=== PATIENT | male | born 1965 | race Asian ===

== ENCOUNTER 2016-09-15 08:07 | Inpatient (IN) | payer OTHER ==
[~2016-09-15] VITALS: Ht 172.7 cm; Wt 68.0 kg
[2016-09-15] VITALS (13 sets, daily range): BP systolic 104–131; BP diastolic 62–91; PULSE 81–100; RESP 14–16; TEMP 98–99.3; O2SAT 100
[~2016-09-15 08:07] MED LIST: ACET650S22 GT; ALBMDI INH; ASCO500T20 GT; ATOR20TA64 GT; ATRMDI INH; HYDR-1189 GT; INSU100V SQ; LEVE500T13 GT; PANT40SU2 GT; ZIN220 GT
--- NOTE | 2016-09-15 08:07 | NUR ---
PLACED IN BED 8, TRIAGED AT BEDSIDE
--- NOTE | 2016-09-15 08:08 | NUR ---
Pt brought in by ALS sent by for evalaution of anemia. Pt h/o vent dependent,quadriplegia s/p spinal injury,contractures,htn,ESRD.Pt has GT, baseline nonverbal,responsive to tactile stimuli.
--- NOTE | 2016-09-15 08:10 | NUR ---
ER at bedside examining patient.
[2016-09-15] MEDS ORDERED: ACETAMINOPHEN GT (08:54)
[2016-09-15] MEDS ORDERED: TYLENOL 160 MG/5 ML GT (08:54)
[2016-09-15] MEDS ORDERED: INSU100V (09:05)
[2016-09-15] MEDS ORDERED: FOLI-43 GT (09:05)
[2016-09-15] MEDS ORDERED: LIDOCAINE HCL NEB (09:05)
[2016-09-15 09:11] LABS: MEAN CORPUSCULAR HEMOGLOBIN 28 pg (27-31); MEAN CORPUSCULAR HGB CONC 32 % (32-36); MEAN CORPUSCULAR VOLUME 87 fL (79.0-98.0); PLATELET COUNT (AUTO) 197 K/uL (130-430); RED BLOOD CELL COUNT(AUTO) 2.11 MIL/uL (4.2-6.2); RED CELL DISTRIBUTION WIDTH 14.8 % (9.0-15.0); WHITE BLOOD COUNT (AUTO) 13.4 K/uL (4.8-10.8)
--- NOTE | 2016-09-15 09:11 | NUR ---
Telemetry strip printed, interpreted as SINUS RHYTHM at 98 bpm, and placed on the chart.
--- NOTE | 2016-09-15 09:16 | NUR ---
Patient will be admitted to care of . Admitted to Telemetry unit. Will go to room 110A. Belongings list completed. Summary report printed. Report given to Admission RN.
--- NOTE | 2016-09-15 09:23 | NUR ---
patient placed on vent with current settings of AC 16 450 +5 30% verbalized by EMT staff at bedside, no resp distress ntd on curnt setngs. sputum induction done
[2016-09-15 09:30] LABS: HEMOGLOBIN 5.9 g/dL (14.0-18.0)
[2016-09-15 09:31] LABS: HEMATOCRIT 18.4 % (36-54)
[2016-09-15 09:43] LABS: ALBUMIN 2.3 g/dL (3.4-4.8); CALCIUM 9.6 mg/dL (8.4-11.0); POTASSIUM 5.2 mmol/L (3.5-5.1); TOTAL BILIRUBIN 0.5 mg/dL (0.0-1.0); TOTAL PROTEIN, SERUM 8.1 g/dL (6.4-8.3)
--- NOTE | 2016-09-15 09:45 | NUR ---
INITIAL NOTE Late entry due to patient care. Report received by BRADY Baker at bedside. Patient received, non verbal. Trach to vent. Vent settings noted. No acute distress or SOB noted at this time. environmental monitoring technician in place, rhythm noted. IV site patent and intact. Plan of care unable to be discussed due to patients mental status, no family at bedside. Safety and fall precautions in place, Will continue to monitor.
[2016-09-15 10:42] LABS: ATYPICAL LYMPHOCYTES % 0 % (0-0); BAND % (MANUAL) 0 % (0-6); BASOPHILS % (MANUAL) 0 % (0-2); EOSINOPHILS % (MANUAL) 3 % (0-7); LYMPHOCYTES % (MANUAL) 7 % (20-46); MONOCYTES % (MANUAL) 9 % (0-11)
[2016-09-15 10:45] LABS: CREATININE 9.38 mg/dL (0.55-1.30)
[2016-09-15] MEDS ORDERED: IPRATROPIUM BROMIDE 17 mCg/ACTUATION, 12.9 GM AER.W.ADAP INH PRN (10:45)
[2016-09-15] MEDS ORDERED: ZOLPIDEM TARTRATE 5 MG TABLET PO PRN (10:45)
[2016-09-15] MEDS ORDERED: MORPHINE 2 MG/ML INJ. SYRINGE IVP PRN (10:45)
[2016-09-15] MEDS ORDERED: HYDROcodone/ACETAMIN 5-325 MG TAB (NORCO/ VICODIN) GT PRN (10:45)
[2016-09-15] MEDS ORDERED: ALBUTEROL MDI INHALATION 8 GM INH INH PRN (10:45)
[2016-09-15] MEDS ORDERED: ONDANSETRON HCL 4 MG/2 ML VIAL IVP PRN (10:45)
[2016-09-15] MEDS ORDERED: MAGNESIUM SULFATE 50 ML IV PRN (10:45)
[2016-09-15] MEDS ORDERED: DOCUSATE SODIUM 100 MG CAPSULE PO PRN (10:45)
[2016-09-15] MEDS ORDERED: ACETAMINOPHEN 325 MG TABLET PO PRN (10:45)
[2016-09-15] MEDS ORDERED: POTASSIUM CHLORIDE 10 MEQ TAB.PRT.SR GT PRN (10:45)
[2016-09-15] MEDS ORDERED: DEXTROSE 50% JECT 50 ML DISP.SYRIN IVP PRN (10:45)
[2016-09-15] MEDS ORDERED: LORazepam 2 MG/ML VIAL IVP PRN (10:45)
--- NOTE | 2016-09-15 10:58 | NUR ---
CRITICAL Dr. Turpin aware of patients critical lab value. BUN 197 / SUPERVISING BAILIFF 9.6. Orders received.
--- NOTE | 2016-09-15 11:24 | NUR ---
CONSULTS NEPHROLOGY CONSULT Spoke with Bertha regarding request for consultation with Dr. Aleman ([phone]) for reason: ESRD. PULMONARY CONSULT Spoke with Maricarmen regarding request for consultation with Dr. Buckley ([phone]) for reason: respiratory failure.
[2016-09-15] MEDS ORDERED: ALBUTEROL MDI INHALATION 8 GM INH INH SCH (12:00)
[2016-09-15] MEDS ORDERED: IPRATROPIUM BROMIDE 17 mCg/ACTUATION, 12.9 GM AER.W.ADAP INH SCH (12:00)
--- NOTE | 2016-09-15 12:23 | NUR ---
ROUNDS Patient repositioned with pillow support. Respirations even and unlabored. No pain indications at this time. Safety and fall precautions in place. Will continue to monitor.
[2016-09-15] MEDS ORDERED: IPRATROPIUM/ALBUTEROL SULFATE 3 ML AMPUL.NEB INH PRN (13:00)
--- NOTE | 2016-09-15 14:51 | NUR ---
ROUNDS Patient repositioned with pillow support. at bedside. No acute distress noted at this time. VSS. Safety and fall precautions in place, call light within reach. Will continue to monitor.
--- NOTE | 2016-09-15 19:03 | NUR ---
CLOSING NOTE Patient repositioned with pillow support. Trach to vent, settings noted. IV site patent and intact. GTF infusing as ordered, tolerated well 5ml residuals noted. All needs met throughout shift. Safety and fall precautions in place, will endorse to next shift.
[2016-09-15] MEDS: IPRATROPIUM/ALBUTEROL SULFATE 3 ML AMPUL.NEB INH SCH (19:48)
--- NOTE | 2016-09-15 20:00 | NUR ---
PM Assessment Received pt awake, nonverbal. Pt on mechanical ventilation, vent settings: AV 16, TV 450, Peep 5, Fio2 30%, pt tolerating current vent settings well. Pt suctioned as needed, with loose blood tinged sputum. Pt has Fredo catheter to left thigh, scheduled for hemodialysis tonight. G-tube infusing Diabetisource @ 50 ml/hr, 0 residuals noted. G-tube dressing site noted to have small amount of dried blood, will continue to monitor dressing site. Repositioned pt with pillow support with heel lifts boots in place.
[2016-09-15] MEDS: ATORVASTATIN 10 MG TABLET GT SCH (20:27)
[2016-09-15] MEDS: levETIRAcetam 500 MG TABLET GT SCH (20:27)
--- NOTE | 2016-09-15 22:03 | NUR ---
RN rounds Hemodialysis nurse at bedside, lab notified to call when 2 units PRBC ready to be transfused with dialysis. Pt in no respiratory distress, will continue to closely monitor.
--- NOTE | 2016-09-15 22:22 | NUR ---
MD HARRISON CALLED [facility] AT [phone]BHASIN CARMELITA ANALYSIS TESTER.
--- NOTE | 2016-09-15 22:35 | NUR ---
BT INITIATION: Consent signed per patient's agreeing to administration of blood. Blood has been type and crossmatched. Blood sent from blood bank. Information on unit of blood checked against patient wristband at bedside by two nurses. All information matches. Patient or responsible green party informed of potential complications associated with blood transfusion. Informed of possible transfusion reaction symptoms. Aware of need to notify nurse at once of itching, shortness of breath, flushing, feeling of impending doom, or other symptoms not previously present. Vital signs taken within 5 minutes prior to initiation of transfusion. logistic specialist will remain with patient for first 15 minutes of transfusion at which time vital signs will be re-assessed. First unit of blood will be given with hemodialysis.
--- NOTE | 2016-09-15 22:46 | NUR ---
2ND CALL OUT TO MD CALLED [facility] AT [phone]BHASIN SHAHAB WET AND DRY SUGAR BIN OPERATOR.
[2016-09-15] MEDS ORDERED: HEPARIN IV FLUSH 300 UNITS/3ML SYR INJ ONE (22:55)
[2016-09-15] MEDS ORDERED: HEPARIN SODIUM,PORCINE 5000 UNITS/ML VIAL ONE (23:16)
[2016-09-16] VITALS (18 sets, daily range): BP systolic 98–120; BP diastolic 61–74; PULSE 78–104; RESP 16–20; TEMP 97.6–99; O2SAT 98–100
--- NOTE | 2016-09-16 00:38 | NUR ---
RN Rounds Hemodialysis finished at this time, removed 2L. Pt in stable condition. Will continue to monitor.
[2016-09-16] MEDS: IPRATROPIUM/ALBUTEROL SULFATE 3 ML AMPUL.NEB INH SCH ×4 (00:45→20:02)
--- NOTE | 2016-09-16 02:15 | NUR ---
Second unit BT Second unit of blood begun at this time, VSS. Blood check with two nurses at the patients bedside. Will remain with patient for 15 minutes.
--- NOTE | 2016-09-16 04:30 | NUR ---
RN Rounds Blood transfusion ongoing, pt resting with eyes closed. No s/s of acute distress noted. Fall precautions in place, will continue to monitor.
--- NOTE | 2016-09-16 07:31 | NUR ---
Closing notes Pt resting in bed, no s/s of acute distress noted. Endorse care to day shift nurse.
--- NOTE | 2016-09-16 07:35 | NUR ---
am rounds; patient closed eyes. on trach vent,fio2-30%,good saturation.on air loss mattress bed. with left chest iv saline lock intact. with left femoral kirstin catheter,dressing dry and intact.gtube feeds on going,dressing dry and intact. with optifoam dressing at sacral area and left buttocks area,dry and in placed. sinus rhythm on the monitor.
[2016-09-16 09:14] LABS: BASOPHILS % (AUTO) 0.3 % (0.0-2.0); EOSINOPHILS # (AUTO) 0.2 K/uL (0.0-0.4); EOSINOPHILS % (AUTO) 2.2 % (0.0-4.0); HEMATOCRIT 25.3 % (36-54); HEMOGLOBIN 8.4 g/dL (14.0-18.0); LYMPHOCYTES # (AUTO) 0.9 K/uL (1.0-5.5); LYMPHOCYTES % (AUTO) 8.2 % (20.5-51.5); MEAN CORPUSCULAR HEMOGLOBIN 29 pg (27-31); MEAN CORPUSCULAR HGB CONC 33 % (32-36); MEAN CORPUSCULAR VOLUME 87 fL (79.0-98.0); MONOCYTES # (AUTO) 1.1 K/uL (0.0-1.0); MONOCYTES % (AUTO) 10.1 % (1.7-9.3); NEUTROPHILS # (AUTO) 8.7 K/uL (1.8-7.7); NEUTROPHILS % (AUTO) 79.2 % (40.0-70.0); PLATELET COUNT (AUTO) 187 K/uL (130-430); RED BLOOD CELL COUNT(AUTO) 2.92 MIL/uL (4.2-6.2); RED CELL DISTRIBUTION WIDTH 14.9 % (9.0-15.0); WHITE BLOOD COUNT (AUTO) 10.9 K/uL (4.8-10.8)
[2016-09-16] MEDS: FOLIC ACID 1 MG TABLET GT SCH (09:19)
[2016-09-16] MEDS: levETIRAcetam 500 MG TABLET GT SCH ×2 (09:19→22:03)
--- NOTE | 2016-09-16 09:29 | NUR ---
meds/gtube: with minimal residuals noted prior to giving meds. well tolerated po crushed meds.
--- NOTE | 2016-09-16 09:44 | NUR ---
Nutrition Update Brady Scale 14 noted. Pt admitted for severe anemia. Diet: Diabetisource AC at 50 ml/hr, Free Water Flush: 150 via G-tube BMI: 22.8 kg/m2 RD to follow per nutrition care standards.
[2016-09-16 09:52] LABS: CREATININE 7.1 mg/dL (0.55-1.30); POTASSIUM 4.6 mmol/L (3.5-5.1)
--- NOTE | 2016-09-16 11:12 | NUR ---
blood sugar: blood sugar taken,no insulin coverage per sliding scale.
--- NOTE | 2016-09-16 12:05 | NUR ---
ROUNDS: WITH SAME VENT SETTINGS,FIO2=30%.GOOD SATURATION.WELL TOLERATED. GTUBE FEEDS ON GOING. STABLE .
--- NOTE | 2016-09-16 14:40 | NUR ---
ROUNDS: AWAKE BUT NON VERBAL,NO RESPONSE TO VERBAL COMMAND.FIO2=30%,GOOD SATURATION. GTUBE FEEDS ON GOING. CONTINUE TO MONITOR.
--- NOTE | 2016-09-16 16:31 | NUR ---
ROUNDS; STILL WITH SAME VENT SETTINGS,FIO2=30%,O2 SATURATIONS=99-100%. WITH GTUBE FEEDS ON GOING AND IN PLACED.
--- NOTE | 2016-09-16 17:25 | NUR ---
BLOOD SUGAR: BLOOD SUGAR TAKEN,NO INSULIN COVERAGE PER SLIDING SCALE.
--- NOTE | 2016-09-16 18:37 | NUR ---
CLOSING NOTES: PATIENT AWAKE,NON VERBAL. QUADRIPLEGIC. GTUBE FEEDS ON GOING. WITH SAME VENT SETTINGS.FIO2=30%. O2 SATURATION=99-100%. NO DISTRESS. LEFT FEMORAL TAMIKA CATHETER IN PLACED,DRESSING DRY AND INTACT.CONTINUE TO MONITOR.
--- NOTE | 2016-09-16 19:15 | NUR ---
change of shift.pt.presents challenge.ventitator dependent.per report the vent setting correspond 2 the recent settings. g-tube feed.pt.2 submit 2 hemo dialysis therapy 2 night.call light placed w/in pt's reach.
--- NOTE | 2016-09-16 19:45 | NUR ---
pt.assessed.v/s assessed.ventilator settings reviewed.g-tube feed,g-tube site assessed.g-tube residual assessed. call light w/in pt's reach.
--- NOTE | 2016-09-16 20:00 | NUR ---
pt.assessed.pt.repositioned,pt.suctioned.call light w/in pt's reach.
--- NOTE | 2016-09-16 21:00 | NUR ---
pt.assessed.pt.suctioned.210p medications administered.call light placed w/in pt's reach.
--- NOTE | 2016-09-16 22:00 | NUR ---
pt.assessed.pt.suctioned.pt.repositioned.call light w/in pt's reach.
[2016-09-16] MEDS: ATORVASTATIN 10 MG TABLET GT SCH (22:03)
--- NOTE | 2016-09-16 23:15 | NUR ---
pt.assessed.hemo dialysis nsg arrival.hemo dialysis therapy 2 b initiated.call light w/in pt's reach.assisted the h/d nsg repoisition pt.4 to facilitate acces to central line:hemo dialysis access:
[2016-09-17] VITALS (17 sets, daily range): BP systolic 94–111; BP diastolic 67–77; PULSE 82–111; RESP 16–22; TEMP 97.4–100.5; O2SAT 99–100; Ht 172.7 cm; Wt 68.0 kg
--- NOTE | 2016-09-17 | NUR ---
pt.assessed.pt.presents stable status.hemo dialysis in progress.call light w/in pt's reach.h/d nsg presents no request/ assistance @this hour.
[2016-09-17] MEDS: IPRATROPIUM/ALBUTEROL SULFATE 3 ML AMPUL.NEB INH SCH ×3 (01:00→21:48)
--- NOTE | 2016-09-17 01:00 | NUR ---
pt.assessed.pt.presents stable status.hemo dialysis in progress.call light w/in pt's reach.
--- NOTE | 2016-09-17 02:00 | NUR ---
pt.assessed.hemo dialysis therapy completed:3-litres removed/exchange.v/s stable.temp@ 0100a ws elevated;101 @this hour is 98.8.g-tube feeding resumed.pt.repositioned.pt.suctioned.call light w/in pt's reach.
--- NOTE | 2016-09-17 02:25 | NUR ---
pt.assessed.i have attempted 2 weight the pt.per bed scale.the scale is non functional.call light placed w/in pt's reach.
--- NOTE | 2016-09-17 04:00 | NUR ---
pt.assessed.v/s assessed.vent settings reviewed.g-tube feeding assessed.pt.repositioned.pt.suctioned.call light palced w/in pt's reach. Addendum: 09/17/16 at 0415 by J Carlos Morris RN v/s values w/in normal limits:note temp.
--- NOTE | 2016-09-17 08:00 | NUR ---
INITIAL NOTE PT LYING IN BED, EYES CLOSED, AROUSES TO STIMULI, VENT DEPENDENT SETTING TV 450, FIO2 30 PEEP5 PSV 10, VSS STABLE AT THIS TIME, TEMPERATURE NOTED TO BE 98.5, SINUS RHYTHM ON TELEMONITOR, GTUBE IN L=PLACE AND INFUSING DIABETIC SOURCE AT 50CC, SAFETY MEASURES IN PLACE, BED IN LOW POSITION, WILL FOLLOW UP
[2016-09-17 08:13] LABS: BASOPHILS % (AUTO) 0.4 % (0.0-2.0); EOSINOPHILS # (AUTO) 0.2 K/uL (0.0-0.4); EOSINOPHILS % (AUTO) 2.4 % (0.0-4.0); HEMATOCRIT 26.6 % (36-54); HEMOGLOBIN 8.6 g/dL (14.0-18.0); LYMPHOCYTES # (AUTO) 0.9 K/uL (1.0-5.5); LYMPHOCYTES % (AUTO) 8.6 % (20.5-51.5); MEAN CORPUSCULAR HEMOGLOBIN 29 pg (27-31); MEAN CORPUSCULAR HGB CONC 33 % (32-36); MEAN CORPUSCULAR VOLUME 88 fL (79.0-98.0); MONOCYTES # (AUTO) 1.1 K/uL (0.0-1.0); MONOCYTES % (AUTO) 10.7 % (1.7-9.3); NEUTROPHILS # (AUTO) 8.2 K/uL (1.8-7.7); NEUTROPHILS % (AUTO) 77.9 % (40.0-70.0); PLATELET COUNT (AUTO) 179 K/uL (130-430); RED BLOOD CELL COUNT(AUTO) 3.01 MIL/uL (4.2-6.2); WHITE BLOOD COUNT (AUTO) 10.4 K/uL (4.8-10.8)
[2016-09-17] MEDS: FOLIC ACID 1 MG TABLET GT SCH (08:30)
[2016-09-17] MEDS: levETIRAcetam 500 MG TABLET GT SCH ×2 (08:30→20:40)
[2016-09-17 08:43] LABS: CALCIUM 9.7 mg/dL (8.4-11.0); CREATININE 5.64 mg/dL (0.55-1.30); POTASSIUM 4.5 mmol/L (3.5-5.1)
--- NOTE | 2016-09-17 10:00 | NUR ---
ROUNDS PT LYING IN BED, NO S/S OF DISTRESS, PT CLEANED AND REPOSITIONED WITH AID OF MARKETING CAMPAIGN ANALYST, GTUBE DRESSING CHANGED, RESIDUAL AMOUNT 15CC NOTED, REPLACED AND FLUSHED WITH 500CC H2O, SAFETY MEASURES IN PLACE, CALL LIGHT WITHIN REACH, SIDE RAILS UP, WILL FOLLOW UP
--- NOTE | 2016-09-17 11:30 | NUR ---
Wound Evaluation: Late note for 1130 secondary to patient care. Wound consult orders received from Dr. Turpin. Thank you, Dr. Turpin, for the consult. Patient received in a Hill-ROM bed with a low air-loss mattress, awake, non-verbal, non-responsive to verbal commands. Brady score is an 11. Skin is in poor condition. Patient is unable to turn in bed independently. Past Medical History: Spinal Cord Injury with resulting Quadriplegia, Ventilator dependent, Dialysis dependent, Chronic Respiratory Failure, Dysphagia, End-Stage Renal Disease, G-Tube placement, and Tracheostomy. Recent labs: WBC 10.4, RBC 3.01, Hgb 8.6, Hct 26.6, BUN 89, Creat 5.64, GFR 11, Gluc 115, Mg 2.5, Alb 2.3. Intrinsic factors that delay wound healing: Chronic Respiratory Failure, End-Stage Renal Disease, and Hypoalbuminemia. Extrinsic factors that delay wound healing: Immobility. MRSA Screen results negative. Blood Culture x 2 in progress. Wound Assessment: 1) Left Sacral Area: Appears to be non-intact skin over scar tissue, present on admission. Wound bed is 70% red tissue, 30% dark discolor. No odor, no drainage. Deidra-wound and surrounding tissue has scar tissue. Measures 7.0 cm x 4.6 cm. 2) Left Posterior Proximal Thigh: Appears to be non-intact skin over scar tissue, present on admission. Wound bed is 80% dark red tissue, 20% pink tissue, with dry, flaky skin. No odor, no drainage. Deidra-wound and surrounding tissue has scar tissue. Measures 1.5 cm x 1.5 cm. Recommend: Cleanse wounds with normal saline. Put moisture barrier cream onto wounds and deidra-wounds. Put Hydrogel onto any portion of wound beds not covered by moisture barrier cream. Cover with foam dressings. Perform wound care daily, and as needed for dressing soiling or dislodgment. 3) Right Buttock: Scar tissue, present on admission. No odor, no drainage. Recommend: Cleanse site with mild soap and water. Pat dry. Put moisture barrier cream onto site. Cover with foam dressing. Perform site care daily, and as needed for dressing soiling or dislodgment. 4) Left Ear, in Helical Fold: Appears to be a moisture associated wound. 100% pink tissue. No odor, scant sanguineous drainage. Deidra-wound intact. Measures 1.2 cm x 0.2 cm. Recommend: Cleanse site with normal saline. Put SurePrep onto deidra-site. Put oil emulsion onto site, then non-adherent pad (both cut to size). Cover with transparent dressing. Perform site care daily, and as needed for dressing soiling or dislodgment. 5) Left Medial Heel: 6) Right Foot, Lateral Border: Blanchable redness, present on admission. No odor, no drainage. Recommend: No dressings needed. Continue to monitor sites for opening or worsening condition. Also recommend: Reposition patient side to side only every two hours with pillow support, and off-load pressure areas with pillows for pressure re-distribution. Perform skin care and monitor skin integrity q shift. Use moisture barrier cream on deidra, buttocks, and other moisture susceptible areas qid and as needed for soiling. Elevate, offload, and float bilateral heels and elbows with pillows. Maintain patient on a low air-loss mattress.
--- NOTE | 2016-09-17 12:00 | NUR ---
WOUND CARE PERFORMED AFTER CONSULT WITH GUILLERMO, WOUND CARE NURSE. DRESSING TO SACRAL AREA CHANGED, CLEANSED WITH NORMAL SALINE, PAT DRY, APPLIED ZGUARD AND HYDROGEL TO OPEN AREAS, COVERED WITH FOAM DRESSING LEFT THIGH WOUND, CLEANSED WITH NORMAL SALINE, PAT DRY, APPLIED ZGUARD TO SURROUNDING TISSUE AND HYDROGEL TO OPEN AREA, COVERED WITH FOAM DRESSING.
--- NOTE | 2016-09-17 14:00 | NUR ---
DRESSING CHANGED TO LEFT FEMORAL EMILY CATH INSERTION SITE WAS EXPOSED, DRESSING WAS SOILED. DRESSING CHANGED USING STERILE TECHNIQUE, REDNESS NOTED AT INSERTION SITE, NO DRAINAGE OR ODOR NOTED. PT REPOSITIONED AND PROVIDED PILLOW SUPPORT. VSS, NO S/S OF DISTRESS NOTED.
[2016-09-17] MEDS ORDERED: ZOLPIDEM TARTRATE 5 MG TABLET GT PRN (14:54)
[2016-09-17] MEDS ORDERED: ACETAMINOPHEN 650 MG/20.3 ML UDC GT PRN (15:00)
--- NOTE | 2016-09-17 16:00 | NUR ---
ROUNDS PT LYING IN BED, NO S/S OF DISTRESS, PT SUCTIONED PRN, VSS, PT REPOSITIONED, SAFETY MEASURES IN PLACE, BED IN LOW POSITION, CALL LIGHT WITHIN REACH, WILL FOLLOW UP.
--- NOTE | 2016-09-17 18:00 | NUR ---
CLOSING NOTE PT LYING IN BED, NO S/S OF DISTRESS, VSS, GAVE PT COLACE PRN DUE TO NO BOWEL MOVEMENT, WILL ENDORSE TO FOLLOWING SHIFT TO GET STOOL SAMPLE, GTUBE FEEDING CHANGED NOVASOURCE RENAL AT 40CC, ORDER NOTED AND FEEDING CHANGED, VENT SETTING MAINTAINED THROUGH SHIFT, SAFETY PRECAUTIONS MAINTAINED THROUGH SHIFT, BED IN LOW POSITION, CALL LIGHT WITHIN REACH, WILL GIVE REPORT TO ONCOMING SHIFT.
[2016-09-17] MEDS: DOCUSATE SODIUM 100 MG/10 ML UDC GT PRN (18:13)
--- NOTE | 2016-09-17 20:00 | NUR ---
NOTES; Pt is in bed, eyes open, nonverbal, responsive to touch. No acute distress noted. Pt is on trach to vent, settings noted. Pt tolerating vent settings well. IV site to the chest wall noted. RN covering assessed line patent and intact. Ordered G-Tube Feeding infusing well. 20ml residual noted. Wound to the sacral and left buttocks with dressing clean,dry, and intact. pt is contacted to lluvia lower ext. pillow support in place. Pt is on air mattress. Fall and aspiration in place, Safety measures in progress. Bed locked and in low position. side rails up x3. Head of bed elevated to prevent pt from aspirating. Call light within reach. will endorse to next shift.
[2016-09-17] MEDS: ATORVASTATIN 10 MG TABLET GT SCH (20:40)
--- NOTE | 2016-09-17 22:30 | NUR ---
NOTES; Trach suction and mouth care provided, repositioned with pillow support. Pt is tolerating vent settings and g-tube feeding well. No residual noted. No pain indications at this time. Safety measures, aspiration and fall precautions in place. Will continue to monitor.
[2016-09-18] VITALS (20 sets, daily range): BP systolic 98–112; BP diastolic 58–82; PULSE 85–117; RESP 17–20; TEMP 97.9–99.8; O2SAT 96–100
--- NOTE | 2016-09-18 | NUR ---
NOTES; INCONTINENT FOR LARGE FORMED STOOL. TOTAL BED BATH/CHG BATH GIVEN. BABAR CARE PROVIDED. SACRAL AND LEFT BUTTOCKS WOUND SOILED, DRESSING REMOVED. CLEANSE WOUND SITE WITH NS. HYDROGEL TO WOUND BASE, Z-GUARD TO BABAR WOUND AND APPLIED FOAM DRESSING. REPOSITIONED. SAFETY MEASURES AND ASPIRATION PRECAUTION IN PROGRESS.
--- NOTE | 2016-09-18 02:00 | NUR ---
NOTES; Patient repositioned with pillow support. Pt is tolerating vent settings well. No pain indications at this time. Safety and fall precautions in place. Will continue to monitor.
[2016-09-18] MEDS: INSULIN ASPART 100 UNITS/ML, 10 ML VIAL (NovoLOG) SUBCUT PRN ×2 (05:54→17:05)
--- NOTE | 2016-09-18 05:57 | NUR ---
NOTES; BLOOD SUGAR FOUND TO BE 181. INSULIN ADMINISTERED PER SLIDING SCALE ORDER.WILL CONTINUE TO MONITOR.
[2016-09-18 07:16] LABS: CALCIUM 9.7 mg/dL (8.4-11.0); POTASSIUM 4.8 mmol/L (3.5-5.1)
[2016-09-18 07:20] LABS: BASOPHILS % (AUTO) 0.3 % (0.0-2.0); EOSINOPHILS # (AUTO) 0.4 K/uL (0.0-0.4); EOSINOPHILS % (AUTO) 2.6 % (0.0-4.0); HEMATOCRIT 24.4 % (36-54); HEMOGLOBIN 8.2 g/dL (14.0-18.0); LYMPHOCYTES # (AUTO) 0.7 K/uL (1.0-5.5); LYMPHOCYTES % (AUTO) 5.1 % (20.5-51.5); MEAN CORPUSCULAR HEMOGLOBIN 29 pg (27-31); MEAN CORPUSCULAR HGB CONC 34 % (32-36); MEAN CORPUSCULAR VOLUME 87 fL (79.0-98.0); MONOCYTES # (AUTO) 1.1 K/uL (0.0-1.0); MONOCYTES % (AUTO) 7.7 % (1.7-9.3); NEUTROPHILS # (AUTO) 12.3 K/uL (1.8-7.7); NEUTROPHILS % (AUTO) 84.3 % (40.0-70.0); PLATELET COUNT (AUTO) 196 K/uL (130-430); RED CELL DISTRIBUTION WIDTH 14.5 % (9.0-15.0)
[2016-09-18 07:28] LABS: WHITE BLOOD COUNT (AUTO) 14.5 K/uL (4.8-10.8)
[2016-09-18] MEDS: IPRATROPIUM/ALBUTEROL SULFATE 3 ML AMPUL.NEB INH SCH ×3 (07:44→23:37)
--- NOTE | 2016-09-18 07:45 | NUR ---
INITIAL NOTE PT IN BED, APPEARS TO BE SLEEPING, NONVERBAL, RESPONSIVE TO TOUCH, NO S/S OF DISTRESS NOTED, PT HAS TRACH IN ON VENTILATOR, SETTINGS NOTED. IV SITE TO LEFT CHEST WALL SALINE LOCK, DRESSING CLEAN AND INTACT. GTUBE IN PLACE, NO RESIDUAL NOTED. DRESSING NOTED TO SACRUM AND LEFT THIGH CLEAN, DRY AND INTACT. LEFT FEMORAL IV ACCESS NOTED, DRESSING CLEAN DRY AND INTACT. PILLOW SUPPORT IN PLACE, SAFETY AND ASPIRATION PRECAUTIONS IN PLACE, VSS, WILL FOLLOW UP.
[2016-09-18 07:47] LABS: CREATININE 7.96 mg/dL (0.55-1.30)
--- NOTE | 2016-09-18 08:05 | NUR ---
DR QUIJANO RETURNED PAGE, REPORTED CRITICAL LAB VALUES OF BUN 125, CR 7.96. RECEIVED NEW ORDERS TO SCHEDULE DIALYSIS FOR TODAY. ORDERS NOTED AND CARRIED OUT. WILL FOLLOW UP.
[2016-09-18] MEDS: levETIRAcetam 500 MG TABLET GT SCH ×2 (08:52→22:23)
[2016-09-18] MEDS: DOCUSATE SODIUM 100 MG/10 ML UDC GT PRN (08:52)
[2016-09-18] MEDS: FOLIC ACID 1 MG TABLET GT SCH (08:52)
[2016-09-18] MEDS ORDERED: BISACODYL 10 MG/SUPPOSITORY RC ONE (09:15)
--- NOTE | 2016-09-18 10:00 | NUR ---
PROVIDED ORAL CARE AND SUCTIONING, PT REPOSITIONED TO OPPOSITE SIDE WITH PILLOW SUPPORT. SAFETY MEASURES IN PLACE, BED IN LOW POSITION AND LOCKED, WILL FOLLOW UP.
--- NOTE | 2016-09-18 12:06 | NUR ---
DISCHARGE PLANNING Faxed referral to [phone] for possible weekend discharge. Will follow up. Placed transportation packet in nurses station. Any ambulance can be arranged for CCT (Trach Vent) transport.
--- NOTE | 2016-09-18 12:06 | NUR ---
ROUNDS PT REPOSITIONED WITH PILLOW SUPPORT TO LOWER EXTREMITIES, PROVIDED ORAL AND TRACHEAL SUCTIONING, ADMINISTERED PRN SUPPOSITORY, PT TOLERATED WELL, SAFETY AND FALL PRECAUTIONS IN PLACE, BED IN LOW POSITION, CALL LIGHT WITH IN REACH.
[2016-09-18 12:08] LABS: HEPATITIS A AB, IgM Negative (Negative); HEPATITIS B CORE AB, IgM Negative (Negative); HEPATITIS B SURFACE AG Negative (Negative)
--- NOTE | 2016-09-18 13:49 | NUR ---
ROUNDS PT LYING IN BED, NO S/S OF DISTRESS NOTED, AWAKE, EYES OPEN, SAFETY MEASURES IN PLACE, BED IN LOW POSITION, WILL FOLLOW UP.
--- NOTE | 2016-09-18 14:33 | NUR ---
PT HAD BOWEL MOVEMENT, SAMPLE TAKEN TO LAB, PT CLEANED. WOUND CARE PROVIDED DUE TO SOILED DRESSINGS, WOUNDS CLEANSED WITH NORMAL SALINE, PAT DRY, COVERED WITH ZGUARD, HYDROGEL APPLIED TO OPEN AREAS, COVERED WITH FOAM DRESSING. LEFT GROIN ACCESS SURROUNDING AREA CLEANSED WITH HCG WIPES. DRESSING CLEAN AND INTACT. PT REPOSITIONED, SAFETY MEASURES IN PLACE, RT AT BEDSIDE FOR BREATHING TREATMENT.
--- NOTE | 2016-09-18 16:00 | NUR ---
Call from steel pickler. She will be hear at 1700 for dialysis. She asked for the HD order and CBC and CMP to be printed out and placed in chart.
--- NOTE | 2016-09-18 17:00 | NUR ---
ACCUCHECK 160, 2 UNITS NOVOLOG GIVEN PER INSULIN SLIDING SCALE. PT REPOSITIONED, NO S/S OF DISTRESS, VSS, SAFETY MEASURE IN PLACE, BED IN LOW POSITION, WILL FOLLOW UP
--- NOTE | 2016-09-18 18:11 | NUR ---
CLOSING NOTE PT LYING IN BED, NO S/S OF DISTRESS, VSS, IV TO LEFT CHEST WALL INTACT, VENT SETTING NOTED, PT TOLERATING WELL, SUCTIONED THROUGH SHIFT PRN, GTUBE INFUSING, NO RESIDUAL NOTED, DRESSING TO SACRUM AND LEFT POSTERIOR UPPER THIGH INTACT, CLEAN AND DRY. DRESSING LEFT EAR, CLEAN, DRY AND INTACT. PT REPOSITIONED WITH PILLOW SUPPORT TO BILATERAL LOWER EXTREMITIES. SAFETY AND FALL PRECAUTIONS MAINTAINED THROUGH SHIFT., BED IN LOW POSITION. CALL LIGHT WITHIN REACH. WILL GIVE REPORT TO FOLLOWING SHIFT.
--- NOTE | 2016-09-18 18:45 | NUR ---
DIALYSIS NURSE AT BEDSIDE, WILL ENDORSE TO FOLLOWING SHIFT.
--- NOTE | 2016-09-18 19:55 | NUR ---
paged for Dr Turpin,, dialed . s/w [facility].
--- NOTE | 2016-09-18 19:58 | NUR ---
NOTES; DR ALMONTE CALLED AND INFORMED ABOUT PT WBC OF 14.5 AND PT IS NOT ON ANY ANTIBIOTIC. STATED " I KNOW, I'M AWARE". CHARGE NURSE AND RN COVERING NOTIFIED.
--- NOTE | 2016-09-18 20:00 | NUR ---
NOTES; Pt is in bed, eyes open, nonverbal, responsive to touch. No acute distress noted. Pt is on trach to vent, settings noted. Pt tolerating vent settings well. Dialysis is ongoing. Dialysis nurse at bedside. IV site to the left chest wall noted. Dressing is clean,dry, and intact. Ordered G-Tube Feeding infusing well. No residual noted. Wound to the sacral and left buttocks with dressing clean,dry, and intact. pt is contacted to lluvia lower ext. pillow support in place. Pt is on air mattress. Fall and aspiration precaution in place. Safety measures in progress. Bed locked and in low position. side rails up x3. Head of bed elevated to prevent pt from aspirating. Call light within reach. Will continue to monitor.
--- NOTE | 2016-09-18 21:45 | NUR ---
NOTES; DIALYSIS IS COMPLETED. BP 112/82, HR 110. NO APPARENT DISTRESS NOTED. TRACH SUCTION AND MOUTH CARE PROVIDED. SAFETY MEASURES ANY ASPIRATION PRECAUTION IN PROGRESS.
[2016-09-18] MEDS: ATORVASTATIN 10 MG TABLET GT SCH (22:23)
--- NOTE | 2016-09-18 22:30 | NUR ---
NOTES; SCHEDULED PO MEDICATION ADMINISTERED VIA G-TUBE. PT TOLERATED MEDS WELL. BLOOD SUGAR FOUND TO BE 140. NO INSULIN NEEDED PER SLIDING SCALE ORDER.
[2016-09-19] VITALS (19 sets, daily range): BP systolic 90–115; BP diastolic 58–78; PULSE 93–116; RESP 16–20; TEMP 98.1–100.1; O2SAT 100
[2016-09-19] MEDS: IPRATROPIUM/ALBUTEROL SULFATE 3 ML AMPUL.NEB INH SCH ×4 (01:19→19:00)
--- NOTE | 2016-09-19 05:00 | NUR ---
NOTES; G-TUBE SIDE DRESSING REMOVED. CLEANSE SITE WITH NS. DRESSING APPLIED.
--- NOTE | 2016-09-19 06:47 | NUR ---
NOTES; BLOOD SUGAR FOUND TO BE 117. NO INSULIN NEEDED PER INSULIN SLIDING SCALE ORDER. TRACH SUCTIONING AND MOUTH CARE PROVIDED. ALL NEEDS ATTENDED TO. HEAD OF BED ELEVATED TO PREVENT PT FROM ASPIRATING. SAFETY MEASURES MAINTANED. FALL PRECAUTION IN PROGRESS. WILL CONTINUE TO MONITOR.
[2016-09-19 07:17] LABS: CALCIUM 9.5 mg/dL (8.4-11.0); CREATININE 5.71 mg/dL (0.55-1.30); POTASSIUM 4.2 mmol/L (3.5-5.1)
[2016-09-19 07:24] LABS: BASOPHILS # (AUTO) 0.1 K/uL (0.0-0.2); BASOPHILS % (AUTO) 0.5 % (0.0-2.0); EOSINOPHILS # (AUTO) 0.3 K/uL (0.0-0.4); EOSINOPHILS % (AUTO) 2.4 % (0.0-4.0); HEMATOCRIT 24.8 % (36-54); HEMOGLOBIN 8.5 g/dL (14.0-18.0); LYMPHOCYTES # (AUTO) 0.7 K/uL (1.0-5.5); LYMPHOCYTES % (AUTO) 6.2 % (20.5-51.5); MEAN CORPUSCULAR HEMOGLOBIN 30 pg (27-31); MEAN CORPUSCULAR HGB CONC 34 % (32-36); MEAN CORPUSCULAR VOLUME 86 fL (79.0-98.0); MONOCYTES # (AUTO) 1.4 K/uL (0.0-1.0); MONOCYTES % (AUTO) 11.9 % (1.7-9.3); PLATELET COUNT (AUTO) 159 K/uL (130-430); RED BLOOD CELL COUNT(AUTO) 2.87 MIL/uL (4.2-6.2); RED CELL DISTRIBUTION WIDTH 14.5 % (9.0-15.0); WHITE BLOOD COUNT (AUTO) 11.5 K/uL (4.8-10.8)
--- NOTE | 2016-09-19 08:00 | NUR ---
INITIAL NOTE PT LYING IN BED, EYES OPEN, NONVERBAL, NO S/S OF DISTRESS NOTED, VENT SETTINGS NOTED. IV SITE TO LEFT CHEST SL DRESSING CLEAN DRY AND INTACT. GTUBE IN PLACE, RESIDUAL NOTED TO BE 150, FEEDING HELD AT THIS TIME, NOTED LEFT GROIN IV ACCES SITE, DRESSING CLEAN, DRY AND INTACT. PT POSITIONED WITH PILLOW SUPPORT TO LOWER EXTREMITIES, SAFETY AND FALL PRECAUTIONS IN PLACE, WILL FOLLOW UP.
[2016-09-19] MEDS: FOLIC ACID 1 MG TABLET GT SCH (08:52)
[2016-09-19] MEDS: levETIRAcetam 500 MG TABLET GT SCH ×2 (08:52→21:21)
--- NOTE | 2016-09-19 10:00 | NUR ---
ROUNDS PT REPOSITIONED WITH PILLOW SUPPORT TO LOWER EXTREMITIES, PT SUCTIONED VIA MOUTH AND TRACH, MODERATE SECRETIONS NOTED, ORAL HYGIENE PROVIDED, PT TOLERATED WELL, SAFETY AND ASPIRATION PRECAUTIONS IN PLACE, HOB ELEVATED, BED IN LOW POSITION, WILL FOLLOW UP.
--- NOTE | 2016-09-19 10:47 | NUR ---
DR ALMONTE MADE ROUNDS
[2016-09-19] MEDS: INSULIN ASPART 100 UNITS/ML, 10 ML VIAL (NovoLOG) SUBCUT PRN ×2 (11:51→21:20)
--- NOTE | 2016-09-19 11:53 | NUR ---
accucheck 153 covered with 2 units insulin per sliding scale
--- NOTE | 2016-09-19 12:59 | NUR ---
GTUBE FEEDING CONTINUED, NO RESIDUAL NOTED, FLUSHED WITH 150CC WATER
--- NOTE | 2016-09-19 16:00 | NUR ---
Wound Care to sacrum and left buttock Wounds cleansed with normal saline, pat dry, applied zguard, covered with foam dressing. pt tolerated well. Pt repositioned to opposite side with pillow support and suctioned via trach and mouth, moderate secretions noted, safety measures in place, bed in low position, will continue to monitor.
--- NOTE | 2016-09-19 17:09 | NUR ---
CM DC PLANNING: REC'D MD ORDER FROM DR. ALMONTE ABOUT DC TODAY BACK TO [facility]; DISCUSSED THE DIALYSIS SITUATION INITIALLY WITH DR. ALMONTE; HE WAS OK WITH Pt DISCHARGING BACK TODAY. REVIEWED MEDICAL RECORDS AND LABS DURING IN-Pt STAY. CALLED TO HD CENTER TO DISCUSS WHETHER Pt COULD HAVE SHORT DIALYSIS ON WEDNESDAY SINCE IT WOULD BE 3 DAYS UNTIL NEXT HD SESSION. PER DUKE, RN AT [facility], AND HAT LACER/JENNIE, IT WAS LEARNED THAT PER REGULATIONS, ALL VENT Pts MUST BE DIALYZED ON T-TH-SAT SCHEDULE TO AVOID CROSS CONTAMINATION WITH AMBULATORY PATIENTS AND THEY HAVE RT AVAILABLE TO WORK AT CENTER ON T-Th-SAT DAYS. CM WAS PROVIDED WITH HD TRANSPORT MD [employer], [employer] #: [phone]. CM ATTEMPTED TO CONTACT TRANSPORT MD [employer], S/W REP AT [employer] AND LEARNED THAT THEY DO NOT HAVE RT AVAILABLE TODAY TO PROVIDE AMB TRANSPORT; AND ON SUNDAYS, THEY ONLY DO BLS TRANSPORTS NO CCT/ACLS/RT(RESP THERAPIST) ARE AVAILABLE. THIS CM WAS ABLE TO CONFIRM THAT TUES. TRANSPORT PICK-UP FOR HD FROM [facility] IS SCHEDULED AT THIS TIME. CM CONTACTED [facility] AND LEARNED THAT DR. WHATLEY IS ACADEMIC SUPPORT ASSISTANT TODAY. DR. WHATLEY WAS PAGED TO CONTACT THIS CM TO DISCUSS DIALYSIS SITUATION/NEED FOR SAFE DISCHARGE. DR. WHATLEY INFORMED AND AWARE OF SCHEDULING AT [facility] Pts AND THAT WAS NOT ABLE TO GET TRANSPORT FOR Pt TO GO OUT-Pt TODAY, SO, DR. WHATLEY STATED HE WOULD ORDER HD FOR 2 HOURS TODAY. SDCH PROCESS IS FOR THE ENERGY CROP FARMER TO OBTAIN CLEARANCE FROM DISHWASHING MACHINE REPAIRER/DR. SHAH TO ORDER HD SESSIONS 2 DAYS IN A ROW OR ON DAY OF DC. PER ENERGY CROP FARMER/UMER, EXT. [phone] SHE WAS NOT GETTING THE OK FROM DR. SHAH FOR HD TODAY. DR. ALMONTE WAS UPDATED RE: NEED FOR EXTRA HD SESSION TODAY FOR 2 HRS; DR. ALMONTE ORDERED TO HOLD DC TODAY; AND TO SEND Pt TO FACILITY TOMORROW MORNING. CM CONTACTED DR. SHAH TO EXPLAIN THE SAFE DISCHARGE ASPECTS OF HD TODAY FOR SHORT SESSION VERSUS Pt DISCHARGING TODAY WITHOUT DIALYSIS TODAY AND WAITING [address]EXT SESSION. [address]. SHAH TO DISCUSS WITH DR. WHATLEY/OUTSIDE SALES ASSOCIATE. CM CONTACTED [facility]; SPOKE WITH RN/SARAH AND OBTAINED ROOM # 211-B FOR Pt TO RE-ADMIT TO WHETHER TODAY OR TOMORROW. KEO PROVIDED SARAH WITH [facility] CONTACT NUMBER: [phone]. BRADY/PALLAVI WAS NOTIFIED RE: DC POC FOR TODAY OR TOMORROW DEPENDING UPON DR. SHAH's APPROVAL FOR SHORT HD SESSION TODAY. BRADY/PALLAVI WILL NOTIFY MARY/ROSCOE RE: DC PLANS. THIS CM ALSO NOTIFIED CM DIRECTOR/RICHARD MUÑOZ REGARDING THE DISCHARGE POC AND SAFETY OF DC TODAY WITHOUT EXTRA HD SESSION. CM TO [facility]: [phone] ON "WILL CALL" FOR TRANSPORT BASED ON DECISION FOR DC TODAY OR TOMORROW. Addendum: 09/19/16 at 1736 by Jil Rollins RN SPOKE WITH ENERGY CROP FARMER/UMER WHO STATED THAT DR. SHAH APPROVED HD TODAY FOR Pt; NURSING HAS BEEN NOTIFIED; AND Pt WILL DC TOMORROW. CM CONTACTED [facility] FOR AMBULANCE PICK-UP ON 09/20/16; S/W [facility] WHO HAS AMB SET FOR 10 A.M. PICK-UP.
--- NOTE | 2016-09-19 17:10 | NUR ---
Call from case supervisor Jil. She informed me that she spoke with Dr Riley and that they were trying to decide if pt will be sent home today without dialysis or have the dialysis in hospital then discharge tomorrow Wednesday09/20/16 in the morning, to continue his e, Thangel, sat schedule. She asked me to follow up with the warehouse record clerk to check if pt will be getting dialysis or not. Pt will be DC to [facility] - [phone]. Speak to Hollie before 7pm or Mandy after 7 pm for report. [facility] is on will call at [phone].
--- NOTE | 2016-09-19 17:13 | NUR ---
Called boiler house inspector to follow up on whether pt is still to have dialysis and then discharge in the morning. Per Unruly, pt will have dialysis and then be discharged in the morning.
--- NOTE | 2016-09-19 18:11 | NUR ---
Pt receiving dialysis at this time. stable.
--- NOTE | 2016-09-19 19:00 | NUR ---
closing note patient receiving dialysis at this time, VSS with the exception of elevated heart rate, between 100-120. Pt has no s/s of distress, pt suctioned prn through shift, gtube feeding held do to dialysis. Needs attended to through shift, safety and aspirations measures maintained, bed in low position, side rails up x4, dialysis nurse at bedside. Will give report to oncoming shift.
--- NOTE | 2016-09-19 19:55 | NUR ---
NOTES; Pt is in bed, eyes open, nonverbal, responsive to touch. No acute distress noted. Pt is on trach to vent, settings noted, Pt is tolerating vent settings well. Dialysis completed with 1400 out put. IV site to the left chest wall noted. Dressing is clean,dry, and intact. Ordered G-Tube Feeding infusing well. No residual noted. Wound to the sacral and left buttocks with dressing clean,dry, and intact. pt is contracted to lluvia lower ext, pillow support in place. Pt is on air mattress. Fall and aspiration precaution in place. Safety measures in progress. Bed locked and in low position. side rails up x3. Head of bed elevated to prevent pt from aspirating. Call light within reach. Will continue to monitor.
[2016-09-19] MEDS: ATORVASTATIN 10 MG TABLET GT SCH (21:21)
--- NOTE | 2016-09-19 21:30 | NUR ---
NOTES; SCHEDULED G-TUBE MEDICATION ADMINISTERED VIA G-TUBE. PT TOLERATED MEDS WELL. BLOOD SUGAR FOUND TO BE 155. INSULIN SLIDING SCALE ADMINISTERED PER SLIDING SCALE ORDER.
--- NOTE | 2016-09-19 21:37 | NUR ---
paged for Dr Turpin, dialed . s/w Caitlyn.
--- NOTE | 2016-09-19 21:45 | NUR ---
NOTES; DR ALMONTE CALLED SPOKE WITH MD REGARDING DISCHARGE ORDERS. NEW ORDERS RECEIVED TO HOLD DISCHARGE AND TRANSFER PT IN AM. CHARGE NURSE INFORMED.
--- NOTE | 2016-09-19 23:30 | NUR ---
NOTES; CALLED [facility] AND GAVE REPORT TO JAYMIE. PT WILL BE GOING TO ROOM 211B. CHARGE NURSE NOTIFIED.
--- NOTE | 2016-09-19 23:59 | NUR ---
NOTES; CALLED AND SPOKE WITH OTIS BATEMAN ( SPOUSE) , NOTIFIED THAT PT WITH BE TRANSFERRED 09/19/[address] [place] [address]. OTIS SAID OK.
[2016-09-20 00:59] VITALS: BP 95/64; PULSE 109; RESP 18; TEMP 99.3; O2SAT 100
[2016-09-20] MEDS: IPRATROPIUM/ALBUTEROL SULFATE 3 ML AMPUL.NEB INH SCH (01:38)
[2016-09-20 02:19] VITALS: PULSE 107
[2016-09-20 03:09] VITALS: PULSE 112
[2016-09-20 04:00] VITALS: BP 95/64; PULSE 100; RESP 18; TEMP 98.9; O2SAT 100
--- NOTE | 2016-09-20 04:00 | NUR ---
NOTES; Trach suction and mouth care provided, repositioned with pillow support. Pt is tolerating vent settings and g-tube feeding well. No pain indications at this time. Safety measures, aspiration and fall precautions in place. Will continue to monitor.
--- NOTE | 2016-09-20 05:03 | NUR ---
NOTES; TRACH SUCTION AND MOUTH CARE PROVIDED. LEFT EAR, BUTTOCKS AND SACRAL WOUND AND SCAB PICTURES TAKEN. WOUND CLEANSE WITH NS AND DRESSED ASPER WOUND ORDER. TOTAL CHG BED BATH GIVEN. G-TUBE SITE DRESSING REMOVED. NO REDNESS NOTED ON SITE. CLEANSE SITE WITH NS, DRESSING APPLIED. NO FACIAL GRIMACING OF PAIN NOTED. REPOSITIONED. HEAD OF BED ELEVATED TO PREVENT PT FROM ASPIRATING. SAFETY MEASURES IN PROGRESS.
--- NOTE | 2016-09-20 05:22 | NUR ---
called [facility] to follow-up transport for Pt, dialed . spoke with Jax and he confirmed that pick-up will be at 08:30 am of 09/20/2016.
[2016-09-20 05:31] VITALS: PULSE 101
--- NOTE | 2016-09-20 07:00 | NUR ---
NOTES; IV ON THE LEFT CHEST REMOVED WITH CATHETER TIP INTACT. DISCHARGE COMPLETED. REPORT GIVEN TO HAFSA ABREU COVERING TO PRINT PACKED. SCHEDULED MANAGER OF CHANGE AT 0830.
[2016-09-20 07:41] LABS: BASOPHILS # (AUTO) 0.1 K/uL (0.0-0.2); BASOPHILS % (AUTO) 0.4 % (0.0-2.0); EOSINOPHILS # (AUTO) 0.6 K/uL (0.0-0.4); EOSINOPHILS % (AUTO) 3.1 % (0.0-4.0); HEMATOCRIT 26.9 % (36-54); LYMPHOCYTES # (AUTO) 1.7 K/uL (1.0-5.5); LYMPHOCYTES % (AUTO) 9.2 % (20.5-51.5); MEAN CORPUSCULAR HEMOGLOBIN 29 pg (27-31); MEAN CORPUSCULAR HGB CONC 33 % (32-36); MEAN CORPUSCULAR VOLUME 88 fL (79.0-98.0); MONOCYTES # (AUTO) 1.9 K/uL (0.0-1.0); MONOCYTES % (AUTO) 10.4 % (1.7-9.3); NEUTROPHILS # (AUTO) 13.8 K/uL (1.8-7.7); PLATELET COUNT (AUTO) 172 K/uL (130-430); RED BLOOD CELL COUNT(AUTO) 3.04 MIL/uL (4.2-6.2); RED CELL DISTRIBUTION WIDTH 14.6 % (9.0-15.0); WHITE BLOOD COUNT (AUTO) 18.1 K/uL (4.8-10.8)
[2016-09-20 08:08] LABS: CALCIUM 9.9 mg/dL (8.4-11.0); CREATININE 6.26 mg/dL (0.55-1.30); POTASSIUM 4.4 mmol/L (3.5-5.1)
[2016-09-20] MEDS: levETIRAcetam 500 MG TABLET GT SCH (08:27)
[2016-09-20] MEDS: FOLIC ACID 1 MG TABLET GT SCH (08:27)
--- NOTE | 2016-09-20 08:56 | NUR ---
PT transfered to [facility] room 211 (B) by ambulance report was given by night nurse to nurse Reyes pt was clean & dry @ this time V/S stable Bp 98/74 temp 98.1 RR 18 02 100% P95 no signs of any discomfort notice @ this time all information given to Nurse with Ambulance .
[2016-09-20 10:55] LABS: NEUTROPHILS % (AUTO) 76.9 % (40.0-70.0)
== END 2016-09-20 08:56 | DRG 682 ==
LOC: SED 08:07 → STU 09:16 → SMU 10:00 → STU 10:13
PROVIDERS: ADMIT General Practice; ATTEND General Practice
PROC: 5A1955Z Respiratory Ventilation, Greater than 96 Consecutive Hours (ICD-10-PCS; principal; 2016-09-15)
PROC: 5A1D60Z (ICD-10-PCS; 2016-09-15)
PROC: 30233N1 Transfusion of Nonautologous Red Blood Cells into Peripheral Vein, Percutaneous Approach (ICD-10-PCS; 2016-09-15)
DX: I12.0 Hypertensive chronic kidney disease with stage 5 chronic kidney disease or end stage renal disease (principal); E43 Unspecified severe protein-calorie malnutrition; G82.50 Quadriplegia, unspecified; G93.40 Encephalopathy, unspecified; N18.6 End stage renal disease; J96.10 Chronic respiratory failure, unspecified whether with hypoxia or hypercapnia; Z99.11 Dependence on respirator [ventilator] status; D63.1 Anemia in chronic kidney disease; D72.829 Elevated white blood cell count, unspecified; E11.22 Type 2 diabetes mellitus with diabetic chronic kidney disease; E78.5 Hyperlipidemia, unspecified; G40.909 Epilepsy, unspecified, not intractable, without status epilepticus; J44.9 Chronic obstructive pulmonary disease, unspecified; K21.9 Gastro-esophageal reflux disease without esophagitis; Z93.0 Tracheostomy status; Z93.1 Gastrostomy status; Z99.2 Dependence on renal dialysis; Z88.6 Allergy status to analgesic agent; Z79.899 Other long term (current) drug therapy; Z68.22 Body mass index [BMI] 22.0-22.9, adult
CPT/HCPCS: 36415; 71010; 80048; 80053; 80074; 82272; 82962; 83605; 83735-TC; 85007; 85025; 85027; 86870; 86886; 86900; 86901; 86920; 87040-TC; 87070-TC; 87081; 87186-TC; 87205-TC; 90935; 90937; 93005; 94002; 94003; 94640; 94760; 99285; J1644; J1815; J7030; J7050; P9021

== ENCOUNTER 2016-09-25 22:34 | Inpatient (IN) | payer OTHER ==
[~2016-09-25] VITALS: Ht 157.5 cm; Wt 51.7 kg
[~2016-09-25 22:34] MED LIST changes: +ACETAMINOPHEN GT; +FOLI-43 GT; +INSU100V; +LIDOCAINE HCL NEB; +TYLENOL 160 MG/5 ML GT
[2016-09-25 22:50] VITALS: BP 95/68; PULSE 82; RESP 16; TEMP 97; O2SAT 98
[2016-09-25] MEDS ORDERED: NACL 0.9% 1,000 ML IV ONE (23:12)
[2016-09-26] VITALS (16 sets, daily range): BP systolic 102–119; BP diastolic 68–83; PULSE 65–115; RESP 16–21; TEMP 97.8–98.8; O2SAT 98–100
[2016-09-26 00:39] LABS: BASOPHILS # (AUTO) 0.1 K/uL (0.0-0.2); BASOPHILS % (AUTO) 0.5 % (0.0-2.0); EOSINOPHILS # (AUTO) 0.3 K/uL (0.0-0.4); EOSINOPHILS % (AUTO) 2.5 % (0.0-4.0); LYMPHOCYTES # (AUTO) 1.5 K/uL (1.0-5.5); LYMPHOCYTES % (AUTO) 10.5 % (20.5-51.5); MEAN CORPUSCULAR HEMOGLOBIN 30 pg (27-31); MEAN CORPUSCULAR HGB CONC 34 % (32-36); MEAN CORPUSCULAR VOLUME 87 fL (79.0-98.0); MONOCYTES # (AUTO) 1.3 K/uL (0.0-1.0); MONOCYTES % (AUTO) 9.6 % (1.7-9.3); NEUTROPHILS # (AUTO) 10.7 K/uL (1.8-7.7); PLATELET COUNT (AUTO) 160 K/uL (130-430); RED BLOOD CELL COUNT(AUTO) 2.37 MIL/uL (4.2-6.2); RED CELL DISTRIBUTION WIDTH 14.2 % (9.0-15.0); WHITE BLOOD COUNT (AUTO) 13.9 K/uL (4.8-10.8)
[2016-09-26 00:49] LABS: HEMATOCRIT 20.7 % (36-54)
[2016-09-26 00:50] LABS: CALCIUM 9.7 mg/dL (8.4-11.0); CREATININE 6.81 mg/dL (0.55-1.30); POTASSIUM 4.6 mmol/L (3.5-5.1)
[2016-09-26 00:53] LABS: PROTHROMBIN TIME 10.8 SECS (9.5-12.5)
[2016-09-26 00:55] LABS: ALBUMIN 2.7 g/dL (3.4-4.8); TOTAL BILIRUBIN 0.6 mg/dL (0.0-1.0); TOTAL PROTEIN, SERUM 8.5 g/dL (6.4-8.3)
[2016-09-26] MEDS ORDERED: TYL160/5 GT ×2 (01:13→01:15)
[2016-09-26] MEDS ORDERED: ATOR10TA68 GT (01:17)
[2016-09-26] MEDS ORDERED: LEVE100S GT (01:19)
[2016-09-26] MEDS ORDERED: FAMO40TA35 GT (01:21)
[2016-09-26] MEDS ORDERED: INSU100V (01:28)
[2016-09-26] MEDS ORDERED: INSU100V SUBCUT (01:28)
[2016-09-26] MEDS ORDERED: cefTRIAXone 1 GM IVPB PREMIX 50 ML IV ONE ×2 (01:30→01:33)
[2016-09-26 01:43] LABS: NEUTROPHILS % (AUTO) 76.9 % (40.0-70.0)
[2016-09-26] MEDS ORDERED: DOCUSATE SODIUM 100 MG CAPSULE PO PRN (09:15)
[2016-09-26] MEDS ORDERED: MORPHINE 2 MG/ML INJ. SYRINGE IVP PRN (09:15)
[2016-09-26] MEDS ORDERED: LORazepam 2 MG/ML VIAL IVP PRN (09:15)
[2016-09-26] MEDS ORDERED: ZOLPIDEM TARTRATE 5 MG TABLET PO PRN (09:15)
[2016-09-26] MEDS ORDERED: MAGNESIUM SULFATE 50 ML IV PRN (09:15)
[2016-09-26] MEDS ORDERED: ACETAMINOPHEN 325 MG TABLET PO PRN (09:15)
[2016-09-26] MEDS ORDERED: DEXTROSE 50% JECT 50 ML DISP.SYRIN IVP PRN (09:15)
[2016-09-26] MEDS ORDERED: POTASSIUM CHLORIDE 10 MEQ TAB.PRT.SR PO PRN (09:15)
[2016-09-26] MEDS ORDERED: HYDROcodone/ACETAMIN 5-325 MG TAB (NORCO/ VICODIN) GT PRN (09:15)
[2016-09-26] MEDS ORDERED: ONDANSETRON HCL 4 MG/2 ML VIAL IVP PRN (09:15)
[2016-09-26 09:45] LABS: IRON (SERUM) 78 mcg/dL (59-158); TOTAL IRON BIND. CAPACITY 149 ug/dL (250-450)
[2016-09-26] MEDS ORDERED: levETIRAcetam 500 MG TABLET GT ONE (10:00)
[2016-09-26] MEDS ORDERED: VANCOMYCIN HCL 1,000 MG in NS 250 ML IV ONE (11:00)
[2016-09-26] MEDS: INSULIN ASPART 100 UNITS/ML, 10 ML VIAL (NovoLOG) SUBCUT PRN ×3 (12:00→21:28)
[2016-09-26] MEDS: ATORVASTATIN 10 MG TABLET GT SCH (21:26)
[2016-09-26] MEDS: levETIRAcetam 500 MG TABLET GT SCH (21:26)
[2016-09-26] MEDS: FAMOTIDINE 20 MG TABLET GT SCH (21:27)
[2016-09-27] VITALS (16 sets, daily range): BP systolic 95–113; BP diastolic 60–66; PULSE 75–116; RESP 17–20; TEMP 97.5–98.7; O2SAT 95–100
[2016-09-27] MEDS: INSULIN ASPART 100 UNITS/ML, 10 ML VIAL (NovoLOG) SUBCUT PRN (06:28)
[2016-09-27 07:20] LABS: BASOPHILS % (AUTO) 0.4 % (0.0-2.0); EOSINOPHILS # (AUTO) 0.3 K/uL (0.0-0.4); EOSINOPHILS % (AUTO) 2.4 % (0.0-4.0); HEMATOCRIT 30.8 % (36-54); HEMOGLOBIN 10.3 g/dL (14.0-18.0); LYMPHOCYTES # (AUTO) 0.9 K/uL (1.0-5.5); MEAN CORPUSCULAR HEMOGLOBIN 29 pg (27-31); MEAN CORPUSCULAR HGB CONC 33 % (32-36); MEAN CORPUSCULAR VOLUME 88 fL (79.0-98.0); MONOCYTES # (AUTO) 0.9 K/uL (0.0-1.0); MONOCYTES % (AUTO) 8.7 % (1.7-9.3); NEUTROPHILS # (AUTO) 8.5 K/uL (1.8-7.7); NEUTROPHILS % (AUTO) 80.5 % (40.0-70.0); PLATELET COUNT (AUTO) 149 K/uL (130-430); RED CELL DISTRIBUTION WIDTH 13.9 % (9.0-15.0); WHITE BLOOD COUNT (AUTO) 10.6 K/uL (4.8-10.8)
[2016-09-27 07:24] LABS: ALBUMIN 2.9 g/dL (3.4-4.8); CALCIUM 9.4 mg/dL (8.4-11.0); CREATININE 6.11 mg/dL (0.55-1.30); TOTAL BILIRUBIN 0.7 mg/dL (0.0-1.0); TOTAL PROTEIN, SERUM 8.9 g/dL (6.4-8.3)
[2016-09-27] MEDS ORDERED: SORBITOL 70% SOLUTION, 30 ML UDBTL GT ONE (07:45)
[2016-09-27] MEDS: FOLIC ACID 1 MG TABLET GT SCH (08:44)
[2016-09-27] MEDS: ASCORBIC ACID 500 MG TABLET GT SCH (08:44)
[2016-09-27] MEDS: levETIRAcetam 500 MG TABLET GT SCH ×2 (08:44→22:59)
[2016-09-27] MEDS ORDERED: GOLYTELY / COLYTE SOLUTION 4 LITERS GT ONE (18:00)
[2016-09-27] MEDS: FAMOTIDINE 20 MG TABLET GT SCH (21:00)
[2016-09-27] MEDS: ATORVASTATIN 10 MG TABLET GT SCH (21:00)
[2016-09-28] VITALS (20 sets, daily range): BP systolic 92–113; BP diastolic 60–68; PULSE 89–133; RESP 16–20; TEMP 96.5–99.7; O2SAT 93–100; Ht 157.5 cm; Wt 51.7 kg
[2016-09-28 07:33] LABS: CALCIUM 9.2 mg/dL (8.4-11.0); INR 1.1 (0.80-1.20); POTASSIUM 4.2 mmol/L (3.5-5.1); PROTHROMBIN TIME 11.5 SECS (9.5-12.5)
[2016-09-28 07:59] LABS: CREATININE 8.61 mg/dL (0.55-1.30)
[2016-09-28 08:45] LABS: HEMATOCRIT 28.6 % (36-54); HEMOGLOBIN 9.6 g/dL (14.0-18.0); MEAN CORPUSCULAR HEMOGLOBIN 30 pg (27-31); MEAN CORPUSCULAR HGB CONC 34 % (32-36); MEAN CORPUSCULAR VOLUME 89 fL (79.0-98.0); PLATELET COUNT (AUTO) 142 K/uL (130-430); RED CELL DISTRIBUTION WIDTH 13.9 % (9.0-15.0); WHITE BLOOD COUNT (AUTO) 23.4 K/uL (4.8-10.8)
[2016-09-28 08:48] LABS: BAND % (MANUAL) 10 % (0-6); BASOPHILS % (MANUAL) 0 % (0-2); EOSINOPHILS % (MANUAL) 0 % (0-7); LYMPHOCYTES % (MANUAL) 11 % (20-46); MONOCYTES % (MANUAL) 3 % (0-11)
[2016-09-28] MEDS: FOLIC ACID 1 MG TABLET GT SCH (08:54)
[2016-09-28] MEDS: levETIRAcetam 500 MG TABLET GT SCH ×2 (08:54→22:54)
[2016-09-28] MEDS: ASCORBIC ACID 500 MG TABLET GT SCH (08:54)
[2016-09-28] MEDS ORDERED: D5W IV ONE (10:30)
[2016-09-28] MEDS ORDERED: CEFEPIME IV ONE (10:30)
[2016-09-28] MEDS ORDERED: MAGNESIUM CITRATE 300 ML ORAL SOLUTION PO ONE (11:45)
[2016-09-28] MEDS ORDERED: SIMETHICONE 40 MG/0.6 ML ML ONE (12:48)
[2016-09-28] MEDS ORDERED: MEPERIDINE HCL/PF 100 MG/ML AMP ONE (13:24)
[2016-09-28] MEDS ORDERED: MIDAZOLAM HCL 5 MG/5 ML VIAL ONE (13:24)
[2016-09-28] MEDS ORDERED: EPOETIN ALFA 3,000 UNITS/ML VIAL SUBCUT SCH (17:00)
[2016-09-28] MEDS: ATORVASTATIN 10 MG TABLET GT SCH (22:54)
[2016-09-28] MEDS: FAMOTIDINE 20 MG TABLET GT SCH (22:54)
[2016-09-29] VITALS (18 sets, daily range): BP systolic 95–107; BP diastolic 57–74; PULSE 83–122; RESP 16–19; TEMP 97.8–99.1; O2SAT 97–100
[2016-09-29] MEDS: INSULIN ASPART 100 UNITS/ML, 10 ML VIAL (NovoLOG) SUBCUT PRN ×3 (06:05→23:54)
[2016-09-29 06:06] LABS: FOLATE (FOLIC ACID) >20.0 ng/mL (>3.0)
[2016-09-29 07:37] LABS: BASOPHILS % (AUTO) 0.2 % (0.0-2.0); EOSINOPHILS % (AUTO) 0.2 % (0.0-4.0); HEMATOCRIT 26.8 % (36-54); LYMPHOCYTES # (AUTO) 0.9 K/uL (1.0-5.5); LYMPHOCYTES % (AUTO) 3.9 % (20.5-51.5); MEAN CORPUSCULAR HEMOGLOBIN 30 pg (27-31); MEAN CORPUSCULAR HGB CONC 34 % (32-36); MEAN CORPUSCULAR VOLUME 88 fL (79.0-98.0); MONOCYTES # (AUTO) 1.4 K/uL (0.0-1.0); MONOCYTES % (AUTO) 5.8 % (1.7-9.3); NEUTROPHILS # (AUTO) 21.2 K/uL (1.8-7.7); NEUTROPHILS % (AUTO) 89.9 % (40.0-70.0); PLATELET COUNT (AUTO) 136 K/uL (130-430); RED BLOOD CELL COUNT(AUTO) 3.04 MIL/uL (4.2-6.2); RED CELL DISTRIBUTION WIDTH 14.6 % (9.0-15.0); WHITE BLOOD COUNT (AUTO) 23.5 K/uL (4.8-10.8)
[2016-09-29 07:48] LABS: POTASSIUM 4.3 mmol/L (3.5-5.1)
[2016-09-29 07:53] LABS: CREATININE 10.76 mg/dL (0.55-1.30)
[2016-09-29] MEDS: ASCORBIC ACID 500 MG TABLET GT SCH (08:47)
[2016-09-29] MEDS: levETIRAcetam 500 MG TABLET GT SCH ×2 (08:47→23:51)
[2016-09-29] MEDS: FOLIC ACID 1 MG TABLET GT SCH (08:47)
[2016-09-29] MEDS ORDERED: D5W IV SCH (09:00)
[2016-09-29] MEDS ORDERED: CEFEPIME IV SCH (09:00)
[2016-09-29 11:22] LABS: FERRITIN 2854 ng/mL (30-400)
[2016-09-29] MEDS ORDERED: HEPARIN SODIUM,PORCINE 5000 UNITS/ML VIAL SUBCUT ONE (15:30)
[2016-09-29] MEDS: ATORVASTATIN 10 MG TABLET GT SCH (23:51)
[2016-09-29] MEDS: FAMOTIDINE 20 MG TABLET GT SCH (23:51)
[2016-09-30] VITALS (14 sets, daily range): BP systolic 84–115; BP diastolic 57–75; PULSE 97–113; RESP 16–21; TEMP 97.5–98.9; O2SAT 97–100
[2016-09-30] MEDS: INSULIN ASPART 100 UNITS/ML, 10 ML VIAL (NovoLOG) SUBCUT PRN ×2 (06:05→11:49)
[2016-09-30 08:21] LABS: BASOPHILS % (AUTO) 0.2 % (0.0-2.0); EOSINOPHILS # (AUTO) 0.1 K/uL (0.0-0.4); EOSINOPHILS % (AUTO) 0.3 % (0.0-4.0); HEMATOCRIT 28.6 % (36-54); HEMOGLOBIN 9.7 g/dL (14.0-18.0); LYMPHOCYTES # (AUTO) 0.8 K/uL (1.0-5.5); LYMPHOCYTES % (AUTO) 4.4 % (20.5-51.5); MEAN CORPUSCULAR HEMOGLOBIN 30 pg (27-31); MEAN CORPUSCULAR HGB CONC 34 % (32-36); MEAN CORPUSCULAR VOLUME 88 fL (79.0-98.0); MONOCYTES # (AUTO) 1.2 K/uL (0.0-1.0); MONOCYTES % (AUTO) 7.1 % (1.7-9.3); NEUTROPHILS # (AUTO) 15.4 K/uL (1.8-7.7); PLATELET COUNT (AUTO) 130 K/uL (130-430); RED BLOOD CELL COUNT(AUTO) 3.26 MIL/uL (4.2-6.2); RED CELL DISTRIBUTION WIDTH 14.3 % (9.0-15.0); WHITE BLOOD COUNT (AUTO) 17.5 K/uL (4.8-10.8)
[2016-09-30 08:28] LABS: POTASSIUM 3.5 mmol/L (3.5-5.1)
[2016-09-30 09:01] LABS: CREATININE 8.07 mg/dL (0.55-1.30)
[2016-09-30] MEDS: FOLIC ACID 1 MG TABLET GT SCH (09:10)
[2016-09-30] MEDS: ASCORBIC ACID 500 MG TABLET GT SCH (09:10)
[2016-09-30] MEDS: levETIRAcetam 500 MG TABLET GT SCH (09:10)
[2016-09-30] MEDS ORDERED: NS 500 ML IV ONE (09:45)
[2016-09-30] MEDS ORDERED: CEFEPIME 1 GM in D5W 50 ML IV SCH (14:45)
[2016-10-01] MEDS ORDERED: VANCOMYCIN HCL 750 MG in NS 250 ML IV SCH (11:00)
== END 2016-09-30 16:45 | DRG 870 ==
LOC: SED 22:34 → STU 09-26 01:36
PROVIDERS: ADMIT General Practice; ATTEND General Practice
PROC: 5A1955Z Respiratory Ventilation, Greater than 96 Consecutive Hours (ICD-10-PCS; principal; 2016-09-26)
PROC: 5A1D60Z (ICD-10-PCS; 2016-09-26)
PROC: 0DB68ZX Excision of Stomach, Via Natural or Artificial Opening Endoscopic, Diagnostic (ICD-10-PCS; 2016-09-28)
PROC: 0DJD8ZZ Inspection of Lower Intestinal Tract, Via Natural or Artificial Opening Endoscopic (ICD-10-PCS; 2016-09-28)
PROC: 30233N1 Transfusion of Nonautologous Red Blood Cells into Peripheral Vein, Percutaneous Approach (ICD-10-PCS; 2016-09-28 12:00)
DX: A41.9 Sepsis, unspecified organism (principal); G82.50 Quadriplegia, unspecified; J69.0 Pneumonitis due to inhalation of food and vomit; N18.6 End stage renal disease; I12.0 Hypertensive chronic kidney disease with stage 5 chronic kidney disease or end stage renal disease; J96.10 Chronic respiratory failure, unspecified whether with hypoxia or hypercapnia; K92.2 Gastrointestinal hemorrhage, unspecified; Z99.11 Dependence on respirator [ventilator] status; K29.70 Gastritis, unspecified, without bleeding; K57.90 Diverticulosis of intestine, part unspecified, without perforation or abscess without bleeding; K64.9 Unspecified hemorrhoids; R13.10 Dysphagia, unspecified; D63.1 Anemia in chronic kidney disease; E11.22 Type 2 diabetes mellitus with diabetic chronic kidney disease; G40.909 Epilepsy, unspecified, not intractable, without status epilepticus; E78.5 Hyperlipidemia, unspecified; Z93.0 Tracheostomy status; Z93.1 Gastrostomy status; Z99.2 Dependence on renal dialysis; Z88.6 Allergy status to analgesic agent; S14.109S Unspecified injury at unspecified level of cervical spinal cord, sequela
CPT/HCPCS: 36415; 43239; 45378; 71010; 80048; 80053; 82272; 82607; 82728; 82746; 82962; 83540-TC; 83550-TC; 83605; 83735-TC; 85007; 85025; 85027; 85610-TC; 85730-TC; 86870; 86886; 86900; 86901; 86905; 86920; 87040-TC; 87081; 88305; 88312; 88313; 90935; 90937; 93005; 94003; 94760; 96365; 99285; J0692; J0696; J0885; J1644; J1815; J2175; J2250; J3370; J7030; J7040; J7050; J7060; P9021

== ENCOUNTER 2016-10-09 15:56 | Inpatient (IN) | payer OTHER ==
[~2016-10-09] VITALS: Ht 172.7 cm; Wt 73.9 kg
[2016-10-09 15:56] VITALS: BP 114/71; PULSE 85; RESP 16; TEMP 98.5; O2SAT 100
[~2016-10-09 15:56] MED LIST changes: +ATOR10TA68 GT; +FAMO40TA35 GT; +INSU100V SUBCUT; +LEVE100S GT; +TYL160/5 GT
--- NOTE | 2016-10-09 15:56 | NUR ---
Placed in room 08. Placed on quality assurance monitor final, blood pressure machine and pulse oximeter. To gown for exam. Side rails up. Report given to BRADY Murphy.
--- NOTE | 2016-10-09 15:58 | NUR ---
Pt bib EMS from [facility] for abnormal labs, Hgb 7.1. Pt has multiple medical hx, is vent dependent, trach, g tube, left femoral permacath for dialysis every es, Thurs, Sat. Pt is non verbal, withdraws to pain, opens eyes, PERRLA, vent setting is AC 16, V 450, PEEP 5, 100 % O2. EKG done at bedside, pt is placed on corporate learning consultant and continuous pulse ox. Skin is warm, dry, pale. Lung sounds clear bilaterally, diminished at bases. Contraction on bilateral legs and arms noted.
--- NOTE | 2016-10-09 16:00 | NUR ---
Dr. Kelly at bedside to assess pt.
[2016-10-09] MEDS ORDERED: ZIN220 GT (17:24)
--- NOTE | 2016-10-09 17:24 | NUR ---
Medication reconciliation completed with information provided by [facility]. Any prior medication reconciliation on file was reviewed and corrected.
[2016-10-09 17:44] LABS: BASOPHILS % (AUTO) 0.3 % (0.0-2.0); EOSINOPHILS # (AUTO) 0.3 K/uL (0.0-0.4); EOSINOPHILS % (AUTO) 3.3 % (0.0-4.0); LYMPHOCYTES % (AUTO) 12.1 % (20.5-51.5); MEAN CORPUSCULAR HEMOGLOBIN 30 pg (27-31); MEAN CORPUSCULAR HGB CONC 33 % (32-36); MEAN CORPUSCULAR VOLUME 89 fL (79.0-98.0); MONOCYTES # (AUTO) 0.7 K/uL (0.0-1.0); MONOCYTES % (AUTO) 7.7 % (1.7-9.3); NEUTROPHILS # (AUTO) 6.5 K/uL (1.8-7.7); NEUTROPHILS % (AUTO) 76.6 % (40.0-70.0); PLATELET COUNT (AUTO) 140 K/uL (130-430); RED BLOOD CELL COUNT(AUTO) 2.47 MIL/uL (4.2-6.2); RED CELL DISTRIBUTION WIDTH 14.7 % (9.0-15.0); WHITE BLOOD COUNT (AUTO) 8.5 K/uL (4.8-10.8)
[2016-10-09 17:46] LABS: PROTHROMBIN TIME 10.4 SECS (9.5-12.5)
[2016-10-09 17:50] LABS: CALCIUM 9.1 mg/dL (8.4-11.0); CREATININE 6.28 mg/dL (0.55-1.30)
[2016-10-09 17:53] LABS: HEMOGLOBIN 7.3 g/dL (14.0-18.0)
[2016-10-09 17:54] LABS: ALBUMIN 2.4 g/dL (3.4-4.8); TOTAL BILIRUBIN 0.3 mg/dL (0.0-1.0); TOTAL PROTEIN, SERUM 7.9 g/dL (6.4-8.3)
--- NOTE | 2016-10-09 18:13 | NUR ---
Received orders from Dr. Turpin to admit pt to hospital.
--- NOTE | 2016-10-09 18:40 | NUR ---
ADMISSION NOTE Received patient from ER via gurney. Patient admitted with diagnosis of severe anemia. Patient is awake, alert, oriented X 1. Patient is nonverbal.
--- NOTE | 2016-10-09 18:40 | NUR ---
Patient will be admitted to care of [facility]. Admitted to telemetry unit. Will go to room 133. Summary report printed. Report given to RN. Pt transferred with ACLS protocol, RN, leticia, and two RTs. No acute distress noted.
[2016-10-09 19:02] VITALS: BP 109/68; PULSE 80; RESP 18; TEMP 97.7; O2SAT 100
[2016-10-09] MEDS ORDERED: ZOLPIDEM TARTRATE 5 MG TABLET PO PRN (19:15)
[2016-10-09] MEDS ORDERED: MORPHINE 2 MG/ML INJ. SYRINGE IVP PRN (19:15)
[2016-10-09] MEDS ORDERED: ACETAMINOPHEN 650 MG/20.3 ML UDC GT PRN (19:15)
[2016-10-09] MEDS ORDERED: LORazepam 2 MG/ML VIAL IVP PRN (19:15)
[2016-10-09] MEDS ORDERED: ACETAMINOPHEN 325 MG TABLET PO PRN (19:15)
[2016-10-09] MEDS ORDERED: DOCUSATE SODIUM 100 MG CAPSULE PO PRN (19:15)
[2016-10-09] MEDS ORDERED: ONDANSETRON HCL 4 MG/2 ML VIAL IVP PRN (19:15)
[2016-10-09] MEDS ORDERED: HYDROcodone/ACETAMIN 5-325 MG TAB (NORCO/ VICODIN) GT PRN (19:15)
[2016-10-09] MEDS ORDERED: POTASSIUM CHLORIDE 10 MEQ TAB.PRT.SR PO PRN (19:15)
[2016-10-09] MEDS ORDERED: DEXTROSE 50% JECT 50 ML DISP.SYRIN IVP PRN (19:15)
[2016-10-09] MEDS ORDERED: MAGNESIUM SULFATE 50 ML IV PRN (19:15)
--- NOTE | 2016-10-09 19:30 | NUR ---
ROUNDS PATIENT IN BED, AWAKE, NON VERBAL, ON TRACH TO MECHANICAL VENTILATOR, VITALS STABLE, NO SIGNS OF ANY PAIN AND DISCOMFORT NOTED AT THIS TIME. ASSESSMENT DONE AND DOCUMENTED. SEE FLOWSHEET. NEEDS ATTENDED TO. REPOSITIONED AND MADE COMFORTABLE. SAFETY AND FALL PRECAUTION MEASURES IN PLACED. BED IN LOW AND LOCKED POSITION. WILL CONTINUE TO MONITOR.
--- NOTE | 2016-10-09 20:56 | NUR ---
SPOKE WITH PT KIRAN BERG ON [phone] AND GOT CONSENT FOR BLOOD TRANSFUSION AND HEMODIALYSIS, THERE IS ORDER FOR TO HAVE 2 UNIT BLOOD TRANSFUSION DURING HEMODIALYSIS.
[2016-10-09 20:59] VITALS: BP 109/68; PULSE 80
[2016-10-09] MEDS ORDERED: LEVETIRACETAM GT SCH (21:00)
[2016-10-09 21:07] VITALS: BP 109/68; PULSE 80
[2016-10-09 21:15] VITALS: BP 109/68; PULSE 80; RESP 18; TEMP 97.7; O2SAT 100
--- NOTE | 2016-10-09 21:15 | NUR ---
ACCU CHECK ACCU CHECK DONE, BLOOD SUGAR 103 MG/DL, NO COVERAGE, WILL CONTINUE TO MONITOR.
[2016-10-09] MEDS: ATORVASTATIN 10 MG TABLET GT SCH (21:26)
[2016-10-09] MEDS: HEPARIN SODIUM,PORCINE 5000 UNITS/ML VIAL SUBCUT SCH (21:27)
--- NOTE | 2016-10-09 23:01 | NUR ---
NEPHRO CONSULT: DR LIMA (Dr Castro o/c) Consult was called, RE esrd Lorena, "Dr Castro is o/c".
[2016-10-09 23:20] VITALS: PULSE 82
[2016-10-10] VITALS (16 sets, daily range): BP systolic 108–116; BP diastolic 67–93; PULSE 80–100; RESP 18–20; TEMP 96.8–98.3; O2SAT 93–100; Ht 172.7 cm; Wt 73.9 kg
--- NOTE | 2016-10-10 | NUR ---
PATIENT RESTING: Patient resting quietly. No acute distress noted. Vital signs within normal range.
--- NOTE | 2016-10-10 02:30 | NUR ---
ROUNDS PATIENT ASLEEP, NO SOB NOTED NOR ANY SIGNS OF PAIN AND DISCOMFORT. WILL CONTINUE TO MONITOR.
--- NOTE | 2016-10-10 04:00 | NUR ---
PATIENT RESTING: Patient resting quietly. No acute distress noted. Vital signs within normal range.
--- NOTE | 2016-10-10 06:36 | NUR ---
Nutrition Update Brady Scale 14 noted. Pt admitted for severe anemia. Diet: Novasource Renal at 70 ml/hr, Free Water Flush: 20 via G-tube BMI: 21.9 kg/m2 RD to follow per nutrition care standards.
--- NOTE | 2016-10-10 06:44 | NUR ---
CLOSING NOTES PATIENT STABLE, NOT IN DISTRESS, NO SIGNS OF ANY PAIN AND DISCOMFORT NOTED. ALL NEEDS ATTENDED TO. SAFETY AND FALL MEASURES MAINTAINED. WILL ENDORSE TO INCOMING SHIFT NURSE.
[2016-10-10 06:47] LABS: BASOPHILS % (AUTO) 0.6 % (0.0-2.0); EOSINOPHILS # (AUTO) 0.2 K/uL (0.0-0.4); EOSINOPHILS % (AUTO) 3.2 % (0.0-4.0); HEMOGLOBIN 7.2 g/dL (14.0-18.0); LYMPHOCYTES % (AUTO) 12.6 % (20.5-51.5); MEAN CORPUSCULAR HEMOGLOBIN 30 pg (27-31); MEAN CORPUSCULAR HGB CONC 34 % (32-36); MEAN CORPUSCULAR VOLUME 89 fL (79.0-98.0); MONOCYTES # (AUTO) 0.5 K/uL (0.0-1.0); NEUTROPHILS # (AUTO) 5.9 K/uL (1.8-7.7); NEUTROPHILS % (AUTO) 76.6 % (40.0-70.0); PLATELET COUNT (AUTO) 136 K/uL (130-430); RED BLOOD CELL COUNT(AUTO) 2.41 MIL/uL (4.2-6.2); RED CELL DISTRIBUTION WIDTH 14.6 % (9.0-15.0); WHITE BLOOD COUNT (AUTO) 7.6 K/uL (4.8-10.8)
[2016-10-10 07:01] LABS: CALCIUM 9.4 mg/dL (8.4-11.0); CREATININE 7.18 mg/dL (0.55-1.30); POTASSIUM 4.3 mmol/L (3.5-5.1)
[2016-10-10 07:21] LABS: HEMATOCRIT 21.4 % (36-54)
--- NOTE | 2016-10-10 08:05 | NUR ---
PATIENT AWAKE, OPENS EYES, BUT DO NOT TRACK. ON TRACH TO MECHANICAL VENTILATOR, VITALS STABLE, NO SIGNS OF ANY PAIN AND DISCOMFORT NOTED AT THIS TIME. IV ON LEFT CHEST, SL , #20. REPOSITIONED AND MADE COMFORTABLE. SAFETY AND FALL PRECAUTION MEASURES IN PLACED. BED IN LOW AND LOCKED POSITION. WILL CONTINUE TO MONITOR.
[2016-10-10] MEDS: FOLIC ACID 1 MG TABLET GT SCH (08:30)
[2016-10-10] MEDS: ASCORBIC ACID 500 MG TABLET GT SCH (08:30)
[2016-10-10] MEDS: HEPARIN SODIUM,PORCINE 5000 UNITS/ML VIAL SUBCUT SCH (08:32)
--- NOTE | 2016-10-10 09:16 | NUR ---
Consult Dr Buckley aware of the consult. Will follow up as needed.
[2016-10-10] MEDS ORDERED: levETIRAcetam 500 MG TABLET GT ONE (10:00)
--- NOTE | 2016-10-10 11:11 | NUR ---
PATIENT BS AT 146. NO COVERAGE NEEDED.
--- NOTE | 2016-10-10 14:30 | NUR ---
PATIENT STARTED ON FIRST UNIT OF BLOOD TRANSFUSION. V/S STABLE, NO SIGNS OF DISTRESS NOTED.
--- NOTE | 2016-10-10 15:00 | NUR ---
PATIENT COMPLETED 1ST UNIT OF BLOOD TRANSFUSION. V/S STABLE, NO SIGNS OF DISTRESS NOTED.
--- NOTE | 2016-10-10 15:33 | NUR ---
Patient completed his 1st unit of blood transfusion w/o adverse reactions. V/s stable.
--- NOTE | 2016-10-10 15:49 | NUR ---
2nd of blood transfusion has been started. No signs of adverse reactions noted, V/S is stable.
--- NOTE | 2016-10-10 16:15 | NUR ---
2nd unit of blood completed. No adverse reaction is noted, V/S is stable.
--- NOTE | 2016-10-10 16:50 | NUR ---
HD completed. 2.0-L removed. V/S stable.
--- NOTE | 2016-10-10 18:10 | NUR ---
Patient B.S is at 125. No coverage needed.
--- NOTE | 2016-10-10 19:30 | NUR ---
rounds pt. received nonverbal and non alert. opens eyes spontaneously to stimuli. no s/s of sob or distress noted at this time. Pt. on ventilator at ordered settings. sating at 99%. no facial grimacing indicating any pain. IV access located on left upper chest, no redness or swelling noted at the site. G tube noted, no redness or swelling noted to the surrounding area. Novasource renal infusing well as ordered. left femoral catheter noted on the leg covered with dry and intact gauze. pt. skin is intact, air mattress noted and SCDs are applied bilaterally. Not able to discuss the plan of care with the patient due to mental status. will continue to monitor frequently for safety. safety, fall and contact precautions in place. call light in reach, bed alarm on.
[2016-10-10] MEDS: ATORVASTATIN 10 MG TABLET GT SCH (22:10)
[2016-10-10] MEDS: levETIRAcetam 500 MG TABLET GT SCH (22:11)
--- NOTE | 2016-10-10 22:15 | NUR ---
rounds pt is in bed with eyes open. no s/s of sob or distress. no facial grimacing indicating pain. g tube feeding stopped in order to reposition client. no residual noted from g tube, flushed with 100 cc of free water as ordered. g tube feeding restarted at prescribed rate. pt. in comfortable position supported by pillows. SCDs bilaterally. will continue to monitor for any changes. safety, fall, contact, and seizure precautions are in place. call light in reach, bed alarm on.
[2016-10-11] VITALS (16 sets, daily range): BP systolic 102–128; BP diastolic 62–81; PULSE 91–110; RESP 16–21; TEMP 98.1–99.1; O2SAT 98–100
--- NOTE | 2016-10-11 00:02 | NUR ---
rounds pt is in bed with eyes open. no s/s of sob or distress. no facial grimacing indicating pain. G tube infusing well at ordered rate. pt. in comfortable position supported by pillows. SCDs bilaterally. will continue to monitor for any changes. safety, fall, contact, and seizure precautions are in place. call light in reach, bed alarm on.
[2016-10-11 06:32] LABS: BASOPHILS % (AUTO) 0.4 % (0.0-2.0); EOSINOPHILS # (AUTO) 0.3 K/uL (0.0-0.4); EOSINOPHILS % (AUTO) 3.4 % (0.0-4.0); HEMATOCRIT 32.8 % (36-54); LYMPHOCYTES # (AUTO) 0.9 K/uL (1.0-5.5); LYMPHOCYTES % (AUTO) 10.9 % (20.5-51.5); MEAN CORPUSCULAR HEMOGLOBIN 30 pg (27-31); MEAN CORPUSCULAR HGB CONC 34 % (32-36); MONOCYTES # (AUTO) 0.8 K/uL (0.0-1.0); MONOCYTES % (AUTO) 10.1 % (1.7-9.3); NEUTROPHILS # (AUTO) 5.9 K/uL (1.8-7.7); NEUTROPHILS % (AUTO) 75.2 % (40.0-70.0); PLATELET COUNT (AUTO) 161 K/uL (130-430); RED BLOOD CELL COUNT(AUTO) 3.62 MIL/uL (4.2-6.2); RED CELL DISTRIBUTION WIDTH 14.2 % (9.0-15.0); WHITE BLOOD COUNT (AUTO) 7.9 K/uL (4.8-10.8)
[2016-10-11 06:41] LABS: CALCIUM 9.6 mg/dL (8.4-11.0); CREATININE 5.19 mg/dL (0.55-1.30); POTASSIUM 3.9 mmol/L (3.5-5.1)
--- NOTE | 2016-10-11 06:49 | NUR ---
closing note pt. resting in bed with eyes closed. no s/s of sob or distress noted. no facial grimacing indicating pain. morning hygiene care and suctioning was provided. pt repositioned to a comfortable position supported well with pillows. g tube feeding infusing well as ordered. morning accu check performed, blood sugar within normal limits and no coverage was needed. all necessary needs were met throughout the shift. safety, fall, contact, and seizure precautions were maintained. will endorse care to AM nurse. call light in reach, bed alarm on.
[2016-10-11 07:02] LABS: MEAN CORPUSCULAR VOLUME 91 fL (79.0-98.0)
--- NOTE | 2016-10-11 08:00 | NUR ---
OPENING NOTE PATIENT IS AWAKE, NON-VERBAL. DOES NOT TRACK WITH EYES. LEGS CONTRACTED. ARMS FLACCID
[2016-10-11] MEDS: FOLIC ACID 1 MG TABLET GT SCH (09:10)
[2016-10-11] MEDS: levETIRAcetam 500 MG TABLET GT SCH ×2 (09:10→22:50)
[2016-10-11] MEDS: ASCORBIC ACID 500 MG TABLET GT SCH (09:10)
--- NOTE | 2016-10-11 10:00 | NUR ---
PATIENT REMAINS NON RESPONSIVE. RESTING. ON VENTILATOR. NO SIGNS OF SEIZURE, DISTRESS OR SOB
[2016-10-11] MEDS ORDERED: LACTOBACILLUS RHAMNOSUS GG 1 CAP CAPSULE PO ONE (10:15)
[2016-10-11] MEDS: LACTOBACILLUS RHAMNOSUS GG 1 CAP CAPSULE PO SCH (10:45)
--- NOTE | 2016-10-11 12:00 | NUR ---
PATIENT REMAINS NONRESPONSIVE. BREATHING TX PER RESPIRATORY, ORAL CARE PERFORMED Q 4 HOURS PER PROTOCOL.
[2016-10-11] MEDS: PIPERACILLIN/TAZO 2.25G/DEX-IS 50 ML IV SCH ×2 (13:15→22:49)
--- NOTE | 2016-10-11 13:52 | NUR ---
attempted to flush g tube with soda water. g tube is clogged
--- NOTE | 2016-10-11 15:06 | NUR ---
G TUBE FLUSHED AND SUCTIONED REPEATEDLY. THE TUBE WAS CLOGGED WITH DRIED FEEDING MATERIAL. MATERIAL SQUEEZED OUT AND REPEATED FLUSHED AND SUCTIONED UNTIL RUNNING CLEAR. TUBE FEEDS RESTARTED.
[2016-10-11] MEDS ORDERED: EPOETIN ALFA 3,000 UNITS/ML VIAL SUBCUT SCH (17:00)
--- NOTE | 2016-10-11 19:08 | NUR ---
CLOSING NOTE PATIENT STABLE, NO SIGNS OF DISTRESS. NEW TF HUNG. MEDICATED PER ORDERS. REPORT GIVEN TO SERVICE DIRECTOR RN
--- NOTE | 2016-10-11 19:55 | NUR ---
OPENING NOTES PATIENT IS IN BED RESTING. NO SIGNS OF DISTRESS. BREATHING IS NON LABORED. VITAL SIGNS ARE STABLE. IV IS PATENT AND SHOWS NO SIGNS OF COMPLICATIONS. VENT SETTINGS ARE VERIFIED. PATIENT RESPONSE TO PAIN AND LIGHT STIMULI. G-TUBE IS NOTED AND SHOWS NO SIGNS OF COMPLICATIONS. CALL LIGHT IS WITHIN REACH. SAFETY MEASURES ARE IN PLACE. WILL CONTINUE TO MONITOR.
--- NOTE | 2016-10-11 21:00 | NUR ---
RT NOTES REC'D PT ON VENT WITH SETTINGS CHARTED. VENT AND APNEA ALARMS SET AND FUNCTIONING. TRACH IS MIDLINE AND SECURE. SXN PRN FOR SMALL THICK FROTHY WHITE YELLOWISH SECRETION. EQUAL BILATERAL CHEST RISE PRESENT. BS RHONCHI THROUGH OUT BOTH SIDES. PT DAYAN VENT WELL. NO RESP DISTRESS NOTED. AMBU BAG IS AT BEDSIDE.
--- NOTE | 2016-10-11 21:45 | NUR ---
PATIENT CALLED REGARDING UPDATE ON PATIENT.
[2016-10-11] MEDS: ATORVASTATIN 10 MG TABLET GT SCH (22:49)
[2016-10-11] MEDS: FAMOTIDINE 20 MG TABLET GT SCH (22:50)
[2016-10-12] VITALS (13 sets, daily range): BP systolic 106–121; BP diastolic 72–85; PULSE 70–87; RESP 16–19; TEMP 96.1–97.6; O2SAT 99–100
--- NOTE | 2016-10-12 00:20 | NUR ---
ROUNDS PATIENT IS IN BED SLEEPING. NO SIGNS OF DISTRESS. BREATHING IS NON LABORED. WILL CONTINUE TO MONITOR.
--- NOTE | 2016-10-12 02:30 | NUR ---
ROUNDS PATIENT IS IN BED SLEEPING. NO SIGNS OF DISTRESS. BREATHING IS NON LABORED. WILL CONTINUE TO MONITOR.
--- NOTE | 2016-10-12 04:30 | NUR ---
RT IS AT BEDSIDE. PATIENT IS BEING SUCTIONED. BREATHING IS NON LABORED. NO SIGNS OF DISTRESS. WILL CONTINUE TO MONITOR.
[2016-10-12] MEDS: PIPERACILLIN/TAZO 2.25G/DEX-IS 50 ML IV SCH ×3 (05:11→21:42)
--- NOTE | 2016-10-12 05:45 | NUR ---
BABAR CARE PATIENT HAD A BOWEL MOVEMENT. BABAR CARE WAS PERFORMED. Z-GUARD WAS APPLIED. BEAM DYER ANALYN AT BEDSIDE.
--- NOTE | 2016-10-12 06:40 | NUR ---
CLOSING NOTES PATIENT IS IN BED SLEEPING. NO SIGNS OF DISTRESS. BREATHING IS NON LABORED. IV SHOWS NO SIGNS OF COMPLICATIONS. CALL LIGHT IS WITHIN REACH. BED ALARM IS ON. WILL ENDORSE ALL CARE TO THE MORNING NURSE.
[2016-10-12 06:57] LABS: CALCIUM 9.6 mg/dL (8.4-11.0); CREATININE 7.13 mg/dL (0.55-1.30); POTASSIUM 4.2 mmol/L (3.5-5.1)
[2016-10-12 06:58] LABS: BASOPHILS % (AUTO) 0.3 % (0.0-2.0); EOSINOPHILS # (AUTO) 0.3 K/uL (0.0-0.4); EOSINOPHILS % (AUTO) 3.3 % (0.0-4.0); HEMATOCRIT 30.8 % (36-54); HEMOGLOBIN 10.4 g/dL (14.0-18.0); LYMPHOCYTES # (AUTO) 1.1 K/uL (1.0-5.5); LYMPHOCYTES % (AUTO) 12.6 % (20.5-51.5); MEAN CORPUSCULAR HEMOGLOBIN 31 pg (27-31); MEAN CORPUSCULAR HGB CONC 34 % (32-36); MEAN CORPUSCULAR VOLUME 91 fL (79.0-98.0); MONOCYTES # (AUTO) 0.8 K/uL (0.0-1.0); MONOCYTES % (AUTO) 9.2 % (1.7-9.3); NEUTROPHILS # (AUTO) 6.2 K/uL (1.8-7.7); NEUTROPHILS % (AUTO) 74.6 % (40.0-70.0); PLATELET COUNT (AUTO) 148 K/uL (130-430); RED BLOOD CELL COUNT(AUTO) 3.38 MIL/uL (4.2-6.2); RED CELL DISTRIBUTION WIDTH 14.8 % (9.0-15.0); WHITE BLOOD COUNT (AUTO) 8.4 K/uL (4.8-10.8)
--- NOTE | 2016-10-12 08:10 | NUR ---
Initial note A/O x 1, response to pain and calling patient's name. No painful facial expression. Skin warm to touch, redness at coccyx, skin barrier cream applied. one IV SL #20 at L chest, patent, free of infection or filtration. Quintan shunt at L femoral, dressing clean and intact. GT site free of infection, dressing changed as MD order. Continue GTF Novasoure Renal at 45 ml/hr, 0 ml residual. No edema, +2 radial and pedal pulses. Call light within reach, will continue to monitor patient. Addendum: 10/12/16 at 1158 by Lora Carlson RN G TUBE PATENT, PLACEMENT VERIFIED, NO RESIDUAL NOTED, FLUSHES, FEEDINGS ORDERED
[2016-10-12] MEDS: LACTOBACILLUS RHAMNOSUS GG 1 CAP CAPSULE PO SCH ×2 (09:37→21:42)
[2016-10-12] MEDS: ASCORBIC ACID 500 MG TABLET GT SCH (09:37)
[2016-10-12] MEDS: levETIRAcetam 500 MG TABLET GT SCH ×2 (09:38→21:43)
[2016-10-12] MEDS: FOLIC ACID 1 MG TABLET GT SCH (09:38)
--- NOTE | 2016-10-12 10:10 | NUR ---
Round A/O x 1, response to pain and patient's name. No painful facial expression. Skin warm to touch, redness at coccyx, skin barrier cream applied, reposition patient to R side. One IV SL #20 at L chest, free of infection or filtration. Quintan shunt at L femoral, dressing clean and intact. GT site free of infection, dressing dry and intact. Continue GTF Novasoure Renal at 45 ml/hr, 0 ml residual, medications administrated via GT, patient tolerated well. Flushed water before, between, and after medications administration. No edema, +2 radial and pedal pulses. Call light within reach, will continue to monitor patient.
[2016-10-12] MEDS: INSULIN ASPART 100 UNITS/ML, 10 ML VIAL (NovoLOG) SUBCUT PRN ×2 (11:58→17:43)
--- NOTE | 2016-10-12 12:10 | NUR ---
Round A/O x 1, response to pain and calling patient's name. No painful facial expression. Skin warm to touch, redness at coccyx, skin barrier cream applied. one IV SL #20 at L chest, patent, free of infection or filtration. Fredo cath at L femoral, dressing clean and intact. GT patent, site free of infection, dressing dry and intact, continue GTF Novasoure Renal at 45 ml/hr, 0 ml residual. HOB > 45 degree. No edema, +2 radial and pedal pulses. Call light within reach, will continue to monitor patient.
--- NOTE | 2016-10-12 14:00 | NUR ---
Round A/O x 1, response to pain and calling patient's name. No painful facial expression. Skin warm to touch, redness at coccyx, skin barrier cream applied. one IV SL #20 at L chest, patent, free of infection or filtration. Fredo cath at L femoral, dressing clean and intact. GT patent, site free of infection, dressing dry and intact, continue GTF Novasoure Renal at 45 ml/hr, 0 ml residual. HOB > 45 degree. No edema, +2 radial and pedal pulses. Reposition patient to his side. Call light within reach, will continue to monitor patient.
--- NOTE | 2016-10-12 14:02 | NUR ---
PAGED DR ALMONTE FOR ORDERS. SPOKE WITH OSWALD
--- NOTE | 2016-10-12 14:14 | NUR ---
CONSULTATION: REASON FOR CONSULT: BLOOD BANK COORDINATOR/MDRO PSEUDOMONAS AERUGINOSA OF [employer] CONSULTING PHYSICIAN: CACHORRO DELVALLE MD ORDERED BY: CECILLE ALMONTE DO SPOKE WITH SUSANA..BUT DR HUTCHINS IS COVERING FOR DR DELVALLE
--- NOTE | 2016-10-12 15:25 | NUR ---
MD ROUNDS Dr Ash rodriguez, aware of patients condition, per md to change access for HD, dr soto pagesen, awaiting call back to notify him.
--- NOTE | 2016-10-12 15:28 | NUR ---
PAGED DR ALMONTE FOR ORDERS. SPOKE WITH OSWALD Addendum: 10/12/16 at 1755 by Lora Carlson RN dr almonte called back and received new orders
--- NOTE | 2016-10-12 16:10 | NUR ---
Round A/O x 1, response to pain and calling patient's name. No painful facial expression. Resting in bed. Skin warm to touch, skin barrier cream applied to coccyx. one IV SL #20 at L chest, patent, free of infection or filtration. Zosyn given, no ASE noted. Fredo cath at L femoral, dressing clean and intact. GT patent, site free of infection, dressing dry and intact, continue GTF Novasoure Renal at 45 ml/hr, 5 ml residual. HOB > 45 degree. No edema, +2 radial and pedal pulses. Reposition patient every 2 hours. Call light within reach, will continue to monitor patient.
--- NOTE | 2016-10-12 17:48 | NUR ---
CONSULTATION: REASON FOR CONSULT: CHANGE IN HEMODIALYSIS ACCESS CONSULTING PHYSICIAN: CHERYL CANTRELL MD ORDERED BY: CECILLE ALMONTE DO SPOKE WITH CARMELITA FROM EXCHANGE
--- NOTE | 2016-10-12 17:55 | NUR ---
MD CALL Spoke with dr higginbotham about consult, per md access change will be done in am, md will put in orders.
--- NOTE | 2016-10-12 18:05 | NUR ---
Round A/O x 1, response to pain and calling patient's name. No painful facial expression. Resting in bed. Skin warm to touch, skin barrier cream applied to coccyx. one IV SL #20 at L chest, patent, free of infection or filtration. Fredo cath at L femoral, dressing clean and intact. GT patent, site free of infection, dressing dry and intact, continue GTF Novasoure Renal at 45 ml/hr, 0 ml residual. 100 ml free water given. HOB > 45 degree. No edema, +2 radial and pedal pulses. Reposition patient every 2 hours. Call light within reach, will continue to monitor patient.
--- NOTE | 2016-10-12 19:31 | NUR ---
RN ROUNDS Patient in bed at this time resting, respirations even and unlabored. No acute distress noted. Patient is resting with eyes closed. Patient tolerating vent setting well. Call light in hand. Isolation precautions in place. Fall and safety precautions in place. Will continue to monitor.
[2016-10-12] MEDS: FAMOTIDINE 20 MG TABLET GT SCH (21:43)
[2016-10-12] MEDS: ATORVASTATIN 10 MG TABLET GT SCH (21:43)
--- NOTE | 2016-10-12 22:52 | NUR ---
RN ROUNDS Patient in bed at this time resting. Patient continues to tolerate vent setting well. Repositioning patient as ordered and tolerated well. Call light in hand. Fall and safety precautions in place. Will continue to monitor.
[2016-10-13] VITALS (18 sets, daily range): BP systolic 100–119; BP diastolic 70–88; PULSE 73–90; RESP 16–20; TEMP 96.3–99.6; O2SAT 96–100
--- NOTE | 2016-10-13 00:24 | NUR ---
RN ROUNDS Cleaned and repositioned patient with assistance of family member. Collected stool sample and sent to lab. Patient tolerated well. Call light in hand. Fall and safety precautions in place. Will continue to monitor.
--- NOTE | 2016-10-13 02:42 | NUR ---
RN ROUNDS Patient in bed at this time resting, patient tolerating vent settings well. Patient noted to be clean. Patient turned and repositioned as ordered. Call light in hand. Fall and safety precautions in place. Aspirations precautions in place. Contact precautions followed. Will continue to monitor.
--- NOTE | 2016-10-13 04:33 | NUR ---
RN ROUNDS Suctioned patient. Patient noted to have a lot fo sputum. Patient tolerated well. Call light in hand. Fall and safety precautions in place. Will continue to monitor.
[2016-10-13] MEDS: PIPERACILLIN/TAZO 2.25G/DEX-IS 50 ML IV SCH ×3 (06:14→21:09)
--- NOTE | 2016-10-13 06:38 | NUR ---
Closing Note Patient in bed at this time resting, patient tolerating vent well. No acute distress noted at this time. All due meds given, all needs met. Call light in hand. Aspirations precautions in place. Contact precautions in place. Will endorse to day shift nurse.
[2016-10-13 07:14] LABS: BASOPHILS % (AUTO) 0.3 % (0.0-2.0); EOSINOPHILS # (AUTO) 0.4 K/uL (0.0-0.4); HEMATOCRIT 29.5 % (36-54); HEMOGLOBIN 9.8 g/dL (14.0-18.0); LYMPHOCYTES # (AUTO) 0.8 K/uL (1.0-5.5); LYMPHOCYTES % (AUTO) 10.4 % (20.5-51.5); MEAN CORPUSCULAR HEMOGLOBIN 30 pg (27-31); MEAN CORPUSCULAR HGB CONC 33 % (32-36); MEAN CORPUSCULAR VOLUME 90 fL (79.0-98.0); MONOCYTES # (AUTO) 0.5 K/uL (0.0-1.0); NEUTROPHILS % (AUTO) 77.3 % (40.0-70.0); PLATELET COUNT (AUTO) 137 K/uL (130-430); RED BLOOD CELL COUNT(AUTO) 3.28 MIL/uL (4.2-6.2); RED CELL DISTRIBUTION WIDTH 14.8 % (9.0-15.0); WHITE BLOOD COUNT (AUTO) 7.7 K/uL (4.8-10.8)
[2016-10-13 07:31] LABS: CALCIUM 9.4 mg/dL (8.4-11.0); POTASSIUM 4.1 mmol/L (3.5-5.1)
[2016-10-13 07:43] LABS: CREATININE 8.4 mg/dL (0.55-1.30)
--- NOTE | 2016-10-13 07:52 | NUR ---
Page: Attempted to page Dr. Turpin to report critical lab value, but no one at answering service took my call. Nurse aware.
--- NOTE | 2016-10-13 08:10 | NUR ---
Initial note A/O x 1, no SOB, no painful facial expression. Skin warm to touch, redness at coccyx, barrier cream applied. Patient is on low air loss mattress, reposition Q2H, SCD in place. Crackles lungs longs at lung bases. Active bowel sounds present all quadrants. GTF: Novasource Renal @ 45 hl/hr, 0 ml residual, site free of infection, dressing changed as ordered. Trach/vent in place. IV #20 at L chest, patent, No edema noted. Patient rest in bed, call light within reach, will continue to monitor patient.
--- NOTE | 2016-10-13 09:29 | NUR ---
DISCHARGE PLANNING [phone] for possible discharge back and ISO status. Will follow up on ISO bed availability. Addendum: 10/13/16 at 1039 by Vanita Leos DP Spoke with Steven in admitting patient assigned to [facility] room 211B, available anytime. Steven requested return call back with
[2016-10-13] MEDS: LACTOBACILLUS RHAMNOSUS GG 1 CAP CAPSULE PO SCH ×2 (09:45→21:08)
[2016-10-13] MEDS: levETIRAcetam 500 MG TABLET GT SCH ×2 (09:45→21:08)
[2016-10-13] MEDS: FOLIC ACID 1 MG TABLET GT SCH (09:45)
[2016-10-13] MEDS: ASCORBIC ACID 500 MG TABLET GT SCH (09:45)
--- NOTE | 2016-10-13 10:10 | NUR ---
Round A/O x 1, no SOB, no painful facial expression. Skin warm to touch, redness at coccyx, barrier cream applied. Patient is on low air loss mattress, reposition Q2H, SCD in place. Crackles lungs longs at lung bases. Suction was performed by RT. Active bowel sounds present all quadrants. GTF: Novasource Renal @ 45 hl/hr, 0 ml residual, site free of infection, dressing changed as ordered. Trach/vent in place. IV #20 at L chest, patent, No edema noted. Patient rest in bed, call light within reach, will continue to monitor patient.
[2016-10-13] MEDS: INSULIN ASPART 100 UNITS/ML, 10 ML VIAL (NovoLOG) SUBCUT PRN ×2 (11:40→16:56)
--- NOTE | 2016-10-13 12:10 | NUR ---
Round A/O x 1, no SOB, no painful facial expression. Skin warm to touch, redness at coccyx, barrier cream applied. Patient is on low air loss mattress, reposition Q2H, SCD in place. Crackles lungs sounds at lung bases. Active bowel sounds present all quadrants. GTF: Novasource Renal @ 45 hl/hr, 0 ml residual, site free of infection, dressing changed as ordered. Trach/vent in place. IV #20 at L chest, patent, No edema noted. HD nurse at bedside ready for HD procedure. Patient rest in bed, call light within reach, will continue to monitor patient.
--- NOTE | 2016-10-13 12:15 | NUR ---
MD call Paged Dr. Burch (on-call for Dr. Aleman) regarding Evaristo cath clot. Dr. Burch instructed to call Dr. Mcgregor (surgeon) for surgery.
--- NOTE | 2016-10-13 12:35 | NUR ---
MD call Paged Dr. Mcgregor (surgeon) and informed him about the Fredo cath clot and needed to change the cath. Dr. Mcgregor aware and stated the name of procedure is Replacement of a Fredo catheter. Dr. Mcgregor also said he will be here couple hours later.
[2016-10-13] MEDS: AMIKACIN SULFATE 500 MG in D5W 100 ML IV SCH (13:52)
--- NOTE | 2016-10-13 14:05 | NUR ---
Round A/O x 1, no SOB, no painful facial expression. Skin warm to touch, redness at coccyx, barrier cream applied. Patient is on low air loss mattress, reposition Q2H, SCD in place. Crackles lungs sounds at lung bases. Active bowel sounds present all quadrants. GTF: Novasource Renal @ 45 hl/hr, 0 ml residual, site free of infection, dressing clean and dry. Trach/vent in place. IV #20 at L chest, patent, IV Amikicin infusing. No edema noted. HD nurse at bedside ready for HD procedure. Patient rest in bed, call light within reach, will continue to monitor patient.
--- NOTE | 2016-10-13 16:10 | NUR ---
Round A/O x 1, no SOB, no painful facial expression. Skin warm to touch, redness at coccyx, barrier cream applied. Patient is on low air loss mattress, reposition Q2H, SCD in place. Crackles lungs sounds at lung bases. Active bowel sounds present all quadrants. GTF: Novasource Renal @ 45 hl/hr, 0 ml residual, 100 ml water flushed, patient tolerated well. GT site free of infection, dressing clean and dry. Trach/vent in place. IV #20 at L chest, patent, no edema noted. US tech at bedside. Patient rest in bed, call light within reach, will continue to monitor patient.
--- NOTE | 2016-10-13 16:17 | NUR ---
Nutrition F/U Admitting Diagnosis severe anemia Past Medical History hx of CVA, chronic respiratory failure s/p tracheostomy (ventilator and [id number]), DM, ESRD on dialysis, spinal cord injury (quadriplegic) Pertinent Medications folic acid, vit C, zinc sulfate, lipitor, procrit, culturelle, piperacillin/tazobactum, D50%-syringe, insulin apart, Mg sulfate, K-Dur, zofran, ativan, colace, norvo/vicodin Current Diet Order Novasource Renal at 45 ml/hr, Free Water Flush: 100 ml q8h via G-tube Height (Feet) 5 feet Height (Inches) 8.00 inches Weight (Pounds) 150 pounds Weight (Calculated Kilograms) 68.071869 kilograms Patient Weight 68.039 kg Body Mass Index 22.80 [place]/Adjusted Body Weight IBW: 154 lb/70 kg; adj BW (quadriplegia): 131-139 lb/60-63 kg; 108-115% IBW Estimated Needs 9516-6619 kcal/day (BEE x 1.2-1.5 adj BW for pulm disease) Grams of Protein per Day 82-95 gm/day (1.2-1.4 gm/kg CBW for ESRD on HD) Fluid Intake Goal Per MD (ESRD) Pertinent Labs 10/13/16: Na 1369 WNL (improved), BG 137 H, POC BG 108 H, BUN 108 H, CRE 8.40 H, Hgb 9.38 L, Hct 29.5 L, eGFR 7 L 10/09/16: ALB 2.4 L, AST 44 H, ALT 98 H, ALP 135 H, Troponin 0.092 H Other Subjective Data Physical Assessment: Patient seen resting in bed, +trach, +vent, awake, but nonverbal with no caregivers present at bedside to participate in verbal interview. Pt appeared adequately nourished for height. Extremities appear contracted. Lower extremities appeared very thin. Bedscale reads 165 lb (75 kg), unsure of accuracy. GI Integrity: Per EMR, abdomen is soft and non-distended with active bowel sounds. BM x1 10/13. Tube Feedings: Current regimen provides 2160 kcal, 98 g protein, and 1074 ml free water per day. This meets 99% of high end of estimated energy needs and 103% of high end of estimated protein needs per day. 0 ml residuals collected. Pt is tolerating feedings. Integumentary: Brady score 13, posterior coccyx wound. Plans/Procedures: Per MD notes, continue G-tube feedings. Pt to be NPO tomorrow. HD scheduled for tomorrow. Pt is meeting optimal nutritional needs at this time. Pt is not appropriate for nutrition education. Problem, Etiology, Signs/Symptoms Excessive intake from enteral nutrition related to current TF order as evidenced by estimated intake from EN meeting 155% of high end of caloric needs and 160% of high end of protein needs per day. Expected Outcomes or Goals * Monitor tolerance to EN w/ goal of pt meeting at least 50% of estimated nutritional needs, labs trending WNL, normal GI function, and skin integrity/weight maintenance Dietitian Recommendations * Continue Novasource Renal at 45 ml/hr, Free Water Flush: 100 ml q8hr via G-tube per MD orders. Follow Up High Risk: F/U in 2-3days Addendum: 10/14/16 at [address] reviewed/approved internet project manager's note. JACKSON, RD
[2016-10-13] MEDS: EPOETIN ALFA 3,000 UNITS/ML VIAL SUBCUT SCH (16:49)
--- NOTE | 2016-10-13 18:00 | NUR ---
Closing note A/O x 1, no SOB, no painful facial expression. Cough on/off. Skin warm to touch, redness at coccyx, barrier cream applied. Patient is on low air loss mattress, reposition Q2H, SCD in place. Crackles lungs sounds at lung bases. Active bowel sounds present all quadrants. GTF: Novasource Renal @ 45 hl/hr, 0 ml residual, patient tolerated well. GT patent and site free of infection, dressing clean and dry. Trach/vent in place. IV #20 at L chest, patent, no edema noted. Call light within reach, will continue to monitor patient.
--- NOTE | 2016-10-13 19:35 | NUR ---
PM ASSESSMENT PT. NON VERBAL, VITAL SIGNS STABLE, NO DISTRESS NOTED, NO S/S OF PAIN OR DISCOMFORT, NOTED WITH TRACH TO VENT, TOLERATING SETTINGS WELL, NOTED WITH G-TUBE FEEDING NOVASOURCE @ 45 CC/HR, NO RESIDUALS NOTED, FLUSHED WELL WITH 50 CC H2O. REPOSITIONED WITH PILLOW SUPPORT, SEIZURE PADS IN PLACE, ISOLATION PRECAUTIONS MAINTAINED FOR MDRO AND SCHOOL TEACHER SPUTUM. WILL CONTINUE TO MONITOR.
[2016-10-13] MEDS: FAMOTIDINE 20 MG TABLET GT SCH (21:08)
[2016-10-13] MEDS: ATORVASTATIN 10 MG TABLET GT SCH (21:08)
--- NOTE | 2016-10-13 21:30 | NUR ---
ACCUCHECK BLOOD [id number], NO COVERAGE REQUIRED, WILL CONTINUE TO MONITOR.
--- NOTE | 2016-10-13 23:30 | NUR ---
RN ROUNDS PT. RESTING QUIETLY, VITAL SIGNS STABLE, NO DISTRESS NOTED, NO S/S OF PAIN OR DISCOMFORT, REPOSITIONED WITH PILLOW SUPPORT, WILL CONTINUE TO MONITOR.
[2016-10-14] VITALS (17 sets, daily range): BP systolic 100–138; BP diastolic 69–80; PULSE 67–91; RESP 16–22; TEMP 97.1–98.7; O2SAT 98–100
[2016-10-14] MEDS: D5NS 1,000 ML IV SCH ×2 (01:27→16:40)
--- NOTE | 2016-10-14 01:30 | NUR ---
RN ROUNDS PT. RESTING QUIETLY, VITAL SIGNS STABLE, NO DISTRESS NOTED, NO S/S OF PAIN OR DISCOMFORT, NO SEIZURE ACTIVITY NOTED, REPOSITIONED WITH PILLOW SUPPORT, WILL CONTINUE TO MONITOR.
--- NOTE | 2016-10-14 02:00 | NUR ---
RN ROUNDS PT. RESTING QUIETLY, VITAL SIGNS STABLE, NO DISTRESS NOTED, NO S/S OF PAIN OR DISCOMFORT, NO SEIZURE ACTIVITY NOTED, ORAL CARE AND SUCTION PROVIDED, REPOSITIONED WITH PILLOW SUPPORT, WILL CONTINUE TO MONITOR.
[2016-10-14] MEDS: PIPERACILLIN/TAZO 2.25G/DEX-IS 50 ML IV SCH ×3 (05:45→22:00)
--- NOTE | 2016-10-14 06:25 | NUR ---
BLOOD SUGAR, BED BATH BED BATH DONE, BED BATH DONE, CHG BATH DONE, NEW LINEN AND GOWN APPLIED, BLOOD SUGAR IS 95, NO COVERAGE GIVEN. REPOSITIONED WITH PILLOW SUPPORT, ORAL CARE AND SUCTION PROVIDED FOR SMALL AMOUNT OF THICK CLEAR SECRETIONS. IV ACCESS IN PLACE TO LEFT CHEST WITH D5 NS @ 60 CC/HR, G-TUBE REMAINS CLAMPED, BILATERAL SCDS IN PLACE. SEIZURE PADS IN PLACE.
[2016-10-14 07:41] LABS: MEAN CORPUSCULAR HEMOGLOBIN 30 pg (27-31); MEAN CORPUSCULAR HGB CONC 33 % (32-36); MEAN CORPUSCULAR VOLUME 91 fL (79.0-98.0); PLATELET COUNT (AUTO) 164 K/uL (130-430); RED BLOOD CELL COUNT(AUTO) 3.09 MIL/uL (4.2-6.2); RED CELL DISTRIBUTION WIDTH 14.2 % (9.0-15.0); WHITE BLOOD COUNT (AUTO) 7.2 K/uL (4.8-10.8)
[2016-10-14 07:42] LABS: HEMOGLOBIN 9.2 g/dL (14.0-18.0)
[2016-10-14 07:49] LABS: ALBUMIN 2.4 g/dL (3.4-4.8); CALCIUM 8.9 mg/dL (8.4-11.0); POTASSIUM 4.7 mmol/L (3.5-5.1); TOTAL BILIRUBIN 0.5 mg/dL (0.0-1.0); TOTAL PROTEIN, SERUM 7.2 g/dL (6.4-8.3)
[2016-10-14 07:55] LABS: PROTHROMBIN TIME 10.9 SECS (9.5-12.5)
[2016-10-14 07:56] LABS: CREATININE 9.78 mg/dL (0.55-1.30)
--- NOTE | 2016-10-14 08:00 | NUR ---
AM ROUNDS Patient is alert and oriented to self. Patient is nonverbal, shows no signs of distress.Assessment complete. Patient is NPO per procedure including medications; per Dr. Papi monroy to give Keppra before patient has procedure in OR. Bed is in lowest position, three side rails up, seizure precaution initiated, fall precaution initiated. Will continue to monitor and check on patient.
--- NOTE | 2016-10-14 08:35 | NUR ---
2ND PAGE FOR DR TRIPP BUT DR BRICENO IS VOCATIONAL CHILDCARE TEACHER FOR HIM. SPOKE WITH ARCHIE FROM EXCHANGE
[2016-10-14] MEDS: LACTOBACILLUS RHAMNOSUS GG 1 CAP CAPSULE PO SCH ×2 (09:00→21:00)
[2016-10-14] MEDS: ASCORBIC ACID 500 MG TABLET GT SCH (09:00)
[2016-10-14] MEDS: FOLIC ACID 1 MG TABLET GT SCH (09:00)
--- NOTE | 2016-10-14 09:00 | NUR ---
CRITICAL LAB NOTIFIED DR ALMONTE OF ELEVATED BUN AND CREATININE, STATED PATIENT NEEDS DIALYSIS, NOTIFIED THAT PATIENT WILL BE GOING TO O.R. TODAY FOR AV SHUNT PLACEMENT, CALL BACK FROM DR BRICENO NOTIFIED OF ELEVATED BUN AND CREAT, INFORMED FOR AV SHUNT PLACEMENT TODAY, VERBALIZED UNDERSTANDING AND NO NEW ORDERS.
--- NOTE | 2016-10-14 09:30 | NUR ---
Medication Pass Patient tolerated Keppra well; no residual output from G-tube; G-tube flushed well. Patient is stable no signs of distress; bed left in lowest position
[2016-10-14] MEDS: levETIRAcetam 500 MG TABLET GT SCH ×2 (09:34→21:00)
--- NOTE | 2016-10-14 11:00 | NUR ---
RN ROUNDS Patient is calm, no signs of distress noted. Patient's bed is currently in lowest position, three side rails are up,
--- NOTE | 2016-10-14 11:01 | NUR ---
RN ROUNDS Patient is calm, no signs of distress noted. Patient's bed is currently in lowest position, three side rails are up. Fall precautions in place, seizure precautions in place, side rails padded. Will continue to monitor patient.
[2016-10-14 11:09] LABS: ATYPICAL LYMPHOCYTES % 2 % (0-0); BAND % (MANUAL) 6 % (0-6); BASOPHILS % (MANUAL) 0 % (0-2); EOSINOPHILS % (MANUAL) 7 % (0-7); LYMPHOCYTES % (MANUAL) 13 % (20-46); MONOCYTES % (MANUAL) 9 % (0-11)
--- NOTE | 2016-10-14 11:52 | NUR ---
DR ADAMS HERE TO SEE THE PATIENT, OVER THE PHONE CONSENT RECEIVED FOR ANESTHESIA FROM PATIENT'S .
--- NOTE | 2016-10-14 12:32 | NUR ---
PATIENT OFF THE UNIT TO SURGERY, STABLE CONDITION, ASSISTED BY RESPIRATORY THERAPIST TO OR.
[2016-10-14] MEDS ORDERED: THROMBIN (BOVINE) 5000 UNITS/ VIAL TP ONE (14:00)
[2016-10-14] MEDS ORDERED: ROCURONIUM BROMIDE 10 MG/ML (ZEMURON) ONE (14:00)
[2016-10-14] MEDS ORDERED: NS 1000 ML BAG IV ONE (14:00)
[2016-10-14] MEDS ORDERED: GELATIN SPONGE 100 TP ONE (14:00)
[2016-10-14] MEDS ORDERED: LIDOCAINE/EPI 1% 1:100000 20 ML VIAL INJ ONE (14:00)
[2016-10-14] MEDS ORDERED: SEVOFLURANE 15 MIN GAS INH ONE (14:00)
[2016-10-14] MEDS ORDERED: NS IRRIG SOLN 1000 ML IR ONE (14:00)
[2016-10-14] MEDS ORDERED: ASPIRIN 325 MG TABLET (ECOTRIN) PO ONE (14:15)
--- NOTE | 2016-10-14 14:50 | NUR ---
RT NOTES Pt. was transported from O.R. to RM 133 bagging with 100% O2 via ambubag to trach tube. T.T remained secure/patent. Pt. placed back on vent with same settings. Alarms set and audible. Sxn T.T for moderate amount of thin/thick white to pale yellow secretions. RN Evelio at bedside. Will endorse to RT Esperanza.
--- NOTE | 2016-10-14 14:55 | NUR ---
PATIENT BACK ON UNIT Patient is back on unit; patient is stable, no signs of distress, will continue to monitor
--- NOTE | 2016-10-14 15:30 | NUR ---
ORDER FOR HEMODIALYSIS GIVEN TO FITNESS SERVICES MANAGER WHO WILL CONTACT DIALYSIS NURSE, HEMODIALYSIS IS ORDERED FOR TODAY PER DR SORIA.
--- NOTE | 2016-10-14 16:00 | NUR ---
RN ROUNDS Patient is stable, patient is resting in bed, no signs of distress; will continue to monitor patient. Bed in lowest position, fall precaution in place, seizure precaution in place. Isolation precautions in place
--- NOTE | 2016-10-14 18:30 | NUR ---
CLOSING NOTE Will give report to night shfit nurse. Will endorse to shop director to follow up with hemodialysis today. Hemodialysis nurse has not made rounds. Patient is calm,resting in bed; no signs of respiratory distress; fall precautions in place, seizure precaution in place, isolation process in place. All needs met.
--- NOTE | 2016-10-14 19:45 | NUR ---
PM ASSESSMENT PT. OPENS EYES SPONTANEOUSLY, PT. IS NON-VERBAL, VITAL SIGNS STABLE, NO DISTRESS NOTED, NO S/S OF PAIN OR DISCOMFORT, PT. IS ON MECHANICAL VENT., TOLERATING SETTINGS WELL, RECEIVED PT. WITH G-TUBE FEEDING OFF, NEW BAG OF NOVASOURCE RENAL STARTED @ 45 CC/HR ORDERED, NO RESIDUALS NOTED, FLUSHED WELL WITH 20 CC H2O. BILATERAL SCDS IN PLACE, REPOSITIONED WITH PILLOW SUPPORT, SEIZURE PRECAUTIONS AND ISOLATION PRECAUTIONS IN PLACE, WILL CONTINUE TO MONITOR.
--- NOTE | 2016-10-14 20:00 | NUR ---
HEMODIALYSIS NURSE AT BEDSIDE.
[2016-10-14] MEDS: ATORVASTATIN 10 MG TABLET GT SCH (21:00)
[2016-10-14] MEDS: FAMOTIDINE 20 MG TABLET GT SCH (21:00)
--- NOTE | 2016-10-14 22:00 | NUR ---
RN ROUNDS PT. RESTING QUIETLY, VITAL SIGNS STABLE, NO DISTRESS NOTED, NO S/S OF PAIN OR DISCOMFORT, REPOSITIONED WITH PILLOW SUPPORT, CALL LIGHT WITHIN REACH, WILL CONTINUE TO MONITOR.
--- NOTE | 2016-10-14 23:29 | NUR ---
HEMODIALYSIS DONE HD DONE, 1.5 L OUTPUT.
[2016-10-15] VITALS (16 sets, daily range): BP systolic 97–132; BP diastolic 60–86; PULSE 72–104; RESP 17–20; TEMP 97.7–98.7; O2SAT 98–99
--- NOTE | 2016-10-15 01:09 | NUR ---
AT BEDSIDE UPDATED WITH PLAN OF CARE.
--- NOTE | 2016-10-15 03:00 | NUR ---
RN ROUNDS PT. RESTING QUIETLY, VITAL SIGNS STABLE, NO DISTRESS NOTED, NO S/S OF PAIN OR DISCOMFORT, NO SEIZURE ACTIVITY NOTED, REPOSITIONED WITH PILLOW SUPPORT, CALL LIGHT WITHIN REACH, WILL CONTINUE TO MONITOR.
[2016-10-15] MEDS: D5NS 1,000 ML IV SCH (05:35)
[2016-10-15] MEDS: PIPERACILLIN/TAZO 2.25G/DEX-IS 50 ML IV SCH (05:35)
--- NOTE | 2016-10-15 06:36 | NUR ---
ACCUCHECK, CLOSING NOTES BLOOD [id number], NO COVERAGE REQUIRED. REPOSITIONED WITH PILLOW SUPPORT, ORAL CARE AND SUCTION PROVIDED FOR SMALL AMOUNT OF THICK CLEAR SECRETIONS. IV ACCESS PATENT AND IN PLACE TO LEFT CHEST WITH D5 NS @ 60 CC/HR, G-TUBE ONGOING WITH NOVASOURCE @ 45 CC/HR, NO RESIDUALS NOTED, FLUSHED WITH 20 CC H2O, DRESSING IN PLACE TO R. GROIN CLEAN, DRY, INTACT. OLD LEFT FEMORAL HD ACCESS IN PLACE. SCD TO LEFT LEG IN PLACE. SEIZURE PADS IN PLACE, ALL ANTICIPATED NEEDS MET, KEPT COMFORTABLE.
--- NOTE | 2016-10-15 07:20 | NUR ---
initial notes: pt sleeping on bed. no distress noted. no active bleeding on R groin from Bovine graft. call light within reach. report received at bedside.
[2016-10-15 07:59] LABS: BASOPHILS % (AUTO) 0.2 % (0.0-2.0); EOSINOPHILS # (AUTO) 0.1 K/uL (0.0-0.4); EOSINOPHILS % (AUTO) 1.7 % (0.0-4.0); HEMATOCRIT 26.1 % (36-54); HEMOGLOBIN 8.5 g/dL (14.0-18.0); LYMPHOCYTES # (AUTO) 0.6 K/uL (1.0-5.5); LYMPHOCYTES % (AUTO) 8.2 % (20.5-51.5); MEAN CORPUSCULAR HEMOGLOBIN 29 pg (27-31); MEAN CORPUSCULAR HGB CONC 33 % (32-36); MEAN CORPUSCULAR VOLUME 90 fL (79.0-98.0); MONOCYTES # (AUTO) 0.7 K/uL (0.0-1.0); MONOCYTES % (AUTO) 9.5 % (1.7-9.3); NEUTROPHILS # (AUTO) 5.9 K/uL (1.8-7.7); NEUTROPHILS % (AUTO) 80.4 % (40.0-70.0); PLATELET COUNT (AUTO) 108 K/uL (130-430); RED CELL DISTRIBUTION WIDTH 14.7 % (9.0-15.0); WHITE BLOOD COUNT (AUTO) 7.3 K/uL (4.8-10.8)
[2016-10-15 08:21] LABS: CALCIUM 8.8 mg/dL (8.4-11.0); CREATININE 7.04 mg/dL (0.55-1.30); POTASSIUM 4.2 mmol/L (3.5-5.1)
[2016-10-15] MEDS: FOLIC ACID 1 MG TABLET GT SCH (09:14)
[2016-10-15] MEDS: LACTOBACILLUS RHAMNOSUS GG 1 CAP CAPSULE PO SCH ×2 (09:14→21:54)
[2016-10-15] MEDS: ASCORBIC ACID 500 MG TABLET GT SCH (09:14)
[2016-10-15] MEDS: levETIRAcetam 500 MG TABLET GT SCH ×2 (09:14→21:54)
--- NOTE | 2016-10-15 10:37 | NUR ---
DISCHARGE PLANNING Called [facility] spoke with Steven in admitting confirmed patient assigned to [facility] room 211B, bed available anytime. Steven requested return call back with DICK. Placed transportation packet in nurses station. Called [facility] [phone] spoke with Ej martinez CCT ([place]) transport on will call. Pending discharge order.
[2016-10-15] MEDS: INSULIN ASPART 100 UNITS/ML, 10 ML VIAL (NovoLOG) SUBCUT PRN (11:37)
--- NOTE | 2016-10-15 12:00 | NUR ---
rounds: sleeping on bed. no distress noted.
[2016-10-15] MEDS: AMIKACIN SULFATE 500 MG in D5W 100 ML IV SCH (13:22)
--- NOTE | 2016-10-15 14:00 | NUR ---
Wound care nurse: seen by WCN and suggest dressing for the denuded skin at the buttocks. Dressing also for the L arm skin tear.
--- NOTE | 2016-10-15 14:30 | NUR ---
Amy rounds: seen by Dr. Lindsay.
--- NOTE | 2016-10-15 16:00 | NUR ---
assumed care: report given by jr dai. patient seen on the bed,awake but non verbal,does not follow command.with contracted arms and lower extremities noted. on contact isolation,precaution rendered. on trach vent,fi02=30%,good saturation.continue to monitor.
[2016-10-15] MEDS: EPOETIN ALFA 3,000 UNITS/ML VIAL SUBCUT SCH (17:17)
--- NOTE | 2016-10-15 17:25 | NUR ---
blood sugar: blood sugar taken,no insulin coverage per sliding scale.
--- NOTE | 2016-10-15 18:50 | NUR ---
closing notes: patient still with same vent settings,see meditech for settings.fio2=30%,100% saturation.with gtube in situ. left femoral catheter for dialysis in placed. left chest iv intact.continue to monitor. stable.
--- NOTE | 2016-10-15 20:00 | NUR ---
NOTES; RECEIVED PT IN BED, EYES OPEN, NONVERBAL. PT IS ON TRACH TO VENT. TOLERATING VENT SETTINGS WELL. NO ACUTE DISTRESS NOTED. VITAL SIGNS STABLE. ABD SOFT NONDISTENDED WITH ACTIVE BOWEL SOUNDS. G-TUBE TO THE ABD WITH G-TUBE FEEDING OF NOVASOURCE RENAL AT 45cc/HR. NO RESIDUAL NOTED. IVF INFUSING WELL ON THE LEFT CHEST WALL, IV INTACT AND DRESSING CLEAN,DRY, AND INTACT. LEFT AND RT FEMORAL LINE NOTED. DRESSING CLEAN,DRY, AND INTACT. RT FEMORAL LINE AREA APPEARS TO BE RED. WOUND TO THE SACRUM AND RT BUTTOCKS WITH DRESSING CLEAN,DRY, AND INTACT. HEAD OF BED ELEVATED TO PREVENT PT FROM ASPIRATING. NO FACIAL GRIMACING OF PAIN NOTED. ISOLATION PRECAUTION IN PLACE. SCD TO THE LEFT HAND. PT IS ON AIR MATTRESS WITH BED ALARM. BED LOCKED AND IN LOW POSITION, SIDE RAILS UP X3, BED ALRM ON. CALL LIGHT WITHIN REACH. WILL CONTINUE TO MONITOR.
[2016-10-15] MEDS: FAMOTIDINE 20 MG TABLET GT SCH (21:54)
[2016-10-15] MEDS: ATORVASTATIN 10 MG TABLET GT SCH (21:54)
--- NOTE | 2016-10-15 22:00 | NUR ---
NOTES; BLOOD SUGAR FOUND TO BE 134. NO COVERAGE NEEDED PER SLIDDING SCALE ORDER. . WILL CONTINUE TO MONITOR.
--- NOTE | 2016-10-15 23:00 | NUR ---
NOTES; PT APPEARED TO BE SLEEPING, EYES CLOSED. RESPIRATION EVEN AND NONLABORED. REPOSITIONED, SAFETY MEASURES IN PROGRESS.
[2016-10-16] VITALS (12 sets, daily range): BP systolic 101–121; BP diastolic 75–81; PULSE 82–95; RESP 16–20; TEMP 96.7–98.2; O2SAT 92–100
[2016-10-16] MEDS: D5NS 1,000 ML IV SCH ×2 (00:18→17:11)
--- NOTE | 2016-10-16 00:45 | NUR ---
NOTES; G-TUBE SITE DRESSING REMOVED. G-TUBE SITE IS SLIGHTLY RED. CLEANSE SITE WITH NS, PAT DRY. Z-GUARD BARRIER CREAM TO BABAR G-TUBE SITE. G-TUBE DRESSING APPLIED.
--- NOTE | 2016-10-16 01:57 | NUR ---
NOTES; BLOOD SUGAR FOUND TO BE 134. NO COVERAGE NEEDED PER SLIDDING SCALE ORDER. . WILL CONTINUE TO MONITOR. Addendum: 10/16/16 at 0200 by Henrietta Araya LVN WRONG TIME ENTRY
--- NOTE | 2016-10-16 02:01 | NUR ---
NOTES; PT APPEARED TO BE SLEEPING, EYES CLOSED. RESPIRATION EVEN AND NONLABORED. SAFETY MEASURES IN PROGRESS.
--- NOTE | 2016-10-16 03:00 | NUR ---
NOTES; TRACH SUCTION AND MOUTH CARE PROVIDED. PT TOLERATED WELL.
--- NOTE | 2016-10-16 04:20 | NUR ---
NOTES; PT APPEARED TO BE SLEEPING, EYES CLOSED. RESPIRATION EVEN AND NONLABORED. SAFETY MEASURES IN PROGRESS.
[2016-10-16] MEDS: INSULIN ASPART 100 UNITS/ML, 10 ML VIAL (NovoLOG) SUBCUT PRN (05:52)
--- NOTE | 2016-10-16 06:45 | NUR ---
NOTES; INCONTINENT OF BM. TOTAL BED BATH GIVEN, BABAR CARE PROVIDED, LINEN CHANGED. WOUND TO THE BUTTOCKS AND SACRAL CHANGED PER WOUND CARE ORDERS. BLOOD SUGAR FOUND TOO 154. SLIDING SCALE INSULIN ADMINISTERED PER SLIDING SCALE ORDERS. MOUTH CARE PROVIDED. TOLERATING G-TUBE FEEDING WELL, NO RESIDUAL NOTED. DENIES ANY PAIN AT THIS TIME. NO SIGNS OR SYMPTOMS OF PAIN OR DISCOMFORT NOTED. ALL NEEDS ATTENDED. ISOLATION AND ASPIRATION PRECAUTION MAINTAINED. SAFETY MEASURES MAINTAINED. WILL CONTINUE TO MONITOR.
--- NOTE | 2016-10-16 08:00 | NUR ---
initial notes rec patient asleep but opens his eyes on stimuli. l chest wall iv infusing well. no infiltration noted.hob slightly elevated with a trache connected to a mechanical ventilator. no acute distress noted. with gt feeding and terrie well. no residual noted and patent. turned repositioned for comfort. bed in low position and side rails up and locked. oral care rendered and suctioned done with sacnty amount whitish phlegm. will continue to monitor patient.
--- NOTE | 2016-10-16 10:00 | NUR ---
rounds due meds was given thru gt. no residual noted and terrie well.
[2016-10-16] MEDS: levETIRAcetam 500 MG TABLET GT SCH (10:27)
[2016-10-16] MEDS: FOLIC ACID 1 MG TABLET GT SCH (10:27)
[2016-10-16] MEDS: ASCORBIC ACID 500 MG TABLET GT SCH (10:27)
[2016-10-16] MEDS: LACTOBACILLUS RHAMNOSUS GG 1 CAP CAPSULE PO SCH (10:27)
--- NOTE | 2016-10-16 10:35 | NUR ---
DC PLANNING: Per dr. Turpin, planning to send the pt. back to [facility] tomorrow ( HD today). The okayed for the old permacath to the left groin can be removed at the [facility]. Addendum: 10/16/16 at 1210 by Vanita BEATTY Spoke with Steven in admitting at [facility] patient no longer on bed hold start of tomorrow and stated needed insurance auth prior to patient planned discharge tomorrow. CM made aware. Addendum: 10/16/16 at 1211 by Vanita Leos DP Placed transportation packet in nurses station. Called [facility] [phone] spoke with Ej martinez CCT ([facility]) transport on will call for possible discharge back to [facility] today. Addendum: 10/16/16 at 1521 by Vanita Leos DP Faxed currently discharge order to [facility]. Called and spoke with Steven in admitting who is working on insurance auth. Steven stated once auth has been received will return call with bed assignment. Addendum: 10/16/16 at 1703 by Vanita Leos DP spoke with KEO Contreras at [facility] facility auth [id number]. called and spoke with Steven at [facility] confirmed patient assigned to [facility] room 211B, Bed available after 7pm. Called [facility] [phone] spoke with Ej arranged CCT transport excelsior picker 10pm. BRADY Dailey made aware.
--- NOTE | 2016-10-16 12:00 | NUR ---
rounds gt feeding terrie well. turned repositioned for comfort. dialysis nurse is here but informed her not to do dialysis per yesenia community case manager. no acute distress noted.
[2016-10-16 12:03] LABS: BASOPHILS % (AUTO) 0.3 % (0.0-2.0); EOSINOPHILS # (AUTO) 0.3 K/uL (0.0-0.4); EOSINOPHILS % (AUTO) 4.2 % (0.0-4.0); HEMATOCRIT 25.2 % (36-54); HEMOGLOBIN 8.2 g/dL (14.0-18.0); LYMPHOCYTES # (AUTO) 0.7 K/uL (1.0-5.5); LYMPHOCYTES % (AUTO) 8.9 % (20.5-51.5); MEAN CORPUSCULAR HEMOGLOBIN 30 pg (27-31); MEAN CORPUSCULAR HGB CONC 33 % (32-36); MEAN CORPUSCULAR VOLUME 91 fL (79.0-98.0); MONOCYTES # (AUTO) 0.8 K/uL (0.0-1.0); MONOCYTES % (AUTO) 10.5 % (1.7-9.3); NEUTROPHILS % (AUTO) 76.1 % (40.0-70.0); PLATELET COUNT (AUTO) 107 K/uL (130-430); RED BLOOD CELL COUNT(AUTO) 2.77 MIL/uL (4.2-6.2); RED CELL DISTRIBUTION WIDTH 14.8 % (9.0-15.0); WHITE BLOOD COUNT (AUTO) 7.8 K/uL (4.8-10.8)
--- NOTE | 2016-10-16 14:00 | NUR ---
rounds turned repositioned and made comfortable. no acute distress noted.
--- NOTE | 2016-10-16 16:00 | NUR ---
rounds still awaiting re transfer to snf. verified also with assistant case manager quoc godfrey dialysis order.
--- NOTE | 2016-10-16 16:53 | NUR ---
Nutrition F/U Admitting Diagnosis severe anemia Past Medical History hx of CVA, chronic respiratory failure s/p tracheostomy (ventilator and [id number]-[id number]), DM, ESRD on dialysis, spinal cord injury (quadriplegic) Pertinent Medications folic acid, vit C, zinc sulfate, lipitor, procrit, culturelle, D50%-syringe, insulin apart, Mg sulfate, K-Dur, zofran, ativan, colace, norvo/vicodin Current Diet Order Novasource Renal at 45 ml/hr, Free Water Flush: 100 ml q8h via G-tube Height (Feet) 5 feet Height (Inches) 8.00 inches Weight (Pounds) 150 pounds; bed scale (10/16/16): 163 lbs Weight (Calculated Kilograms) 68.470384 kilograms Patient Weight 68.039 kg Body Mass Index 22.80; new BMI 24.8 [place]/Adjusted Body Weight IBW: 154 lb/70 kg; adj BW (quadriplegia): 131-139 lb/60-63 kg; 108-115% IBW Estimated Needs 9284-4334 kcal/day (BEE x 1.2-1.5 adj BW for pulm disease) Grams of Protein per Day 82-95 gm/day (1.2-1.4 gm/kg CBW for ESRD on HD) Fluid Intake Goal Per MD (ESRD) Pertinent Labs 10/16/16: H/H 8.2 L/25.2 L 10/15/16: BG 158 H, BUN 67 H, CRE 7.04 H 10/14/16: ALB 2.4 L, AST 44 H, ALT 93 H, ALP 117 H, AST 44 H Other Subjective Data Patient seen resting in bed, +trach, +vent, awake, but nonverbal with no caregivers present at bedside to participate in verbal interview. TFs not running at time of visit, DI notified RN who plans to re-start feedings. Per EMR, pt is s/p x 2 days R side AV shunt placement arterioplasty of R common femoral artery. GI Integrity: Per EMR, abdomen is soft with active bowel sounds. BM x1 today.. Tube Feedings: Current regimen provides 2160 kcal, 98 g protein, and 1074 ml free water per day. This meets 99% of high end of estimated energy needs and 103% of high end of estimated protein needs per day. 0 ml residuals collected. Pt is tolerating feedings. Integumentary (10/15/16): Brady score 13, posterior coccyx denuded Plans/procedures: plans to d/c to SNF tomorrow; pt had dialysis today Pt is meeting optimal nutritional needs at this time. Pt is not appropriate for nutrition education. Problem, Etiology, Signs/Symptoms Excessive intake from enteral nutrition related to current TF order as evidenced by estimated intake from EN meeting 155% of high end of caloric needs and 160% of high end of protein needs per day. Expected Outcomes or Goals * Monitor tolerance to EN w/ goal of pt meeting at least 50% of estimated nutritional needs, labs trending WNL, normal GI function, and skin integrity/weight maintenance Dietitian Recommendations * Continue Novasource Renal at 45 ml/hr, Free Water Flush: 100 ml q8hr via G-tube per MD orders. Comments RD reviewed/approved internal wholesaler's note. TK, RD Follow Up High Risk: F/U in 2-3days
--- NOTE | 2016-10-16 17:36 | NUR ---
rounds pt will be transferred to snf at 2030 tonight as per employment evaluator/case manager quoc.
--- NOTE | 2016-10-16 19:30 | NUR ---
closing notes report given to kesha dai at [facility]. no sob noted. oral care rendered. pt is stable for transfer. gt feeding intact. no residual noted.
== END 2016-10-16 21:54 | DRG 981 ==
LOC: SED 15:56 → STU 18:16
PROVIDERS: ADMIT General Practice; ATTEND General Practice
PROC: 5A1955Z Respiratory Ventilation, Greater than 96 Consecutive Hours (ICD-10-PCS; principal; 2016-10-10)
PROC: 30233N1 Transfusion of Nonautologous Red Blood Cells into Peripheral Vein, Percutaneous Approach (ICD-10-PCS; 2016-10-10)
PROC: 5A1D60Z (ICD-10-PCS; 2016-10-10)
PROC: 041 Lower Arteries, Bypass (ICD-10-PCS; 2016-10-14)
DX: I12.0 Hypertensive chronic kidney disease with stage 5 chronic kidney disease or end stage renal disease (principal); J96.20 Acute and chronic respiratory failure, unspecified whether with hypoxia or hypercapnia; J69.0 Pneumonitis due to inhalation of food and vomit; G93.41 Metabolic encephalopathy; N18.6 End stage renal disease; G82.50 Quadriplegia, unspecified; J15.1 Pneumonia due to Pseudomonas; J95.851 Ventilator associated pneumonia; E44.0 Moderate protein-calorie malnutrition; Z99.11 Dependence on respirator [ventilator] status; D63.1 Anemia in chronic kidney disease; R13.10 Dysphagia, unspecified; E11.22 Type 2 diabetes mellitus with diabetic chronic kidney disease; E78.5 Hyperlipidemia, unspecified; G40.909 Epilepsy, unspecified, not intractable, without status epilepticus; Z99.2 Dependence on renal dialysis; Y84.8 Other medical procedures as the cause of abnormal reaction of the patient, or of later complication, without mention of misadventure at the time of the procedure; Z16.24 Resistance to multiple antibiotics; Z88.5 Allergy status to narcotic agent; Z93.0 Tracheostomy status; Z93.1 Gastrostomy status
CPT/HCPCS: 36415; 71010; 80048; 80053; 82272; 82962; 83735-TC; 83880; 84484; 85007; 85025; 85027; 85044-TC; 85610-TC; 85730-TC; 86886; 86900; 86901; 86905; 86920; 87070-TC; 87081; 87186-TC; 87205-TC; 90935; 90937; 93005; 94002; 94003; 94640; 94760; 99285; A6209; C1751; G0365; J0278; J0885; J1644; J1815; J2543; J7030; J7042; J7050; J7060; P9021

== ENCOUNTER 2016-12-22 16:20 | Emergency (ER) | payer OTHER ==
[~2016-12-22] VITALS: Ht 172.7 cm; Wt 63.5 kg
[2016-12-22 16:20] VITALS: BP_SYST 107
[~2016-12-22 16:20] MED LIST changes: -ACET650S22 GT; -ACETAMINOPHEN GT; -ALBMDI INH; -ATOR20TA64 GT; -ATRMDI INH; -INSU100V; -LEVE500T13 GT; -LIDOCAINE HCL NEB; -PANT40SU2 GT; -TYLENOL 160 MG/5 ML GT
[2016-12-22] MEDS ORDERED: VITD2000 PO (16:54)
[2016-12-22] MEDS ORDERED: LIDO15SO2 MM (16:54)
[2016-12-22] MEDS ORDERED: ALBU8.5H8 INH (16:54)
[2016-12-22] MEDS ORDERED: RANI-362 PO (16:54)
[2016-12-22 18:05] LABS: BASOPHILS % (AUTO) 0.4 % (0.0-2.0); EOSINOPHILS # (AUTO) 0.1 K/uL (0.0-0.4); EOSINOPHILS % (AUTO) 0.9 % (0.0-4.0); HEMATOCRIT 32.9 % (36-54); HEMOGLOBIN 10.4 g/dL (14.0-18.0); LYMPHOCYTES # (AUTO) 0.7 K/uL (1.0-5.5); MEAN CORPUSCULAR HEMOGLOBIN 28 pg (27-31); MEAN CORPUSCULAR HGB CONC 32 % (32-36); MEAN CORPUSCULAR VOLUME 87 fL (79.0-98.0); NEUTROPHILS # (AUTO) 10.3 K/uL (1.8-7.7); NEUTROPHILS % (AUTO) 84.7 % (40.0-70.0); PLATELET COUNT (AUTO) 176 K/uL (130-430); RED BLOOD CELL COUNT(AUTO) 3.78 MIL/uL (4.2-6.2); RED CELL DISTRIBUTION WIDTH 14.4 % (9.0-15.0); WHITE BLOOD COUNT (AUTO) 12.1 K/uL (4.8-10.8)
[2016-12-22 18:13] LABS: CALCIUM 9.5 mg/dL (8.4-11.0); CREATININE 6.57 mg/dL (0.55-1.30); POTASSIUM 4.4 mmol/L (3.5-5.1)
[2016-12-22 18:14] LABS: INR 1.1 (0.80-1.20); PROTHROMBIN TIME 11.4 SECS (9.5-12.5)
[2016-12-22 18:23] LABS: TOTAL BILIRUBIN 0.6 mg/dL (0.0-1.0)
[2016-12-22 18:24] LABS: ALBUMIN 3.4 g/dL (3.4-4.8); TOTAL PROTEIN, SERUM 9.4 g/dL (6.4-8.3)
[2016-12-23 02:39] VITALS: BP_SYST 132
== END 2016-12-22 19:45 | disposition home or self-care (01) ==
LOC: SED 16:20
DX: T83.83XA Hemorrhage due to genitourinary prosthetic devices, implants and grafts, initial encounter (principal); G82.50 Quadriplegia, unspecified; E11.22 Type 2 diabetes mellitus with diabetic chronic kidney disease; N18.6 End stage renal disease; Z99.2 Dependence on renal dialysis; Z79.4 Long term (current) use of insulin; Z86.73 Personal history of transient ischemic attack (TIA), and cerebral infarction without residual deficits; Z88.5 Allergy status to narcotic agent
CPT/HCPCS: 36415; 71010; 80053; 83880; 84484; 85025; 85610-TC; 93005; 99285

== ENCOUNTER 2017-01-15 12:19 | Inpatient (IN) | payer OTHER ==
[~2017-01-15] VITALS: Ht 175.3 cm; Wt 81.6 kg
[~2017-01-15 12:19] MED LIST changes: +ALBU8.5H8 INH; -INSU100V SQ; +LIDO15SO2 MM; +RANI-362 PO; +VITD2000 PO
[2017-01-15 12:20] VITALS: BP_SYST 102
--- NOTE | 2017-01-15 12:30 | NUR ---
Placed in room 6 . Placed on cardiac rn, blood pressure machine and pulse oximeter. To gown for exam. Side rails up.
--- NOTE | 2017-01-15 12:45 | NUR ---
ER at bedside examining patient.
--- NOTE | 2017-01-15 12:46 | NUR ---
# 20 gauge angiocath placed to ONEAL. Use of asceptic technique. Opsite placed over site. Blood return noted. Blood for lab drawn from site. Flushed with 10 cc of normal saline. No evidence of infiltration noted. Patient tolerated well.
--- NOTE | 2017-01-15 12:51 | NUR ---
Brought in by medics,came from [facility], sent here for abnormal lab,low HH.pt is non-verbal.eye blinking no tracking.vent dependent with tracheostomy ,setting are AC 16,TV 450,PEEP 5,FIO2 35%.skin warm and dry,abdomen soft,GT tube present. left femoral perma cath dressing intact. stage 2 dectube to sacrococcyx area and both buttocks.
[2017-01-15 12:56] LABS: CALCIUM 8.5 mg/dL (8.4-11.0); CREATININE 5.92 mg/dL (0.55-1.30); POTASSIUM 3.8 mmol/L (3.5-5.1)
[2017-01-15 12:58] LABS: MEAN CORPUSCULAR HEMOGLOBIN 28 pg (27-31); MEAN CORPUSCULAR HGB CONC 32 % (32-36); MEAN CORPUSCULAR VOLUME 87 fL (79.0-98.0); PLATELET COUNT (AUTO) 165 K/uL (130-430); RED BLOOD CELL COUNT(AUTO) 2.02 MIL/uL (4.2-6.2); RED CELL DISTRIBUTION WIDTH 14.8 % (9.0-15.0); WHITE BLOOD COUNT (AUTO) 17.5 K/uL (4.8-10.8)
[2017-01-15 13:01] LABS: INR 1.1 (0.80-1.20); PROTHROMBIN TIME 12.1 SECS (9.5-12.5)
[2017-01-15 13:02] LABS: ALBUMIN 2.3 g/dL (3.4-4.8); TOTAL BILIRUBIN 0.5 mg/dL (0.0-1.0); TOTAL PROTEIN, SERUM 7.5 g/dL (6.4-8.3)
[2017-01-15 13:14] LABS: HEMOGLOBIN 5.7 g/dL (14.0-18.0)
[2017-01-15 13:15] LABS: HEMATOCRIT 17.6 % (36-54)
[2017-01-15 13:37] LABS: BASOPHILS % (MANUAL) 0 % (0-2); EOSINOPHILS % (MANUAL) 1 % (0-7); LYMPHOCYTES % (MANUAL) 3 % (20-46); MONOCYTES % (MANUAL) 9 % (0-11)
--- NOTE | 2017-01-15 14:06 | NUR ---
Patient will be admitted to care of [facility]. Admitted to TELE unit. Will go to room 133. Belongings list completed. Summary report printed. Report will be given at bedside.
[2017-01-15] MEDS ORDERED: FERR220S3 PO (14:09)
--- NOTE | 2017-01-15 14:09 | NUR ---
MEDICATION RECONCILIATION COMPLETED RECEIVED FROM [facility]
--- NOTE | 2017-01-15 14:34 | NUR ---
ADMISSION NOTE Received patient from ER via mali, received report from KEVIN ABREU. Patient admitted with diagnosis of SEVERE ANEMIA. Patient oriented to hospital routine, call light, toileting and safety-patient unable due to medical condition.
[2017-01-15 14:45] VITALS: BP_SYST 101
--- NOTE | 2017-01-15 15:02 | NUR ---
Nephro Consult: for Dr. Hernández (Dr. Aleman is educational guidance counselor), regarding severe anemia, ordered by Dr. Turpin, spoke with Bertha.
[2017-01-15 15:03] VITALS: BP_SYST 101
[2017-01-15] MEDS ORDERED: cefTRIAXone 1 GM IVPB PREMIX 50 ML IV SCH (15:30)
[2017-01-15] MEDS ORDERED: VANCOMYCIN HCL 1 GM/NS PREMIX 250 ML IV ONE (15:30)
--- NOTE | 2017-01-15 15:30 | NUR ---
NOTE: RECEIVED PATIENT. PATIENT IS RESTING IN BED. NO S/S OF DISTRESS OR SOB. PATIENT IN STABLE CONDITION, VENTILATOR IN PLACE. IV IS PATENT. ASSESSMENT COMPLETE. PATIENT IS AWAKE BUT NON VERBAL AND DOES NOT TRACK EYES. PATIENT OPENS EYES SPONTANEOUS. G-TUBE IN PLACE, FEEDING TO START SOON. CALL LIGHT IN REACH, BED IN LOWEST POSITION, AND WILL CONTINUE TO MONITOR.
[2017-01-15] MEDS ORDERED: PANTOPRAZOLE SODIUM 40 MG/VIAL (PROTONIX) IVP ONE (15:45)
--- NOTE | 2017-01-15 15:50 | NUR ---
DR. QASIM TRIPP IN TO SEE PATIENT. HE SAID TO DO BLOOD TRANSFUSION DURING DIALYSIS.
[2017-01-15 16:45] LABS: IRON (SERUM) 57 mcg/dL (59-158); TOTAL IRON BIND. CAPACITY 86 ug/dL (250-450)
[2017-01-15] MEDS ORDERED: LIDOCAINE VISCOUS 2% MM PRN (17:00)
[2017-01-15] MEDS ORDERED: ALBUTEROL MDI INHALATION 8 GM INH INH SCH (17:00)
[2017-01-15] MEDS ORDERED: HYDROcodone/ACETAMIN 5-325 MG TAB (NORCO/ VICODIN) GT PRN (17:00)
[2017-01-15] MEDS ORDERED: ACETAMINOPHEN GT PRN (17:00)
--- NOTE | 2017-01-15 17:00 | NUR ---
DR. GAGE ZAMBRANO WAS CALLED FOR MED RECONCILIATION. DOCTOR WAS MADE AWARE THAT BLOOD IS NOT READY YET DUE TO ANTIBODIES AND HE SAID IT WAS OKAY. TO WAIT ON CALLING DIALYSIS NURSE UNTIL BLOOD IS ALMOST READY.
[2017-01-15] MEDS ORDERED: GENTAMICIN 120 MG/ ISO-OSM 100 ML PREMIX IV SCH (18:00)
--- NOTE | 2017-01-15 18:00 | NUR ---
BLOOD GLUCOSE ACCU CHECK NOT VERIFIED BY PHARMACY YET, BUT BLOOD GLUCOSE WAS CHECKED AND RESULTS WERE 108.
--- NOTE | 2017-01-15 18:45 | NUR ---
CLOSING NOTE: PATIENT IS RESTING COMFORTABLY IN BED. NO S/S OF DISTRESS OR SOB. PATIENT IS AWAKE BUT NOT ALERT, NONVERBAL. TUBE-FEEDING IN PLACE. IV IS PATENT. CALL LIGHT IN REACH, BED IN LOWEST POSITION, AND WILL GIVE REPORT TO NIGHT NURSE.
--- NOTE | 2017-01-15 19:40 | NUR ---
ROUNDS PATIENT IN BED, AWAKE, NON VERBAL, ON MECHANICAL VENTILATOR, VITALS STABLE. ASSESSMENT DONE AND DOCUMENTED. SEE FLOWSHEET. NEEDS ATTENDED TO. REPOSITIONED AND MADE COMFORTABLE. SECRETIONS SUCTIONED. BED IN LOW AND LOCKED POSITION. WILL CONTINUE TO MONITOR.
[2017-01-15] MEDS ORDERED: LEVETIRACETAM GT SCH (21:00)
[2017-01-15] MEDS ORDERED: FAMOTIDINE 20 MG TABLET GT SCH (21:00)
--- NOTE | 2017-01-15 22:30 | NUR ---
MEDICATIONS DUE MEDICATIONS PER G TUBE GIVEN ORDERED, TOLERATED WELL. NO RESIDUAL NOTED. WILL CONTINUE TO MONITOR.
[2017-01-15] MEDS: ATORVASTATIN 10 MG TABLET GT SCH (22:31)
[2017-01-16] VITALS (8 sets, daily range): BP systolic 100–119
--- NOTE | 2017-01-16 00:15 | NUR ---
PATIENT RESTING: Patient resting quietly. No acute distress noted. Vital signs within normal range.
--- NOTE | 2017-01-16 02:30 | NUR ---
paged paged for Dr Turpin, dialed . Dr Morales is on-call for Dr Turpin.
--- NOTE | 2017-01-16 02:34 | NUR ---
spoke to dr. madison covering for dr. soto. clarify to if ok tt transfuse 2 units of type O positive. agree and order to transfuse blood.
--- NOTE | 2017-01-16 02:58 | NUR ---
NOTES CALLED LAB, PRBC NOT READY YET. THEY WILL CALL ONCE IT IS READY.
--- NOTE | 2017-01-16 03:25 | NUR ---
NOTES PRBC ALREADY AVAILABLE, BINGO MANAGER NOTIFIED. HE WILL CALL HEMODIALYSIS. WILL CONTINUE TO MONITOR PATIENT.
--- NOTE | 2017-01-16 04:02 | NUR ---
PATIENT RESTING: Patient resting quietly. No acute distress noted. Vital signs within normal range.
--- NOTE | 2017-01-16 06:50 | NUR ---
CLOSING NOTES PATIENT STABLE, ALL NEEDS ATTENDED TO. SAFETY AND FALL PRECAUTION MEASURES MAINTAINED. BED IN LOW AND LOCKED POSITION. WILL ENDORSE TO INCOMING SHIFT NURSE.
--- NOTE | 2017-01-16 07:59 | NUR ---
Opening Note Report received from Dolores ABREU. Patient is nonverbal and only responds to deep stimuli. Currently getting dialysis along with a blood transfusion at the moment. Fredo cath for HD is on the left groin. IV is a 20g on the right chest. Vent setting are TV450, YyJ375%, Peep5, AC16. Will continue to monitor.
--- NOTE | 2017-01-16 08:35 | NUR ---
Nutrition Update Brady Scale 12 noted. Pt admitted for: Severe Anemia. Diet: Tube feeding. BMI: 26.4 kg/m2. RD to follow per nutrition care standards.
[2017-01-16] MEDS ORDERED: RANITIDINE HCL 150 MG PO SCH (09:00)
--- NOTE | 2017-01-16 10:00 | NUR ---
Rounds Patient is currently receiving HD. Received 2 units of PRBC's during the transfusion
[2017-01-16] MEDS: FOLIC ACID 1 MG TABLET GT SCH (10:33)
[2017-01-16] MEDS: ASCORBIC ACID 500 MG TABLET GT SCH (10:33)
[2017-01-16] MEDS ORDERED: IPRATROPIUM/ALBUTEROL SULFATE 3 ML AMPUL.NEB INH PRN (11:30)
--- NOTE | 2017-01-16 11:30 | NUR ---
Spoke with MD Spoke with Dr. Morales and reported a change in patient's condition. Pulse is in the 130-140's, resp are in the 30's. temp is 101.5, BP is 118/71. [place] frothy sputum was noticed on the trach. Patient was suctioned several times, however, he continues to have course crackles. Orders for stat EKG, breathing treatments, and consult for Dr. Guzmán were obtained. Will continue to monitor.
--- NOTE | 2017-01-16 11:47 | NUR ---
Spoke with MD Spoke with Dr. Buckley who is covering for Dr. Guzmán. Orders for Stat CXR and ABG's were obtained.
--- NOTE | 2017-01-16 11:49 | NUR ---
STAT CONSULT WAS CALLED RE: PINK FROTHY SPUTUM ON VENTILATOR SPOKE WITH JIMY FROM DR YIN EXCHANGE DR ADAN IS AUTO SERVICE WRITER FOR Dr YIN
--- NOTE | 2017-01-16 12:10 | NUR ---
Spoke with MD Spoke with Dr. Morales again orders received for tylenol and initiation of sepsis protocol.
[2017-01-16 12:18] LABS: BLOOD GAS BASE EXCESS 4.5 mmol/L (-3.0-3.0); BLOOD GAS PH 7.531 (7.350-7.450)
[2017-01-16 12:19] LABS: BLOOD GAS COHb% 0.5 % (0.5-1.5); BLOOD GAS HHB 2.6 % (0.0-6.0); BLOOD O2Hb% 96.3 % (94.0-97.0)
[2017-01-16] MEDS ORDERED: ACETAMINOPHEN 650 MG/20.3 ML UDC PO PRN (12:30)
--- NOTE | 2017-01-16 12:50 | NUR ---
Spoke with Spoke with Dr. Buckley. wanted to know results of abg's. No further orders received.
--- NOTE | 2017-01-16 13:10 | NUR ---
Spoke with Spoke with Dr. Jalloh, covering for Dr. Hernández. MD notified for the change in status. MD stated that he will follow up with the chest x-ray results.
[2017-01-16 14:01] LABS: BASOPHILS % (AUTO) 0.3 % (0.0-2.0); EOSINOPHILS % (AUTO) 0.2 % (0.0-4.0); HEMATOCRIT 24.4 % (36-54); LYMPHOCYTES # (AUTO) 0.2 K/uL (1.0-5.5); LYMPHOCYTES % (AUTO) 1.7 % (20.5-51.5); MEAN CORPUSCULAR HEMOGLOBIN 28 pg (27-31); MEAN CORPUSCULAR HGB CONC 33 % (32-36); MEAN CORPUSCULAR VOLUME 86 fL (79.0-98.0); MONOCYTES # (AUTO) 0.7 K/uL (0.0-1.0); NEUTROPHILS # (AUTO) 12.7 K/uL (1.8-7.7); NEUTROPHILS % (AUTO) 92.8 % (40.0-70.0); PLATELET COUNT (AUTO) 173 K/uL (130-430); RED BLOOD CELL COUNT(AUTO) 2.85 MIL/uL (4.2-6.2); RED CELL DISTRIBUTION WIDTH 14.9 % (9.0-15.0); WHITE BLOOD COUNT (AUTO) 13.6 K/uL (4.8-10.8)
[2017-01-16 14:09] LABS: CALCIUM 8.4 mg/dL (8.4-11.0); CREATININE 4.45 mg/dL (0.55-1.30); POTASSIUM 3.4 mmol/L (3.5-5.1)
--- NOTE | 2017-01-16 15:00 | NUR ---
Rounds Patient's resp have decreased and the heart rate is currently in the 120's. Will continue to monitor.
[2017-01-16] MEDS: IPRATROPIUM/ALBUTEROL SULFATE 3 ML AMPUL.NEB INH SCH ×3 (15:48→23:21)
[2017-01-16] MEDS: ACETAMINOPHEN 650 MG/20.3 ML UDC GT PRN (16:21)
[2017-01-16] MEDS: VANCOMYCIN HCL 750 MG in NS 250 ML IV SCH (16:22)
--- NOTE | 2017-01-16 17:10 | NUR ---
Rounds Patient seems to be in stable condition at the moment. Will continue to monitor.
--- NOTE | 2017-01-16 18:27 | NUR ---
Closing Note Patient is afebrile at the moment current temp is 98.6. Heart rate is 84. O2 sat is 100%. No more frothy pink sputum observed on trach. Current trach settings are TV450, FiO2 35%, Peep 5, AC 16. IV is on the Right chest 20g, saline locked. Will give report to the oncoming shift.
--- NOTE | 2017-01-16 21:15 | NUR ---
PHONED PAGED DR GAGE ZAMBRANO CLARIFICATION OF PEPCID 40 MG GT , call back still pending .
--- NOTE | 2017-01-16 22:17 | NUR ---
phoned paged DR ALMONTE SECOND PAGE .
[2017-01-16] MEDS: ATORVASTATIN 10 MG TABLET GT SCH (22:35)
[2017-01-16] MEDS: levETIRAcetam 500 MG TABLET GT SCH (22:35)
--- NOTE | 2017-01-16 23:48 | NUR ---
DR ALMONTE , NEW ORDERS CHANGE PEPCID 20 MG GT BID .
--- NOTE | 2017-01-16 23:49 | NUR ---
DR ADAN , NEW ORDERS CXR THIS AM R/O PNA .
[2017-01-17] VITALS (7 sets, daily range): BP systolic 105–139
--- NOTE | 2017-01-17 02:48 | NUR ---
BED BATH GIVEN BM noted , linin change position change also tolerated .
--- NOTE | 2017-01-17 02:54 | NUR ---
Hodgen Tablet GT given for discomfort & helpful .
--- NOTE | 2017-01-17 02:54 | NUR ---
STOOL collected & sent to Lab / .
[2017-01-17] MEDS: IPRATROPIUM/ALBUTEROL SULFATE 3 ML AMPUL.NEB INH SCH ×6 (02:55→23:32)
--- NOTE | 2017-01-17 05:52 | NUR ---
Trach suction up right position thick sputum , vent alarming minimal position change tolerated HOB kept elevated .
--- NOTE | 2017-01-17 07:25 | NUR ---
Rounds Patient awake non verbal, with non productive coughing oxygen saturation 100 % connected to mechanical ventilator 35%, head of bead kept semi fowlers aspiration precaution , oral care given ,repostioned facing the door dressing in the buttocks intact, needs attended.
[2017-01-17] MEDS: FOLIC ACID 1 MG TABLET GT SCH (08:44)
[2017-01-17] MEDS: levETIRAcetam 500 MG TABLET GT SCH ×2 (08:44→20:41)
[2017-01-17] MEDS: ASCORBIC ACID 500 MG TABLET GT SCH (08:44)
[2017-01-17] MEDS ORDERED: FAMOTIDINE 20 MG TABLET GT SCH (09:00)
[2017-01-17 10:54] LABS: CALCIUM 8.5 mg/dL (8.4-11.0); CREATININE 6.15 mg/dL (0.55-1.30); HEMOGLOBIN 7.3 g/dL (14.0-18.0); LYMPHOCYTES # (AUTO) 0.6 K/uL (1.0-5.5); POTASSIUM 3.8 mmol/L (3.5-5.1); WHITE BLOOD COUNT (AUTO) 10.4 K/uL (4.8-10.8)
[2017-01-17 11:00] LABS: BASOPHILS % (AUTO) 0.3 % (0.0-2.0); EOSINOPHILS % (AUTO) 0.4 % (0.0-4.0); HEMATOCRIT 22.2 % (36-54); LYMPHOCYTES % (AUTO) 5.8 % (20.5-51.5); MEAN CORPUSCULAR HEMOGLOBIN 28 pg (27-31); MEAN CORPUSCULAR HGB CONC 33 % (32-36); MEAN CORPUSCULAR VOLUME 86 fL (79.0-98.0); MONOCYTES # (AUTO) 1.1 K/uL (0.0-1.0); MONOCYTES % (AUTO) 10.5 % (1.7-9.3); NEUTROPHILS # (AUTO) 8.7 K/uL (1.8-7.7); PLATELET COUNT (AUTO) 155 K/uL (130-430)
--- NOTE | 2017-01-17 11:10 | NUR ---
Late entry/comfort/skin 0850 hours sponge bath given right buttocks lower part dressing removed , redressing done , wound bed is red with yellow slough minimum drainage serous sanguinous, wash with saline , hydrogel to wound bed, periwound zinc oxide covered by optifoam dressing,reposition of load from pressure area.
--- NOTE | 2017-01-17 12:10 | NUR ---
Hemoglobin/hematocrit 7.3/22.2 Dr. Morales informed 2 units of PRBC ordered to be given on hemodialysis in AM
[2017-01-17] MEDS: VANCOMYCIN HCL 750 MG in NS 250 ML IV SCH (15:13)
--- NOTE | 2017-01-17 15:43 | NUR ---
Patient repositioned by staff every 2 hours with pillow support.,sacral dressing intact, no sign of acute distress.
--- NOTE | 2017-01-17 16:41 | NUR ---
CONSULT REASON FOR CONSULT : OCCULT BLOOD IN STOOL CONSULTING PHYSICIAN: JAVIER LAURA DR DIAMOND SORTER IS DR. SCHWARZ ORDERED BY : LIVIA HERNANDEZ PERSON WHO WAS NOTIFIED: NOE
--- NOTE | 2017-01-17 17:10 | NUR ---
WOUND CARE Repositioned patient lower right sacral dressing half removed, dressing changed , wound bed is pink with serous drainage moderate amount , cleans with saline , hydrogel to wound bed covered with Optifoam, skin cream barrier to periwound
--- NOTE | 2017-01-17 19:30 | NUR ---
RT NOTES REC'D PT ON VENT WITH SETTINGS CHARTED. VENT AND APNEA ALARMS ARE SET AND FUNCTIONING. MED NEB TX GIVEN INLINE WITHOUT ADVERSE REACTION NOTED. TRACH IS MIDLINE AND SECURE. CHEST RISE PRESENT ON BOTH SIDES. BS SCATTERED RONCHI. SXN PRN FOR SMALL TO MODERATE YELLOW BLOOD TINGE SECRETIONS. NO RESP DISTRESS NOTED. AMBU BAG IS AT BEDSIDE.
--- NOTE | 2017-01-17 19:41 | NUR ---
INITIAL NOTE Patient resting on the bed. Respiration even and unlabored. No acute distress. Trach intact to vent. GT intact, patent, on GT feeding of Novasource renal at 65ml/hr. HOB elevated. Skin warm and dry to touch. Fredo cath intact to left groin area, no bleeding, covered with dry dressing. SL intact to right chest, no redness, no swelling. Safety measure maintained. Bed in low position, side rails up, bed alarm on. Call light within reached. Will continue to monitor.
[2017-01-17] MEDS: PANTOPRAZOLE SODIUM 40 MG/VIAL (PROTONIX) IVP SCH (20:41)
[2017-01-17] MEDS: ATORVASTATIN 10 MG TABLET GT SCH (20:41)
--- NOTE | 2017-01-17 21:35 | NUR ---
ROUND Patient resting on the bed. No acute distress. Respiration even and unlabored. Trach intact to vent. HOB elevated. Continue on GT feeding. SCD in placed. Safety measure maintained. Bed in low position, side rails up, bed alarm on. Call light within reached. Will continue to monitor.
--- NOTE | 2017-01-17 23:25 | NUR ---
ROUND Patient resting on the bed with eyes closed. No acute distress. Respiration even and unlabored. Trach intact to vent. HOB elevated. Continue on GT feeding. Safety measure maintained. Bed in low position, side rails up, bed alarm on. Call light within reached. Continue to monitor.
[2017-01-18] VITALS (7 sets, daily range): BP systolic 105–140
[2017-01-18] MEDS: ACETAMINOPHEN 650 MG/20.3 ML UDC GT PRN (00:25)
--- NOTE | 2017-01-18 01:30 | NUR ---
ROUND Patient resting on the bed. No acute distress. Respiration even and unlabored. Trach intact to vent. HOB elevated. Continue on GT feeding. at bedside. Safety measure maintained. Bed in low position, side rails up, bed alarm on. Call light within reached. Will continue to monitor.
--- NOTE | 2017-01-18 03:05 | NUR ---
ROUND Patient resting on the bed with eyes closed. No acute distress. Respiration even and unlabored. Trach intact to vent. HOB elevated. Continue on GT feeding. Safety measure maintained. Call light within reached. Bed in low position, side rails up, bed alarm on. Continue to monitor.
[2017-01-18] MEDS: IPRATROPIUM/ALBUTEROL SULFATE 3 ML AMPUL.NEB INH SCH ×6 (03:33→22:37)
--- NOTE | 2017-01-18 06:30 | NUR ---
CLOSING NOTE Patient resting on the bed comfortable. Respiration even and unlabored. No acute distress. Trach intact to vent. Suctioned during shift via tracheal and orally. GT intact, continue on GT feeding of Novasource Renal at 65ml/hr, tolerated well. No nausea or vomiting noted. No s/s of aspiration. HOB elevated. Skin warm and dry to touch. Fredo cath intact to left groin area, no bleeding, covered with dry dressing. SL intact to right chest, no redness, no swelling. SCD in placed. All needs met. Hourly rounding during shift. Safety measure maintained. Bed in low position, side rails up, bed alarm on. Call light within reached. Will endorse to morning shift nurse.
--- NOTE | 2017-01-18 07:30 | NUR ---
AM ROUNDS PATIENT RESTING IN BED, AWAKE, ALERT AND ORIENTED X1 -PATIENT OPENS HIS EYES TO HIS NAME, CANNOT RESPOND, REORIENTED TO PLACE, TIME AND EVENT, ASSESSMENT COMPLETE, PATIENT HAS TRAC TO VENT, TOLERATING VENT SETTINGS WELL, G TUBE IN PLACE, WITH DRESSING AT INSERTION SITE, CLEAN, DRY AND INTACT, PATIENT IS TOLERATING TUBE FEEDING WELL, ASPIRATION PRECAUTIONS IN PLACE, TAMIKA CATHETER NOTED ON LEFT GROIN DRESSING IS CLEAN, DRY AND INTACT, TWO WOUNDS NOTED ON BUTTOCKS/SACRAL AREA, WILL PERFORM WOUND CARE, ASSISTED SOIL CONSERVATION AIDE TO TO TURN THE PATIENT, PATIENT TOLERATED WELL, NO OTHER NEEDS AT THIS TIME, BED IN LOWEST POSITION, THREE SIDE RAILS UP , BED ALARM ON, BED CLOSE TO NURSE'S STATION, FALL PRECAUTIONS IN PLACE, WILL CONTINUE TO MONITOR.
[2017-01-18 07:57] LABS: BASOPHILS % (AUTO) 0.1 % (0.0-2.0); EOSINOPHILS # (AUTO) 0.1 K/uL (0.0-0.4); EOSINOPHILS % (AUTO) 0.6 % (0.0-4.0); HEMATOCRIT 22.3 % (36-54); HEMOGLOBIN 7.4 g/dL (14.0-18.0); LYMPHOCYTES # (AUTO) 0.8 K/uL (1.0-5.5); LYMPHOCYTES % (AUTO) 7.2 % (20.5-51.5); MEAN CORPUSCULAR HEMOGLOBIN 29 pg (27-31); MEAN CORPUSCULAR HGB CONC 33 % (32-36); MEAN CORPUSCULAR VOLUME 86 fL (79.0-98.0); MONOCYTES % (AUTO) 9.6 % (1.7-9.3); NEUTROPHILS # (AUTO) 8.7 K/uL (1.8-7.7); NEUTROPHILS % (AUTO) 82.5 % (40.0-70.0); PLATELET COUNT (AUTO) 157 K/uL (130-430); RED BLOOD CELL COUNT(AUTO) 2.59 MIL/uL (4.2-6.2); RED CELL DISTRIBUTION WIDTH 15.5 % (9.0-15.0); WHITE BLOOD COUNT (AUTO) 10.6 K/uL (4.8-10.8)
[2017-01-18 08:25] LABS: ALBUMIN 2.3 g/dL (3.4-4.8); CALCIUM 8.5 mg/dL (8.4-11.0); CREATININE 7.43 mg/dL (0.55-1.30); POTASSIUM 3.7 mmol/L (3.5-5.1); TOTAL BILIRUBIN 0.5 mg/dL (0.0-1.0); TOTAL PROTEIN, SERUM 7.6 g/dL (6.4-8.3)
[2017-01-18] MEDS ORDERED: MAGNESIUM SULFATE 50 ML IV PRN (09:15)
[2017-01-18] MEDS ORDERED: POTASSIUM CHLORIDE 10 MEQ TAB.PRT.SR PO PRN (09:15)
[2017-01-18] MEDS ORDERED: DEXTROSE 50% JECT 50 ML DISP.SYRIN IVP PRN (09:15)
[2017-01-18] MEDS ORDERED: ZOLPIDEM TARTRATE 5 MG TABLET PO PRN (09:15)
[2017-01-18] MEDS ORDERED: MORPHINE 2 MG/ML INJ. SYRINGE IVP PRN (09:15)
[2017-01-18] MEDS ORDERED: ONDANSETRON HCL 4 MG/2 ML VIAL IVP PRN (09:15)
[2017-01-18] MEDS ORDERED: DOCUSATE SODIUM 100 MG CAPSULE PO PRN (09:15)
[2017-01-18] MEDS ORDERED: ACETAMINOPHEN 325 MG TABLET PO PRN (09:15)
[2017-01-18] MEDS: FOLIC ACID 1 MG TABLET GT SCH (10:04)
[2017-01-18] MEDS: levETIRAcetam 500 MG TABLET GT SCH ×2 (10:04→21:45)
[2017-01-18] MEDS: PANTOPRAZOLE SODIUM 40 MG/VIAL (PROTONIX) IVP SCH ×2 (10:04→21:45)
--- NOTE | 2017-01-18 10:23 | NUR ---
RN ROUNDS/MED PASS PATIENT RESTING IN BED, AWAKE, NO SIGNS OF DISTRESS, DIALYSIS NURSE AT BEDSIDE PREPARING FOR DIALYSIS, PAGED DR. TRIPP FOR HEPARIN ORDER FOR DIALYSIS NURSE, NO RESIDUAL OUTPUT NOTED FROM GTUBE, GTUBE WAS SLIGHTLY CLOGGED AND WAS ABLE TO UNCLOG AND ADMINISTER MEDICATION, PATIENT TOLERATED WELL, IV SITE PATENT, NO SIGNS OF INFILTRATION, WILL CONTINUE TO MONITOR, BED IN LOWEST POSITION, THREE SIDE RAILS, UP, BED ALARM ON, BED CLOSE TO NURSES STATION, FALL AND ASPIRATION PRECAUTIONS IN PLACE.
--- NOTE | 2017-01-18 10:31 | NUR ---
PAGED DR. ALMONTE REGARDING ACCUCHECK ORDER CLARIFICATION.
--- NOTE | 2017-01-18 10:40 | NUR ---
DR ALMONTE CALL BACK STATED TO DISCONTINUE ACHS ACCUCHECKS AND CONTINUE Q6HOUR.
[2017-01-18] MEDS ORDERED: HEPARIN SODIUM,PORCINE 5000 UNITS/ML VIAL SUBCUT ONE (10:45)
--- NOTE | 2017-01-18 10:45 | NUR ---
DR QUIJANO CALL BACK STATED OK TO ORDER HEPARIN 5000 UNIT ONE TIME FOR THE HEMODIALYSIS NURSE TO USE ON THE TAMIKA CATHETER.
[2017-01-18] MEDS: INSULIN ASPART 100 UNITS/ML, 10 ML VIAL (NovoLOG) SUBCUT PRN (11:08)
--- NOTE | 2017-01-18 11:51 | NUR ---
FIRST UNIT OF BLOOD VERIFIED WITH SOCIAL WORKER CLINICAL AT THIS TIME, BEGINNING TO TRANSFUSE, PATIENT IS TOLERATING WELL, SOCIAL WORKER CLINICAL TO REMAIN AT BEDSIDE TO MONITOR THE PATIENT, 2 UNITS TOTAL TO BE GIVEN, WILL FOLLOW UP.
[2017-01-18] MEDS ORDERED: AMIKACIN SULFATE 500 MG in D5W 100 ML IV SCH ×2 (12:00→16:00)
--- NOTE | 2017-01-18 12:03 | NUR ---
SPOKE WITH PHARMACY KATHY, REGARDING TIME FOR AMIKACIN, PATIENT IS CURRENTLY RECEIVING DIALYSIS AND BLOOD TRANSFUSION, TIME NEEDS TO BE CHANGED FOR AMIKACIN, WILL FOLLOW UP.
--- NOTE | 2017-01-18 12:08 | NUR ---
SPOKE WITH DR CABRALES HERE AT NURSE'S STATION, REGARDING NEW CONSULT, CRITICAL LAB REPORT.
[2017-01-18] MEDS: cefTRIAXone 1 GM in D5W 50 ML IV SCH (13:49)
--- NOTE | 2017-01-18 13:50 | NUR ---
IV ROCEPHIN GIVEN AT THIS TIME, IV SITE IS PATENT AND INFUSING WELL, NO SIGNS OF INFILTRATION.
--- NOTE | 2017-01-18 14:00 | NUR ---
PAGED DR CABRALES REGARDING POSITIVE BLOOD CULTURES.
[2017-01-18] MEDS: LORazepam 2 MG/ML VIAL IVP PRN (14:04)
--- NOTE | 2017-01-18 14:04 | NUR ---
ATIVAN PATIENT HAVING DIFFICULTY BREATHING, HAS SOME WHITE ORAL SECRETIONS AND COUGHING FITS, NOTIFIED RESPIRATORY THERAPIST, ATTEMPTED TO SUCTION THE PATIENT, NO SECRETIONS NOTED, ATIVAN 2MG IVP WAS GIVEN, DR HUMPHREY HARRISON, ASSISTED CISCO NETWORK ARCHITECT TO TURN AND REPOSITION THE PATIENT FOR COMFORT, RESPIRATORY THERAPY TO CHECK VENT SETTINGS.
--- NOTE | 2017-01-18 14:35 | NUR ---
DR CABRALES CALL BACK REPORTED POSITIVE BLOOD CULTURE, NO NEW ORDERS AT THIS TIME.
--- NOTE | 2017-01-18 14:45 | NUR ---
DR YIN CALL BACK UPDATES GIVEN, ORDERED ROBITUSSIN 1 TSP Q6H PRN VIA G TUBE, WILL FOLLOW UP.
--- NOTE | 2017-01-18 16:45 | NUR ---
RADIOLOGY SPOKE WITH DAVID WHO STATED, THAT CHEST POWER PLANT INSPECTOR ON WEDNESDAY INFORMED THE NURSE THAT THE ULTRASOUND WAS DIFFICULT TO PERFORM DUE TO PATIENT POSITIONING, CHEST ULTRASOUND WAS POSTPONED TO TODAY 01/18/17 FOR A SERVICE TIME OF 1630, NURSE WAS INFORMED THAT DR AGUILAR READ THE CHEST X RAY RESULTS AND STATED NO PLEURAL EFFUSIONS WERE NOTED, DR ALMONTE WAS NOTIFIED OF THIS AND CHEST X RAY RESULTS, CANCELLED CHEST ULTRASOUND.
--- NOTE | 2017-01-18 16:49 | NUR ---
RN ROUND PATIENT RESTING IN BED, CALM, NO SIGNS OF RESPIRATORY DISTRESS, TOLERATING VENT SETTINGS WELL, WILL CONTINUE TO MONITOR, BED IN LOWEST POSITION, THREE SIDE RAILS UP, BED ALARM ON, FALL, SEIZURE, ASPIRATION AND ISOLATION PRECAUTIONS IN PLACE.
--- NOTE | 2017-01-18 17:30 | NUR ---
WOUND CARE PATIENT RESTING IN BED, CALM AT THIS TIME, TOLERATING VENT SETTINGS WELL. 1) SACRAL WOUND: 100% RED, CLEANSED WITH NORMAL SALINE, PATTED DRY, HYDROGEL TO WOUND BASE, PLACED FOAM DRESSING OVER THE SITE. 2) RIGHT BUTTOCK: OPEN WOUND, 20% RED AND 80% PINK, SCAN DRAINAGE, CLEANSED WITH NORMAL SALINE, PATTED DRY, HYDROGEL TO WOUND BASE, PLACED FOAM DRESSING OVER THE SITE. BARRIER CREAM APPLIED TO BABAR AREA, TURNING AND REPOSITIONING THE PATIENT EVERY TWO HOURS AND NEEDED. FLOATING THE HEELS AND PLACING PILLOWS IN BETWEEN LEGS TO PREVENT RUBBING.
--- NOTE | 2017-01-18 17:35 | NUR ---
COUGHING PATIENT WAS BEING TURNED AND REPOSITIONED, HAD A BOWEL MOVEMENT, WAS GIVEN COUGH SUPPRESSANT AND BLOOD GLUCOSE CHECK COMPLETE, NO INSULIN COVERAGE GIVEN PER MD ORDERS, WILL CONTINUE TO MONITOR THE PATIENT.
--- NOTE | 2017-01-18 17:49 | NUR ---
1450 BAGGED PT WITH 100% FIO2. PT CONTINUED COUGHING AND EPISODES OF DESATURATION, RN GAVE ATIVAN. SWITCHED VENT, PT TOLERATING VENT. SAT 100% ON .35 FIO2. PT CALM, NO SOB NOTED. Addendum: 01/18/17 at 1756 by Adri Serrano RT Amended: Links added.
--- NOTE | 2017-01-18 18:24 | NUR ---
CLOSING NOTES PATIENT RESTING IN BED, TOLERATING VENT SETTINGS WELL, NO COUGH PRESENT AT THIS TIME, ALL NEEDS MET, WILL ENDORSE REPORT TO NOC SHIFT NURSE, BED IN LOWEST POSITION, THREE SIDE RAILS UP, BED ALARM ON, BED CLOSE TO NURSE'S STATION, FALL, ASPIRATION, SEIZURE AND ISOLATION PRECAUTIONS IN PLACE.
--- NOTE | 2017-01-18 19:50 | NUR ---
ROUNDS PATIENT IN BED, NOT IN DISTRESS, ON MECHANICAL VENTILATOR, NON VERBAL, NO SIGNS OF ANY PAIN AND DISCOMFORT AT THIS TIME. ASSESSMENT DONE AND DOCUMENTED. SEE FLOWSHEET. NEEDS ATTENDED TO. REPOSITIONED AND MADE COMFORTABLE. SECRETIONS SUCTIONED. BED IN LOW AND LOCKED POSITION. BED ALARM ON. WILL CONTINUE TO MONITOR.
--- NOTE | 2017-01-18 21:15 | NUR ---
MEDICATIONS DUE MEDICATIONS GIVEN ORDERED PER G TUBE, TOLERATED WELL, NO RESIDUAL NOTED. WILL CONTINUE TO MONITOR.
[2017-01-18] MEDS: ATORVASTATIN 10 MG TABLET GT SCH (21:45)
--- NOTE | 2017-01-19 00:35 | NUR ---
PATIENT RESTING: Patient resting quietly. No acute distress noted. Vital signs within normal range.
--- NOTE | 2017-01-19 02:10 | NUR ---
ROUNDS PATIENT ASLEEP, NO SOB NOTED, WILL CONTINUE TO MONITOR.
[2017-01-19] MEDS: IPRATROPIUM/ALBUTEROL SULFATE 3 ML AMPUL.NEB INH SCH ×4 (04:00→19:45)
[2017-01-19 04:15] VITALS: BP_SYST 110
--- NOTE | 2017-01-19 04:20 | NUR ---
PATIENT RESTING: Patient resting quietly. No acute distress noted. Vital signs within normal range.
--- NOTE | 2017-01-19 06:46 | NUR ---
CLOSING NOTES PATIENT ASLEEP, NOT IN DISTRESS, VITALS STABLE. NO SIGNS OF ANY PAIN AND DISCOMFORT NOTED. ALL NEEDS ATTENDED TO. SAFETY MEASURES MAINTAINED. WILL CONTINUE TO MONITOR.
[2017-01-19 07:28] LABS: BASOPHILS % (AUTO) 0.2 % (0.0-2.0); EOSINOPHILS # (AUTO) 0.1 K/uL (0.0-0.4); EOSINOPHILS % (AUTO) 0.5 % (0.0-4.0); HEMATOCRIT 28.8 % (36-54); HEMOGLOBIN 9.6 g/dL (14.0-18.0); LYMPHOCYTES # (AUTO) 0.4 K/uL (1.0-5.5); LYMPHOCYTES % (AUTO) 3.7 % (20.5-51.5); MEAN CORPUSCULAR HEMOGLOBIN 29 pg (27-31); MEAN CORPUSCULAR HGB CONC 33 % (32-36); MEAN CORPUSCULAR VOLUME 87 fL (79.0-98.0); MONOCYTES # (AUTO) 1.2 K/uL (0.0-1.0); MONOCYTES % (AUTO) 9.7 % (1.7-9.3); NEUTROPHILS # (AUTO) 10.4 K/uL (1.8-7.7); NEUTROPHILS % (AUTO) 85.9 % (40.0-70.0); PLATELET COUNT (AUTO) 157 K/uL (130-430); RED CELL DISTRIBUTION WIDTH 14.8 % (9.0-15.0); WHITE BLOOD COUNT (AUTO) 12.1 K/uL (4.8-10.8)
[2017-01-19 07:53] LABS: CALCIUM 8.7 mg/dL (8.4-11.0); CREATININE 5.61 mg/dL (0.55-1.30); POTASSIUM 3.6 mmol/L (3.5-5.1)
[2017-01-19 07:57] VITALS: BP_SYST 116
--- NOTE | 2017-01-19 08:40 | NUR ---
Rounds to reposition patient. Batteries of feed handler replaced. Vital signs complete. Assessment complete. Last dialysis 2.2L.
[2017-01-19] MEDS: levETIRAcetam 500 MG TABLET GT SCH ×2 (10:02→20:56)
[2017-01-19] MEDS: PANTOPRAZOLE SODIUM 40 MG/VIAL (PROTONIX) IVP SCH ×2 (10:02→20:56)
[2017-01-19] MEDS: FERROUS SULFATE 300 MG/5 ML UDC GT SCH (10:02)
[2017-01-19] MEDS: FOLIC ACID 1 MG TABLET GT SCH (10:02)
--- NOTE | 2017-01-19 10:32 | NUR ---
IV site redressed. Possible site needs replaced as dressing moist at catheter site. G-tube site clogged and unclogged with coca cola. Tube feeding flushed and restarted with 50ml of h20 and novasource at 45ml/hour.
[2017-01-19] MEDS ORDERED: *CUBICIN 6 MG/KG Q48H/PHARMACY XX PRN (10:45)
--- NOTE | 2017-01-19 10:45 | NUR ---
Doctor Ash ayon. Orders for dialysis in am placed.
--- NOTE | 2017-01-19 11:12 | NUR ---
Rounds with wound care nurse. Treatment and evaluation complete. Patient repositioned with heels floating.
[2017-01-19 12:33] VITALS: BP_SYST 110
--- NOTE | 2017-01-19 12:49 | NUR ---
Wound Evaluation: Wound consult orders received from Dr. Turpin. Thank you, Dr. Turpin, for the consult. Patient received in a [place] bed with an Isoflex [place] mattress with low air loss therapy initiated, awake, non-verbal, non-responsive to verbal commands. Rbady score is a 14. Skin is in poor condition. Patient is unable to turn in bed independently. Past Medical History: Spinal Cord Injury with resulting Quadriplegia, Ventilator dependent, Dialysis dependent, Chronic Respiratory Failure, Dysphagia, End-Stage Renal Disease, G-Tube placement, and Tracheostomy. Recent labs: WBC 10.4, RBC 3.01, Hgb 8.6, Hct 26.6, BUN 89, Creat 5.64, GFR 11, Gluc 115, Mg 2.5, Alb 2.3. Intrinsic factors that delay wound healing: Chronic Respiratory Failure, End-Stage Renal Disease, and Hypoalbuminemia. Extrinsic factors that delay wound healing: Immobility. MRSA Screen results negative. Blood Culture x 2 in progress. Wound Assessment: 1) Sacral-Coccygeal Area: Non-intact skin over scar tissue, present on admission. Wound bed is 100% red tissue. No odor, scant serous drainage. Deidra-wound and surrounding tissue has scar tissue. Measures 7.4 cm x 9.0 cm. Recommend: Cleanse area with normal saline. Pat dry. Cover area with moisture barrier cream. Put hydrogel over any nonintact areas not covered by moisture barrier cream. Cover with Sacral foam dressing. Perform wound care daily, and as needed for dressing soiling or dislodgment. 2) Left Buttock at Ischial Tuberosity: Redness, with small sanguineous drainage coming from a small opening, no visible wound bed. No odor. Reddened area measures 0.6 cm x 0.6 cm. Deidra-wound and surrounding tissue has scar tissue. Present on admission. Recommend: Cleanse area with normal saline. Pat dry. Cover area with moisture barrier cream. Cover with foam dressing. Perform wound care daily, and as needed for dressing soiling or dislodgment. 3) Right Buttock at Ischial Tuberosity: Unstageable pressure ulcer, present on admission. Wound bed is 5% red tissue, 10% pink tissue, 10% black eschar, 75% yellow slough. Mild odor, small yellow purulent drainage. Deidra-wound and surrounding tissue has scar tissue. Measures 9.0 cm x 7.0 cm x 1.5 cm. Recommend: Cleanse wound with normal saline. Put moisture barrier cream onto periwound. Put Venelex ointment into wound bed. Place two 1.6 inch tender wet dressings onto wound bed. Cover with foam dressing, then transparent dressing. Perform wound care daily, and as needed for dressing soiling or dislodgment. 4) left Achilles area: Area of dark red tissue, non-blanchable. Measures 1.2 cm x 2.1 cm. Recommend: Elevate, offload and flow bilateral heels with pillows at all times. Recommend: Cleanse wounds with normal saline. Put moisture barrier cream onto wounds and deidra-wounds. Put Hydrogel onto any portion of wound beds not covered by moisture barrier cream. Cover with foam dressings. Perform wound care daily, and as needed for dressing soiling or dislodgment. 5) Left Ear, in Helical Fold: Scar tissue, present on admission. 100% pink tissue. No odor, no drainage. Deidra-wound intact. Recommend: Cover with foam dressing. Perform site care daily, and as needed for dressing soiling or dislodgment. Offload site at all times. Also recommend: Reposition patient side to side only every two hours with pillow support, and off-load pressure areas with pillows for pressure re-distribution. Perform skin care and monitor skin integrity q shift. Use moisture barrier cream on deidra, buttocks, and other moisture susceptible areas qid and as needed for soiling. Elevate, offload, and float bilateral heels and elbows with pillows at all times. Maintain patient on a low air-loss mattress.
[2017-01-19] MEDS ORDERED: BALSAM PERU/CASTOR OIL 60 GM OINT...G. TP PRN (13:15)
--- NOTE | 2017-01-19 14:14 | NUR ---
Patient rounds. Ventilator settings checked. Gastric residual 0ml. H20 flush at site of g-tube now.
[2017-01-19] MEDS: DAPTOmycin 500 MG in NS 50 ML IV SCH (14:47)
[2017-01-19] MEDS: cefTRIAXone 1 GM in D5W 50 ML IV SCH (14:48)
--- NOTE | 2017-01-19 15:07 | NUR ---
Nutrition Note Nutrition Consult (Wounds) received 01/19/17 5418. Pt was seen and assessed by RD on 01/18/17. Please refer to Nutrition Assessment for details. RD to continue to follow per nutrition care standards.
[2017-01-19 16:30] VITALS: BP_SYST 114
--- NOTE | 2017-01-19 16:30 | NUR ---
New IV site placement by charge nurse, 24g in right upper chest. Fire Hydrant Mechanic attempt x8 without success.
--- NOTE | 2017-01-19 19:30 | NUR ---
Handoff rounds with noc nurse. Patient blood glucose 140 for dinner and tolerating tube feeding. Site of trach, wounds, and ventilator review. Coughs mostly thin secretions and suction without difficulty.
[2017-01-19 19:45] VITALS: BP_SYST 130
--- NOTE | 2017-01-19 19:45 | NUR ---
initial note pt. received in bed, non verbal. on mechanical ventilator at ordered rate. no s/s of sob or distress noted. vss. sating at 100%. tracheal suction provided. clear, thin secretions noted. no facial grimacing indicating pain. two iv access sites noted to right upper chest, no redness or swelling to the sites. iv fluids infusing to iv access #24 gauge as ordered. g tube noted, dressing is clean dry and intact. feeding infusing well as ordered. no signs of aspiration noted. hob in upright position. kirstin catheter noted to left femoral. no redness or swelling to the site. scds are on bilaterally. pt. is on low airloss mattress. pillow support provided to offload pressure areas. heels floating on pillow. seizure pads to both side rails. safety, fall and contact precautions in place. call light in reach. will monitor frequently for any changes.
--- NOTE | 2017-01-19 21:42 | NUR ---
RT NOTES RECEIVED PT ON VENT WITH SETTINGS OF AC 16/ 450/ +5/35% VENT AND APNEA ALARMS ARE SET AND FUNCTIONING. MED NEB TX GIVEN IN LINE WITHOUT ADVERSE REACTION NOTED. TRACH IS MIDLINE AND SECURE. SXND PRN FOR SCANT YELLOW SECRETIONS. EQUAL BILATERAL CHEST RISE PRESENT. BS SCATTERED RONCHI. PT DAYAN SETTINGS WELL. NO RESP DISTRESS NOTED. AMBU BAG IS AT BEDSIDE.
--- NOTE | 2017-01-19 22:39 | NUR ---
rounds pt. resting in bed, no s/s of sob or distress noted. no facial grimacing indicating pain. vent settings are at ordered rate. pt. is sating well. pt. repositioned for comfort and well supported with pillows to offload pressure areas. New feeding bag and tubing hung and connected. infusing well as ordered at this time. will cont. to monitor for changes. safety, fall, seizure and contact precautions in place. call light in reach.
[2017-01-20] VITALS (7 sets, daily range): BP systolic 97–139
--- NOTE | 2017-01-20 00:19 | NUR ---
ROUNDS ACCU CHECK DONE, BLOOD SUGAR WITHIN NORMAL LIMITS. NO INSULIN COVERAGE NEEDED PER SLIDING SCALE. G TUBE FLUSHED WITH 50 CC FREE WATER, NO RESISTANCE NOTED. FEEDING INFUSING WELL ORDERED. WILL CONTINUE TO MONITOR FOR CHANGES. SAFETY, FALL AND SEIZURE PRECAUTIONS IN PLACE. CALL LIGHT IN REACH.
[2017-01-20] MEDS: IPRATROPIUM/ALBUTEROL SULFATE 3 ML AMPUL.NEB INH SCH ×6 (00:37→22:40)
--- NOTE | 2017-01-20 02:15 | NUR ---
rounds pt. resting in bed with eyes open. no signs of respiratory distress noted. breathing is even and unlabored. feeding continues to infuse well. will continue to monitor for changes. safety, fall and seizure precautions in place. call light in reach.
--- NOTE | 2017-01-20 04:31 | NUR ---
rounds pt. resting in bed with eyes open. no s/s of sob or distress noted. no facial grimacing indicating pain. feeding infusing well. scds in place bilaterally. will cont. to monitor for changes. safety, fall and seizure precautions in place. call light in reach.
[2017-01-20] MEDS: INSULIN ASPART 100 UNITS/ML, 10 ML VIAL (NovoLOG) SUBCUT PRN (06:23)
--- NOTE | 2017-01-20 06:52 | NUR ---
closing note pt. resting in bed quietly. no s/s of sob or distress noted. morning blood sugar checked, blood sugar 152, 2 units insulin coverage given per sliding scale. oral care provided. hygiene care was done, wound to bottom was cleansed with ns, hydrogel applied, foam dressing to cover. central line dressing change was done using sterile technique. g tube was flushed with 50 cc free water, no resistance noted. no residuals. g tube feeding infusing well as ordered. pt. was repositioned and well supported with pillows with heels floating to offload pressure areas. no seizure activity was noted this shift. all necessary needs met throughout. safety, fall, contact, aspiration and seizure precautions were maintained. will endorse care to am nurse. call light in reach.
[2017-01-20 07:40] LABS: BASOPHILS % (AUTO) 0.2 % (0.0-2.0); EOSINOPHILS # (AUTO) 0.1 K/uL (0.0-0.4); EOSINOPHILS % (AUTO) 0.9 % (0.0-4.0); HEMATOCRIT 28.9 % (36-54); HEMOGLOBIN 9.8 g/dL (14.0-18.0); LYMPHOCYTES # (AUTO) 0.7 K/uL (1.0-5.5); LYMPHOCYTES % (AUTO) 5.8 % (20.5-51.5); MEAN CORPUSCULAR HEMOGLOBIN 30 pg (27-31); MEAN CORPUSCULAR HGB CONC 34 % (32-36); MEAN CORPUSCULAR VOLUME 87 fL (79.0-98.0); MONOCYTES # (AUTO) 0.9 K/uL (0.0-1.0); MONOCYTES % (AUTO) 7.2 % (1.7-9.3); NEUTROPHILS # (AUTO) 10.2 K/uL (1.8-7.7); NEUTROPHILS % (AUTO) 85.9 % (40.0-70.0); PLATELET COUNT (AUTO) 164 K/uL (130-430); RED CELL DISTRIBUTION WIDTH 15.1 % (9.0-15.0); WHITE BLOOD COUNT (AUTO) 11.9 K/uL (4.8-10.8)
--- NOTE | 2017-01-20 08:00 | NUR ---
kuldeep initial notes rec patient with hob slightly elevated, with iv locks on the r upper arm axilla area and and r upper chest area. r upper arm ivl was removed for infiltration. on a mechanical ventilator and settings terrie well. coughs at intervals and suctioned done obtaining large amount of whitish phlegm. oral care also done at bedside. gt feeding terrie well and flushes good. no residual noted.
[2017-01-20 08:04] LABS: CALCIUM 9.2 mg/dL (8.4-11.0); POTASSIUM 3.5 mmol/L (3.5-5.1)
[2017-01-20 08:15] LABS: CREATININE 7.62 mg/dL (0.55-1.30)
[2017-01-20] MEDS: BALSAM PERU/CASTOR OIL 60 GM OINT...G. TP SCH (09:00)
--- NOTE | 2017-01-20 09:00 | NUR ---
md dr soto made aware of the groin line result. stated to call dr smalls and waiting to call back.
--- NOTE | 2017-01-20 09:58 | NUR ---
rounds pt was suctioned obtaining large amount of whitish phlegm and formula on the vent site. gt feeding was stopped and dr soto in the room and aware. awaiting for dr smalls to call back or come as per dr soto.
[2017-01-20] MEDS: FERROUS SULFATE 300 MG/5 ML UDC GT SCH (10:52)
[2017-01-20] MEDS: levETIRAcetam 500 MG TABLET GT SCH ×2 (10:52→21:53)
[2017-01-20] MEDS: PANTOPRAZOLE SODIUM 40 MG/VIAL (PROTONIX) IVP SCH ×2 (10:52→21:52)
[2017-01-20] MEDS: FOLIC ACID 1 MG TABLET GT SCH (10:52)
--- NOTE | 2017-01-20 12:10 | NUR ---
rounds dialysis nurse started dialysis on patient on the l kirstin cath site. reported by her slight bleeding on the site will monitor patient. reported to dr smith as well. 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 explained to both of them re dr soto plan for dr smalls will decide to take out perma cath. both of them decided for the perma cath to come out after dialysis today and will be replaced in 2 days by atil.
[2017-01-20] MEDS: LORazepam 2 MG/ML VIAL IVP PRN (13:00)
--- NOTE | 2017-01-20 13:00 | NUR ---
rounds dr higginbotham came and explained re dr soto, dr smalls and dr smith planned. stated will come back later to pull out perma cath once dialysis is over.
--- NOTE | 2017-01-20 13:10 | NUR ---
rounds dialysis nurse called me and noted with a mild seizure episode and was medicated with ativan. will continue to monitor patient for further seizure episode.
--- NOTE | 2017-01-20 14:07 | NUR ---
rounds rt villalpando at the bedside to suction patient , fluctuating from 85 to 925 at this time.
[2017-01-20] MEDS: ACETAMINOPHEN 650 MG/20.3 ML UDC GT PRN (15:38)
--- NOTE | 2017-01-20 15:46 | NUR ---
round oral care rendered at bedside and suctioned as well obtaining small amount of whitish phlegm. tylenol liquid given for elevated temp.
--- NOTE | 2017-01-20 18:00 | NUR ---
rounds gt feedings was changed. no hypo hyperglycemic reaction noted. suction and oral care rendered. no sob noted.
--- NOTE | 2017-01-20 19:00 | NUR ---
closing notes endorsed care to doug night nurse rn. no sob noted. bed in low position side rails up and locked.
[2017-01-20] MEDS ORDERED: LIDOCAINE 2%, 20 ML MDV ONE (20:07)
--- NOTE | 2017-01-20 20:15 | NUR ---
Initial note A/O x 1, no chest pain, no SOB, on vent via trach. 35% FiO2 with 100 % O2 sat. Skin warm to touch, dressing at coccyx noted. IV at R upper chest, patent. GT site clean and dry. Continued Novasource @ 45 ml/hr, 20 residual noted. Fredo catheter at L groin noted, covered with transparent dressing. SCD on bilateral legs. +1 pedal pulses. No edema noted. Repositioned patient Q2H. Call light within reach, seizure precaution applied. Will continue to monitor patient.
--- NOTE | 2017-01-20 20:37 | NUR ---
Dr. Lindsay here Dr. Lindsay removed L groin catheter. Held the site for 5 mins, no bleeding noted. Given pressure dressing covered the site. Patient tolerated well. Catheter tip sent to lab for C/S.
--- NOTE | 2017-01-20 20:45 | NUR ---
Patient was coughing, oral suction provided. O2 sat 100@ on vent 35% FiO2. Patient tolerated well.
[2017-01-20] MEDS: COLISTIMETHATE SODIUM 75 MG in NS 50 ML IV SCH (21:53)
--- NOTE | 2017-01-20 22:15 | NUR ---
Rounds A/O x 1, no chest pain, no SOB, on vent via trach. 35% FiO2 with 100 % O2 sat. Skin warm to touch. IV at R upper chest, patent. GT site clean and dry. Continued Novasource @ 45 ml/hr. No oozing or bleeding on L groin. SCD on bilateral legs. Repositioned patient Q2H. Call light within reach, seizure precaution applied. Will continue to monitor patient.
--- NOTE | 2017-01-20 23:00 | NUR ---
Wound care Wound at R buttock and coccyx, wounds performed as MD ordered. Patient tolerated well.
[2017-01-21] VITALS (7 sets, daily range): BP systolic 94–135
--- NOTE | 2017-01-21 | NUR ---
Rounds A/O x 1, no chest pain, no SOB, on vent via trach. Skin warm to touch. IV at R upper chest, patent. Continued Novasource @ 45 ml/hr. No residual, flushed with 50 ml water. No oozing or bleeding on L groin. SCD on bilateral legs. Repositioned patient Q2H. Call light within reach, seizure precaution applied. Will continue to monitor patient.
[2017-01-21] MEDS: INSULIN ASPART 100 UNITS/ML, 10 ML VIAL (NovoLOG) SUBCUT PRN ×2 (00:46→05:57)
--- NOTE | 2017-01-21 02:01 | NUR ---
Rounds A/O x 1, no chest pain, no SOB, on vent via trach. Skin warm to touch. Continued Novasource @ 45 ml/hr. No oozing or bleeding on L groin. SCD on bilateral legs. Repositioned patient Q2H. Oral suction and trach suction provided. Oral care provided. Call light within reach, seizure precaution applied. Will continue to monitor patient.
[2017-01-21] MEDS: IPRATROPIUM/ALBUTEROL SULFATE 3 ML AMPUL.NEB INH SCH ×6 (03:10→23:43)
--- NOTE | 2017-01-21 04:13 | NUR ---
Rounds No chest pain, no SOB, on vent via trach. Skin warm to touch. Continued GTF. SCD on bilateral legs. Repositioned patient Q2H. Oral suction provided. Call light within reach, seizure precaution applied. Will continue to monitor patient.
--- NOTE | 2017-01-21 04:29 | NUR ---
Patient coughing. Robitussin 5 ml GT given.
[2017-01-21 06:25] LABS: BASOPHILS # (AUTO) 0.1 K/uL (0.0-0.2); BASOPHILS % (AUTO) 0.5 % (0.0-2.0); EOSINOPHILS # (AUTO) 0.1 K/uL (0.0-0.4); EOSINOPHILS % (AUTO) 0.6 % (0.0-4.0); HEMATOCRIT 27.7 % (36-54); HEMOGLOBIN 9.3 g/dL (14.0-18.0); LYMPHOCYTES # (AUTO) 0.8 K/uL (1.0-5.5); MEAN CORPUSCULAR HEMOGLOBIN 30 pg (27-31); MEAN CORPUSCULAR HGB CONC 33 % (32-36); MEAN CORPUSCULAR VOLUME 89 fL (79.0-98.0); MONOCYTES # (AUTO) 0.8 K/uL (0.0-1.0); MONOCYTES % (AUTO) 6.8 % (1.7-9.3); NEUTROPHILS # (AUTO) 9.7 K/uL (1.8-7.7); NEUTROPHILS % (AUTO) 85.1 % (40.0-70.0); PLATELET COUNT (AUTO) 160 K/uL (130-430); RED BLOOD CELL COUNT(AUTO) 3.13 MIL/uL (4.2-6.2); RED CELL DISTRIBUTION WIDTH 14.7 % (9.0-15.0); WHITE BLOOD COUNT (AUTO) 11.5 K/uL (4.8-10.8)
[2017-01-21 06:59] LABS: CALCIUM 8.4 mg/dL (8.4-11.0); CREATININE 6.77 mg/dL (0.55-1.30); POTASSIUM 3.6 mmol/L (3.5-5.1)
--- NOTE | 2017-01-21 07:02 | NUR ---
Closing note No chest pain, no SOB, on vent via trach. Skin warm to touch. Continued GTF. SCD on bilateral legs. Repositioned patient Q2H. Oral care provided. Call light within reach, seizure precaution applied. Will give report to incoming nurse.
--- NOTE | 2017-01-21 07:40 | NUR ---
AM Rounds: Received pt sitting semi-fowlers in bed. No acute signs of distress noted at this time. Pt is awake but unable to track with eyes or follow commands. Vent and trach intact and settings checked at bedside. Pt suctioned at needed. Oral care provided. Iv intact to right chest with no redness or swelling noted to site. GT feeding infusing well to abdomen with no leaking noted to site. Glez cath draining well to gravity. SCDs in place. Aspiration, fall, seizure, contact, and pressure ulcer precautions in place. Call light in reach. Continue to monitor pt closely.
[2017-01-21] MEDS: FERROUS SULFATE 300 MG/5 ML UDC GT SCH (09:21)
[2017-01-21] MEDS: FOLIC ACID 1 MG TABLET GT SCH (09:21)
[2017-01-21] MEDS: COLISTIMETHATE SODIUM 75 MG in NS 50 ML IV SCH ×2 (09:22→21:47)
[2017-01-21] MEDS: PANTOPRAZOLE SODIUM 40 MG/VIAL (PROTONIX) IVP SCH ×2 (09:22→21:47)
[2017-01-21] MEDS: levETIRAcetam 500 MG TABLET GT SCH ×2 (09:22→21:47)
--- NOTE | 2017-01-21 09:30 | NUR ---
RN Rounds: AM meds given per MD order. No acute signs of distress noted at this time. IV intact to Right chest with no redness or swelling noted to site. Vent and trach in place. Pt suctioned as needed and pulled up in bed. No other needs noted at this time. Call light in reach. Aspiration, fall, contact, and seizure precautions in place. Continue to monitor pt closely.
[2017-01-21] MEDS: BALSAM PERU/CASTOR OIL 60 GM OINT...G. TP SCH (09:33)
--- NOTE | 2017-01-21 11:43 | NUR ---
Rounds: Pt sitting semi-fowlers in bed. No acute signs of distress noted. Blood sugar checked and no coverage given per MD order. Aspiration precautions in place. Contact and fall precautions in place. Pt pulled up and repositioned in bed. Call light in reach. Vent and trach in place. Oral care provided. Continue to monitor.
--- NOTE | 2017-01-21 12:15 | NUR ---
Nutrition F/U Admitting Diagnosis Severe anemia, aspiration pneumonia, GI bleed, severe malnutrition Reviewed Pertinent Medical/Surgical Hx Patient Medical Record Medical History Comment: Severe anemia, ESRD w/ HD, spinal cord injury, quadriparesis, dysphagia, chronic respiratory failure, HTN per MD notes Subjective Information Pt seen resting in bed, +aphasic w/ TF infusing as per MD orders. Per ID progress note, pt has line sepsis. Per EMR, TF Intakes: 540 ml 01/21/17. Residuals: 30 ml 01/21/17. Abd is soft and non-distended w/ active bowel sounds. I/O: 640/0 (+640 ml) per 12 hours. Current TF regimen is adequate and adequate. Pt is likely tolerating TF well. Pt is not appropriate for nutrition education. Current Diet Order/Nutrition Support Novasource Renal at 45 ml/hr, Free Water Flush: 50ML Q6H via GT Patient/Significant Other Unable To Verbalize Education Provided Not Indicated Pertinent Medications ferrous sulfate, folic acid, zinc sulfate, protonix IV Pertinent Labs Na 138 WNL (improved), BG 149 H, POC BG 139 H, BUN 98 H, CRE 6.7 H, eGFR 9 L, WBC 11.5 H, H/H 9.3 L/27.7 L Height (Feet) 5 feet Height (Inches) 9.00 inches Weight (Pounds) 180 pounds (admission) BEDSCALE WT: 157.3 lb, 72 kg Weight (Calculated Kilograms) 81.616217 kilograms Patient Weight 81.647 kg Body Mass Index 26.58 kg/m2 %IBW 112 [place]/Adjusted Body Weight IBW: 160 lb, 73 kg Recent Weight Change Unknown Weight Status Overweight Gastrointestinal Symptoms None Last BM Jan 17, 2017 Difficulty With: Swallowing Chewing Food Allergies Unknown Usual Diet At Home [facility]: Novasource Renal at 65 cc/hr, Pro-Stat 3x/day Skin Integrity Comment: Brady scale: 13; per Medical Chief Technician note 01/19/17: skin is poor; 1) Sacral-Coccygeal Area: Non-intact skin over scar tissue, present on admission. 2) Left Buttock at Ischial Tuberosity: Redness, with small sanguineous drainage coming from a small opening, no visible wound bed. 3) Right Buttock at Ischial Tuberosity: Unstageable pressure ulcer, present on admission. 4) left Achilles area: Area of dark red tissue, non-blanchable. 5) Left Ear, in Helical Fold: Scar tissue, present on admission NEW Estimated Energy Expenditure (kcals/day) 0938-0791 kcal/day (BEE x 1.2-1.5 CBW for sepsis) NEW Estimated Protein Required (g/day) 98-164 gm/day (1.2-2 gm/kg CBW for ESRD on HD, sepsis) Estimated Fluid Required (l/day) Per MD (ESRD) Problem/Etiology/Signs/Symptoms (modified) Excessive enteral nutrition related to possible overfeeding as evidenced by current TF regimen exceeds 151% of upper end of estimated caloric needs and 123% of upper end of estimated protein needs. *resolved Altered nutrition-related labs related to compromised renal function as evidenced by abnormal BUN, CRE, and eGFR lab values. *ongoing Increased nutritional needs related to metabolic demands as evidenced by elevated WBC lab values, and estimated nutritional requirements for sepsis. Expected Outcomes/Goals - Monitor tolerance to EN support w/ goal of pt meeting closer to 80-100% of estimated nutritional needs, labs trending WNL, normal GI function, and skin integrity/wt maintenance Dietitian Recommendations * Recommend Novasource Renal at 45 ml/hr, Free Water Flush: 50ML Q6H via GT Provides: 2160 kcal/day, 98 gm protein/day, and 774 ml free water/day Meets: 105% of lower end of estimated caloric needs and and 100% of lower end of estimated protein needs * Consider nephrovite and VIT C for multiple wounds Follow Up High Risk: F/U in 2-3 days
--- NOTE | 2017-01-21 12:48 | NUR ---
Wound Re-Evaluation: Wound consult orders received from Dr. Turpin. Thank you, Dr. Turpin, for the consult. Patient received in a Delilah bed with an Isoflex SEBASTI[place]N mattress with low air loss therapy, awake, non-verbal, non-responsive to verbal commands. Brady score is a 12. Skin is in poor condition. Patient is unable to turn in bed independently. Intrinsic factors that delay wound healing: Chronic Respiratory Failure, End-Stage Renal Disease, and Hypoalbuminemia. Extrinsic factors that delay wound healing: Immobility. Blood Culture x 2 in progress. Wound Assessment: 1) Sacral-Coccygeal Area: Non-intact skin over scar tissue, present on admission. Wound bed is 100% red tissue. No odor, small sanguineous drainage. Mena-wound and surrounding tissue has scar tissue. Non-intact area measures 1.5 cm x 0.8 cm. Recommend continue: Cleanse area with normal saline. Pat dry. Cover area with moisture barrier cream. Put hydrogel over any non-intact areas not covered by moisture barrier cream. Cover with Sacral foam dressing. Perform wound care daily, and as needed for dressing soiling or dislodgment. 2) Left Buttock at Ischial Tuberosity: Redness, with small sanguineous drainage coming from a small opening with no visible wound bed, present on admission. Now area has no drainage. Reddened and scar tissue area together measures 0.6 cm x 0.6 cm. Mena-wound and surrounding tissue has scar tissue. Recommend: Cleanse area with normal saline. Pat dry. Cover with foam dressing for protection. Perform site care daily, and as needed for dressing soiling or dislodgment. 3) Right Buttock at Ischial Tuberosity: Unstageable pressure ulcer, present on admission. Wound bed is 30% red tissue, 10% pink tissue, 10% black eschar, 50% yellow slough. No odor, no drainage. Mena-wound and surrounding tissue has scar tissue. Measures 9.4 cm x 7.0 cm x 1.8 cm. Recommend continue: Cleanse wound with normal saline. Put moisture barrier cream onto periwound. Put Venelex ointment into wound bed. Place two 1.6 inch tender wet dressings onto wound bed. Cover with foam dressing, then transparent dressing. Perform wound care daily, and as needed for dressing soiling or dislodgment. 4) left Achilles area: Area of dark red tissue, non-blanchable. Recommend continue: Elevate, offload and flow bilateral heels with pillows at all times. 5) Left Ear, in Helical Fold: Scar tissue, present on admission. 100% pink tissue. No odor, no drainage. Mena-wound intact. Recommend: Cover with foam dressing. Perform site care daily, and as needed for dressing soiling or dislodgment. Offload site at all times. Also recommend: Reposition patient side to side only every two hours with pillow support, and off-load pressure areas with pillows for pressure re-distribution. Perform skin care and monitor skin integrity q shift. Use moisture barrier cream on mena, buttocks, and other moisture susceptible areas qid and as needed for soiling. Elevate, offload, and float bilateral heels and elbows with pillows at all times. Maintain patient on a low air-loss mattress.
--- NOTE | 2017-01-21 12:48 | NUR ---
Wound Care and Assessment: 1) Sacral-Coccygeal Area: Non-intact skin over scar tissue, present on admission. Wound bed is 100% red tissue. No odor, scant serous drainage. Deidra-wound and surrounding tissue has scar tissue. Measures 7.4 cm x 9.0 cm. Cleansed area with normal saline. Patted dry. Covered area with moisture barrier cream. Put hydrogel over any nonintact areas not covered by moisture barrier cream. Covered with Sacral foam dressing. Perform wound care daily, and as needed for dressing soiling or dislodgment. 2) Left Buttock at Ischial Tuberosity: Redness, with small sanguineous drainage coming from a small opening, no visible wound bed. No odor. Reddened area measures 0.6 cm x 0.6 cm. Deidra-wound and surrounding tissue has scar tissue. Present on admission. Cleansed area with normal saline. Patted dry. Covered area with moisture barrier cream. Cover with foam dressing. Perform wound care daily, and as needed for dressing soiling or dislodgment. 3) Right Buttock at Ischial Tuberosity: Unstageable pressure ulcer, present on admission. Wound bed is 5% red tissue, 10% pink tissue, 10% black eschar, 75% yellow slough. Mild odor, small yellow purulent drainage. Deidra-wound and surrounding tissue has scar tissue. Measures 9.0 cm x 7.0 cm x 1.5 cm. Recommend: Cleansed wound with normal saline. Put moisture barrier cream onto periwound. Put Venelex ointment into wound bed. Placed two 1.6 inch tender wet dressings onto wound bed. Covered with foam dressing, then transparent dressing. 4) left Achilles area: Area of dark red tissue, non-blanchable. Measures 1.2 cm x 2.1 cm. Elevate, offload and flow bilateral heels with pillows at all times. Cleansed wounds with normal saline. Put moisture barrier cream onto wounds and deidra-wounds. Put Hydrogel onto any portion of wound beds not covered by moisture barrier cream. Cover with foam dressings. Perform wound care daily, and as needed for dressing soiling or dislodgment. 5) Left Ear, in Helical Fold: Scar tissue, present on admission. 100% pink tissue. No odor, no drainage. Deidra-wound intact. Covered with foam dressing. Perform site care daily, and as needed for dressing soiling or dislodgment. Offload site at all times.
[2017-01-21] MEDS: DAPTOmycin 500 MG in NS 50 ML IV SCH (12:57)
[2017-01-21] MEDS: ACETAMINOPHEN 650 MG/20.3 ML UDC GT PRN (15:51)
--- NOTE | 2017-01-21 15:57 | NUR ---
Fever: Pt has fever 101.7. Cooling measures implemented and Tylenol given for fever. Ice packs placed to axillary region and neck. Aspiration precautions maintained and oral care provided. No other needs noted at this time. Continue to monitor.
--- NOTE | 2017-01-21 17:43 | NUR ---
Rounds: Pt sitting semi-fowlers in bed. No acute signs of distress noted at this time. IV intact to right with no redness or swelling noted to site. Blood sugar checked and no coverage given. Call light in reach. Aspiration precautions in place. Continue to monitor.
--- NOTE | 2017-01-21 18:18 | NUR ---
Closing Noted: Pt sitting semi-fowlers in bed. No acute signs of distress noted at this time. IV intact to right chest with no redness or swelling noted to site. Vent and trach in place. Call light in reach. Aspiration, fall, contact, and pressure ulcer precautions in place. SCDs in place. GT feeding infusing well to abdomen with no leaking noted to site. No other needs noted at this time. Endorse plan of care to NOC RN.
--- NOTE | 2017-01-21 20:30 | NUR ---
Initial note A/O x 1, no SOB, no chest pain, no grimacing. O2 sat 100% via vent @ 35 % FiO2. Skin warm to touch, trach with vent, IV at R upper chest, dressing at coccyx, dry and intact. SCD in place. Rhonchi breathing sounds all lobes. GT site clean and dry. Continued GTF @ 45 ml/hr. Residual about 65 ml. Isolation for MDRO and KILN CHARGER at L groin/Fredo cath. Call light within reach, will continued to monitor patient.
--- NOTE | 2017-01-21 21:59 | NUR ---
Residual 150, hold feeding.
--- NOTE | 2017-01-21 22:00 | NUR ---
Rounds No SOB, no chest pain, no grimacing. O2 sat 98% via vent @ 35 % FiO2. Skin warm to touch, trach with vent, IV at R upper chest, IV med infusing. SCD in place. Hold GTF due to residual 150 ml. 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. Call light within reach, will continued to monitor patient.
--- NOTE | 2017-01-21 22:45 | NUR ---
Oral care provided.
--- NOTE | 2017-01-21 23:22 | NUR ---
Reassessed GT residual 120, continued to hold for another hour.
[2017-01-22] MEDS: INSULIN ASPART 100 UNITS/ML, 10 ML VIAL (NovoLOG) SUBCUT PRN ×2 (00:10→06:05)
--- NOTE | 2017-01-22 00:15 | NUR ---
Rounds No SOB, no chest pain, no grimacing. O2 sat 100% via vent @ 35 % FiO2. Skin warm to touch, trach with vent, IV at R upper chest dislodged. Started a new IV at L hand #24 x 3 attempts. Good blood return, DC'd the old IV. IV catheter intact. Held the site for 2 minutes. No s/s of bleeding or hematoma. Patient tolerated well. Residual was 45 ml, resumed GTF. Flushed 50 ml water. Blood sugar was 105, no s/s of hypoglycemia. SCD in place. 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 Call light within reach, will continued to monitor patient.
[2017-01-22 00:26] VITALS: BP_SYST 108
--- NOTE | 2017-01-22 02:32 | NUR ---
Rounds No SOB, no chest pain, no grimacing. O2 sat 98% via vent @ 35 % FiO2. Skin warm to touch, trach with vent, IV at hand, KVO, GTF ongoing. Oral care and oral suction provided. [facility] Call light within reach, will continued to monitor patient.
[2017-01-22] MEDS: IPRATROPIUM/ALBUTEROL SULFATE 3 ML AMPUL.NEB INH SCH ×6 (04:01→23:43)
--- NOTE | 2017-01-22 04:25 | NUR ---
Rounds No SOB, no chest pain, no grimacing. O2 sat 100% via vent @ 35 % FiO2. Skin warm to touch, trach with vent, IV at hand, KVO, GTF ongoing. Oral care and oral suction provided. [facility] ST[facility] O[facility] Call light within reach, will continued to monitor patient.
[2017-01-22 04:36] VITALS: BP_SYST 116
--- NOTE | 2017-01-22 05:30 | NUR ---
Flushed with 50 ml water via GT. Oral suction provided.
--- NOTE | 2017-01-22 06:48 | NUR ---
Closing note No SOB, no chest pain, no grimacing. O2 sat 97% via vent @ 35 % FiO2. Skin warm to touch, trach with vent, IV at L hand, KVO, GTF ongoing. Blood sugar 111, no s/s of hyper or hypoglycemia. [facility] [facility]. Call light within reach, will give report to incoming nurse.
[2017-01-22 07:08] LABS: BASOPHILS # (AUTO) 0.1 K/uL (0.0-0.2); BASOPHILS % (AUTO) 0.6 % (0.0-2.0); EOSINOPHILS # (AUTO) 0.1 K/uL (0.0-0.4); EOSINOPHILS % (AUTO) 1.1 % (0.0-4.0); HEMATOCRIT 29.2 % (36-54); HEMOGLOBIN 9.6 g/dL (14.0-18.0); LYMPHOCYTES # (AUTO) 1.2 K/uL (1.0-5.5); LYMPHOCYTES % (AUTO) 11.1 % (20.5-51.5); MEAN CORPUSCULAR HEMOGLOBIN 29 pg (27-31); MEAN CORPUSCULAR HGB CONC 33 % (32-36); MEAN CORPUSCULAR VOLUME 88 fL (79.0-98.0); MONOCYTES # (AUTO) 0.8 K/uL (0.0-1.0); MONOCYTES % (AUTO) 7.7 % (1.7-9.3); NEUTROPHILS # (AUTO) 8.4 K/uL (1.8-7.7); NEUTROPHILS % (AUTO) 79.5 % (40.0-70.0); PLATELET COUNT (AUTO) 181 K/uL (130-430); RED BLOOD CELL COUNT(AUTO) 3.32 MIL/uL (4.2-6.2); RED CELL DISTRIBUTION WIDTH 14.5 % (9.0-15.0); WHITE BLOOD COUNT (AUTO) 10.6 K/uL (4.8-10.8)
[2017-01-22 07:23] LABS: CALCIUM 9.6 mg/dL (8.4-11.0); POTASSIUM 4.1 mmol/L (3.5-5.1)
[2017-01-22 07:33] LABS: CREATININE 8.78 mg/dL (0.55-1.30)
[2017-01-22 08:00] VITALS: BP_SYST 92
--- NOTE | 2017-01-22 08:00 | NUR ---
OPENING NOTE PT RESTING IN BED AND APPEARS COMFORTABLE WITH NO SIGN OF PAIN OR SOB. LUNG SOUNDS CLEAR BILATERALLY BUT SLIGHTLY DIMINISHED IN LEFT LOWER LOBE. VS STABLE ASIDE FROM A SLIGHT FEVER, I PLAN TO ADMINISTER PRN TYLENOL WITH HIS AM MEDICATION. RADIAL AND PEDAL PULSES PRESENT, NO SIGN OF EDEMA. LEFT GROIN WOUND FROM WHERE THE TAMIKA CATH WAS REMOVED IS DRESSED, DRY AND INTACT. PT IS SCHEDULED TO HAVE A NEW DIALYSIS PORT INSERTED TODAY. PT IS CONTRACTED IN ALL EXTREMITIES. AM NURSE ENDORSED INSERTION OF A NEW IV ACCESS, THE PATIENT PULLED THE ONE OUT OF HIS LEFT HAND DURING CONTRACTION
[2017-01-22 08:33] LABS: INR 1.1 (0.80-1.20); PROTHROMBIN TIME 11.9 SECS (9.5-12.5)
[2017-01-22] MEDS ORDERED: CHOLECALCIFEROL (VITAMIN D3) 2,000 UNIT TABLET PO SCH (09:00)
--- NOTE | 2017-01-22 09:30 | NUR ---
PT NPO SX SCHEDULED AT 1700 TODAY, SO i STOPPED TUBE FEEDING PER PROTOCOL
--- NOTE | 2017-01-22 09:58 | NUR ---
ROUNDS PT IS STABLE AND RESTING COMFORTABLY, BRADY OLIVO IS AT BEDSIDE ATTEMPTING TO START A NEW IV. PT IS A HARD-STICK AND WE ARE HAVING DIFFICULTY STARTING A LINE.
[2017-01-22] MEDS: FERROUS SULFATE 300 MG/5 ML UDC GT SCH (10:00)
[2017-01-22] MEDS: BALSAM PERU/CASTOR OIL 60 GM OINT...G. TP SCH (10:00)
[2017-01-22] MEDS: PANTOPRAZOLE SODIUM 40 MG/VIAL (PROTONIX) IVP SCH ×2 (10:00→22:31)
[2017-01-22] MEDS: FOLIC ACID 1 MG TABLET GT SCH (10:01)
[2017-01-22] MEDS: COLISTIMETHATE SODIUM 75 MG in NS 50 ML IV SCH ×2 (10:01→22:32)
[2017-01-22] MEDS: levETIRAcetam 500 MG TABLET GT SCH ×2 (10:01→20:59)
--- NOTE | 2017-01-22 10:30 | NUR ---
WOUNDCARE DRESSING ON RIGHT BUTTOCK SATURATED WITH BLOOD, SO I REMOVED OLD DRESSING AND TENDER WET, CLEANED THE WOUND WITH SALINE, APPLIED VENELEX OINTMENT INTO THE WOUND BED AND Z-GUARD ON PERIWOUND, APPLIED A NEW TENDER-WET AND COVERED ORDERED
[2017-01-22 12:17] VITALS: BP_SYST 106
--- NOTE | 2017-01-22 12:44 | NUR ---
ROUNDS PT IS IN BED AND APPEARS COMFORTABLE. i SUCTIONED HIS TRACH AND PROVIDED ORAL CARE BEFORE REPOSITIONING HIM FOR COMFORT
--- NOTE | 2017-01-22 14:55 | NUR ---
DISCHARGE PLANNING Faxed referral to [phone]. Spoke with Steven in admitting who will obtain insurance auth from [facility]. Note left for weekend CM to follow up in AM for bed assignment. Contracted ambulance [facility] . Placed transportation packet in nurse station.
--- NOTE | 2017-01-22 16:08 | NUR ---
ROUNDS PT TENDS TO CURL TOWARDS THE LEFT OF THE BED, SO I USED PILLOWS TO REPOSITION HIM. I PROVIDED SUCTION AND ORAL CARE
[2017-01-22 16:24] VITALS: BP_SYST 101
--- NOTE | 2017-01-22 17:25 | NUR ---
PT TRANSPORTED TO SX
--- NOTE | 2017-01-22 18:00 | NUR ---
PT RETURNED FROM SX DR CANTRELL DETERMINED THAT THE RIGHT FEMORAL A/V SHUNT IS ADEQUATE, SO SURGERY WAS NOT PERFORMED. PT RETURNED IN STABLE CONDITION AND DIALYSIS WAS STARTED A FEW MINUTES LATER
[2017-01-22] MEDS ORDERED: NS 1000 ML BAG IV ONE (18:31)
--- NOTE | 2017-01-22 19:10 | NUR ---
Initial Round Received pt in bed awake but confused, non verbal. No s/s of any distress noted. Pt on vent with setting as ordered. Pt is currently having dialysis with dialysis nurse at bedside. Fredo cath noted to L and R groin. IV line noted to NILS crump 22 no infiltrate and with good blood return. All extremities are contracted. Wounds noted R buttock with dressing intact. Bed in low position with side rails up x3. Call light within reach, will cont to monitor.
--- NOTE | 2017-01-22 19:30 | NUR ---
CLOSING NOTE PT IS STILL UNDERGOING DIALYSIS AND IS IN STABLE CONDITION. THE DIALYSIS NURSE ASKED ME NOT TO START THE TUBE FEEDING UNTIL AFTER THE PROCEDURE IS COMPLETE, AND I ENDORSED THIS TO THE PM RN, TOM.
--- NOTE | 2017-01-22 21:10 | NUR ---
Pt on dialysis Pt still on dialysis at this time. No s/s of any distress noted. Hold IV meds, will administer when dialysis is finish.
[2017-01-23] VITALS: BP_SYST 93
[2017-01-23] MEDS: IPRATROPIUM/ALBUTEROL SULFATE 3 ML AMPUL.NEB INH SCH ×3 (03:50→11:29)
[2017-01-23 04:00] VITALS: BP_SYST 106
--- NOTE | 2017-01-23 05:00 | NUR ---
Hcg bath Hcg bath performed with Ivan LORENZO. No s/s of any distress noted. Bed in low position with call light within reach. Will cont to monitor.
[2017-01-23 05:57] LABS: BASOPHILS % (AUTO) 0.4 % (0.0-2.0); EOSINOPHILS # (AUTO) 0.2 K/uL (0.0-0.4); EOSINOPHILS % (AUTO) 1.9 % (0.0-4.0); HEMATOCRIT 27.3 % (36-54); HEMOGLOBIN 9.1 g/dL (14.0-18.0); LYMPHOCYTES # (AUTO) 0.8 K/uL (1.0-5.5); LYMPHOCYTES % (AUTO) 9.2 % (20.5-51.5); MEAN CORPUSCULAR HEMOGLOBIN 29 pg (27-31); MEAN CORPUSCULAR HGB CONC 33 % (32-36); MEAN CORPUSCULAR VOLUME 87 fL (79.0-98.0); MONOCYTES # (AUTO) 0.4 K/uL (0.0-1.0); NEUTROPHILS # (AUTO) 7.6 K/uL (1.8-7.7); NEUTROPHILS % (AUTO) 83.5 % (40.0-70.0); PLATELET COUNT (AUTO) 163 K/uL (130-430); RED BLOOD CELL COUNT(AUTO) 3.13 MIL/uL (4.2-6.2); RED CELL DISTRIBUTION WIDTH 14.1 % (9.0-15.0)
[2017-01-23 06:03] LABS: CALCIUM 9.2 mg/dL (8.4-11.0); CREATININE 5.66 mg/dL (0.55-1.30); POTASSIUM 3.6 mmol/L (3.5-5.1)
--- NOTE | 2017-01-23 06:50 | NUR ---
Final Rounds Patient is resting comfortably in bed at this time. No s/s of any distress noted. All needs met and anticipated by [facility] nurses. Bed in low position with side rails up x3. Call light in reach, will endorse.
[2017-01-23 08:00] VITALS: BP_SYST 84
--- NOTE | 2017-01-23 08:00 | NUR ---
OPENING NOTE PT IS RESTING COMFORTABLY WITH NO SIGNS OF DISTRESS. HE IS CURRENTLY AFEBRILE BUT I WILL MONITOR THROUGHOUT THE DAY BECAUSE HE HAD A FEVER YESTERDAY. LUNG SOUNDS CLEAR AND EQUAL, VS STABLE, RADIAL AND PEDAL PULSES PRESENT AND EQUAL. SUCTIONED TRACH AND PROVIDED ORAL CARE
--- NOTE | 2017-01-23 09:50 | NUR ---
dr soto at bedside dr stated pt can be discharged back to [facility] today with an order for 7 more days IV antibiotics
[2017-01-23] MEDS: levETIRAcetam 500 MG TABLET GT SCH (09:55)
[2017-01-23] MEDS: PANTOPRAZOLE SODIUM 40 MG/VIAL (PROTONIX) IVP SCH (09:55)
[2017-01-23] MEDS: FOLIC ACID 1 MG TABLET GT SCH (09:55)
[2017-01-23] MEDS: COLISTIMETHATE SODIUM 75 MG in NS 50 ML IV SCH (09:55)
[2017-01-23] MEDS: BALSAM PERU/CASTOR OIL 60 GM OINT...G. TP SCH (09:55)
[2017-01-23] MEDS: FERROUS SULFATE 300 MG/5 ML UDC GT SCH (09:55)
--- NOTE | 2017-01-23 10:17 | NUR ---
ROUNDS/DISCHARGE PLANNING PT IS RESTING COMFORTABLE. I SUCTIONED HIS MOUTH AND TEACH AND REPOSITIONED HIM FOR COMFORT. I DISCUSSED THE PLAN TO D/C PT TODAY AT 150 WITH HIS , SO SHE IS OK AND AWARE OF TRANSFER PLANS
--- NOTE | 2017-01-23 10:18 | NUR ---
Discharge planning Received order to transfer patient back to [facility]. Contacted patient's , Mitch [phone], and she is agreeable to transfer. Contacted [facility] and spoke with Hollie who stated that patient is accepted back to facility and assigned to room #211-B. Nurse to nurse report # [phone] and ask to speak with Hollie Arthur. Contacted [facility], , and scheduled [facility] for 1500 order picker/assembler today. RN Rui updated. Packet placed in nurse's station.
--- NOTE | 2017-01-23 13:00 | NUR ---
DAPTOMYCIN DELAYED I HAD TO CALL THE PHARMACY TO HAVE IT DELIVERED
[2017-01-23 13:03] VITALS: BP_SYST 102
[2017-01-23] MEDS: DAPTOmycin 500 MG in NS 50 ML IV SCH (13:12)
[2017-01-23 14:25] VITALS: BP_SYST 92
--- NOTE | 2017-01-23 15:30 | NUR ---
D/C Patient Patient transported to [facility] via [facility] with 24hr medication sheet and D/C instructions. Exit Care provided. Patient is aphasic and unable tp verbalize understanding. discussed with patient's the results and treatment provided. Patient in stable condition, ID band removed. IV catheter retained. pt did not have any belongings. I caled the receiving facility and gave report to Hollie at [phone]
== END 2017-01-23 15:40 | DRG 314 ==
LOC: SED 12:19 → STU 13:55
PROVIDERS: ADMIT General Practice; ATTEND General Practice
PROC: 5A1955Z Respiratory Ventilation, Greater than 96 Consecutive Hours (ICD-10-PCS; 2017-01-15)
PROC: 30233N1 Transfusion of Nonautologous Red Blood Cells into Peripheral Vein, Percutaneous Approach (ICD-10-PCS; 2017-01-16)
PROC: 06PYX3Z Removal of Infusion Device from Lower Vein, External Approach (ICD-10-PCS; principal; 2017-01-20)
DX: T82.7XXA Infection and inflammatory reaction due to other cardiac and vascular devices, implants and grafts, initial encounter (principal); J69.0 Pneumonitis due to inhalation of food and vomit; G93.41 Metabolic encephalopathy; N18.6 End stage renal disease; G82.50 Quadriplegia, unspecified; E43 Unspecified severe protein-calorie malnutrition; J15.6 Pneumonia due to other Gram-negative bacteria; A41.52 Sepsis due to Pseudomonas; J96.10 Chronic respiratory failure, unspecified whether with hypoxia or hypercapnia; K92.2 Gastrointestinal hemorrhage, unspecified; I12.0 Hypertensive chronic kidney disease with stage 5 chronic kidney disease or end stage renal disease; Z99.11 Dependence on respirator [ventilator] status; D63.8 Anemia in other chronic diseases classified elsewhere; E11.22 Type 2 diabetes mellitus with diabetic chronic kidney disease; R13.10 Dysphagia, unspecified; B96.4 Proteus (mirabilis) (morganii) as the cause of diseases classified elsewhere; G40.909 Epilepsy, unspecified, not intractable, without status epilepticus; E78.5 Hyperlipidemia, unspecified; Z16.24 Resistance to multiple antibiotics; D50.0 Iron deficiency anemia secondary to blood loss (chronic); Y84.1 Kidney dialysis as the cause of abnormal reaction of the patient, or of later complication, without mention of misadventure at the time of the procedure; T14.8 Other injury of unspecified body region; X58.XXXA Exposure to other specified factors, initial encounter; K57.30 Diverticulosis of large intestine without perforation or abscess without bleeding; Z99.2 Dependence on renal dialysis; Z74.01 Bed confinement status; Z93.0 Tracheostomy status; Z86.73 Personal history of transient ischemic attack (TIA), and cerebral infarction without residual deficits; Z93.1 Gastrostomy status; Z88.6 Allergy status to analgesic agent; Z79.899 Other long term (current) drug therapy; Y92.89 Other specified places as the place of occurrence of the external cause; Y93.89 Activity, other specified; Y99.8 Other external cause status
CPT/HCPCS: 36415; 36600; 71010; 74000-TC; 80048; 80053; 80202-TC; 82272; 82607; 82803-TC; 82962; 83540-TC; 83550-TC; 83605; 83735-TC; 85007; 85025; 85027; 85610-TC; 85730-TC; 86677; 86870; 86886; 86900; 86901; 86920; 87040-TC; 87070-TC; 87081; 87186-TC; 90935; 90937; 93005; 94002; 94003; 94640; 94760; 99291; C9113; J0278; J0696; J0770; J0878; J1580; J1644; J2001; J2060; J3370; J7030; J7040; J7050; J7060; P9021

== ENCOUNTER 2018-03-14 15:15 | Inpatient (IN) | payer OTHER ==
[~2018-03-14] VITALS: Ht 180.3 cm; Wt 78.1 kg
[~2018-03-14 15:15] MED LIST changes: -FAMO40TA35 GT; +FAMO40TA71 GT; +FERR220S6 PO
[2018-03-14 15:45] VITALS: BP_SYST 114
--- NOTE | 2018-03-14 15:45 | NUR ---
Patient received report from Maria Esther ABREU at 1415 from [facility], patient is a/ox1, nonverbal, opens eyes does not track, trach to vent, copious sputum, thick and white, vent settings: AC 12, TV 450, Fio2 28%, peep 5, O2 sat is 100%, G tube in place clamped at this time, left groin kirstin cath in place non-functioning, dressing in place at insertion site with dried blood, peripheral IV line in place patent and infusing well, low air loss mattress in place, wound pictures taken, patient is sinus rhythm on the monitor, will paged MD for further orders, bed in lowest position, three side rails up, bed alarm on, fall, aspiration, seizure and isolation precautions in place.
--- NOTE | 2018-03-14 16:15 | NUR ---
Paged Dr. Turpin call back received for orders, will follow up.
[2018-03-14] MEDS ORDERED: PRO40 GT (16:46)
[2018-03-14] MEDS ORDERED: LIP10 GT (16:46)
[2018-03-14] MEDS ORDERED: SEVE800T8 PO (16:46)
--- NOTE | 2018-03-14 16:50 | NUR ---
CONSULT NEPHROLOGY HEMODIALYSIS DR MIRANDA [phone] DR BRICENO SAWMILL HAND S/W [facility] OFFICE
[2018-03-14 17:02] LABS: HEMATOCRIT 24.5 % (36-54); HEMOGLOBIN 8.2 g/dL (14.0-18.0); MEAN CORPUSCULAR HEMOGLOBIN 29 pg (27-31); MEAN CORPUSCULAR HGB CONC 34 % (32-36); MEAN CORPUSCULAR VOLUME 87 fL (79.0-98.0); PLATELET COUNT (AUTO) 275 K/uL (130-430); RED BLOOD CELL COUNT(AUTO) 2.82 MIL/uL (4.2-6.2); RED CELL DISTRIBUTION WIDTH 14.2 % (9.0-15.0); WHITE BLOOD COUNT (AUTO) 16.5 K/uL (4.8-10.8)
[2018-03-14 17:11] VITALS: BP_SYST 114
[2018-03-14 17:12] LABS: CALCIUM 8.5 mg/dL (8.4-11.0); POTASSIUM 3.9 mmol/L (3.5-5.1)
[2018-03-14 17:18] LABS: ALBUMIN 1.8 g/dL (3.4-4.8); TOTAL BILIRUBIN 0.8 mg/dL (0.0-1.0)
[2018-03-14 17:30] LABS: CREATININE 8.15 mg/dL (0.55-1.30)
[2018-03-14 17:52] LABS: BAND % (MANUAL) 11 % (0-6); BASOPHILS % (MANUAL) 0 % (0-2); EOSINOPHILS % (MANUAL) 0 % (0-7); LYMPHOCYTES % (MANUAL) 3 % (20-46); MONOCYTES % (MANUAL) 4 % (0-11)
[2018-03-14] MEDS ORDERED: IPRA0.2S6 INH (18:06)
[2018-03-14] MEDS ORDERED: APIX2.5T GT (18:06)
[2018-03-14] MEDS ORDERED: LORA-259 GT (18:06)
[2018-03-14] MEDS ORDERED: MOM GT (18:06)
[2018-03-14] MEDS ORDERED: ARTT OP (18:06)
[2018-03-14] MEDS ORDERED: ZIN220 GT (18:06)
[2018-03-14] MEDS ORDERED: ALBU2.5V7 INH (18:06)
[2018-03-14] MEDS ORDERED: ACET160E36 GT (18:21)
--- NOTE | 2018-03-14 18:25 | NUR ---
Closing note Patient resting in bed, eyes closed, tolerating vent settings, wound care performed, patient cleaned and turned and repositioned, all needs met thus far, will endorse report to NOC shift nurse, bed in lowest position, three side rails up, bed alarm on, fall, aspiration, seizure and isolation precautions in place.
[2018-03-14] MEDS ORDERED: MILK OF MAGNESIA 30 ML UDC GT SCH (19:00)
--- NOTE | 2018-03-14 19:30 | NUR ---
INITIAL NOTES Received handoff report from offgoing nurse at the bedside. Patient is resting comfortably in bed with his eyes closed. Tolerating trach to vent settings. No SOB, no acute distress, no signs of pain or facial grimacing. Bed is locked, in the lowest position, 2x side rails up with seizure pads on, bed alarm is on. Call light is within reach.
[2018-03-14] MEDS ORDERED: EPOE1VIA13 SUBCUT (19:41)
[2018-03-14] MEDS ORDERED: PHO667 GT (19:41)
[2018-03-14] MEDS ORDERED: MIDO5TAB PO (19:41)
[2018-03-14] MEDS ORDERED: LACT10SO66 GT (19:41)
[2018-03-14] MEDS ORDERED: AZIT500V2 GT (19:41)
[2018-03-14] MEDS ORDERED: MIDODRINE HCL 5 MG TABLET (PROAMATINE) PO SCH (19:45)
[2018-03-14 20:00] VITALS: BP_SYST 101
--- NOTE | 2018-03-14 22:00 | NUR ---
Patient turned and repositioned. Provided oral care and suction prn. Bed is locked, in the lowest position, 2x side rails up, bed alarm is on. Call light is within reach.
[2018-03-14] MEDS: ATORVASTATIN 10 MG TABLET GT SCH (23:40)
[2018-03-14] MEDS: LACTULOSE 20 GM/30 ML UDC GT SCH (23:40)
[2018-03-14] MEDS: D5/0.45 NS 1,000 ML IV SCH (23:40)
[2018-03-14] MEDS: levETIRAcetam 500 MG TABLET GT SCH (23:40)
[2018-03-14] MEDS: PEG 400/HYPROMELLOSE/GLYCERIN 15 ML DROPS OP SCH (23:49)
[2018-03-15] MEDS ORDERED: VANCOMYCIN HCL 1,000 MG in NS 250 ML IV ONE ×2
[2018-03-15] MEDS: ALBUTEROL SULFATE 0.083% 2.5 MG/3 ML VIAL.NEB INH SCH ×4 (00:11→19:00)
[2018-03-15] MEDS: IPRATROPIUM BROM 0.5 MG/2.5 ML VIAL.NEB (ATROVENT) INH SCH ×4 (00:11→19:00)
--- NOTE | 2018-03-15 00:13 | NUR ---
Patient is sleeping, resting comfortably in bed. No SOB, no acute distress, no signs of pain or facial grimacing. Breathing is even and unlabored with visible chest rise and fall noted. Tolerating trach to vent settings. Bed is locked, in the lowest position, 2x side rails up, bed alarm is on. Call light is within reach.
[2018-03-15] MEDS ORDERED: MILK OF MAGNESIA 30 ML UDC GT PRN ×2 (00:15→06:45)
[2018-03-15 00:40] VITALS: BP_SYST 104
[2018-03-15] MEDS ORDERED: VANCOMYCIN HCL 1000 MG/VIAL IV ONE (00:58)
--- NOTE | 2018-03-15 02:19 | NUR ---
GTUBE FEEDING INITIATION Received Gtube feeding from Tonja, warehouse general laborer, and initiated Gtube feeding as ordered.
--- NOTE | 2018-03-15 02:32 | NUR ---
Patient is asleep, resting comfortably in bed. No SOB, no acute distress, no signs of pain or facial grimacing. Breathing is even and unlabored with visible chest rise and fall noted. Tolerating trach to vent settings. Call light is within reach.
--- NOTE | 2018-03-15 04:45 | NUR ---
Per boiler shop supervisor, patient is tentatively scheduled for surgery today after 11AM. No notes or orders has been imputed in [facility]. Will need clarification from . Informed to hold Gtube feeding for pending procedure. Addendum: 03/15/18 at 0452 by Leena Burr RN Continuation of notes Charge nurse made aware.
[2018-03-15] MEDS: PEG 400/HYPROMELLOSE/GLYCERIN 15 ML DROPS OP SCH ×3 (05:36→17:55)
[2018-03-15] MEDS: PANTOPRAZOLE SODIUM 40 MG TAB GT SCH (06:02)
--- NOTE | 2018-03-15 06:27 | NUR ---
Patient is resting in bed with his eyes closed. No signs of distress, no signs of pain. Tolerating trach to vent settings. Bed is locked, in the lowest position, 2x side rails up, bed alarm is on. Call light within reach.
--- NOTE | 2018-03-15 06:32 | NUR ---
Called Dr Turpin regarding pending pharmacy medications. Dr Turpin clarified orders and stated to give Azithromycin 500mg for 3 doses only, Milk of magnesium Q24H PRN, and to hold proamatine 5mg.
[2018-03-15 06:40] LABS: CALCIUM 8.3 mg/dL (8.4-11.0); POTASSIUM 3.6 mmol/L (3.5-5.1)
[2018-03-15 06:45] LABS: EOSINOPHILS # (AUTO) 0.2 K/uL (0.0-0.4); LYMPHOCYTES # (AUTO) 0.4 K/uL (1.0-5.5)
[2018-03-15 06:54] LABS: CREATININE 8.69 mg/dL (0.55-1.30)
[2018-03-15 07:01] LABS: BASOPHILS % (AUTO) 0.1 % (0.0-2.0); HEMATOCRIT 23.1 % (36-54); HEMOGLOBIN 7.9 g/dL (14.0-18.0); LYMPHOCYTES % (AUTO) 2.6 % (20.5-51.5); MEAN CORPUSCULAR HEMOGLOBIN 30 pg (27-31); MEAN CORPUSCULAR HGB CONC 34 % (32-36); MEAN CORPUSCULAR VOLUME 88 fL (79.0-98.0); MONOCYTES # (AUTO) 0.8 K/uL (0.0-1.0); MONOCYTES % (AUTO) 5.5 % (1.7-9.3); NEUTROPHILS % (AUTO) 90.8 % (40.0-70.0); PLATELET COUNT (AUTO) 289 K/uL (130-430); RED BLOOD CELL COUNT(AUTO) 2.63 MIL/uL (4.2-6.2); RED CELL DISTRIBUTION WIDTH 13.7 % (9.0-15.0); WHITE BLOOD COUNT (AUTO) 15.4 K/uL (4.8-10.8)
--- NOTE | 2018-03-15 07:45 | NUR ---
OPENING NOTES, RECEIVED PT IN BED, PT IS OBTUNDED, FLAT AFFECT, EYES OPEN BUT NOT TRACKING, NO S/S OF PAIN, NO SOB, NO RESP DISTRESS. PT ON TRACHE TO VENT, SETTINGS ARE AC 12, FIO2 28%, TV 450, PEEP 5. PT HAS LEFT GROIN DIALYSIS CATH, DRESSING IS BLOODY WITH SOME CLOTS. IV ACCES ON LEFT FA INTACT AND PATENT, NOTED GENERALIZED EDEMA, ON HANDS, ARMS, HIPS, LEGS AND FEET. SAFETY PRECAUTION IN PLACE. CALL LIGHT IN REACH, BED IN LOW POSITION. PT ENCOURAGED TO CALL FOR ASSISTANCE TO BATHROOM AND FOR PAIN MEDICATION. WILL CONT TO MONITOR.
[2018-03-15 07:50] VITALS: BP_SYST 108
--- NOTE | 2018-03-15 07:58 | NUR ---
Closing Notes Patient is awake and alert, resting comfortably in bed. No SOB, no acute distress, no signs of pain. Tolerating trach to vent settings. IV site is intact, currently infusing fluids at the ordered rate, see eMAR. Bed is locked, in the lowest position, 2x side rails up, bed alarm is on. Informed dayshift nurse that the gtube is currently held due to a tentatively scheduled surgery, per warehouse team leader. Endorsed to dayshift to call surgery or Dr Lindsay for more information, since it was not inputed into [employer]. Call light is within reach. Fall and safety precautions maintained. All needs have been met during this shift.
[2018-03-15] MEDS ORDERED: EPOETIN ALFA 10,000 UNITS/ML VIAL SUBCUT SCH (09:00)
[2018-03-15] MEDS ORDERED: AZITHROMYCIN 250 MG TABLET GT SCH (09:00)
[2018-03-15] MEDS ORDERED: AZITHROMYCIN 500 MG GT SCH (09:00)
--- NOTE | 2018-03-15 09:45 | NUR ---
Nutrition Update Brady Scale 13 noted. Pt admitted for anemia, pneumonia, ESRD, CRF, DM. Diet: Nepro at 45 ml/hr, Free Water Flush: 300ml Q4H via GT BMI: 23.3 kg/m2 RD to follow per nutrition care standards.
[2018-03-15 11:49] LABS: INR 1.2 (0.80-1.20); PROTHROMBIN TIME 11.9 SECS (9.5-12.5)
[2018-03-15] MEDS ORDERED: fentaNYL CITRATE/PF 100 MCG/2 ML AMP IVP PRN ×2 (12:00)
[2018-03-15] MEDS ORDERED: ONDANSETRON HCL 4 MG/2 ML VIAL IVP PRN (12:00)
[2018-03-15 12:25] VITALS: BP_SYST 107
[2018-03-15] MEDS ORDERED: NS 1000 ML IV.SOLN IV ONE (12:40)
[2018-03-15] MEDS ORDERED: MIDAZOLAM HCL 5 MG/ML VIAL (VERSED) IV ONE (12:40)
[2018-03-15] MEDS ORDERED: LIDOCAINE 1% 10 MG/ML, 20 ML MDV ONE (12:40)
[2018-03-15] MEDS ORDERED: PROPOFOL 200MG/ 20ML VIAL (DIPRIVAN) IV ONE (12:40)
[2018-03-15] MEDS: SEVELAMER HCL 800 MG TABLET PO SCH ×3 (13:00→17:24)
--- NOTE | 2018-03-15 13:00 | NUR ---
Wound Evaluation: Wound consult orders received from Dr. Turpin. Thank you, Dr. Turpin, for the consult. Patient received in a Screven bed with an Isoflex [place] mattress with low air loss therapy initiated, awake, non-verbal, non-responsive to verbal commands. Brady score is a 13. Skin is in poor condition. Patient is unable to turn in bed independently. Past Medical History: Spinal Cord Injury with resulting Quadriplegia, Ventilator dependent, Dialysis dependent, Chronic Respiratory Failure, Dysphagia, End-Stage Renal Disease, G-Tube placement, tracheostomy, CVA, bedbound, poor access, sepsis. Recent labs: WBC 15.4, RBC 2.63, hemoglobin 7.9, hematocrit 23.1, sodium 124, chloride 88, BUN 137, creatinine 8.69, albumin 1.8, PTT 35.7. Intrinsic factors that delay wound healing: Chronic Respiratory Failure, End-Stage Renal Disease, and Hypoalbuminemia. Extrinsic factors that delay wound healing: Immobility. MRSA Screen results negative. Blood Culture x 2 in progress. Wound Assessment: 1) Sacral-Coccygeal Area: Scar tissue, present on admission. Site has 100% pink tissue. No odor, no drainage. Mena-wound and surrounding tissue has scar tissue. Measures 8.0 cm x 14.5 cm. Recommend: Cleanse area with normal saline. Pat dry. Apply moisture barrier cream onto periwound. Apply Venelex ointment over wound bed. Cover with Sacral foam dressing. Perform wound care daily, and as needed for dressing soiling or dislodgment. 2) Left Buttock at Ischial Tuberosity: Scar tissue, present on admission. Site has 100% pink tissue. No odor, no drainage. Mena-wound and surrounding tissue has scar tissue. Recommend: Cleanse area with normal saline. Pat dry. Cover area with moisture barrier cream. Cover with foam dressing. Perform wound care daily, and as needed for dressing soiling or dislodgment. 3) Right Buttock at Ischial Tuberosity: Unstageable pressure ulcer, present on admission. Wound bed has 60% pink tissue, 40% yellow slough. No odor, no drainage. Measures 1.7 cm x 1.6 cm. Recommend: Cleanse wounds with normal saline. Put moisture barrier cream onto wounds and mena-wounds. Put Hydrogel onto any portion of wound beds not covered by moisture barrier cream. Cover with foam dressings. Perform wound care daily, and as needed for dressing soiling or dislodgment. Also recommend: Reposition patient side to side only every two hours with pillow support, and off-load pressure areas with pillows for pressure re-distribution. Perform skin care and monitor skin integrity q shift. Use moisture barrier cream on mena, buttocks, and other moisture susceptible areas qid and as needed for soiling. Elevate, offload, and float bilateral heels and elbows with pillows at all times. Maintain patient on a low air-loss mattress. Addendum: 03/15/18 at 1831 by Zander Mccann RN Error: Treatment for Wound 3 should be: Cleanse area with normal saline. Pat dry. Apply moisture barrier cream onto periwound. Apply Venelex ointment over wound bed. Cover with Sacral foam dressing. Perform wound care daily, and as needed for dressing soiling or dislodgment.
--- NOTE | 2018-03-15 14:08 | NUR ---
CONSULTATION PAGED REASON FOR CONSULT: MRSA WAS CONSULT CALLED: y PERSON WHO WAS NOTIFIED: Daisy CONSULTING PHYSICIAN: Dr. Soto SAMPLE MAKER PHONE NUMBER: [phone] ORDERING PHYSICIAN: Dr. Turpin
[2018-03-15] MEDS: LACTULOSE 20 GM/30 ML UDC GT SCH ×2 (15:34→21:08)
[2018-03-15] MEDS: LORazepam 1 MG TABLET GT SCH (15:34)
[2018-03-15] MEDS: levETIRAcetam 500 MG TABLET GT SCH ×2 (15:34→21:08)
[2018-03-15] MEDS: CALCIUM ACETATE 667 MG CAP GT SCH (15:38)
--- NOTE | 2018-03-15 15:38 | NUR ---
all am meds given only now since pt was npo this am for procedure
[2018-03-15 16:20] VITALS: BP_SYST 102
--- NOTE | 2018-03-15 17:32 | NUR ---
hd rn here, started dialysis.
[2018-03-15] MEDS: D5/0.45 NS 1,000 ML IV SCH (17:37)
--- NOTE | 2018-03-15 18:04 | NUR ---
PER PHARMACIST THONG, PT WILL HAVE ANOTHER DOSE OF VANCOMYCIN ON MARCH 17 AFTER A RANDOM VANCO CHECK.
--- NOTE | 2018-03-15 19:36 | NUR ---
CLOSING NOTES, SBAR/BEDSIDE REPORT GIVEN TO BRADY HUSSEIN PT STILL HAVING HD THIS TIME. NO REPORT OF UNTOWARD INCIDENT FROM HD RN FENG. NO CHANGE IN VENT SETTINGS. IV FLUID AND G-TUBE FEEDING INFUSING WELL.
--- NOTE | 2018-03-15 19:48 | NUR ---
Initial Note: Received handoff report from daysmtft RN. Patient is awake in bed, non-verbal, shows no signs or symptoms of acute distress, no indications of pain. Trach noted, patient tolerates current mechanical vent settings. Left groin kirstin catheter noted. Dressing is clean, dry, intact. Right forearm IV noted, site is patent and benign. Safety, fall, seizure, and contact isolation precautions noted. Call light is with patient. Will continue with plan of care. Addendum: 03/15/18 at 2252 by Jovan James RN Patient undergoing hemodialysis at this time, 19:48. Dialysis nurse BRADY Pereira is at bedside.
[2018-03-15] MEDS ORDERED: CEFTAZIDIME 1 GM in D5W 50 ML IV ONE (20:00)
[2018-03-15] MEDS ORDERED: HEPARIN SODIUM,PORCINE 5000 UNITS/ML VIAL SUBCUT PRN (20:15)
--- NOTE | 2018-03-15 20:23 | NUR ---
Dialysis completed/heparin given by dialysis nurse: Patient's hemodialysis completed at 20:15. Dialysis nurse BRADY Pereira reported that patient had 2000 ML of fluid removed. 5000 units of IVP heparin was administered through each of the 2 dialysis ports by BRADY Pereira at this time (total of 10,000 units of heparin). Patient's most recent PTT is 35.7. Patient's vitals are stable, shows no signs or symptoms of acute distress. Will continue to monitor.
[2018-03-15 20:30] VITALS: BP_SYST 112
[2018-03-15] MEDS ORDERED: CEFTAZIDIME 1 GM in D5W 50 ML IV SCH (21:00)
[2018-03-15] MEDS ORDERED: HEPARIN SODIUM,PORCINE 5000 UNITS/ML VIAL IVP PRN (21:00)
[2018-03-15] MEDS: ATORVASTATIN 10 MG TABLET GT SCH (21:08)
--- NOTE | 2018-03-15 22:18 | NUR ---
Rounds: Patient is awake in bed, no signs or symptoms of acute distress noted. Trach and oral suctioning provided, oral care provided. Patient tolerated well. Safety, fall, seizure, and contact isolation precautions in place. Call light is with patient. Will continue to monitor.
[2018-03-15 23:47] VITALS: BP_SYST 134
[2018-03-16] MEDS: PEG 400/HYPROMELLOSE/GLYCERIN 15 ML DROPS OP SCH ×4 (00:07→17:30)
[2018-03-16] MEDS: ALBUTEROL SULFATE 0.083% 2.5 MG/3 ML VIAL.NEB INH SCH ×4 (00:14→19:44)
[2018-03-16] MEDS: IPRATROPIUM BROM 0.5 MG/2.5 ML VIAL.NEB (ATROVENT) INH SCH ×4 (00:14→19:44)
--- NOTE | 2018-03-16 00:16 | NUR ---
Rounds: Patient is asleep in bed, no signs or symptoms of acute distress noted. Patient tolerates current vent settings, breathing is even and unlabored. IV fluids infusing well, tubefeeding flowing well to g-tube. Safety, fall, seizure, contact iso precautions in place. Will continue to monitor.
[2018-03-16 00:46] VITALS: BP_SYST 113
--- NOTE | 2018-03-16 02:15 | NUR ---
Rounds: Patient is asleep, does not show signs or symptoms of acute distress. Breathing remains even and unlabored. Safety, fall, contact iso, seizure precautions in place. Will continue to monitor.
--- NOTE | 2018-03-16 04:18 | NUR ---
Rounds/wound care: Patient is awake in bed, no signs or symptoms of acute distress. Oral care, trach suction performed. Wound care performed per instructions from wound nurse Zander Breaux. Patient tolerated wound care well. Safety, fall, contact iso, seizure precautions in place. Will continue to monitor.
[2018-03-16] MEDS: PANTOPRAZOLE SODIUM 40 MG TAB GT SCH (06:16)
--- NOTE | 2018-03-16 06:20 | NUR ---
Closing Note: Patient is sleeping in bed, no signs or symptoms of acute distress noted. Patient tolerating current vent settings. G-tube to patient's abdomen remains patent. All needs met and attended to. Safety, fall, seizure, contact iso precautions remain in place. Will endorse care to dayshift RN.
[2018-03-16 07:02] LABS: BASOPHILS % (AUTO) 0.1 % (0.0-2.0); EOSINOPHILS # (AUTO) 0.1 K/uL (0.0-0.4); EOSINOPHILS % (AUTO) 0.3 % (0.0-4.0); HEMATOCRIT 23.7 % (36-54); HEMOGLOBIN 8.2 g/dL (14.0-18.0); LYMPHOCYTES # (AUTO) 0.5 K/uL (1.0-5.5); LYMPHOCYTES % (AUTO) 2.6 % (20.5-51.5); MEAN CORPUSCULAR HEMOGLOBIN 30 pg (27-31); MEAN CORPUSCULAR HGB CONC 35 % (32-36); MEAN CORPUSCULAR VOLUME 88 fL (79.0-98.0); MONOCYTES # (AUTO) 0.8 K/uL (0.0-1.0); MONOCYTES % (AUTO) 4.5 % (1.7-9.3); NEUTROPHILS # (AUTO) 16.1 K/uL (1.8-7.7); NEUTROPHILS % (AUTO) 92.5 % (40.0-70.0); PLATELET COUNT (AUTO) 339 K/uL (130-430); RED BLOOD CELL COUNT(AUTO) 2.71 MIL/uL (4.2-6.2); RED CELL DISTRIBUTION WIDTH 13.9 % (9.0-15.0); WHITE BLOOD COUNT (AUTO) 17.5 K/uL (4.8-10.8)
[2018-03-16 07:24] LABS: ALBUMIN 1.6 g/dL (3.4-4.8); CALCIUM 8.2 mg/dL (8.4-11.0); CREATININE 7.17 mg/dL (0.55-1.30); POTASSIUM 3.5 mmol/L (3.5-5.1); TOTAL BILIRUBIN 0.7 mg/dL (0.0-1.0)
[2018-03-16 07:50] VITALS: BP_SYST 127
--- NOTE | 2018-03-16 08:00 | NUR ---
OPENING NOTES, PT IN BED, PT IS OBTUNDED, FLAT AFFECT, EYES OPEN BUT NOT TRACKING, NO S/S OF PAIN, NO SOB, NO RESP DISTRESS. PT ON TRACHE TO VENT, SETTINGS ARE AC 12, FIO2 28%, TV 450, PEEP 5. PT HAS LEFT GROIN DIALYSIS CATH, DRESSING IS BLOODY WITH SOME CLOTS. IV ACCES ON LEFT FA INTACT AND PATENT, NOTED GENERALIZED EDEMA, ON HANDS, ARMS, HIPS, LEGS AND FEET. SAFETY PRECAUTION IN PLACE. CALL LIGHT IN REACH, BED IN LOW POSITION. WILL CONT TO MONITOR.
[2018-03-16] MEDS: LACTULOSE 20 GM/30 ML UDC GT SCH ×2 (09:19→21:26)
[2018-03-16] MEDS: levETIRAcetam 500 MG TABLET GT SCH ×2 (09:20→21:26)
[2018-03-16] MEDS: SEVELAMER HCL 800 MG TABLET PO SCH ×3 (09:20→17:29)
[2018-03-16] MEDS: CALCIUM ACETATE 667 MG CAP GT SCH (09:20)
--- NOTE | 2018-03-16 10:57 | NUR ---
CONSULTATION PAGED REASON FOR CONSULTATION:L PLEURAL EFFUSION WAS CONSULT CALLED?Y PERSON WHO WAS NOTIFIED:ANILA CONSULTING PHYSICIAN:LIZZIE LEY MECHANICAL SUPERVISOR SPECIALTY:PULMONARY MECHANICAL SUPERVISOR PHONE NUMBER:[phone] ORDERING PHYSICIAN:DR.[facility]
[2018-03-16] MEDS ORDERED: metroNIDAZOLE 500 mg/NS 100 ML IV ONE (11:45)
[2018-03-16] MEDS: BALSAM PERU/CASTOR OIL 60 GM OINT...G. TP SCH (12:15)
[2018-03-16] MEDS: D5/0.45 NS 1,000 ML IV SCH (12:21)
[2018-03-16 13:05] VITALS: BP_SYST 123
--- NOTE | 2018-03-16 13:23 | NUR ---
PT'S GAVE TELEPHONE CONSENT FOR U/S GUIDED THORACENTECIS.
[2018-03-16] MEDS ORDERED: LIDOCAINE 1%, 20 ML MDV 0 ML ONE (13:47)
--- NOTE | 2018-03-16 14:40 | NUR ---
RT NOTES Transported pt to and from CT bagging with 100% O2 via ambubag to trach tube. Airway remained secure/patent, pt. saturation high 90s to 100%. RT Sangeeta placed pt. back on vent with same settings.
--- NOTE | 2018-03-16 14:45 | NUR ---
TRANSPORTED PT WITH GUNCOTTON PACKER AND R.T FOR CT OF THE CHEST.
--- NOTE | 2018-03-16 15:00 | NUR ---
Dietitian Recommendations * Recommend continuing Nepro at 45 ml/hr, Free Water Flush: 300 ml Q4H via GT per MD Provides: 1944 kcal/day, 87 gm protein/day, and 2585 ml free water/day Meets: 102% of lower end of estimated caloric needs and 96% of lower end of estimated protein needs LP, RD Please refer to Nutrition Assessment for details.
--- NOTE | 2018-03-16 15:00 | NUR ---
1100 CC OF SAMPLE DRAINED FROM LEFT THORACENTESIS SENT TO LAB.
--- NOTE | 2018-03-16 15:30 | NUR ---
PT CAME BACK FROM CT OF CHEST W/O CONTRAST, PT TOLERATED WELL.
--- NOTE | 2018-03-16 15:47 | NUR ---
RAILROAD DINING CAR STEWARD/STEWARDESS AT BEDSIDE PREPPING THE PATIENT FOR HD.
[2018-03-16 17:09] VITALS: BP_SYST 95
--- NOTE | 2018-03-16 17:44 | NUR ---
2 VIALS OF HEPARIN (5000 UNITS/ VIAL) PROVIDED TO HD RN RAMBO FENG FOR HD CATH PROT FLUSH.
--- NOTE | 2018-03-16 19:20 | NUR ---
OPENING NOTE RECEIVED PT ENDORSEMENT REPORT FROM DAY SHIFT NURSE AT BEDSIDE. PT IS RESTING IN BED WITH EYES OPEN. PT IS AOX1, CHEST RISE EVEN AND UNLABORED. NO S/S OF SOB OR DISTRESS. PT IS ON TRACH TO VENT AC 12, TV 450, PEEP 5, FIO2 28%. PT HAS TUBE FEEDING NEPHRO @ 45, GT TUBE DRESSING DRY AND INTACT, FEEDING INFUSING WELL. PT HAS IV TO RIGHT FA 20 G, INFUSING FLUIDS AT ORDERED RATE. SKIN IS WARM, DRY AND INTACT. SWELLING NOTED TO BILATERAL UPPER EXTREMITIES. PT HAS SACRAL WOUNDS DRESSINGS DRY AND INTACT. PT INSTRUCTED HOW TO USE CALL LIGHT AND ROOM PHONE, PT UNABLE TO VERBALIZE UNDERSTANDING. SAFETY MEASURES IN PLACE, CALL LIGHT AND PHONE WITHIN REACH, BED IN LOWEST POSITION, BED WHEELS LOCKED, SIDE RAILS UP X2, BED ALARM ON, BEDSIDE TABLE WITHIN REACH. NO FURTHER NEEDS AT THIS TIME. WILL CONTINUE TO MONITOR PT.
--- NOTE | 2018-03-16 19:39 | NUR ---
CLOSING NOTES, LEFT THORACENTESIS AND HEMODIALYSIS DONE TODAY OUTPUT WAS 1100 AND 24[address]. PT HAD [address] OF CHEST ALSO DONE. PT TOLERATED ALL PROCEDURES. PT TURNED AND REPOSITIONED EVERY 2 HOURS. WOUND CARE DONE, IF FLUIDS AND G-TUBE FEEDING INFUSING WELL. ENDORSED TO NIGHT RN.
--- NOTE | 2018-03-16 20:00 | NUR ---
FREE WATER 300 ML
--- NOTE | 2018-03-16 20:10 | NUR ---
RN ROUNDS PT IS RESTING IN BED WITH EYES OPEN. CHEST RISE EVEN AND UNLABORED. NO S/S OF SOB OR DISTRESS. IV INFUSING FLUIDS AT ORDERED RATE. VITAL SIGNS WNL. SAFETY MEASURES IN PLACE, CALL LIGHT AND PHONE WITHIN REACH, BED IN LOWEST POSITION, BED WHEELS LOCKED, SIDE RAILS UP X2, BED ALARM ON, BEDSIDE TABLE WITHIN REACH. NO FURTHER NEEDS AT THIS TIME. WILL CONTINUE TO MONITOR PT.
[2018-03-16] MEDS: ATORVASTATIN 10 MG TABLET GT SCH (21:26)
[2018-03-16] MEDS: metroNIDAZOLE 500 mg/NS 100 ML IV SCH (21:26)
[2018-03-16] MEDS: CEFTAZIDIME IV SCH (21:26)
[2018-03-16] MEDS: D5W IV SCH (21:26)
--- NOTE | 2018-03-16 21:50 | NUR ---
RN ROUNDS PT IS RESTING IN BED WITH EYES OPEN. PT IS AOX1, CHEST RISE EVEN AND UNLABORED. NO S/S OF SOB OR DISTRESS. IVF FLUIDS INFUSING WELL. PT SUCTIONED, PT TOLERATED WELL. PT HAD NO RESIDUAL. PT'S SCHEDULED MEDICATIONS ADMINISTERED ORDERED VIA GT. PT TOLERATED WELL. SAFETY MEASURES IN PLACE, CALL LIGHT AND PHONE WITHIN REACH, BED IN LOWEST POSITION, BED WHEELS LOCKED, SIDE RAILS UP X2, BED ALARM ON, BEDSIDE TABLE WITHIN REACH. NO FURTHER NEEDS AT THIS TIME. WILL CONTINUE TO MONITOR PT.
--- NOTE | 2018-03-16 23:35 | NUR ---
RN ROUNDS PT IS RESTING IN BED WITH EYES OPEN. CHEST RISE EVEN AND UNLABORED. NO S/S OF SOB OR DISTRESS. NURSE ASSISTED DATA PROCESSING CONSULTANT HOPE WITH BED BATH. IVF INFUSING WELL. FEEDING INFUSING WELL. PT SUCTIONED, PT TOLERATED WELL, PT REPOSITIONED. SAFETY MEASURES IN PLACE, CALL LIGHT AND PHONE WITHIN REACH, BED IN LOWEST POSITION, BED WHEELS LOCKED, SIDE RAILS UP X2, BED ALARM ON, BEDSIDE TABLE WITHIN REACH. NO FURTHER NEEDS AT THIS TIME. WILL CONTINUE TO MONITOR PT.
[2018-03-16 23:51] LABS: APPEARANCE,SPUN,BODY FLUID CLEAR (CLEAR); BF APPEARANCE UNSPUN CLOUDY (CLEAR); BODY FLUID SOURCE/ TYPE PLEURAL; SOURCE/TYPE ,BODY FLUID PLEURAL
[2018-03-16 23:52] LABS: BODY FLUID COLOR YELLOW (LT YELLOW); BODY FLUID TOTAL VOLUME 1060 mL; EOSINOPHIL, BODY FLUID 0 %; LYMPHOCYTES, BODY FLUID 1 %; MONOCYTES,BODY FLUID 4 %; NEUTROPHIL, BODY FLUID 95 %; RBC, BODY FLUID 3610 /uL; WBC, BODY FLUID 6766 /uL
[2018-03-16 23:54] LABS: BODY FLUID GLUCOSE 121 mg/dL; BODY FLUID TOTAL PROTEIN 3.7 g/dL
--- NOTE | 2018-03-17 00:02 | NUR ---
WOUND CARE DONE LINENS CHANGED WILL CONTINUE TO MONITOR PT.
[2018-03-17 00:40] VITALS: BP_SYST 100
--- NOTE | 2018-03-17 00:40 | NUR ---
FREE WATER 300 ML
[2018-03-17] MEDS: PEG 400/HYPROMELLOSE/GLYCERIN 15 ML DROPS OP SCH ×4 (00:53→18:10)
[2018-03-17] MEDS: IPRATROPIUM BROM 0.5 MG/2.5 ML VIAL.NEB (ATROVENT) INH SCH ×4 (01:35→20:24)
[2018-03-17] MEDS: ALBUTEROL SULFATE 0.083% 2.5 MG/3 ML VIAL.NEB INH SCH ×4 (01:36→20:23)
--- NOTE | 2018-03-17 02:12 | NUR ---
RN ROUNDS PT IS RESTING IN BED WITH EYES CLOSED. CHEST RISE EVEN AND UNLABORED. NO S/S OF SOB OR DISTRESS. IVF INFUSING WELL. FEEDING INFUSING WELL, PT TOLERATING WELL. NEW IIV ON PT'S RIGHT HAND 22G. SUCTIONING DONE, PT TOLERATED WELL, PT REPOSITIONED. SAFETY MEASURES IN PLACE, CALL LIGHT AND PHONE WITHIN REACH, BED IN LOWEST POSITION, BED WHEELS LOCKED, SIDE RAILS UP X2, BED ALARM ON, BEDSIDE TABLE WITHIN REACH. NO FURTHER NEEDS AT THIS TIME. WILL CONTINUE TO MONITOR PT.
--- NOTE | 2018-03-17 05:03 | NUR ---
RN ROUNDS PT IS RESTING IN BED WITH EYES CLOSED. CHEST RISE EVEN AND UNLABORED. NO S/S OF SOB OR DISTRESS. MOUTH CARE DONE Q 4HRS ORDERED, PT'S WOUND CARE COMPLETED, DRESSINGS DRY AND INTACT, BED LINENS CHANGED, BED LINENS CHANGED. SUCTIONING PROVIDED, PT TOLERATED WELL, IVF INGUSING WELL, FEEDIGN INFUSING WELL, PT AT 40 DEGREE ANGLE. NO OTHER NEEDS AT THIS TIME. SAFETY MEASURES IN PLACE, CALL LIGHT AND PHONE WITHIN REACH, BED IN LOWEST POSITION, BED WHEELS LOCKED, SIDE RAILS UP X2, BED ALARM ON, BEDSIDE TABLE WITHIN REACH. NO FURTHER NEEDS AT THIS TIME. WILL CONTINUE TO MONITOR PT.
--- NOTE | 2018-03-17 05:06 | NUR ---
RN ROUNDS SAFETY MEASURES IN PLACE ALL SHIFT, ISOLATION MEASURES IN PLACE PER CONTACT PRECAUTION PROTOCOL AND SEIZURE PRECAUTIONS IN PLACE ALL SHIFT, NO SEIZURE ACTIVITY NOTED ALL SHIFT, WILL CONTINUE TO FOLLOW POC, AND CONTINUE TO MONITOR PT.
--- NOTE | 2018-03-17 05:46 | NUR ---
RN ROUNDS PT IS RESTING IN BED WITH EYES CLOSED. CHEST RISE EVEN AND UNLABORED. NO S/S OF SOB OR DISTRESS. IVF INFUSING WELL. SAFETY MEASURES IN PLACE, CALL LIGHT AND PHONE WITHIN REACH, BED IN LOWEST POSITION, BED WHEELS LOCKED, SIDE RAILS UP X2, BED ALARM ON, BEDSIDE TABLE WITHIN REACH. NO FURTHER NEEDS AT THIS TIME. WILL CONTINUE TO MONITOR PT.
[2018-03-17] MEDS: PANTOPRAZOLE SODIUM 40 MG TAB GT SCH (06:01)
--- NOTE | 2018-03-17 06:48 | NUR ---
CLOSING NOTE WILL ENDORSE PT REPORT TO DAY SHIFT NURSE. PT IS RESTING IN BED WITH EYES CLOSED AT THIS TIME. PT IS ABLE TO OPEN EYES, PT IS NON-VERBAL AND CONFUSED. CHEST RISE EVEN AND UNLABORED. NO S/S OF SOB OR DISTRESS. PT IS ON TRACH TO VENT AC 12, TV 450, PEEP 5, FIO2 28%. PT HAS TUBE FEEDING NEPHRO @ 45, GT TUBE DRESSING DRY AND INTACT, FEEDING INFUSING WELL. PT HAS IV TO RIGHT HAND 22 G, INFUSING FLUIDS AT ORDERED RATE. SKIN IS WARM, DRY AND INTACT. SWELLING NOTED TO BILATERAL UPPER EXTREMITIES. PT HAS SACRAL WOUNDS DRESSINGS DRY AND INTACT. PT INSTRUCTED HOW TO USE CALL LIGHT AND ROOM PHONE, PT UNABLE TO VERBALIZE UNDERSTANDING. SAFETY MEASURES IN PLACE, CALL LIGHT AND PHONE WITHIN REACH, BED IN LOWEST POSITION, BED WHEELS LOCKED, SIDE RAILS UP X2, BED ALARM ON, BEDSIDE TABLE WITHIN REACH. NO FURTHER NEEDS AT THIS TIME. WILL CONTINUE TO MONITOR PT.
[2018-03-17 07:04] VITALS: BP_SYST 101
[2018-03-17 07:20] LABS: BASOPHILS % (AUTO) 0.1 % (0.0-2.0); EOSINOPHILS # (AUTO) 0.1 K/uL (0.0-0.4); EOSINOPHILS % (AUTO) 0.7 % (0.0-4.0); HEMOGLOBIN 8.3 g/dL (14.0-18.0); LYMPHOCYTES # (AUTO) 0.6 K/uL (1.0-5.5); LYMPHOCYTES % (AUTO) 3.4 % (20.5-51.5); MEAN CORPUSCULAR HEMOGLOBIN 30 pg (27-31); MEAN CORPUSCULAR HGB CONC 34 % (32-36); MEAN CORPUSCULAR VOLUME 88 fL (79.0-98.0); MONOCYTES % (AUTO) 5.7 % (1.7-9.3); NEUTROPHILS # (AUTO) 15.5 K/uL (1.8-7.7); NEUTROPHILS % (AUTO) 90.1 % (40.0-70.0); PLATELET COUNT (AUTO) 354 K/uL (130-430); RED BLOOD CELL COUNT(AUTO) 2.72 MIL/uL (4.2-6.2); RED CELL DISTRIBUTION WIDTH 14.2 % (9.0-15.0); WHITE BLOOD COUNT (AUTO) 17.2 K/uL (4.8-10.8)
[2018-03-17 07:31] LABS: CALCIUM 8.2 mg/dL (8.4-11.0); CREATININE 6.32 mg/dL (0.55-1.30); POTASSIUM 3.8 mmol/L (3.5-5.1)
[2018-03-17 08:00] VITALS: BP_SYST 104
--- NOTE | 2018-03-17 08:00 | NUR ---
initial notes rec patient awake opens eyes but non verbally responsive. hob slightly elevated with tache connected to mechanical ventilator. resp easy and unalbored . pt was suctioned with scanty amount of thin phlegm. suctioned orally as well but just saliva. ivf infusing well on the r hand. no infiltration noted. gt feeding was checked, no residual noted and terrie well. kirstin cath on the l groin area intact. no bleeding noted. pt with small amount of pasty stool was cleaned and repositioned for comfort. bed in low position and side rails up and locked. call light within reached bed alarm is on.
[2018-03-17] MEDS: levETIRAcetam 500 MG TABLET GT SCH ×2 (10:27→20:15)
[2018-03-17] MEDS: LORazepam 1 MG TABLET GT SCH (10:27)
[2018-03-17] MEDS: LACTULOSE 20 GM/30 ML UDC GT SCH ×2 (10:27→20:15)
[2018-03-17] MEDS: SEVELAMER HCL 800 MG TABLET PO SCH ×3 (10:27→18:10)
[2018-03-17] MEDS: BALSAM PERU/CASTOR OIL 60 GM OINT...G. TP SCH (10:28)
[2018-03-17] MEDS: metroNIDAZOLE 500 mg/NS 100 ML IV SCH ×2 (10:28→21:36)
[2018-03-17] MEDS: CALCIUM ACETATE 667 MG CAP GT SCH (10:29)
--- NOTE | 2018-03-17 10:30 | NUR ---
rounds due meds were given and terrie well. oral care rendered and repositioned for comfort. kept pt comfortable.
[2018-03-17 12:00] VITALS: BP_SYST 106
--- NOTE | 2018-03-17 12:00 | NUR ---
rounds seen by dr soto. turned repositioned for comfort.
[2018-03-17] MEDS: D5/0.45 NS 1,000 ML IV SCH (12:51)
--- NOTE | 2018-03-17 14:00 | NUR ---
rounds turned repositioned for comfort. no acute distress noted.
[2018-03-17 16:00] VITALS: BP_SYST 125
[2018-03-17] MEDS: EPOETIN ALFA 10,000 UNITS/ML VIAL SUBCUT SCH (18:11)
--- NOTE | 2018-03-17 18:30 | NUR ---
closing notes resting comfortably. turned repositioned for comfort. seen by dr scott morris and with orders. no sob noted. bedin low position and side rails up and locked
--- NOTE | 2018-03-17 19:47 | NUR ---
Initial Note: Received handoff report from dayshift RN. Patient is resting in bed, no signs or symptoms of acute distress noted. Patient is non-verbal. Trach noted, patient tolerates current mechanical vent settings. Fredo cath to left groin noted, dressing is clean, dry, and intact. Right hand IV noted, site is patent and benign. G-tube noted to patient's abdomen, receiving Nepro at 45 ML/HR. Patient tolerates tubefeeding formula, 25 ML of gastric residual aspirated. G-tube flushed with 300 ML of sterile water. Seizure, safety, fall, contact iso precautions in place. Will continue with plan of care.
[2018-03-17] MEDS: CEFTAZIDIME IV SCH (20:15)
[2018-03-17] MEDS: ATORVASTATIN 10 MG TABLET GT SCH (20:15)
[2018-03-17] MEDS: D5W IV SCH (20:15)
[2018-03-17 20:31] VITALS: BP_SYST 102
[2018-03-17 20:47] LABS: VANCOMYCIN,RANDOM 8.3 ug/mL
--- NOTE | 2018-03-17 21:50 | NUR ---
Rounds: Patient is sleeping, no signs or symptoms of acute distress noted. Patient tolerates current vent settings. Fall, safety, seizure, contact isolation precautions remain in place. Will continue to monitor.
--- NOTE | 2018-03-17 23:46 | NUR ---
Rounds/g-tube flush: Patient is awake in bed, breathing is even and unlabored. No signs or symptoms of acute distress noted. G-tube flushed with 300 ML sterile water. Patient tolerated well. Safety, fall, seizure, contact iso precautions in place. Will continue to monitor.
[2018-03-18] MEDS: PEG 400/HYPROMELLOSE/GLYCERIN 15 ML DROPS OP SCH ×5 (00:07→23:47)
[2018-03-18 00:40] VITALS: BP_SYST 106
[2018-03-18] MEDS: ALBUTEROL SULFATE 0.083% 2.5 MG/3 ML VIAL.NEB INH SCH ×4 (01:38→19:34)
[2018-03-18] MEDS: IPRATROPIUM BROM 0.5 MG/2.5 ML VIAL.NEB (ATROVENT) INH SCH ×4 (01:39→19:34)
--- NOTE | 2018-03-18 01:49 | NUR ---
Rounds/wound care: Patient is awake in bed, no signs or symptoms of acute distress noted. Patient tolerates current vent settings. Wound care performed, patient tolerated well. Safety, seizure, fall, contact iso precautions remain in place. Will continue to monitor patient.
--- NOTE | 2018-03-18 03:15 | NUR ---
Initial Note: Received handoff report from deepika RN. Patient is resting in bed, non-verbal. No signs or symptoms of acute distress noted. Trach noted, patient tolerating current ventilation settings. IV to patient's right hand noted, site is patent and benign. Fredo catheter noted to left groin, dressing is dry and intact with no active bleeding. G-tube noted, 0 ML of gastric residual aspirated. Safety, fall, seizure, contact iso precautions in place. Call light is with patient. Will continue with plan of care. Addendum: 03/19/18 at 0320 by Jovan Jmaes RN Disregard above noted; wrong date and time.
--- NOTE | 2018-03-18 03:50 | NUR ---
Rounds/g-tube flush: Patient is in bed resting, no signs or symptoms of acute distress noted. Flushed patient's g-tube with 300 ML sterile water. Patient tolerated well. Safety, fall, seizure, contact iso precautions in place. Will continue to monitor.
--- NOTE | 2018-03-18 05:02 | NUR ---
Rounds: Patient is sleeping in bed, does not show signs or symptoms of acute distress. Patient tolerating vent settings. Safety, fall, seizure, contact iso precautions remain in place, will continue to monitor.
[2018-03-18] MEDS: PANTOPRAZOLE SODIUM 40 MG TAB GT SCH (06:11)
--- NOTE | 2018-03-18 06:26 | NUR ---
Closing Note: Patient is sleeping, does not show signs or symptoms of acute distress. IV to patient's right wrist remains patent and benign. Tubefeeding remains in place, patient tolerated feeding throughout shift. No seizure activity during shift. All needs met and attended to. Safety, fall, seizure, contact iso precautions remain in place. Call light is with patient. Will endorse care to dayshift RN.
[2018-03-18 08:00] VITALS: BP_SYST 121
[2018-03-18] MEDS ORDERED: HEPARIN IV FLUSH 300 UNITS/3ML SYR INJ ONE ×2 (08:00)
--- NOTE | 2018-03-18 08:00 | NUR ---
Note Pt resting in bed with trach/vent attached at this time. Pt's right hand IV intact and patent at this time. Tele unit attached and intact. No SOB/resp distress or pain/discomfort noted at this time. Pt's left groin Fredo cath intact at this time. GT site intact and patent infusing feeding well. Pt maintained with contact isolation for MRSA (in nares bilaterally and blood/wound) and HEALTH CARE RECRUITER in sputum. Call light within reach.
[2018-03-18] MEDS: LACTULOSE 20 GM/30 ML UDC GT SCH ×2 (09:00→20:31)
[2018-03-18] MEDS: levETIRAcetam 500 MG TABLET GT SCH ×2 (09:10→20:31)
[2018-03-18] MEDS: metroNIDAZOLE 500 mg/NS 100 ML IV SCH ×2 (09:10→22:53)
[2018-03-18] MEDS: SEVELAMER HCL 800 MG TABLET PO SCH ×3 (09:10→17:21)
[2018-03-18] MEDS: CALCIUM ACETATE 667 MG CAP GT SCH (09:10)
[2018-03-18] MEDS: BALSAM PERU/CASTOR OIL 60 GM OINT...G. TP SCH (09:19)
--- NOTE | 2018-03-18 10:00 | NUR ---
Note Pt resting in bed, turned side to side. No needs noted. No SOB/resp distress noted. Resp therapist giving treatments as scheduled at this time. Pt stable. Pt has his SCD's on bilaterally all shift. Call light within reach.
[2018-03-18 12:00] VITALS: BP_SYST 108
--- NOTE | 2018-03-18 12:00 | NUR ---
Note awning craftsman in the room to start dialysis at this time. Supplies provided as requested at this time. Pt stable. Call light within reach.
[2018-03-18 12:31] LABS: CALCIUM 7.9 mg/dL (8.4-11.0); CREATININE 3.84 mg/dL (0.55-1.30)
--- NOTE | 2018-03-18 12:33 | NUR ---
Note Pt not given Renegel PO - having dialysis at this time.
[2018-03-18 12:35] LABS: POTASSIUM 2.2 mmol/L (3.5-5.1)
[2018-03-18] MEDS: VANCOMYCIN HCL 1,000 MG in NS 250 ML IV SCH (12:40)
[2018-03-18 13:07] LABS: HEMATOCRIT 22.8 % (36-54); HEMOGLOBIN 7.7 g/dL (14.0-18.0); RED BLOOD CELL COUNT(AUTO) 2.59 MIL/uL (4.2-6.2)
[2018-03-18 13:08] LABS: MEAN CORPUSCULAR HEMOGLOBIN 30 pg (27-31); MEAN CORPUSCULAR HGB CONC 34 % (32-36); MEAN CORPUSCULAR VOLUME 88 fL (79.0-98.0); PLATELET COUNT (AUTO) 306 K/uL (130-430); RED CELL DISTRIBUTION WIDTH 14.7 % (9.0-15.0)
[2018-03-18 14:08] LABS: BAND % (MANUAL) 5 % (0-6); BASOPHILS % (MANUAL) 0 % (0-2); EOSINOPHILS % (MANUAL) 1 % (0-7); LYMPHOCYTES % (MANUAL) 3 % (20-46); MONOCYTES % (MANUAL) 6 % (0-11)
--- NOTE | 2018-03-18 15:26 | NUR ---
Note Dr Turpin and then Dr Travis Pizarro called and notified of pt's lab results. HH=7.7L, Potassium=2.2,Calcium=7,9L. Dr Pizarro gave orders for 1 unit of PRBC to be transfused today. Blood transfusion form given to blood bank tech. Informed that this pt has antibodies and getting blood from [place] will take some time. Dr Pizarro is being called and notified that blood transfusion will take some time. Order for CMP today was put in [facility] at this time. Pt still being dialyzed at this time. No needs noted. Call light within reach.
--- NOTE | 2018-03-18 15:27 | NUR ---
MD [facility] CALLED AT [phone]WONG NAIDU CHRISTOPHER KENO DEALER.
--- NOTE | 2018-03-18 15:45 | NUR ---
Note Dialysis completed at this time. Pt resting and stable at this time. Call light within reach. Dr Pizarro called back and was notified that blood transfusion could take some time as it is coming from [place]. Mitch Armstrong called to see if they are willing to consent the pt for blood transfusion. Waiting for call back.
[2018-03-18 16:00] VITALS: BP_SYST 103
--- NOTE | 2018-03-18 18:20 | NUR ---
Note Pt's Mitch Armstrong called and gave permission for pt to have 1 unit PRBC transfusion. Pt resting in bed with mechanical vent oxygenating pt well. GT feedings infusing well at this time. Site intact and dry. No needs noted. Call light within reach. No SOB/resp distress or pain/discomfort noted at this time. Tele unit intact and attached all shift. Pt was checked on q1' and PRN for needs and care. Pt maintained with safety precautions all shift.
[2018-03-18 19:06] LABS: CALCIUM 8.4 mg/dL (8.4-11.0); CREATININE 5.87 mg/dL (0.55-1.30); POTASSIUM 3.5 mmol/L (3.5-5.1)
[2018-03-18 19:15] LABS: ALBUMIN 1.6 g/dL (3.4-4.8); TOTAL BILIRUBIN 0.7 mg/dL (0.0-1.0)
--- NOTE | 2018-03-18 19:47 | NUR ---
Initial Note: Received handoff report from dayshift RN. Patient is resting in bed, non-verbal. No signs or symptoms of acute distress noted. Trach noted, patient tolerating current ventilation settings. IV to patient's right hand noted, site is patent and benign. Fredo catheter noted to left groin, dressing is dry and intact with no active bleeding. G-tube noted, 0 ML of gastric residual aspirated. Safety, fall, seizure, contact iso precautions in place. Call light is with patient. Will continue with plan of care.
[2018-03-18 20:18] VITALS: BP_SYST 104
[2018-03-18] MEDS: D5W IV SCH (20:30)
[2018-03-18] MEDS: CEFTAZIDIME IV SCH (20:30)
[2018-03-18] MEDS: ATORVASTATIN 10 MG TABLET GT SCH (20:31)
--- NOTE | 2018-03-18 22:30 | NUR ---
Blood transfusion initiated: Transfusion of 1 unit PRBC initiated at this time per order from Dr. Pizarro. Correct patient and PRBC unit verified with resource nurse BRADY Tay prior to transfusion. Pre-transfusion vitals taken at 2225 are as follow: Temp: 98.5 F Pulse: 102 Resp: 19 BP: 103/55 Will monitor patient for any adverse reactions.
--- NOTE | 2018-03-18 22:45 | NUR ---
15 minutes after initiation of transfusion: Patient shows no signs or symptoms of any adverse reactions to transfusion at this time. Vitals are as follow: Temp: 98.6 Pulse: 102 Resp: 19 BP: 103/62 Will continue to monitor patient.
[2018-03-18 23:10] VITALS: BP_SYST 111
[2018-03-19] VITALS (7 sets, daily range): BP systolic 93–112
--- NOTE | 2018-03-19 00:18 | NUR ---
Rounds: Patient is sleeping, does not show signs or symptoms of acute distress. Patient tolerating vent settings. 1 unit PRBC transfusing to patient's right hand IV site, no adverse reactions noted. Safety, fall, seizure, contact iso precautions in place. Will continue to monitor patient. Addendum: 03/19/18 at 0431 by Jovan aJmes RN G-tube flushed with 300 ML at this time.
[2018-03-19] MEDS: ALBUTEROL SULFATE 0.083% 2.5 MG/3 ML VIAL.NEB INH SCH ×4 (00:33→19:44)
[2018-03-19] MEDS: IPRATROPIUM BROM 0.5 MG/2.5 ML VIAL.NEB (ATROVENT) INH SCH ×4 (00:33→19:44)
--- NOTE | 2018-03-19 02:35 | NUR ---
Blood transfusion complete: Transfusion of 1 unit PRBC completed at this time. Patient showed no adverse reactions throughout transfusion process. Post-transfusion vitals are as follow: Temp: 98.5 Pulse: 103 Resp: 19 BP: 105/59 Safety, fall, seizure, contact iso precautions in place. Call light is with patient. Will continue to monitor.
--- NOTE | 2018-03-19 04:00 | NUR ---
Rounds/g-tube flush: Patient is awake in bed, no signs or symptoms of acute distress noted. G-tube flushed with 300 ML sterile water. Patient tolerated well. Safety, fall, contact iso, seizure precautions in place. Will continue to monitor.
--- NOTE | 2018-03-19 06:06 | NUR ---
Closing Note: Patient is in bed sleeping, no signs or symptoms of acute distress noted. IV to patient's right hand is saline locked, site is patent and benign. Fredo catether to patient's left groin remains dry and intact with no active bleeding. Tubefeeding in place. All needs met and attended to. Safety, fall, seizure, contact iso precautions in place. Call light is with patient. Will endorse care to dayshift RN.
[2018-03-19] MEDS: PANTOPRAZOLE SODIUM 40 MG TAB GT SCH (06:07)
[2018-03-19] MEDS: PEG 400/HYPROMELLOSE/GLYCERIN 15 ML DROPS OP SCH ×3 (06:07→17:14)
[2018-03-19 07:08] LABS: BASOPHILS % (AUTO) 0.2 % (0.0-2.0); EOSINOPHILS # (AUTO) 0.1 K/uL (0.0-0.4); EOSINOPHILS % (AUTO) 0.8 % (0.0-4.0); HEMATOCRIT 26.5 % (36-54); HEMOGLOBIN 9.2 g/dL (14.0-18.0); LYMPHOCYTES # (AUTO) 0.7 K/uL (1.0-5.5); LYMPHOCYTES % (AUTO) 4.2 % (20.5-51.5); MEAN CORPUSCULAR HEMOGLOBIN 31 pg (27-31); MEAN CORPUSCULAR HGB CONC 35 % (32-36); MEAN CORPUSCULAR VOLUME 89 fL (79.0-98.0); MONOCYTES # (AUTO) 0.9 K/uL (0.0-1.0); MONOCYTES % (AUTO) 5.6 % (1.7-9.3); NEUTROPHILS # (AUTO) 14.2 K/uL (1.8-7.7); NEUTROPHILS % (AUTO) 89.2 % (40.0-70.0); PLATELET COUNT (AUTO) 315 K/uL (130-430); RED BLOOD CELL COUNT(AUTO) 2.98 MIL/uL (4.2-6.2); RED CELL DISTRIBUTION WIDTH 14.1 % (9.0-15.0); WHITE BLOOD COUNT (AUTO) 15.9 K/uL (4.8-10.8)
[2018-03-19 07:21] LABS: CALCIUM 8.1 mg/dL (8.4-11.0); CREATININE 6.54 mg/dL (0.55-1.30); POTASSIUM 3.6 mmol/L (3.5-5.1)
--- NOTE | 2018-03-19 07:55 | NUR ---
AM rounds patient resting in bed, a/ox1, responds to touch and painful stimuli, eyes are open but patient does not track or follow commands, assessment complete, trach to vent AC 12 TV 450 Fio2% 28% peep 5, tolerating zahraa settings well, patient attempts to cough and has moderate amount of white sputum upon suctioning, G Tube in place no residual output at this time, tolerating tube feedings well, left femoral Fredo catheter in place for hemodialysis, peripheral IV line in place and infusing well no s/s of infiltration, bed in lowest position, three side rails up, low air loss mattress in place, bed alarm on, fall, aspiration, seizure and isolation precautions in place.
[2018-03-19] MEDS: LORazepam 1 MG TABLET GT SCH (08:56)
[2018-03-19] MEDS: SEVELAMER HCL 800 MG TABLET PO SCH ×3 (08:56→17:14)
[2018-03-19] MEDS: levETIRAcetam 500 MG TABLET GT SCH ×2 (08:56→20:58)
[2018-03-19] MEDS: CALCIUM ACETATE 667 MG CAP GT SCH (08:56)
[2018-03-19] MEDS: metroNIDAZOLE 500 mg/NS 100 ML IV SCH ×2 (08:56→21:42)
[2018-03-19] MEDS: BALSAM PERU/CASTOR OIL 60 GM OINT...G. TP SCH (09:00)
[2018-03-19] MEDS: LACTULOSE 20 GM/30 ML UDC GT SCH ×2 (09:00→20:58)
--- NOTE | 2018-03-19 09:00 | NUR ---
Medication Patient resting in bed, no signs of pain, tolerating vent settings well, blood pressure still slightly low, will inform MD, no residual output from G tube at this time and tolerated medication administration well, dressing changed around G tube site, IV antibiotic hung and infusing well, all IV tubing replaced with new sets, continuing to monitor the patient, bed in lowest position, three side rails up, bed alarm on, fall, aspiration, isolation and seizure precautions in place.
--- NOTE | 2018-03-19 09:05 | NUR ---
Dr. Turpin rounds Informed of low BP, stated to continue to monitor and if it stays low call him and he will give orders, continuing to monitor the patient.
--- NOTE | 2018-03-19 11:55 | NUR ---
Nutrition F/U Admitting Diagnosis Anemia, pneumonia, ESRD, CRF, DM Reviewed Pertinent Medical/Surgical Hx Medical Record Patient Primary RN Medical History Comment: PMH: ESRD, CVA, anemia, chronic respiratory failure, dysphagia, sepsis, quadriplegia per MD notes Pt also found w/ dialysis catheter malfunction, MRSA bacteremia, sepsis, vasomotor nephropathy, ESRD, anemia of chronic illness, CVA, quadriplegia, chronic respiratory failure, dysphagia, severe malnutrition, and hyponatremia per MD notes Subjective Information Pt seen for follow up. TF and IV infusing per MD orders. Per RN, pt is tolerating TF well, w/ no residual this morning. He received i unit of PRBC yesterday, pt w/ generalized edema. Per EMR, abd is soft and non-distended w/ active bowel sounds. I/O: 655/0 +655ml per 12 hrs. TF intake: 670ml per 24 hrs 03/18/18. Last BM recorded 03/19/[address] was not able to obtain wt. Current diet is appropriate and adequate. Current Diet Order/Nutrition Support Nepro at 45 ml/hr, Free Water Flush: 300 ml Q4h via GT x 4 days Patient/Significant Other Unable To Verbalize Education Provided Not Indicated Pertinent Medications renagel, vancomycin, zofran, protonix, keppra, lactulose Pertinent Labs Na 129 L, BG 134 H, BUN 72 H, CRE 6.54 H, ALB 1.6 L, eGFR 10 L, WBC 15.9 H, H/H 9.2L/26.5L 03/15/18 HbA1c 4.9 WNL Height (Feet) 5 feet Height (Inches) 11.00 inches Weight (Pounds) 167 pounds Weight (Calculated Kilograms) 75.869056 kilograms Patient Weight 75.75 kg Body Mass Index 23.29 kg/m2 %IBW 97 [place]/Adjusted Body Weight IBW: 172 lb, 78 kg. Adj IBW (quadriplegia): 151 lb, 68 kg Recent Weight Change No Weight Status Appropriate Gastrointestinal Symptoms None Last BM Mar 19, 2018 x2 Skin Integrity Comment: Brady scale: 10; per Tractor Trailer Operator note 03/15/18: 1) Sacral-Coccygeal Area: Scar tissue, present on admission. 2) Left Buttock at Ischial Tuberosity: Scar tissue, present on admission. 3) Right Buttock at Ischial Tuberosity: Unstageable pressure ulcer, present on admission. Estimated Energy Expenditure (kcals/day) 5980-9156 kcal/day (25-30 kcal/kg CBW for maintenance) Estimated Protein Required (g/day) 91-106 gm/day (1.2-1.4 gm/kg CBW for ESRD, HD) Estimated Fluid Required (l/day) Per MD (ESRD) Problem/Etiology/Signs/Symptoms Altered nutrition-related labs related to renal dysfunction as evidenced by abnormal BUN, CRE, and eGFR lab values. *ongoing Expected Outcomes/Goals - Monitor tolerance to EN support w/ goal of pt meeting at least 75% of estimated nutritional needs, labs trending WNL, normal GI function, and skin integrity/wt maintenance Dietitian Recommendations * Recommend continuing Nepro at 45 ml/hr, Free Water Flush: 300 ml Q4H via GT per MD Provides: 1944 kcal/day, 87 gm protein/day, and 2585 ml free water/day Meets: 102% of lower end of estimated caloric needs and 96% of lower end of estimated protein needs Follow Up High Risk: F/U in 2-3days
--- NOTE | 2018-03-19 12:05 | NUR ---
Dietitian Recommendations * Recommend continuing Nepro at 45 ml/hr, Free Water Flush: 300 ml Q4H via GT per MD Provides: 1944 kcal/day, 87 gm protein/day, and 2585 ml free water/day Meets: 102% of lower end of estimated caloric needs and 96% of lower end of estimated protein needs. Please see Nutrition F/U note for details. TRIXIE, RD
--- NOTE | 2018-03-19 12:05 | NUR ---
BP reassessment/Medications Patient resting in bed, eyes open, BP reassessed at this time 112/75 HR101, stable condition for now, 20ml residual output from G Tube at this time, administered medication, patient tolerated well, continuing to monitor, bed in lowest position, three side rails up, bed alarm on, fall, aspiration, isolation and seizure precautions in place.
--- NOTE | 2018-03-19 12:11 | NUR ---
Dr. Guzmán rounds assessed patient at bedside, notified her of previous low BP and Micro results, will follow up with any new orders.
--- NOTE | 2018-03-19 13:40 | NUR ---
Surgical consult:' for Dr. Lindsay, regarding chest tube, ordered by Dr. Guzmán, spoke with Larisa.
--- NOTE | 2018-03-19 13:49 | NUR ---
Spoke with Dr. Lindsay regarding new consult for chest tube due to empyema, gave MD all information regarding patient status, MD to see the patient tomorrow.
--- NOTE | 2018-03-19 14:27 | NUR ---
RN rounds patient resting, cleaned, turned and repositioned, tolerating tube feedings, tolerating vent settings at this time, stable condition, continuing to monitor, bed in lowest position, three side rails up, bed alarm on, fall, aspiration, seizure and isolation precautions in place, continuing to follow Micro studies for susceptibility report(s).
--- NOTE | 2018-03-19 16:05 | NUR ---
RN rounds patient in stable condition, tolerating vent settings, being suctioned by RT, patient tolerated well, no residual from G tube at this time, Free water flush of 300mL given at this time, patient tolerated well, turned and repositioned the patient, no other needs at this time, bed in lowest position, three side rails up, bed alarm on, fall, aspiration, seizure and isolation precautions in place.
[2018-03-19] MEDS: EPOETIN ALFA 10,000 UNITS/ML VIAL SUBCUT SCH (17:14)
--- NOTE | 2018-03-19 17:28 | NUR ---
BP reassessment/Medications Patient resting in bed, RT at bedside performed Trach care, patient tolerating well. No residual output from G tube at this time, medication administered, patient tolerated well, tolerating vent settings well, continuing to monitor, bed in lowest position, three side rails up, bed alarm on, fall, aspiration, seizure and isolation precautions in place. BP reassessed at this time: BP 101/62 HR 107.
--- NOTE | 2018-03-19 18:40 | NUR ---
Closing note patient resting in bed, eyes open, no signs of pain, batteries changed in color television console monitor, patient is in stable condition, all needs met, will endorse report to NOC shift nurse, bed in lowest position, three side rails up, bed alarm on, fall, aspiration, seizure and isolation precautions in place.
--- NOTE | 2018-03-19 19:20 | NUR ---
OPENING NOTE Received report from BRADY Fraser. Patient resting in bed with eyes closed. Breathing unlabored and even on ventilator. Settings: AC 12, TV 450, FiO2 28, PEEp 5. Patient tolerating well. No signs of distress, no needs at this time. Fall, safety, aspiration, seizure, contact precautions in place. Bed in lowest position, brake on, alarm on, call light within reach. IV access right thumb #22, saline locked. Left femoral kirstin cath clean, dry, intact, no signs of bleeding. Wound care done by [facility] shift nurse. Will perform wound care on my shift. Patient on low air loss mattress, with pillow support in place, heels floating. SCDs on. G-tube feeding Nephro running at 45cc/hr as ordered. Residual 0. Dialysis schedule T-, but dialysis was not performed today. Will continue to monitor.
--- NOTE | 2018-03-19 19:50 | NUR ---
Free water flush of 300cc via g-tube. No residual noted.
[2018-03-19] MEDS: CEFTAZIDIME IV SCH (20:58)
[2018-03-19] MEDS: D5W IV SCH (20:58)
[2018-03-19] MEDS: ATORVASTATIN 10 MG TABLET GT SCH (20:58)
--- NOTE | 2018-03-19 20:59 | NUR ---
Med pass. IVF abx hung
--- NOTE | 2018-03-19 21:53 | NUR ---
IV abx hung
--- NOTE | 2018-03-19 23:52 | NUR ---
New g-tube feeding hung
--- NOTE | 2018-03-19 23:55 | NUR ---
Free water flush of 300cc via g-tube. No residual noted.
[2018-03-20] MEDS: PEG 400/HYPROMELLOSE/GLYCERIN 15 ML DROPS OP SCH ×4 (00:34→17:28)
[2018-03-20] MEDS: ALBUTEROL SULFATE 0.083% 2.5 MG/3 ML VIAL.NEB INH SCH ×4 (01:51→19:51)
[2018-03-20] MEDS: IPRATROPIUM BROM 0.5 MG/2.5 ML VIAL.NEB (ATROVENT) INH SCH ×4 (01:51→19:50)
--- NOTE | 2018-03-20 02:03 | NUR ---
Patient resting in bed with eyes closed. Breathing unlabored and even on ventilator. Trach to vent. No signs of distress, no needs at this time. Fall, safety, aspiration, seizure, contact precautions in place. Bed in lowest position, brake on, alarm on, call light within reach. Pillow support in place, heels floating. SCDs on. G-tube feeding running as ordered. Will continue to monitor.
--- NOTE | 2018-03-20 03:45 | NUR ---
Oral care & tracheal suctioning provided
--- NOTE | 2018-03-20 03:50 | NUR ---
Free water flush of 300cc via g-tube. No residual noted.
--- NOTE | 2018-03-20 03:53 | NUR ---
WOUND CARE 1) Sacral-Coccygeal Area: Cleansed area with normal saline. Patted dry. Applied moisture barrier cream onto periwound. Applied Venelex ointment over wound bed. Covered with Sacral foam dressing. 2) Left Buttock at Ischial Tuberosity: Cleansed area with normal saline. Patted dry. Covered area with moisture barrier cream. Covered with foam dressing. 3) Right Buttock at Ischial Tuberosity: Cleansed wounds with normal saline. Patted dry. Put moisture barrier cream onto deidra-wounds. Applied Venelex over wound bed. Covered with foam dressings. Repositioned patient with pillow support, and off-loaded pressure areas with pillows for pressure re-distribution.
[2018-03-20 05:56] LABS: BASOPHILS % (AUTO) 0.2 % (0.0-2.0); EOSINOPHILS # (AUTO) 0.1 K/uL (0.0-0.4); EOSINOPHILS % (AUTO) 0.6 % (0.0-4.0); HEMATOCRIT 27.5 % (36-54); HEMOGLOBIN 9.5 g/dL (14.0-18.0); LYMPHOCYTES # (AUTO) 0.7 K/uL (1.0-5.5); LYMPHOCYTES % (AUTO) 3.7 % (20.5-51.5); MEAN CORPUSCULAR HEMOGLOBIN 31 pg (27-31); MEAN CORPUSCULAR HGB CONC 35 % (32-36); MEAN CORPUSCULAR VOLUME 89 fL (79.0-98.0); MONOCYTES # (AUTO) 1.1 K/uL (0.0-1.0); MONOCYTES % (AUTO) 6.1 % (1.7-9.3); NEUTROPHILS # (AUTO) 16.2 K/uL (1.8-7.7); NEUTROPHILS % (AUTO) 89.4 % (40.0-70.0); PLATELET COUNT (AUTO) 292 K/uL (130-430); RED BLOOD CELL COUNT(AUTO) 3.09 MIL/uL (4.2-6.2); RED CELL DISTRIBUTION WIDTH 14.3 % (9.0-15.0); WHITE BLOOD COUNT (AUTO) 18.1 K/uL (4.8-10.8)
[2018-03-20] MEDS: PANTOPRAZOLE SODIUM 40 MG TAB GT SCH (05:57)
[2018-03-20 06:10] LABS: CALCIUM 8.2 mg/dL (8.4-11.0); CREATININE 7.46 mg/dL (0.55-1.30); POTASSIUM 3.9 mmol/L (3.5-5.1)
[2018-03-20 07:15] LABS: VANCOMYCIN,RANDOM 7.8 ug/mL
--- NOTE | 2018-03-20 07:24 | NUR ---
CLOSING NOTE Gave report to BRADY Taylor. Patient resting in bed with eyes closed. Breathing unlabored and even on ventilator. Settings: AC 12, TV 450, FiO2 28, PEEp 5. Patient tolerating well. No signs of distress, no needs at this time. All needs met throughout shift. Fall, safety, aspiration, seizure, contact precautions in place throughout shift. Bed in lowest position, brake on, alarm on, call light within reach. IV access saline locked. Left femoral kirstin cath clean, dry, intact, no signs of bleeding. Wound care done on my shift. Patient on low air loss mattress, with pillow support in place, heels floating. SCDs on. G-tube feeding running at 45cc/hr as ordered. Endorsed care to RN.
[2018-03-20 07:45] VITALS: BP_SYST 108
--- NOTE | 2018-03-20 07:54 | NUR ---
Initial notes: Patient sleeping. Stable and on mechanical ventilator settings: AC 12, TV 450, FiO2 28, PEEP 5. Safety and seizure precaution in placed. On contact precautions. IV access saline locked. Left femoral kirstin cath clean, dry, intact, no signs of bleeding. Patient on low air loss mattress, with pillow support in place, heels floating. SCDs on bilateral lower extremities. G-tube feeding running at 45cc/hr as ordered. Received report at bedside from BRADY Morocho.
[2018-03-20 07:55] VITALS: BP_SYST 108
[2018-03-20] MEDS: LACTULOSE 20 GM/30 ML UDC GT SCH ×2 (09:00→21:21)
[2018-03-20] MEDS: levETIRAcetam 500 MG TABLET GT SCH ×2 (09:05→21:21)
[2018-03-20] MEDS: CALCIUM ACETATE 667 MG CAP GT SCH (09:05)
[2018-03-20] MEDS: SEVELAMER HCL 800 MG TABLET PO SCH ×3 (09:05→17:28)
[2018-03-20] MEDS: metroNIDAZOLE 500 mg/NS 100 ML IV SCH ×2 (09:06→21:21)
[2018-03-20] MEDS: BALSAM PERU/CASTOR OIL 60 GM OINT...G. TP SCH (09:06)
--- NOTE | 2018-03-20 10:00 | NUR ---
rounds: patient on bed eyes closed. non verbal. provided oral care and suction.
--- NOTE | 2018-03-20 11:00 | NUR ---
Brisa rounds: Seen by Dr. Lindsay. Talked to on the phone about the AV shunt and Chest tube placement.
--- NOTE | 2018-03-20 11:30 | NUR ---
Consent: Consent of placement of the chest tube and placement of av shunt obtained thru Telephone from Timmy Armstrong, of the patient. Witness by 2 nurses consent on file.
[2018-03-20 12:00] VITALS: BP_SYST 110
[2018-03-20] MEDS: VANCOMYCIN HCL 1,000 MG in NS 250 ML IV SCH (13:26)
--- NOTE | 2018-03-20 13:39 | NUR ---
rounds: patient sleeping. no distress noted.
--- NOTE | 2018-03-20 16:11 | NUR ---
Dressing changed: buttocks dressing changed. Cleaned, applied venelex and dressing. no active drainage.
[2018-03-20 16:38] VITALS: BP_SYST 100
--- NOTE | 2018-03-20 18:16 | NUR ---
Closing Notes: Patient eyes open. Non verbal. Stable. Needs attended. On mech vent with same setting. On contact precaution. Gtube in placed. SCD in placed. Safety and seizure precaution in placed. Report will be given to rn shift mgr.
--- NOTE | 2018-03-20 19:44 | NUR ---
RIGHT HAND THUMB IV noted to be leaking .
--- NOTE | 2018-03-20 19:55 | NUR ---
RIGHT HAND 22 GAUGE IV Re start general EDEMA is noted , kept elevated .
[2018-03-20 20:16] VITALS: BP_SYST 112
--- NOTE | 2018-03-20 21:00 | NUR ---
EDEMA GENERAL PITTING TO BOTH ARMS & LEGS FEET , AREAS , OFF LOADING WITH PILLOWS TURNING REPOSITIONING ON SCHEDULE , TOLERATED & HELPFUL .
[2018-03-20] MEDS: ATORVASTATIN 10 MG TABLET GT SCH (21:21)
[2018-03-20] MEDS: CEFTAZIDIME IV SCH (21:21)
[2018-03-20] MEDS: D5W IV SCH (21:21)
[2018-03-20 23:27] VITALS: BP_SYST 104
--- NOTE | 2018-03-20 23:41 | NUR ---
TRACH TO VENTILATOR SUCTION UP RIGHT POSITION THICK WHITE SPUTUM , Patient has cough reflex vent alarming noted NEBULIZER treatments administer & helpful .
--- NOTE | 2018-03-20 23:44 | NUR ---
PATIENT TO BE NPO STATUS @ 2400 FOR AM , PROCEDURE , Tube feeding running at 45 ml hour residual 10 ml tube placement verified via auscultation .
[2018-03-21] MEDS: PEG 400/HYPROMELLOSE/GLYCERIN 15 ML DROPS OP SCH ×5 (00:25→23:45)
[2018-03-21] MEDS: ALBUTEROL SULFATE 0.083% 2.5 MG/3 ML VIAL.NEB INH SCH ×4 (00:25→19:31)
[2018-03-21] MEDS: IPRATROPIUM BROM 0.5 MG/2.5 ML VIAL.NEB (ATROVENT) INH SCH ×4 (00:25→19:31)
--- NOTE | 2018-03-21 01:05 | NUR ---
HEMODIALYSIS orders given to assault boat coxswain , HDX for today .
--- NOTE | 2018-03-21 03:38 | NUR ---
CHG BED BATH IMPLEMENTED PATIENT HAD LARGE LOOSE STOOL , KEPT CLEAN ALSO DRY NEEDED .
[2018-03-21] MEDS: PANTOPRAZOLE SODIUM 40 MG TAB GT SCH (05:59)
--- NOTE | 2018-03-21 06:00 | NUR ---
Patient NPO , tube feeding off @ 2400 for AM procedure per MD .
[2018-03-21 06:40] LABS: BASOPHILS # (AUTO) 0.1 K/uL (0.0-0.2); BASOPHILS % (AUTO) 0.3 % (0.0-2.0); EOSINOPHILS # (AUTO) 0.2 K/uL (0.0-0.4); HEMATOCRIT 27.9 % (36-54); HEMOGLOBIN 9.3 g/dL (14.0-18.0); LYMPHOCYTES # (AUTO) 0.7 K/uL (1.0-5.5); LYMPHOCYTES % (AUTO) 3.9 % (20.5-51.5); MEAN CORPUSCULAR HEMOGLOBIN 30 pg (27-31); MEAN CORPUSCULAR HGB CONC 33 % (32-36); MEAN CORPUSCULAR VOLUME 89 fL (79.0-98.0); MONOCYTES % (AUTO) 5.5 % (1.7-9.3); NEUTROPHILS # (AUTO) 16.7 K/uL (1.8-7.7); NEUTROPHILS % (AUTO) 89.3 % (40.0-70.0); PLATELET COUNT (AUTO) 322 K/uL (130-430); RED BLOOD CELL COUNT(AUTO) 3.14 MIL/uL (4.2-6.2); RED CELL DISTRIBUTION WIDTH 14.3 % (9.0-15.0); WHITE BLOOD COUNT (AUTO) 18.7 K/uL (4.8-10.8)
[2018-03-21 07:06] LABS: INR 1.3 (0.80-1.20)
[2018-03-21 08:00] VITALS: BP_SYST 122
[2018-03-21] MEDS: CALCIUM ACETATE 667 MG CAP GT SCH (08:00)
[2018-03-21 08:13] LABS: ALBUMIN 1.7 g/dL (3.4-4.8); CALCIUM 8.5 mg/dL (8.4-11.0); POTASSIUM 4.3 mmol/L (3.5-5.1); TOTAL BILIRUBIN 0.8 mg/dL (0.0-1.0)
--- NOTE | 2018-03-21 08:15 | NUR ---
initial notes rec patient awake opens eyes but non verbally responsive. pt with a trach connected to a ventilator. no sob noted. noted with gen edema. resp easy and unlabored , no acute distress noted. dr soto was called and awaiting to call back re heart rate ranging from 110 to 130. awaiting to call back. remained npo fro chest tube placement and placement of av fistula. will cotcathienue to monitor patient.
[2018-03-21 08:17] LABS: CREATININE 8.34 mg/dL (0.55-1.30)
[2018-03-21] MEDS: SEVELAMER HCL 800 MG TABLET PO SCH ×3 (09:00→17:00)
[2018-03-21] MEDS: levETIRAcetam 500 MG TABLET GT SCH ×2 (09:00→20:56)
[2018-03-21] MEDS: BALSAM PERU/CASTOR OIL 60 GM OINT...G. TP SCH (09:00)
[2018-03-21] MEDS: LACTULOSE 20 GM/30 ML UDC GT SCH ×2 (09:00→20:56)
--- NOTE | 2018-03-21 10:11 | NUR ---
rounds dr higginbotham called and wants dr smalls to be notified re re of blood culture and if okay to put a fistula of shunt. dr smalls called and stated okay for surgery. mentioned to him re rapid heart rate and stated to ask dr soto for a cardio consult. dr hoang came and reported the tachycardia and dr higginbotham's planned. will consult dr dejesus and aware of the consult. dialysis in progress at this time.
[2018-03-21] MEDS ORDERED: HEPARIN SODIUM,PORCINE 5000 UNITS/ML VIAL MC ONE (10:45)
[2018-03-21 12:19] VITALS: BP_SYST 133
--- NOTE | 2018-03-21 13:00 | NUR ---
rounds dialysis completed, no untoward reaction noted. remains npo for dr lei sx today with. echo cardio was done at bedside and was reported to dr dejesus. dr higginbotham was made aware what dr dejesus wants.stated to insert chest tube only and no to av shunt. dr higginbotham was made aware when called in o. r
[2018-03-21] MEDS: metroNIDAZOLE 500 mg/NS 100 ML IV SCH ×2 (14:54→22:41)
[2018-03-21 16:03] VITALS: BP_SYST 92
--- NOTE | 2018-03-21 17:00 | NUR ---
rounds dr dejesus was called and reported hr ranginh from 140 to 200 and stated because of the pleural effusion. bp was stable was 122/72 when taken. will continue to monitor patient.
--- NOTE | 2018-03-21 18:30 | NUR ---
rounds pt bp was taken by miller 85/50. will rechecked bp again.
--- NOTE | 2018-03-21 19:00 | NUR ---
closing notes bp was 106/69 at this time. ivl was restarted by vilma on the right upper chest.#24. no infiltration noted. dr higginbotham never called back and endorsed to judith hoffman call dr higginbotham. if chest tube insertion and av fistula placement will go through. no sob noted. pt was sutioned with small amount of whit phlegm. turned repositioned for comfort.
--- NOTE | 2018-03-21 19:52 | NUR ---
Initial note: Received handoff report from dayshift RN. Patient is awake in bed, alert and oriented x1. Patient is non-verbal and does not respond to commands. No signs or symptoms of acute distress noted. Trach noted, patient tolerates current vent settings. G-tube with tubefeeding Nepro at 45 ML/HR noted. Fredo catheter to patient's left femoral noted, dressing is dry and intact with no active bleeding. IV catheter 24 gauge saline lock to patient's right upper chest is patent and benign. Seizure, contact iso, safety, and fall precautions in place. Call light is with patient. Will continue with plan of care.
[2018-03-21 19:54] VITALS: BP_SYST 103
--- NOTE | 2018-03-21 19:54 | NUR ---
300 ML g-tube flush: 0 ML of gastric residual aspirated, g-tube placement checked via auscultation. Flushed g-tube with 300 ML of sterile water. Patient tolerated well. Will continue to monitor.
--- NOTE | 2018-03-21 20:10 | NUR ---
2nd IV access site established: 2nd IV access site (22 gauge to patient's right upper chest) established by BRADY Gil at this time. Site is patent and benign. Will continue to monitor patient.
[2018-03-21] MEDS: ATORVASTATIN 10 MG TABLET GT SCH (20:56)
[2018-03-21] MEDS: CEFTAZIDIME IV SCH (20:57)
[2018-03-21] MEDS: D5W IV SCH (20:57)
--- NOTE | 2018-03-21 21:01 | NUR ---
Paged and spoke to Dr. Lindsay: Spoke to Dr. Lindsay regarding plan for patient. Dr. Lindsay stated that only chest tube will be inserted tomorrow. Per MD, NPO status will not be in place prior to procedure. Orders noted and carried out.
--- NOTE | 2018-03-21 22:05 | NUR ---
Rounds: Patient is sleeping, no signs or symptoms of acute distress noted. Breathing is even and unlabored with current vent settings. Safety, fall, seizure, contact iso precautions in place. Call light is with patient. Will continue monitoring.
[2018-03-22] VITALS (8 sets, daily range): BP systolic 72–110
--- NOTE | 2018-03-22 00:01 | NUR ---
Rounds/300 ML g-tube flush: Patient is sleeping in bed, no signs or symptoms of acute distress noted. Patient's g-tube flushed with 300 ML sterile water. Safety, fall, contact iso, and seizure precautions in place. Will continue to monitor.
[2018-03-22] MEDS: IPRATROPIUM BROM 0.5 MG/2.5 ML VIAL.NEB (ATROVENT) INH SCH ×4 (00:45→19:42)
[2018-03-22] MEDS: ALBUTEROL SULFATE 0.083% 2.5 MG/3 ML VIAL.NEB INH SCH ×4 (00:45→19:43)
--- NOTE | 2018-03-22 02:10 | NUR ---
Rounds: Patient is asleep in bed, no signs or symptoms of acute distress noted. Patient remains tolerating current vent settings. Safety, fall, seizure, contact iso precautions in place. Call light is with patient. Will continue to monitor patient.
--- NOTE | 2018-03-22 04:12 | NUR ---
Rounds/wound care/300 ML g-tube flush: Wound care was performed at this time. Scar to sacrum was cleaned with normal saline, patted dry with sterile gauze, treated with moisture barrier cream, and covered with foam dressing. Scar to left buttock was cleaned with normal saline, patted dry with sterile gauze, treated with moisture barrier cream, and covered with foam dressing. Wound to right buttock was cleaned with normal saline, patted dry with sterile gauze, treated with moisture barrier cream and hydrogel, and covered with foam dressing. Patient tolerated well. G-tube was flushed with 300 ML sterile water. Patient tolerated well. Patient shows no signs or symptoms of acute distress. Safety, fall, seizure, contact iso precautions in place. Call light is with patient. Will continue to monitor patient.
[2018-03-22] MEDS: PANTOPRAZOLE SODIUM 40 MG TAB GT SCH (06:49)
[2018-03-22] MEDS: PEG 400/HYPROMELLOSE/GLYCERIN 15 ML DROPS OP SCH ×3 (06:50→17:35)
--- NOTE | 2018-03-22 06:50 | NUR ---
Closing note: Patient is awake in bed, no signs or symptoms of acute distress noted. Patient remains tolerating current vent settings. Tubefeeding remains running Nepro at 45 ML/HR to patient's g-tube. IV saline lock to patient's right upper chest 22 gauge remains patent and benign. Safety, fall, seizure, contact iso precautions remain in place. Call light is with patient. All needs met and attended to. Will endorse care to dayshift RN.
[2018-03-22] MEDS: metroNIDAZOLE 500 mg/NS 100 ML IV SCH ×2 (08:54→21:55)
--- NOTE | 2018-03-22 09:00 | NUR ---
pt prepped for surgery, give chg bath. kept npo.
--- NOTE | 2018-03-22 09:15 | NUR ---
dr higginbotham and dr dejesus in the room, checked and examined pt. surgery was cancelled. dr dejesus made aware that heart rate on the monitor is faster than what we get with the pulse ox or bp machine.
[2018-03-22] MEDS: CALCIUM ACETATE 667 MG CAP GT SCH (09:17)
[2018-03-22] MEDS: SEVELAMER HCL 800 MG TABLET PO SCH ×3 (09:17→17:33)
[2018-03-22] MEDS: LACTULOSE 20 GM/30 ML UDC GT SCH ×2 (09:18→21:21)
[2018-03-22] MEDS: LORazepam 1 MG TABLET GT SCH (09:18)
[2018-03-22] MEDS: levETIRAcetam 500 MG TABLET GT SCH ×2 (09:18→21:21)
[2018-03-22] MEDS: BALSAM PERU/CASTOR OIL 60 GM OINT...G. TP SCH (09:20)
--- NOTE | 2018-03-22 10:46 | NUR ---
DC Planning: Called [facility], updated Jesus, admission office that pt may go to LTAC after CT placement. Per Jesus: at this time the facility is not obligated to hold the bed for the pt but she will taking pt back once pt is ready. The pt. is a correction resident at [facility]. >> CM updated dr. Strong and requested dcp for LTAC . The md will reassess and to provide the dcp later. CM to f/u.
[2018-03-22] MEDS: LINEZOLID 300 ML IV SCH ×2 (12:11→22:53)
--- NOTE | 2018-03-22 12:35 | NUR ---
PAGED PAGED JOSE RAUL SHAIKH AT [phone]MILLER CROOK PAUL BRIM BLOCKER.
--- NOTE | 2018-03-22 12:46 | NUR ---
Nutrition F/U Admitting Diagnosis Anemia, pneumonia, ESRD, CRF, DM Reviewed Pertinent Medical/Surgical Hx Medical Record Patient Primary RN Medical History Comment: PMH: ESRD, CVA, anemia, chronic respiratory failure, dysphagia, sepsis, quadriplegia per MD notes Pt also found w/ dialysis catheter malfunction, MRSA bacteremia, sepsis, vasomotor nephropathy, ESRD, anemia of chronic illness, CVA, quadriplegia, chronic respiratory failure, dysphagia, severe malnutrition, and hyponatremia per MD notes 03/21/18 MD Progress notes: Left Pleural Effusion 03/22/18 ID MD note: BLENDING KETTLE TENDER/MDRO PSEUDOMONAS AND PROVIDENCIA PNEUMONIA, MRSA SEPTISEMIA, LINE SEPSIS, ESRD, VDRF, EMPYEMA-MRSA Subjective Information Pt seen for follow up. TF and IV infusing per MD orders. Per RN, pt is tolerating TF well, w/ no residual this morning and is awaiting dialysis catheter placement. Per ID MD note, MRSA clearance before AV shunt placement. Per EMR, abd is soft w/ active bowel sounds. I/O: 170/3000 -2830ml per 12 hrs. TF intake 300ml per 24 hrs 03/21/18. Last BM 03/22/18 x 1. Current diet is appropriate and adequate. Provides: 1944 kcal and 87 g protein daily. Meets: 102% of lower end of estimated calorie needs and 96% of lower end of estimated protein needs. Current Diet Order/Nutrition Support Nepro at 45 ml/hr, Free Water Flush: 300 ml Q4h via GT x 7 days Patient/Significant Other Unable To Verbalize Education Provided Not Indicated Pertinent Medications renagel, vancomycin, zofran, protonix, keppra, lactulose Pertinent Labs Na 126 L, BG 125 H, BUN 103 H, CRE 8.34 H, ALB 1.7 L, eGFR 7 L, WBC 18.7 H, H/H 9.3L/27.9L Height (Feet) 5 feet Height (Inches) 11.00 inches NEW Weight (Pounds) 172 pounds (03/21/18 by RN) Weight (Calculated Kilograms) 78.103 kilograms Patient Weight 78.103 kg Body Mass Index 24.1 kg/m2 %IBW 100 [place]/Adjusted Body Weight IBW: 172 lb, 78 kg. Adj IBW (quadriplegia): 151 lb, 68 kg Recent Weight Change Yes, wt gain per EMR Weight Status Appropriate Gastrointestinal Symptoms None Last BM Mar 22, 2018 x1 Skin Integrity Comment: Brady scale: 9; per Engineering Assistant note 03/15/18: 1) Sacral-Coccygeal Area: Scar tissue, present on admission. 2) Left Buttock at Ischial Tuberosity: Scar tissue, present on admission. 3) Right Buttock at Ischial Tuberosity: Unstageable pressure ulcer, present on admission. Per RN notes, Generalized 2+ pitting edema, non-pitting edema of scrotal area. Estimated Energy Expenditure (kcals/day) 4218-6989 kcal/day (25-30 kcal/kg CBW for maintenance) Estimated Protein Required (g/day) 91-106 gm/day (1.2-1.4 gm/kg CBW for ESRD, HD) Estimated Fluid Required (l/day) Per MD (ESRD) Problem/Etiology/Signs/Symptoms Altered nutrition-related labs related to renal dysfunction as evidenced by abnormal BUN, CRE, and eGFR lab values. *ongoing Expected Outcomes/Goals - Monitor tolerance to EN support w/ goal of pt meeting at least 75% of estimated nutritional needs, labs trending WNL, normal GI function, and skin integrity/wt maintenance Dietitian Recommendations * Recommend continuing Nepro at 45 ml/hr, Free Water Flush: 300 ml Q4H via GT per MD Provides: 1944 kcal/day, 87 gm protein/day, and 2585 ml free water/day Meets: 102% of lower end of estimated caloric needs and 96% of lower end of estimated protein needs Follow Up High Risk: F/U in 2-3days
--- NOTE | 2018-03-22 13:48 | NUR ---
DR Juarez called back, made aware that pt had a 9se episode of v-tact and the went to svt and then tachycardia. Also was made aware that oh 18 pt has small pericardial effusion but today's Ct showed moderate to large pericardial effusion. said he will inform dr anjelica robison it. no new orders received.
--- NOTE | 2018-03-22 14:21 | NUR ---
PAGED PAGED CHERYL MENDEZ AT [phone] SPOKE WITH SHANAE.
--- NOTE | 2018-03-22 14:40 | NUR ---
pt's and sister at bedside. updated with poc and pt's status.
--- NOTE | 2018-03-22 15:10 | NUR ---
dr higginbotham informed that pt has ultra sound doppler done on 03/14/18. ordered to dc new order
[2018-03-22] MEDS: EPOETIN ALFA 10,000 UNITS/ML VIAL SUBCUT SCH (17:33)
[2018-03-22] MEDS ORDERED: ALBUMIN HUMAN 25% 100 ML IV ONE (18:30)
--- NOTE | 2018-03-22 18:46 | NUR ---
CLOSING NOTES, PT BP AND HEART RATE HAS BEEN ERRATIC TODAY, THIS TIME PT'S HR IS SR TO ST, PT HAD EPISODE OF VTACH FOR 9 SECONDS AND THEN SVT. THIS PM PT RHYTHM CONVERTED TO SR / ST. DR TRIPP WAS HERE AND SEEN PT. MD SPOKE WITH DR CANTRELL. DR CANTRELL CALLED BACK AND ORDERED TO GET CONSENT FOR SURGERY IN AM. GAVE TO DR CANTRELL PT'S PHONE NUMBER. PT'S CALLED AND GAVE CONSENT FOR SURGERY IN AM. PT WILL BE NPO AFTER MIDNIGHT AND IV FLUIDS WILL BE STARTED WHEN NPO. WILL ENDORSE TO NIGHT RN.
[2018-03-22] MEDS ORDERED: CEFTAZIDIME IV SCH (20:00)
[2018-03-22] MEDS ORDERED: D5W IV SCH (20:00)
--- NOTE | 2018-03-22 20:15 | NUR ---
OPENING SHIFT NOTE patient non-verbal, opens eyes when shaking him, but does not follow command. patient on ventilator via tracheostomy with setting of AC 12, FIO2 28%, Tidal Volume 450ml, PEEP 5. patient tolerating well. patient receiving tube feeding via PEG tube, at rate of 45ml/hr. residual check done, no residual noted. flushed with water. patient tolerated well. IV on right upper chest, 22G, flushed with NS, no infiltration noted. will continue to monitor.
[2018-03-22] MEDS: ATORVASTATIN 10 MG TABLET GT SCH (21:21)
--- NOTE | 2018-03-22 22:40 | NUR ---
WOUND CARE patient had bowel movement. patient cleansed with soap and water. wound dressing got soiled. changed dressing. wound cleansed with normal saline, pad dry with sterile gauze, applied zguard and covered with optifoam. Venelex applied to sacral wound, and hydrogel applied to right buttocks. patient tolerated well. will continue to monitor.
--- NOTE | 2018-03-22 23:25 | NUR ---
ORAL CARE provided oral care for patient. patient biting down when attempting to cleanse inside teeth and tongue, was only able to cleanse the outside of teeth. moisturizer applied for lips. patient tolerated well. will continue to monitor.
--- NOTE | 2018-03-22 23:59 | NUR ---
FEEDING STOPPED feeding stopped per order.
[2018-03-23] VITALS (20 sets, daily range): BP systolic 93–133
[2018-03-23] MEDS: D5/0.45 NS 1,000 ML IV SCH ×2 (00:55→13:45)
[2018-03-23] MEDS: PEG 400/HYPROMELLOSE/GLYCERIN 15 ML DROPS OP SCH ×5 (00:56→23:59)
[2018-03-23] MEDS: ALBUTEROL SULFATE 0.083% 2.5 MG/3 ML VIAL.NEB INH SCH ×4 (00:57→19:37)
[2018-03-23] MEDS: IPRATROPIUM BROM 0.5 MG/2.5 ML VIAL.NEB (ATROVENT) INH SCH ×4 (00:57→19:37)
--- NOTE | 2018-03-23 02:30 | NUR ---
WOUND & ORAL CARE patient had bowel movement. patient cleansed with soap and water. wound dressing got soiled. changed dressing. wound cleansed with normal saline, pad dry with sterile gauze, applied zguard and covered with optifoam. Venelex applied to sacral wound, and hydrogel applied to right buttocks. patient tolerated well. also provided oral care for patient. patient biting down when attempting to cleanse inside teeth and tongue, was only able to cleanse the outside of teeth. moisturizer applied for lips. patient tolerated well. will continue to monitor.
--- NOTE | 2018-03-23 03:52 | NUR ---
no free water flush done due to patient NPO status for surgery Addendum: 03/23/18 at 0352 by Shanice Perez RN Amended: Links added.
--- NOTE | 2018-03-23 04:35 | NUR ---
WOUND CARE patient cleansed with soap and water. wound dressing got soiled. changed dressing. wound cleansed with normal saline, pad dry with sterile gauze, applied zguard and covered with optifoam. Venelex applied to sacral wound, and hydrogel applied to right buttocks. patient tolerated well. will continue to monitor.
--- NOTE | 2018-03-23 04:45 | NUR ---
DRESSING CHANGE dressing change performed for Fredo catheter using sterile technique. patient tolerated well. will continue to monitor.
[2018-03-23] MEDS: PANTOPRAZOLE SODIUM 40 MG TAB GT SCH (06:15)
[2018-03-23 06:27] LABS: CALCIUM 8.1 mg/dL (8.4-11.0); POTASSIUM 4.2 mmol/L (3.5-5.1)
[2018-03-23 06:37] LABS: CREATININE 8.76 mg/dL (0.55-1.30)
[2018-03-23 06:44] LABS: BASOPHILS % (AUTO) 0.1 % (0.0-2.0); EOSINOPHILS # (AUTO) 0.1 K/uL (0.0-0.4); EOSINOPHILS % (AUTO) 0.9 % (0.0-4.0); HEMATOCRIT 22.7 % (36-54); HEMOGLOBIN 7.5 g/dL (14.0-18.0); LYMPHOCYTES # (AUTO) 0.7 K/uL (1.0-5.5); LYMPHOCYTES % (AUTO) 5.1 % (20.5-51.5); MEAN CORPUSCULAR HEMOGLOBIN 30 pg (27-31); MEAN CORPUSCULAR HGB CONC 33 % (32-36); MEAN CORPUSCULAR VOLUME 90 fL (79.0-98.0); MONOCYTES # (AUTO) 0.9 K/uL (0.0-1.0); MONOCYTES % (AUTO) 6.8 % (1.7-9.3); NEUTROPHILS # (AUTO) 11.8 K/uL (1.8-7.7); NEUTROPHILS % (AUTO) 87.1 % (40.0-70.0); PLATELET COUNT (AUTO) 268 K/uL (130-430); RED BLOOD CELL COUNT(AUTO) 2.54 MIL/uL (4.2-6.2); RED CELL DISTRIBUTION WIDTH 14.5 % (9.0-15.0); WHITE BLOOD COUNT (AUTO) 13.5 K/uL (4.8-10.8)
--- NOTE | 2018-03-23 06:56 | NUR ---
ORAL CARE provided oral care for patient. patient biting down when attempting to cleanse inside teeth and tongue, was only able to cleanse the outside of teeth. patient tolerated well. will continue to monitor.
--- NOTE | 2018-03-23 07:19 | NUR ---
END OF SHIFT care endorsed to dayshift RN. no distress noted with patient.
--- NOTE | 2018-03-23 07:47 | NUR ---
Initial notes: Patient on bed eyes open and non verbal, does not follow command. Stable. I.V. access patent. Patient on ventilator via tracheostomy with setting of AC 12, FIO2 28%, Tidal Volume 450ml, PEEP 5. SCD in placed. Safety and seizure precaution in placed. Report received at bedside.
[2018-03-23] MEDS: CALCIUM ACETATE 667 MG CAP GT SCH (08:00)
[2018-03-23] MEDS: LINEZOLID 300 ML IV SCH ×2 (08:08→21:05)
[2018-03-23] MEDS: metroNIDAZOLE 500 mg/NS 100 ML IV SCH (08:09)
[2018-03-23] MEDS: LACTULOSE 20 GM/30 ML UDC GT SCH ×2 (09:00→21:05)
[2018-03-23] MEDS: levETIRAcetam 500 MG TABLET GT SCH ×2 (09:00→21:05)
[2018-03-23] MEDS: BALSAM PERU/CASTOR OIL 60 GM OINT...G. TP SCH (09:00)
[2018-03-23] MEDS: SEVELAMER HCL 800 MG TABLET PO SCH ×3 (09:00→18:04)
--- NOTE | 2018-03-23 10:30 | NUR ---
rounds: cleaned and changed gown. Had a BM. repositioned pt for comfort.
--- NOTE | 2018-03-23 10:57 | NUR ---
[facility]
[2018-03-23] MEDS ORDERED: fentaNYL CITRATE/PF 100 MCG/2 ML AMP IVP PRN ×2 (11:45)
[2018-03-23] MEDS ORDERED: ONDANSETRON HCL 4 MG/2 ML VIAL IVP PRN (11:45)
--- NOTE | 2018-03-23 12:10 | NUR ---
RT NOTES W/ RN Olinda & Dr Ahuja, transported pt from OR to ICU 5 bagging with 100% O2 via ambubag to trach. Placed pt. on vent AC 12 450 +5 100%. O2 to be titrated back to down 28% after [address] Ahuja. Alarm set & audible, spare trach at bedside. Will monitor pt.
--- NOTE | 2018-03-23 12:10 | NUR ---
Pt transported from OR to ICU-5 Olinda from PACU will stay with PT for 30 minutes for recovery
[2018-03-23] MEDS ORDERED: MIDAZOLAM HCL 5 MG/ML VIAL (VERSED) IV ONE (12:20)
[2018-03-23] MEDS ORDERED: NS IRRIG SOLN 1000 ML IR ONE (12:20)
[2018-03-23] MEDS ORDERED: LIDOCAINE 1% 10 MG/ML, 20 ML MDV ONE (12:20)
[2018-03-23] MEDS ORDERED: fentaNYL CITRATE/PF 100 MCG/2 ML AMP ONE ×2 (12:20→12:26)
[2018-03-23] MEDS ORDERED: NS 1000 ML IV.SOLN IV ONE (12:20)
--- NOTE | 2018-03-23 12:29 | NUR ---
Dr. Lindsay paged regarding blood transfusion orders
--- NOTE | 2018-03-23 12:45 | NUR ---
RN OPENING NOTE PT PRESENTED POST-OP FROM A PERICARDIUM WINDOW PROCEDURE: Sx DRESSING DRY AND INTACT. RECEIVED REPORT AT BEDSIDE FROM WATER MAIN INSTALLER HELPER JUVENCIO AT BEDSIDE. PT IS STABLE WITH NO S/S IF DISTRESS. TRACH TO VENT, CURRENT POST-OP SETTINGS: AC 12, FIO2 100, TV 450, PEEP 5. G-TUBE IN PLACE, CLAMPED. L FEMORAL TAMIKA IN PLACE, DRESSING DRY AND INTACT. RIGHT UPPER CHEST ANGIOCATH 24g IN PLACE, PATENT, DRESSING DRY AND INTACT. CONTACT AND FALL PRECAUTIONS IN PLACE
[2018-03-23 13:02] LABS: BASOPHILS % (AUTO) 0.2 % (0.0-2.0); EOSINOPHILS # (AUTO) 0.1 K/uL (0.0-0.4); EOSINOPHILS % (AUTO) 0.7 % (0.0-4.0); HEMOGLOBIN 7.7 g/dL (14.0-18.0); LYMPHOCYTES # (AUTO) 0.5 K/uL (1.0-5.5); LYMPHOCYTES % (AUTO) 3.8 % (20.5-51.5); MEAN CORPUSCULAR HEMOGLOBIN 30 pg (27-31); MEAN CORPUSCULAR HGB CONC 34 % (32-36); MEAN CORPUSCULAR VOLUME 89 fL (79.0-98.0); MONOCYTES # (AUTO) 0.4 K/uL (0.0-1.0); MONOCYTES % (AUTO) 3.1 % (1.7-9.3); NEUTROPHILS # (AUTO) 12.3 K/uL (1.8-7.7); NEUTROPHILS % (AUTO) 92.2 % (40.0-70.0); PLATELET COUNT (AUTO) 277 K/uL (130-430); RED BLOOD CELL COUNT(AUTO) 2.59 MIL/uL (4.2-6.2); RED CELL DISTRIBUTION WIDTH 14.5 % (9.0-15.0); WHITE BLOOD COUNT (AUTO) 13.3 K/uL (4.8-10.8)
--- NOTE | 2018-03-23 13:07 | NUR ---
RT NOTES FIO2 to 28% per Dr. Ahuja. No immediate adverse reactions noted. Will monitor pt. Addendum: 03/23/18 at 1345 by Christi Scott RT Amended: Links added.
--- NOTE | 2018-03-23 13:30 | NUR ---
VTach episode/Sergei Avila Pt's HR increase from 80s to 170s starting at 1318 until 1324 and decrease down to 80s. Pt's palpable pulse was 90. Dr. Austin gomez, spoke with exchange, waiting for call back.
--- NOTE | 2018-03-23 13:31 | NUR ---
Dr. Avila return call and was notified of pt's episode of VT. Per Dr. Avila, "Don't do any extra interventions, just give me a call. He's done that before. No new orders."
--- NOTE | 2018-03-23 13:35 | NUR ---
PER DR. CANTRELL: OK TO USE G-TUBE/RESUME FEEDING SEE ADDITIONAL ORDERS IN INTERVENTIONS
--- NOTE | 2018-03-23 13:36 | NUR ---
PER DR. CANTRELL: INFUSE ONLY ONE OF THE TWO UNITS OF PRBC ORDERED WITH DIALYSIS TODAY SEE ADDITIONAL ORDERS IN INTERVENTIONS
--- NOTE | 2018-03-23 13:48 | NUR ---
Paged Dr. Aleman for orders. Spoke with exchange. Waiting for call back.
--- NOTE | 2018-03-23 14:20 | NUR ---
BT INITIATION: Consent signed per agreeing to administration of blood. Blood has been type and crossmatched. Blood sent from blood bank. Information on unit of blood checked against patient wristband at bedside by two nurses. All information matches. Patient or responsible democrat informed of potential complications associated with blood transfusion. Pt unable to comprehend instructions and unable to report signs of tranfusion reaction: PT monitored for reaction. Vital signs taken within 5 minutes prior to initiation of transfusion. RN will remain with patient for first 15 minutes of transfusion at which time vital signs will be re-assessed.
--- NOTE | 2018-03-23 14:32 | NUR ---
V-TACH EPISODE: APPROXIMATELY 30 SECONDS CONFIRMED VIA RADIAL PULSES HR REMAINED IN THE 80S
--- NOTE | 2018-03-23 14:55 | NUR ---
BT COMPLETED NO S/S OF REACTION, BT INFUSED WITH DIALYSIS
[2018-03-23] MEDS ORDERED: LORazepam 2 MG/ML VIAL IVP PRN (16:15)
[2018-03-23] MEDS ORDERED: HYDROcodone/ACETAMIN 5-325 MG TAB (NORCO/ VICODIN) PO PRN (16:15)
--- NOTE | 2018-03-23 16:15 | NUR ---
DR. TRIPP AT BEDSIDE MD CONSENTED TO FEMORAL TRIPLE LUMEN ACCESS DUE TO POOR VASCULARITY. ALSO CONFIRMED TB AND ACID FAST TESTS ARE BEING RUN ON FLUID REMOVED DURING SX
--- NOTE | 2018-03-23 16:54 | NUR ---
Dr. Lindsay/Vascular Access Paged Dr. Lindsay regarding Dr. Aleman's order of placing a triple lumen femoral catheter. Dr. Lindsay return call and states, "The patient has poor vascular access. It will be hard to place another line in him. Just use the venous/blue port when dialysis is done."
--- NOTE | 2018-03-23 16:55 | NUR ---
DIALYSIS COMPLETE OUTPUT, DIALYSIS REMOVED 300mL TO BALANCE TO 300mL BLOOD TRANSFUSED. PT TOLERATED PROCEDURE.
--- NOTE | 2018-03-23 17:00 | NUR ---
WOUND CARE PROVIDED PHOTOGRAPHS TAKEN
--- NOTE | 2018-03-23 18:00 | NUR ---
FINAL PRESENTATION PT CLEAN, DRY, WITH NEW SHEETS AND GLORIA.
--- NOTE | 2018-03-23 18:56 | NUR ---
ENDORSEMENT REPORT ENDORSED TO PM RN AT BEDSIDE.
--- NOTE | 2018-03-23 20:00 | NUR ---
OPENS EYES SPONTANEOUSLY. DOES NOT FOLLOW COMMANDS. TRACHE TO VENT. SUCTIONED WITH MOD AMOUNT OF THIN WHITE MUCUS OBTAINED. ORAL CARE GIVEN. RESISTIVE TO ORAL CARE. GT FEEDING WITH NEPRO INFUSING AT 45CC/HR. HOB UP SEMI FOWLERS. RESIDUAL CHECK 10CC. EXTREMITIES CONTRACTED. LEFT FEMORAL TAMIKA CATH DRSG D/I. AVIS SCD'S IN PLACE. ON LOW AIR-LOSS MATTRESS. SR W/ PAC'S.
[2018-03-23] MEDS: ATORVASTATIN 10 MG TABLET GT SCH (21:05)
--- NOTE | 2018-03-23 21:45 | NUR ---
DR CANTRELL HERE, UPDATED ON CONDITION. NO NEW ORDERS GIVEN.
--- NOTE | 2018-03-23 22:00 | NUR ---
SUCTIONED. TURNED. HS CARE.
[2018-03-24] VITALS (28 sets, daily range): BP systolic 105–145
--- NOTE | 2018-03-24 | NUR ---
DOZES ON AND OFF. SUCTIONED AGAIN WITH SAME RESULTS. SUCTIONED BUCCAL CAVITY, INCREASED ORAL SECRETIONS NOTED. ORAL CARE GIVEN. RESIDUAL CHECK 0. REPOSITIONED.
[2018-03-24] MEDS: ALBUTEROL SULFATE 0.083% 2.5 MG/3 ML VIAL.NEB INH SCH ×4 (00:17→19:22)
[2018-03-24] MEDS: IPRATROPIUM BROM 0.5 MG/2.5 ML VIAL.NEB (ATROVENT) INH SCH ×4 (00:17→19:22)
--- NOTE | 2018-03-24 02:00 | NUR ---
SLEPT INTERMITTENTLY. SUCTIONED. TURNED.
--- NOTE | 2018-03-24 04:00 | NUR ---
SLEPT FOR LONG PERIODS OF TIME. ORAL CARE RENDERED. RESIDUAL CHECK 5CC. SUCTIONED. AM CARE GIVEN. STILL ANURIC. DOES NOT ASSIST WITH TURNING.
--- NOTE | 2018-03-24 06:00 | NUR ---
SUCTIONED AND TURNED Q2 HRS AND PRN. ANURIC. ST WITH OCC PAC'S AND PVC'S. REMAINS IN GUARDED CONDITION.
[2018-03-24] MEDS: PEG 400/HYPROMELLOSE/GLYCERIN 15 ML DROPS OP SCH ×4 (06:39→23:31)
[2018-03-24] MEDS: PANTOPRAZOLE SODIUM 40 MG TAB GT SCH (06:39)
[2018-03-24 06:52] LABS: CALCIUM 8.3 mg/dL (8.4-11.0); CREATININE 6.78 mg/dL (0.55-1.30); POTASSIUM 3.9 mmol/L (3.5-5.1)
[2018-03-24 07:09] LABS: TOTAL IRON BIND. CAPACITY 57 ug/dL (250-450)
[2018-03-24 07:13] LABS: EOSINOPHILS # (AUTO) 0.1 K/uL (0.0-0.4); MEAN CORPUSCULAR HEMOGLOBIN 31 pg (27-31); RED BLOOD CELL COUNT(AUTO) 2.92 MIL/uL (4.2-6.2)
[2018-03-24 07:23] LABS: BASOPHILS % (AUTO) 0.1 % (0.0-2.0); EOSINOPHILS % (AUTO) 0.4 % (0.0-4.0); HEMATOCRIT 26.2 % (36-54); LYMPHOCYTES # (AUTO) 0.5 K/uL (1.0-5.5); MEAN CORPUSCULAR HGB CONC 34 % (32-36); MEAN CORPUSCULAR VOLUME 90 fL (79.0-98.0); MONOCYTES % (AUTO) 6.2 % (1.7-9.3); NEUTROPHILS % (AUTO) 90.3 % (40.0-70.0); PLATELET COUNT (AUTO) 260 K/uL (130-430); RED CELL DISTRIBUTION WIDTH 14.6 % (9.0-15.0); WHITE BLOOD COUNT (AUTO) 16.6 K/uL (4.8-10.8)
--- NOTE | 2018-03-24 07:30 | NUR ---
AM ASSESSMENT Pt received laying in bed with eyes open. Pt is unable to track eye contact at this time. Pt has a trach that is connected to vent with the settings of AC 12, TV 450, FiO2 28%, PEEP 5. Pt's current oxygen saturation is 98% on the monitor. Pt is receiving Nepro feeding via G-Tube at a rate of 45 cc/hr, there is zero residual. Pt is contracted with pillows on all extremities to relieve pressure on all demetrius prominences. No signs of injury or acute distress is noted. Isolation precautions observed. Will continue to monitor.
--- NOTE | 2018-03-24 08:02 | NUR ---
Temperature Pt has a temp of 99.5 using the iMed[employer] Temporal Scanner. Non-pharmaceutical cooling measure were applied to pt. Ice packs applied to bilateral axillary and groin. Will continue to monitor pt.
--- NOTE | 2018-03-24 08:42 | NUR ---
MD Dr. Avila at bedside with pt.
[2018-03-24] MEDS: LACTULOSE 20 GM/30 ML UDC GT SCH ×2 (08:58→20:43)
[2018-03-24] MEDS: LORazepam 1 MG TABLET GT SCH (08:58)
[2018-03-24] MEDS: CALCIUM ACETATE 667 MG CAP GT SCH (08:58)
[2018-03-24] MEDS: levETIRAcetam 500 MG TABLET GT SCH ×2 (08:58→20:43)
[2018-03-24] MEDS: SEVELAMER HCL 800 MG TABLET PO SCH ×3 (08:58→17:09)
[2018-03-24] MEDS: LINEZOLID 300 ML IV SCH ×2 (08:58→20:36)
[2018-03-24] MEDS: BALSAM PERU/CASTOR OIL 60 GM OINT...G. TP SCH (08:59)
--- NOTE | 2018-03-24 09:58 | NUR ---
Family Pt's has arrived and is bedside with pt. Educated pt's and procedure for the day, answered all questions that pt's had.
--- NOTE | 2018-03-24 10:22 | NUR ---
MD Dr. Escobar at bedside to see pt. I spoke to Dr. Escobar and discussed [facility] RN recommendation that pt be placed in negative pressure room. Dr. Escobar stated do not move pt to a negative pressure room until confirmatory result are in.
[2018-03-24] MEDS ORDERED: LIDOCAINE 1%, 20 ML MDV 20 ML ONE (10:51)
--- NOTE | 2018-03-24 11:20 | NUR ---
Ultrasound-guided Thoracentesis Ultra sound at bedside for Left Side Thoracentesis. Consent signed. MD Drew at bedside with pt.
--- NOTE | 2018-03-24 11:45 | NUR ---
Wound / CHG CHG provided to pt. Wound care was provided to pt's. Monitoring skin integrity, removed foam dressing applied to back side. Cleansed wounds and reapplied new foam dressing to areas. No signs of distress. Extremities were offloaded pillows and bilateral heels and elbows are floated with heels as well. Will continue to monitor.
[2018-03-24] MEDS: PIPERACILLIN/TAZO 2.25G/DEX-IS 50 ML IV SCH ×3 (12:47→23:29)
[2018-03-24] MEDS: HYDROcodone/ACETAMIN 5-325 MG TAB (NORCO/ VICODIN) PO SCH ×2 (14:49→20:46)
--- NOTE | 2018-03-24 15:15 | NUR ---
Femoral Kirstin Cath Pt's Left femoral kirstin is no longer dry and intact, noticeable bleeding. Dr. Lindsay notified and seen pt. Central line dressing change. Dry and intact. Pressure dressing applied. Will continue to monitor.
[2018-03-24 16:53] LABS: BF APPEARANCE UNSPUN SLIGHTLY CLOUDY (CLEAR); BODY FLUID COLOR YELLOW (LT YELLOW); BODY FLUID TOTAL VOLUME 550 mL
[2018-03-24 16:54] LABS: LYMPHOCYTES, BODY FLUID 7 %; MONOCYTES,BODY FLUID 22 %; NEUTROPHIL, BODY FLUID 12 %; RBC, BODY FLUID 5400 /uL; WBC, BODY FLUID 0 /uL
[2018-03-24] MEDS: EPOETIN ALFA 10,000 UNITS/ML VIAL SUBCUT SCH (17:10)
--- NOTE | 2018-03-24 19:30 | NUR ---
OPENING NOTE PT IN BED, AWAKE, UNRESPONSIVE. NO SIGNS OF DISTRESS, NO APPARENT PAIN OR DISCOMFORT. PT CURRENTLY UNDERGOING DIALYSIS. PT ON TRACH TO VENT AC 12, TV 450, FIO2 28%, PEEP 5. SINUS RHYTHM TO LOW SINUS TACHYCARDIA ON THE TRANSITIONAL CARE LIAISON. CARE TO RESUME THROUGH SHIFT.
--- NOTE | 2018-03-24 19:33 | NUR ---
Sepsis Dr. Shawn gomez, awaiting MD call back. Spoke to Larisa at the exchange.
--- NOTE | 2018-03-24 19:36 | NUR ---
Closing Note Pt endorsed to night RN. fuel buyer in room with pt, given order for dialysis, labs, and 2 L of NS. Vitals signs stable.
[2018-03-24] MEDS ORDERED: HEPARIN SODIUM,PORCINE 5000 UNITS/ML VIAL ONE (20:24)
[2018-03-24] MEDS ORDERED: HEPARIN SODIUM,PORCINE 5000 UNITS/ML VIAL IVP ONE (20:30)
[2018-03-24] MEDS: ATORVASTATIN 10 MG TABLET GT SCH (20:43)
[2018-03-24] MEDS ORDERED: ALTEPLASE 2 MG VIAL MC ONE (21:30)
[2018-03-25] VITALS (19 sets, daily range): BP systolic 98–124
[2018-03-25] MEDS: IPRATROPIUM BROM 0.5 MG/2.5 ML VIAL.NEB (ATROVENT) INH SCH ×4 (01:04→19:33)
[2018-03-25] MEDS: ALBUTEROL SULFATE 0.083% 2.5 MG/3 ML VIAL.NEB INH SCH ×4 (01:04→19:33)
[2018-03-25] MEDS: HYDROcodone/ACETAMIN 5-325 MG TAB (NORCO/ VICODIN) PO SCH ×3 (04:51→20:50)
[2018-03-25 06:04] LABS: BODY FLUID GLUCOSE 147 mg/dL
[2018-03-25 06:05] LABS: BODY FLUID TOTAL PROTEIN 3.6 g/dL
[2018-03-25 06:11] LABS: CREATININE 6.47 mg/dL (0.55-1.30); POTASSIUM 3.7 mmol/L (3.5-5.1)
[2018-03-25] MEDS: PEG 400/HYPROMELLOSE/GLYCERIN 15 ML DROPS OP SCH ×3 (06:17→18:24)
[2018-03-25] MEDS: PIPERACILLIN/TAZO 2.25G/DEX-IS 50 ML IV SCH ×3 (06:17→17:10)
[2018-03-25] MEDS: PANTOPRAZOLE SODIUM 40 MG TAB GT SCH (06:17)
[2018-03-25 06:31] LABS: BASOPHILS % (AUTO) 0.1 % (0.0-2.0); EOSINOPHILS # (AUTO) 0.1 K/uL (0.0-0.4); EOSINOPHILS % (AUTO) 0.8 % (0.0-4.0); HEMATOCRIT 24.7 % (36-54); HEMOGLOBIN 8.2 g/dL (14.0-18.0); LYMPHOCYTES # (AUTO) 0.5 K/uL (1.0-5.5); LYMPHOCYTES % (AUTO) 3.6 % (20.5-51.5); MEAN CORPUSCULAR HEMOGLOBIN 30 pg (27-31); MEAN CORPUSCULAR HGB CONC 33 % (32-36); MEAN CORPUSCULAR VOLUME 90 fL (79.0-98.0); MONOCYTES # (AUTO) 0.7 K/uL (0.0-1.0); MONOCYTES % (AUTO) 5.2 % (1.7-9.3); NEUTROPHILS # (AUTO) 11.5 K/uL (1.8-7.7); NEUTROPHILS % (AUTO) 90.3 % (40.0-70.0); PLATELET COUNT (AUTO) 264 K/uL (130-430); RED BLOOD CELL COUNT(AUTO) 2.76 MIL/uL (4.2-6.2); RED CELL DISTRIBUTION WIDTH 14.9 % (9.0-15.0); WHITE BLOOD COUNT (AUTO) 12.8 K/uL (4.8-10.8)
--- NOTE | 2018-03-25 07:28 | NUR ---
CLOSING NOTE PT IN BED, SLEEPING. NO SIGNS OF DISTRESS, NO PAIN OR DISCOMFORT. NO ACUTE CHANGES IN GENERAL CONDITION. DIALYSIS LAST NIGHT PERFORMED WITH 1 LITER REMOVED. CARE TO RESUME TO NEXT SHIFT.
--- NOTE | 2018-03-25 07:35 | NUR ---
DR. LOPEZ AT BEDSIDE NO NEW ORDERS, OKAY TO TRANSFER TO [facility]
--- NOTE | 2018-03-25 08:00 | NUR ---
RN OPENING NOTE RECEIVED REPORT AT BEDSIDE FROM PM RN ALICE pT OPENS EYES SPONTANEOUSLY BUT NON-RESPONSIVE/NON-VERBAL, UNABLE TO FOLLOW COMMANDS AND NO SIGN OF COMPREHENSION NOTED. TRACH TO VENT, AC 12, FIO2 28, TV 450, PEEP 5. G-TUBE IN PLACE, NEPRO RUNNING AT 45mL/HOUR PRESCRIBED. L FEMORAL TAMIKA IN PLACE, DRESSING DRY AND INTACT. RIGHT UPPER CHEST ANGIOCATH 22g IN PLACE, PATENT, DRESSING DRY AND INTACT. PERICARDIUM WINDOW Sx PERFORMED ON 03/23/18, DRESSING DRY AND INTACT. CONTACT ISOLATION AND FALL PRECAUTIONS IN PLACE.
--- NOTE | 2018-03-25 09:20 | NUR ---
TRANSFER TO TELEMETRY PER DR. JAMISON CONTINUING CARE IN ICU-5 UNTIL A TELEMETRY BED IS AVAILABLE
--- NOTE | 2018-03-25 09:30 | NUR ---
DR. CANTRELL AT BEDSIDE ORDERED US VENOUS DOPPLER BILATERAL UPPER EXTREMITIES FOR POSSIBLE AV SHUNT PLACEMENT.
[2018-03-25] MEDS: LINEZOLID 300 ML IV SCH ×2 (09:44→20:43)
[2018-03-25] MEDS: LACTULOSE 20 GM/30 ML UDC GT SCH ×2 (09:45→20:43)
[2018-03-25] MEDS: CALCIUM ACETATE 667 MG CAP GT SCH (09:45)
[2018-03-25] MEDS: SEVELAMER HCL 800 MG TABLET PO SCH ×3 (09:45→17:10)
[2018-03-25] MEDS: levETIRAcetam 500 MG TABLET GT SCH ×2 (09:45→20:43)
[2018-03-25] MEDS: BALSAM PERU/CASTOR OIL 60 GM OINT...G. TP SCH (09:46)
--- NOTE | 2018-03-25 10:35 | NUR ---
DR. CRAIG AT BEDSIDE NO NEW ORDERS
--- NOTE | 2018-03-25 12:00 | NUR ---
DIALYSIS NURSE AT BEDSIDE
--- NOTE | 2018-03-25 14:22 | NUR ---
Discharge Planning Note: Pt has an order for LTAC Eval/Transfer. BATCH PLANT SUPERVISOR called and spoke with Will Liaison, Kimberley ([phone]), to request LTAC evaluation. Kimberley states that she will follow up. BATCH PLANT SUPERVISOR faxed pt's face sheet to Kimberley ([phone]).
--- NOTE | 2018-03-25 14:40 | NUR ---
DR. YIN AT BEDSIDE NO NEW ORDERS
--- NOTE | 2018-03-25 14:50 | NUR ---
SEPSIS RECEIVED CALL FROM DR CABRALES, ID. WE PAGED DR CABRALES LAST YESTERDAY REGARDING SEPSIS PROTOCOL FOR WBC 16.6 AND TACHYCARDIA 103. REPORTED THAT SEPSIS PROTOCOL IS NOT NECESSARY. NO NEW ORDERS.
--- NOTE | 2018-03-25 15:00 | NUR ---
DIALYSIS COMPLETED: 3 LITERS REMOVED
[2018-03-25] MEDS ORDERED: HEPARIN SODIUM,PORCINE 5000 UNITS/ML VIAL ONE (15:04)
--- NOTE | 2018-03-25 16:20 | NUR ---
Nutrition F/U Admitting Diagnosis Anemia, pneumonia, ESRD, CRF, DM Reviewed Pertinent Medical/Surgical Hx Medical Record Patient Primary RN Medical History Comment: PMH: ESRD, CVA, anemia, chronic respiratory failure, dysphagia, sepsis, quadriplegia per MD notes Pt also found w/ dialysis catheter malfunction, MRSA bacteremia, sepsis, vasomotor nephropathy, ESRD, anemia of chronic illness, CVA, quadriplegia, chronic respiratory failure, dysphagia, severe malnutrition, and hyponatremia per MD notes 03/21/18 MD Progress notes: Left Pleural Effusion 03/22/18 ID MD note: [facility] JUSTICE/MDRO PSEUDOMONAS AND PROVIDENCIA PNEUMONIA, MRSA SEPTISEMIA, LINE SEPSIS, ESRD, VDRF, EMPYEMA-MRSA Subjective Information Pt seen resting in bed, +trach to vent, and TF infusing as per MD orders. Per RN, pt had dialysis today, 3 L of fluid removed. Per RN, pt has been tolerating TF well, no residuals, and no longer receiving any free water flush. Per EMR, pt pending LTAC eval/transfer. TF Intakes: 630 ml 03/25/18. Residuals: 5 ml 03/25/18. Abd is soft w/ active bowel sounds. I/O: 750/3000 (-2250 ml) per 12 hours. Current TF regimen is appropriate. Current Diet Order/Nutrition Support Nepro at 45 ml/hr via GT x1 day Patient/Significant Other Unable To Verbalize Education Provided Not Indicated Pertinent Medications piperacillin/tazobactam IV, renagel, zinc sulfate, phoslo, protonix, lactulose Pertinent Labs Na 130 L, BG 126 H, BUN 76 H, CRE 6.47 H, ALB 1.7 L, eGFR 10 L, WBC 12.8 H, H/H 8.2 L/24.7 L Height (Feet) 5 feet Height (Inches) 11.00 inches NEW Weight (Pounds) 172 pounds (03/21/18 by RN) Weight (Calculated Kilograms) 78.103 kilograms Patient Weight 78.103 kg Body Mass Index 24.1 kg/m2 %IBW 100 [place]/Adjusted Body Weight IBW: 172 lb, 78 kg. Adj IBW (quadriplegia): 151 lb, 68 kg Recent Weight Change Yes, wt gain per EMR Weight Status Appropriate Gastrointestinal Symptoms None Last BM 03/25/18 x1 Skin Integrity Comment: Brady scale: 2; per Mellowing Machine Operator note 03/15/18: 1) Sacral-Coccygeal Area: Scar tissue, present on admission. 2) Left Buttock at Ischial Tuberosity: Scar tissue, present on admission. 3) Right Buttock at Ischial Tuberosity: Unstageable pressure ulcer, present on admission. Per RN notes, generalized 2+ non-pitting edema Estimated Energy Expenditure (kcals/day) 0065-5898 kcal/day (25-30 kcal/kg CBW for maintenance) Estimated Protein Required (g/day) 91-106 gm/day (1.2-1.4 gm/kg CBW for ESRD, HD) Estimated Fluid Required (l/day) Per MD (ESRD) Problem/Etiology/Signs/Symptoms Altered nutrition-related labs related to renal dysfunction as evidenced by abnormal BUN, CRE, and eGFR lab values. *ongoing Expected Outcomes/Goals - Monitor tolerance to EN support w/ goal of pt meeting at least 75% of estimated nutritional needs, labs trending WNL, normal GI function, and skin integrity/wt maintenance Dietitian Recommendations * Recommend continuing Nepro at 45 ml/hr, Free Water Flush: 300 ml Q4H via GT per MD Provides: 1944 kcal/day, 87 gm protein/day, and 785 ml free water/day Meets: 102% of lower end of estimated caloric needs and 96% of lower end of estimated protein needs Follow Up High Risk: F/U in 2-3d ays Addendum: 03/25/18 at [address] CORRECTION: Dietitian Recommendations * Recommend continuing Nepro at 45 ml/hr via GT per MD Provides: 1944 kcal/day, 87 gm protein/day, and 785 ml free water/day Meets: 102% of lower end of estimated caloric needs and 96% of lower end of estimated protein needs
--- NOTE | 2018-03-25 16:30 | NUR ---
Dietitian Recommendations * Recommend continuing Nepro at 45 ml/hr via GT per MD Provides: 1944 kcal/day, 87 gm protein/day, and 785 ml free water/day Meets: 102% of lower end of estimated caloric needs and 96% of lower end of estimated protein needs LP, RD Please refer to Nutrition F/U for details.
--- NOTE | 2018-03-25 16:52 | NUR ---
Wound Evaluation: Wound consult orders received from Dr. Turpin. Thank you, Dr. Turpin, for the consult. Patient received in a [place] bed with an Isoflex SE[place]STI[place]N mattress with low air loss therapy initiated, awake, non-verbal, non-responsive to verbal commands. Brady score is a 13. Skin is in poor condition. Patient is unable to turn in bed independently. Intrinsic factors that delay wound healing: Chronic Respiratory Failure, End-Stage Renal Disease, and Hypoalbuminemia. Extrinsic factors that delay wound healing: Immobility. Blood Culture x 2 in progress. Wound Assessment: 1) Sacral-Coccygeal Area: Scar tissue, present on admission. Site has 100% pink tissue. No odor, no drainage. Deidra-wound and surrounding tissue has scar tissue. Measures 1.7 cm x 1.0 cm. Recommend: Cleanse area with normal saline. Pat dry. Apply moisture barrier cream onto site. Apply Venelex ointment over any areas not covered by moisture barrier cream. Cover with Sacral foam dressing. Perform wound care daily, and as needed for dressing soiling or dislodgment. 2) Left Buttock at Ischial Tuberosity: Non-intact skin over scar tissue, present on admission. Site has 100% pink tissue. No odor, no drainage. Deidra-wound and surrounding tissue has scar tissue. Measures 2.8 cm x 3.0 cm. Recommend: Cleanse area with normal saline. Pat dry. Cover area with moisture barrier cream. Cover with foam dressing. Perform wound care daily, and as needed for dressing soiling or dislodgment. 3) Right Buttock at Ischial Tuberosity: Unstageable pressure ulcer, present on admission. Wound bed now has 100% pink tissue, with brown colored areas inside wound bed that appear to be islands of skin development. No odor, no drainage. Measures 5.5 cm x 4.0 cm. Recommend: Cleanse wound with normal saline. Put moisture barrier cream onto deidra-wound. Put Venelex ointment onto wound bed. Pack wound with 1/4 inch Iodoform packing strip. Cover with foam dressing. Perform wound care daily, and as needed for dressing soiling or dislodgment. Also recommend: Reposition patient side to side only every two hours with pillow support, and off-load pressure areas with pillows for pressure re-distribution. Perform skin care and monitor skin integrity q shift. Use moisture barrier cream on deidra, buttocks, and other moisture susceptible areas qid and as needed for soiling. Elevate, offload, and float bilateral heels and elbows with pillows at all times. Maintain patient on a low air-loss mattress.
--- NOTE | 2018-03-25 17:50 | NUR ---
FINAL PRESENTATION PROVIDED BED BATH, REPOSITIONED FOR COMFORT. PT CLEAN, DRY, NO S/S OF DISTRESS.
--- NOTE | 2018-03-25 18:30 | NUR ---
TRANSFER TO TELEMETRY ROOM 101-A PT TRANSPORTED WITH AIRPLANE PILOT CROP DUSTING/ACLS GUIDELINES. RESPIRATORY THERAPY ASSISTED WITH TRANSFER AND MAINTAINED AMBU BAG. REPORT ENDORSED TO BRADY PUGA AT BEDSIDE
--- NOTE | 2018-03-25 19:45 | NUR ---
ROUNDS PATIENT IN BED, AWAKE, NOT IN DISTRESS, NON VERBAL, ON TRACH TO VENT WITH FIO2-28%,TV-450, AC-12. PEEP-5. ASSESSMENT DONE AND DOCUMENTED. SEE FLOWSHEET. ON G TUBE FEEDING WITH NEPRO AT 45 ML/HR, NO RESIDUAL NOTED.SECRETIONS SUCTIONED. TURNED AND REPOSITIONED AND MADE COMFORTABLE. ALL NEEDS ATTENDED TO. WILL CONTINUE TO MONITOR.
[2018-03-25] MEDS: ATORVASTATIN 10 MG TABLET GT SCH (20:43)
--- NOTE | 2018-03-25 21:10 | NUR ---
MEDICATIONS DUE MEDICATIONS GIVEN PER G TUBE ORDERED, TOLERATED WELL. WILL CONTINUE TO MONITOR.
[2018-03-26] VITALS (7 sets, daily range): BP systolic 95–125
--- NOTE | 2018-03-26 00:10 | NUR ---
PATIENT RESTING: Patient resting quietly. No acute distress noted. Vital signs within normal range.
[2018-03-26] MEDS: IPRATROPIUM BROM 0.5 MG/2.5 ML VIAL.NEB (ATROVENT) INH SCH ×4 (01:22→19:35)
[2018-03-26] MEDS: ALBUTEROL SULFATE 0.083% 2.5 MG/3 ML VIAL.NEB INH SCH ×4 (01:22→19:35)
--- NOTE | 2018-03-26 02:25 | NUR ---
ROUNDS PATIENT ASLEEP, NO SOB NOTED, RESPIRATIONS EVEN AND UNLABORED, WILL CONTINUE TO MONITOR.
[2018-03-26] MEDS: PIPERACILLIN/TAZO 2.25G/DEX-IS 50 ML IV SCH ×5 (03:10→23:40)
[2018-03-26] MEDS: PEG 400/HYPROMELLOSE/GLYCERIN 15 ML DROPS OP SCH ×5 (03:11→23:41)
--- NOTE | 2018-03-26 04:03 | NUR ---
ROUNDS PATIENT ASLEEP, VITALS STABLE, NO PAIN AND DISCOMFORT NOTED. WILL CONTINUE TO MONITOR.
[2018-03-26] MEDS: HYDROcodone/ACETAMIN 5-325 MG TAB (NORCO/ VICODIN) PO SCH ×3 (05:28→21:10)
[2018-03-26 06:33] LABS: CALCIUM 8.3 mg/dL (8.4-11.0); CREATININE 6.18 mg/dL (0.55-1.30); POTASSIUM 3.7 mmol/L (3.5-5.1)
[2018-03-26 06:39] LABS: BASOPHILS % (AUTO) 0.3 % (0.0-2.0); EOSINOPHILS # (AUTO) 0.1 K/uL (0.0-0.4); EOSINOPHILS % (AUTO) 1.5 % (0.0-4.0); HEMATOCRIT 24.5 % (36-54); HEMOGLOBIN 8.2 g/dL (14.0-18.0); LYMPHOCYTES # (AUTO) 0.5 K/uL (1.0-5.5); LYMPHOCYTES % (AUTO) 5.1 % (20.5-51.5); MEAN CORPUSCULAR HEMOGLOBIN 30 pg (27-31); MEAN CORPUSCULAR HGB CONC 33 % (32-36); MEAN CORPUSCULAR VOLUME 90 fL (79.0-98.0); MONOCYTES # (AUTO) 0.5 K/uL (0.0-1.0); MONOCYTES % (AUTO) 5.4 % (1.7-9.3); NEUTROPHILS # (AUTO) 8.7 K/uL (1.8-7.7); NEUTROPHILS % (AUTO) 87.7 % (40.0-70.0); PLATELET COUNT (AUTO) 254 K/uL (130-430); RED BLOOD CELL COUNT(AUTO) 2.72 MIL/uL (4.2-6.2); RED CELL DISTRIBUTION WIDTH 15.1 % (9.0-15.0); WHITE BLOOD COUNT (AUTO) 9.8 K/uL (4.8-10.8)
--- NOTE | 2018-03-26 06:50 | NUR ---
CLOSING NOTES PATIENT REMAINED STABLE, NO SIGNS OF ANY PAIN AND DISCOMFORT NOTED. ALL NEEDS ATTENDED TO. TURNED AND REPOSITIONED AND MADE COMFORTABLE. SECRETIONS SUCTIONED. SAFETY AND FALL PRECAUTION MEASURES MAINTAINED. WILL ENDORSE TO INCOMING SHIFT NURSE.
[2018-03-26] MEDS: PANTOPRAZOLE SODIUM 40 MG TAB GT SCH (07:01)
--- NOTE | 2018-03-26 08:07 | NUR ---
Opening note/dialysis started Pt and report received from NOC shift nurse, pt vital signs taken, bed and safety check completed as well as all invasive lines checked. Dialysis access dressing to be changed by dialysis nurse. Vent settings checked, feeding checked. No grimacing or indications of pain, pt awake with eyes open but not able to respond.
[2018-03-26] MEDS ORDERED: HEPARIN SODIUM,PORCINE 5000 UNITS/ML VIAL IVP ONE (10:00)
--- NOTE | 2018-03-26 10:30 | NUR ---
Rounding/heparin scanned Pt remains in care of dialysis nurse, heparin scanned for end of procedure administration by dialysis nurse
[2018-03-26] MEDS: LACTULOSE 20 GM/30 ML UDC GT SCH ×2 (11:32→21:08)
[2018-03-26] MEDS: SEVELAMER HCL 800 MG TABLET PO SCH ×3 (11:32→17:15)
[2018-03-26] MEDS: levETIRAcetam 500 MG TABLET GT SCH ×2 (11:32→21:09)
[2018-03-26] MEDS: LINEZOLID 300 ML IV SCH ×2 (11:32→21:09)
[2018-03-26] MEDS: CALCIUM ACETATE 667 MG CAP GT SCH (11:33)
--- NOTE | 2018-03-26 12:04 | NUR ---
Rounding/late medication administration due to dialysis Pt resting in bed, eyes open responsive to touch. No grimacing or indications of pain or discomfort. No s/s of SOB or distress. Morning medications administered late due to dialysis delaying them.Bed and safety check completed, gt functional, HOB elevated. Dialysis removed 1.4 L of fluid today.
--- NOTE | 2018-03-26 13:00 | NUR ---
DISCHARGE PLANNING - TRANSFER TO [facility] IN [place] Received call from Ronny Wallace, Pt Hand Polisher for [facility]. They are accepting pt. Room assigned is 310A. Attempted to contact pt's sister and . Left vm and contact phone # for CM. Addendum: 03/26/18 at 1710 by Nithya Dias RN Received call from pt's sister, Monica Armstrong ph: [phone]. She agreed to transfer to [place]. She said she will notify pt's . Pt's called @3PM refusing transfer until has access for Hemodialysis. Inpt BRADY Caldwell and Larisa aware. [facility] cancelled as pt's refusing transfer. Transfer packet with CD left with inpt BRADY Peres. Inpt RN will notify attending MD and [facility].
[2018-03-26] MEDS: BALSAM PERU/CASTOR OIL 60 GM OINT...G. TP SCH (13:36)
--- NOTE | 2018-03-26 14:02 | NUR ---
Rounding Pt resting no s/s of SOB or distress, no grimacing or indications of pain or discomfort. Zosyn administered late due to catching up from morning administrations being delayed due to dialysis. Bed and safety check completed, GI tubefeeding continues. Pt repositioned. RT in room w/ pt.
--- NOTE | 2018-03-26 14:51 | NUR ---
MD HARRISON PAGEÓSCAR Hew[address] DR, [place] AT [phone] SPOKE WITH CARMELITA.
--- NOTE | 2018-03-26 15:18 | NUR ---
Discharge update/cancelled Pt refused discharge transfer pending possible new dialysis access, worked with charge in clarifying status for discharge. Charge talked with Dr Carmen MD aware of status. Report originally called to [facility], called to notify of cancellation
--- NOTE | 2018-03-26 16:20 | NUR ---
Dr Lindsay contact/New access planned for Wednesday Dr Lindsay returned call to charge, new dialysis access placement planned for Wednesday he says. Talked to charge.
--- NOTE | 2018-03-26 16:21 | NUR ---
Rounding Pt resting in bed, no s/s of SOB or distress, no grimacing or indications of pain or discomfort.
[2018-03-26] MEDS: EPOETIN ALFA 10,000 UNITS/ML VIAL SUBCUT SCH (17:16)
--- NOTE | 2018-03-26 18:18 | NUR ---
Rounding Pt resting no s/s of SOB or distress, no grimacing or indications fo pain or discomfort. Gtube was malfunctioning but was cleared with some effort. Pt repositioned and changed after Gtube malfunction. Feeding changed, IV and gtube site checked, Femoral access checked. Pt had bm. Zosyn currently running. Will endorse wound care to NOC shift.
--- NOTE | 2018-03-26 18:38 | NUR ---
Closing note Pt resting, no s/s of SOB or distress, mouth suctioned for some secretions, no grimacing or indications of pain or discomfort. Feeding checked and gtube functioning. pt turned at 1800, heels elevated, HOB elevated, side rails padded. Will endorse wound care to NOC shift as it wasn't completed on this shift.
--- NOTE | 2018-03-26 19:50 | NUR ---
ROUNDS PATIENT IN BED, ON MECHANICAL VENTILATOR, NON VERBAL, VITALS STABLE. NO SIGNS OF ANY PAIN AND DISCOMFORT NOTED. ASSESSMENT DONE AND DOCUMENTED. ON G TUBE FEEDING WITH NEPRO AT 45 ML/HR, NO RESIDUAL NOTED. NEEDS ATTENDED TO. SECRETIONS SUCTIONED. TURNED AND REPOSITIONED AND MADE COMFORTABLE. SAFETY AND FALL PRECAUTION MEASURES IN PLACED. CALL LIGHT PLACED WITHIN REACH.
[2018-03-26] MEDS: ATORVASTATIN 10 MG TABLET GT SCH (21:09)
--- NOTE | 2018-03-26 21:14 | NUR ---
MEDICATION DUE MEDICATIONS GIVEN PER G TUBE ORDERED, TOLERATED WELL. WILL CONTINUE TO MONITOR.
--- NOTE | 2018-03-27 00:10 | NUR ---
PATIENT RESTING: Patient resting quietly. No acute distress noted. Vital signs within normal range.
[2018-03-27 00:18] VITALS: BP_SYST 117
[2018-03-27] MEDS: IPRATROPIUM BROM 0.5 MG/2.5 ML VIAL.NEB (ATROVENT) INH SCH ×4 (01:15→19:22)
[2018-03-27] MEDS: ALBUTEROL SULFATE 0.083% 2.5 MG/3 ML VIAL.NEB INH SCH ×4 (01:15→19:22)
--- NOTE | 2018-03-27 02:11 | NUR ---
ROUNDS PATIENT ASLEEP, NOT IN DISTRESS, NO SIGNS OF ANY PAIN AND DISCOMFORT NOTED. WILL CONTINUE TO MONITOR.
--- NOTE | 2018-03-27 04:10 | NUR ---
PATIENT RESTING: Patient resting quietly. No acute distress noted. Vital signs within normal range.
[2018-03-27] MEDS: PIPERACILLIN/TAZO 2.25G/DEX-IS 50 ML IV SCH ×4 (05:44→23:52)
[2018-03-27] MEDS: PANTOPRAZOLE SODIUM 40 MG TAB GT SCH (06:03)
[2018-03-27] MEDS: PEG 400/HYPROMELLOSE/GLYCERIN 15 ML DROPS OP SCH ×4 (06:04→23:57)
[2018-03-27] MEDS: HYDROcodone/ACETAMIN 5-325 MG TAB (NORCO/ VICODIN) PO SCH ×3 (06:04→21:18)
[2018-03-27 06:13] LABS: CREATININE 5.42 mg/dL (0.55-1.30); POTASSIUM 3.5 mmol/L (3.5-5.1)
[2018-03-27 06:18] LABS: PHOSPHORUS 5.9 mg/dL (2.7-4.5)
--- NOTE | 2018-03-27 06:33 | NUR ---
CLOSING NOTES PATIENT AWAKE, VITALS STABLE, NO PAIN AND DISCOMFORT NOTED. ALL NEEDS ATTENDED TO.SAFETY AND FALL PRECAUTION MEASURES MAINTAINED. WILL ENDORSE TO INCOMING SHIFT NURSE.
[2018-03-27 06:59] LABS: BASOPHILS % (AUTO) 0.3 % (0.0-2.0); EOSINOPHILS # (AUTO) 0.2 K/uL (0.0-0.4); EOSINOPHILS % (AUTO) 1.8 % (0.0-4.0); HEMATOCRIT 25.1 % (36-54); LYMPHOCYTES # (AUTO) 0.4 K/uL (1.0-5.5); LYMPHOCYTES % (AUTO) 4.7 % (20.5-51.5); MEAN CORPUSCULAR HEMOGLOBIN 30 pg (27-31); MEAN CORPUSCULAR HGB CONC 33 % (32-36); MEAN CORPUSCULAR VOLUME 89 fL (79.0-98.0); MONOCYTES # (AUTO) 0.5 K/uL (0.0-1.0); MONOCYTES % (AUTO) 4.8 % (1.7-9.3); NEUTROPHILS # (AUTO) 8.5 K/uL (1.8-7.7); NEUTROPHILS % (AUTO) 88.4 % (40.0-70.0); PLATELET COUNT (AUTO) 251 K/uL (130-430); RED CELL DISTRIBUTION WIDTH 14.8 % (9.0-15.0); WHITE BLOOD COUNT (AUTO) 9.6 K/uL (4.8-10.8)
[2018-03-27 07:00] LABS: HEMOGLOBIN 8.3 g/dL (14.0-18.0)
--- NOTE | 2018-03-27 07:46 | NUR ---
Opening note pt resting in bed, eyes closed, vent and feeding equipment checked. Safety and bed check completed, bed in low locked position with HOB elevated and rails padded. Isolation precautions in place as well.
[2018-03-27 07:58] VITALS: BP_SYST 125
[2018-03-27] MEDS: LACTULOSE 20 GM/30 ML UDC GT SCH ×2 (08:23→20:17)
[2018-03-27] MEDS: SEVELAMER HCL 800 MG TABLET PO SCH ×3 (08:23→17:07)
[2018-03-27] MEDS: CALCIUM ACETATE 667 MG CAP GT SCH (08:24)
[2018-03-27] MEDS: LINEZOLID 300 ML IV SCH ×2 (08:24→20:17)
[2018-03-27] MEDS: levETIRAcetam 500 MG TABLET GT SCH ×2 (08:24→20:17)
[2018-03-27] MEDS: BALSAM PERU/CASTOR OIL 60 GM OINT...G. TP SCH (08:25)
[2018-03-27 09:12] LABS: INR 1.2 (0.80-1.20); PROTHROMBIN TIME 11.8 SECS (9.5-12.5)
--- NOTE | 2018-03-27 10:10 | NUR ---
Rounding note/Rounding with Dr Morales Pt resting in bed, eyes closed, responsive to touch and voice. Will open eyes when instructed. Vent and feeding checked,IV checked. Dr Morales aware that Arielle Foster and Neftali rounded earlier today and that pt to be consented for new dialysis access to be placed by Dr Lindsay tomorrow.
--- NOTE | 2018-03-27 11:55 | NUR ---
Rounding pt resting breathing on ventilator, pt repositioned and vent settings checked. HOB elevated and feeding continues.
[2018-03-27 12:00] VITALS: BP_SYST 109
--- NOTE | 2018-03-27 14:28 | NUR ---
Rounding/pt care pt cleaned and repositioned, wound care completed. Administration of medications completed. G tube has slight amount of bleeding at site. Vent setting and feeding checked. Pt trach and oral suction completed. Oral care attempted but not completed thoroughly. pt resistant, biting down on appliance.
--- NOTE | 2018-03-27 14:39 | NUR ---
DISCHARGE PLANNING - HOLD DISCHARGE TO [facility] DISCHARGE to [facility] is on hold. Dr. Lindsay will place a a new Hemodialysis shunt in AM per pt's 's request. Received call from Ronny from [facility] ph: [phone], stating pt 's bed @ [facility] will be available for him when he is ready for discharge in 1-2 days. Transfer packet in unit pickling machine operator by for safe keeping and update till pt is discharge to [facility] @ the Case Management office. Whe pt is ready for discharge, please contact [facility] directly @ [phone] and ask for greenhouse grower Seam Press Operator, / or contact Will Chu Clinical Liaison @ ph: [phone].
--- NOTE | 2018-03-27 14:40 | NUR ---
Family contact regarding planned surgery tomorrow to change access Talked with on phone regarding planned placement of new dialysis access tomorrow. She is aware and agrees to procedure and will be available by phone for consent. As of now, there is no time set for procedure. Charge indicates that consent to be gathered later when procedure will be explained and there is a set time.
--- NOTE | 2018-03-27 16:06 | NUR ---
Rounding Pt resting, no s/s of SOB or distress, no grimacing or indication of pain or discomfort. Pt left undisturbed. Vent and feeding checked. Bed in low locked position with bed alarm on.
[2018-03-27 16:45] VITALS: BP_SYST 142
--- NOTE | 2018-03-27 17:50 | NUR ---
Rounding Pt feeding change, g tube was starting to clog but cleared by charge. pt repositioned, oral care completed, medication administered, and new scd's applied as one was soiled and the other missing. Vent settings checked. pt has no s/s of SOB or distress, no grimacing or indications of pain at this time, resting with eyes closed.
--- NOTE | 2018-03-27 19:12 | NUR ---
Initial notes Received patient in bed awake alert , confused and no verbal. Patient is on vent and set as ordered. IV noted to r upper chest g22, no infiltrate and good blood return. G tube patent, no kink with 10 cc residual. Multiple wounds noted to buttocks and sacrum, dressing intact.Call light in reach, will cont to monitor.
[2018-03-27 19:15] VITALS: BP_SYST 100; BP_SYST 125
--- NOTE | 2018-03-27 19:24 | NUR ---
Closing note Pt resting,no s/s of SOB or distress, vent and feeding checked, bed and safety check completed, pt report and care endorsed to NOC shift, including planned surgery for tomorrow to change access for dialysis. Surgical packet and and unsigned consent in chart for consent to be signed later. aware but had more questions for doctor Atil. Patient to be NPO and no feeding after midnight. Surgical schedule not set yet. Endorsed care of sacral wound, Buttocks and ear addressed earlier in shift. Contact isolation, seizure, and aspiration precautions remain in place. HOB elevated and bed in low locked position.
[2018-03-27] MEDS: ATORVASTATIN 10 MG TABLET GT SCH (20:17)
--- NOTE | 2018-03-27 21:15 | NUR ---
Rounds Patient is resting in bed at this time. Mena care rendered. No s/s of any distress noted. Call light in reach, will cont to monitor.
--- NOTE | 2018-03-27 22:00 | NUR ---
Dialysis notes Jamshid dialysis nurse called asking about dialysis order. This nurse inform her that femoral permacath is bleeding and will be replaced tomorrow. She said she will order tomorrow. Addendum: 03/28/18 at 0057 by Kofi Edwards RN Correction: Kelli ABREU will call tomorrow.
--- NOTE | 2018-03-27 23:15 | NUR ---
Rounds Change bedding and wound dressing. Patient went to sleep after. NO c/o pain and no s/s of any distress noted. Call light in reach, will cont to monitor.
[2018-03-28 00:30] VITALS: BP_SYST 105
--- NOTE | 2018-03-28 01:03 | NUR ---
Rounds Patient is resting at this time, assisted to turn in bed with Aditya LORENZO. Perform oral suction. No c/o pain and no no distress noted. Call light in reach, will cont to monitor.
[2018-03-28] MEDS: ALBUTEROL SULFATE 0.083% 2.5 MG/3 ML VIAL.NEB INH SCH ×4 (01:25→19:21)
[2018-03-28] MEDS: IPRATROPIUM BROM 0.5 MG/2.5 ML VIAL.NEB (ATROVENT) INH SCH ×4 (01:26→19:21)
--- NOTE | 2018-03-28 04:03 | NUR ---
Rounds Patient is resting at this time. Perform oral suction and oral care.No c/o pain and no no distress noted. Call light in reach, will cont to monitor.
[2018-03-28] MEDS: HYDROcodone/ACETAMIN 5-325 MG TAB (NORCO/ VICODIN) PO SCH ×3 (04:57→21:36)
[2018-03-28] MEDS: PIPERACILLIN/TAZO 2.25G/DEX-IS 50 ML IV SCH ×4 (04:58→23:56)
[2018-03-28] MEDS: PEG 400/HYPROMELLOSE/GLYCERIN 15 ML DROPS OP SCH ×4 (04:58→23:56)
[2018-03-28] MEDS: PANTOPRAZOLE SODIUM 40 MG TAB GT SCH (05:54)
--- NOTE | 2018-03-28 06:11 | NUR ---
Dressing change and AM care Change all dressing to sacral, buttocks and ear as ordered. Tolerated well.
--- NOTE | 2018-03-28 07:05 | NUR ---
End of shift notes Patient is resting at this time. No c/o pain and no distress noted All needs met and anticipated by noc nurses. Call light in reach, bed alarm on and side rails up for safety. Endorse care to day shift nurse.
[2018-03-28 07:10] LABS: BASOPHILS % (AUTO) 0.2 % (0.0-2.0); EOSINOPHILS # (AUTO) 0.2 K/uL (0.0-0.4); EOSINOPHILS % (AUTO) 2.6 % (0.0-4.0); HEMOGLOBIN 7.8 g/dL (14.0-18.0); LYMPHOCYTES # (AUTO) 0.5 K/uL (1.0-5.5); LYMPHOCYTES % (AUTO) 6.8 % (20.5-51.5); MEAN CORPUSCULAR HEMOGLOBIN 30 pg (27-31); MEAN CORPUSCULAR HGB CONC 34 % (32-36); MEAN CORPUSCULAR VOLUME 89 fL (79.0-98.0); MONOCYTES # (AUTO) 0.3 K/uL (0.0-1.0); MONOCYTES % (AUTO) 4.4 % (1.7-9.3); NEUTROPHILS # (AUTO) 6.2 K/uL (1.8-7.7); PLATELET COUNT (AUTO) 213 K/uL (130-430); RED BLOOD CELL COUNT(AUTO) 2.59 MIL/uL (4.2-6.2); RED CELL DISTRIBUTION WIDTH 14.7 % (9.0-15.0); WHITE BLOOD COUNT (AUTO) 7.2 K/uL (4.8-10.8)
[2018-03-28 07:13] LABS: CALCIUM 8.5 mg/dL (8.4-11.0); CREATININE 6.1 mg/dL (0.55-1.30); PHOSPHORUS 6.6 mg/dL (2.7-4.5); POTASSIUM 3.7 mmol/L (3.5-5.1)
--- NOTE | 2018-03-28 07:15 | NUR ---
Opening Note patient resting in bed, eyes closed, breathing unlabored on mechanical ventilator, no signs of distress, g-tube feeding held at this time for NPO status prior to procedure, positioned with pillow support and head of bed elevated, safety and isolation precautions in place, bed alarm on, will continue to monitor closely
[2018-03-28] MEDS: CALCIUM ACETATE 667 MG CAP GT SCH (08:00)
[2018-03-28 08:38] VITALS: BP_SYST 106
--- NOTE | 2018-03-28 08:40 | NUR ---
DC Planning; LTAC Eval User: Cris Lopez STEFANY Date: 03/25/18 14:22 Type: Geriatrics Physician Notes Discharge Planning Note: Pt has an order for LTAC Eval/Transfer. [facility] called and spoke with Will Mooney, Kimberley ([phone]), to request LTAC evaluation. Kimberley states that she will follow up. [facility] faxed pt's face sheet to Kimberley ([phone]). Addendum: 03/28/18 at 0844 by Manjit Reno RN User: Nithya Dias RN Date: 03/26/18 13:00 Type: Nurse Notes DISCHARGE PLANNING - TRANSFER TO [facility] IN [place] Received call from Ronny Wallace, Pt Quality Control Auditor for [facility]. They are accepting pt. Room assigned is 310A. Attempted to contact pt's sister and . Left vm and contact phone # for CM. Addendum: 03/26/18 at 1710 by Nithya Dias RN Received call from pt's sister, Monica Armstrong ph: [phone]. She agreed to transfer to [place]. She said she will notify pt's . Pt's called @3PM refusing transfer until has access for Hemodialysis. Inpt BRADY Caldwell and Larisa aware. [facility] cancelled as pt's refusing transfer. Transfer packet with CD left with inpt BRADY Peres. Inpt RN will notify attending MD and [facility].
[2018-03-28] MEDS: levETIRAcetam 500 MG TABLET GT SCH ×2 (09:00→21:37)
[2018-03-28] MEDS: LACTULOSE 20 GM/30 ML UDC GT SCH ×2 (09:00→21:37)
[2018-03-28] MEDS: SEVELAMER HCL 800 MG TABLET PO SCH ×3 (09:00→17:38)
[2018-03-28] MEDS: LINEZOLID 300 ML IV SCH ×2 (09:24→21:36)
--- NOTE | 2018-03-28 10:05 | NUR ---
[facility] [phone]JAMAL FERNÁNDEZ AAMIR COATING MANAGER.
--- NOTE | 2018-03-28 10:13 | NUR ---
Spoke with Dr. Aleman Over the Phone stated patient is to not receive AV shunt for negative outcomes last attempt, stated patient is to get hemodialysis and blood transfusion
--- NOTE | 2018-03-28 10:18 | NUR ---
[facility] [phone] SPOKE WITHBrett MENDEZ.
--- NOTE | 2018-03-28 10:19 | NUR ---
Spoke to DR. Lindsay relayed the message from Dr. Aleman not put an AV SHUNT due to negative outcome last surgery, to call Dr. Aleman if thers any question.
[2018-03-28] MEDS ORDERED: fentaNYL CITRATE/PF 100 MCG/2 ML AMP IVP ONE (11:40)
[2018-03-28] MEDS ORDERED: NS 1000 ML IV.SOLN IV ONE (11:40)
[2018-03-28] MEDS ORDERED: MIDAZOLAM HCL 5 MG/5 ML VIAL IVP ONE (11:40)
[2018-03-28] MEDS ORDERED: GELATIN SPONGE 12 X 7 (GELFOAM) TP ONE (11:40)
[2018-03-28] MEDS ORDERED: HEPARIN SODIUM, PORCINE 10,000 UNITS/ 10 ML VIAL MC ONE (11:40)
[2018-03-28 12:00] VITALS: BP_SYST 117
--- NOTE | 2018-03-28 12:05 | NUR ---
Dr. Lindsay Spoke with over the phone, consented to the procedure, patient taken to OR, will check on patient when he returns
[2018-03-28] MEDS ORDERED: ONDANSETRON HCL 4 MG/2 ML VIAL IVP PRN (12:30)
[2018-03-28] MEDS ORDERED: fentaNYL CITRATE/PF 100 MCG/2 ML AMP IVP PRN ×2 (12:30)
--- NOTE | 2018-03-28 13:06 | NUR ---
Nutrition F/U Admitting Diagnosis Anemia, pneumonia, ESRD, CRF, DM Reviewed Pertinent Medical/Surgical Hx Medical Record Patient Primary RN Medical History Comment: PMH: ESRD, CVA, anemia, chronic respiratory failure, dysphagia, sepsis, quadriplegia per MD notes Pt also found w/ dialysis catheter malfunction, MRSA bacteremia, sepsis, vasomotor nephropathy, ESRD, anemia of chronic illness, CVA, quadriplegia, chronic respiratory failure, dysphagia, severe malnutrition, and hyponatremia per MD notes 03/21/18 MD Progress notes: Left Pleural Effusion 03/22/18 ID MD note: NIP WRAPPER/MDRO PSEUDOMONAS AND PROVIDENCIA PNEUMONIA, MRSA SEPTISEMIA, LINE SEPSIS, ESRD, VDRF, EMPYEMA-MRSA Subjective Information Pt seen resting in bed, +trach to vent, TF on hold. Pt is for AV shunt placement. Per RN, pt's TF on hold for NPO status prior to procedure. TF was held since 12 midnight. Per EMR, abd is soft and distended w/ active bowel sounds. I/O: 1715/0 +1715ml per 12 hrs. TF intake 1080ml per 24 hrs 03/27/18. Last BM 03/28/18 x 6. Currently on NPO. Current Diet Order/Nutrition Support NPO Patient/Significant Other Unable To Verbalize Education Provided Not Indicated Pertinent Medications piperacillin/tazobactam IV, renagel, zinc sulfate, phoslo, protonix, lactulose Pertinent Labs Na 125 L, BG 89 WNL, BUN 72 H, CRE 6.10 H, ALB 1.7 L(03/21/18), eGFR 10 L, WBC 7.2 WNL (improved), H/H 7.8 L/23 L, P 6.6 H Height (Feet) 5 feet Height (Inches) 11.00 inches NEW Weight (Pounds) 172 pounds (03/21/18 by RN) Weight (Calculated Kilograms) 78.103 kilograms Patient Weight 78.103 kg Body Mass Index 24.1 kg/m2 %IBW 100 [place]/Adjusted Body Weight IBW: 172 lb, 78 kg. Adj IBW (quadriplegia): 151 lb, 68 kg Recent Weight Change Yes, wt gain per EMR Weight Status Appropriate Gastrointestinal Symptoms None Last BM 03/28/18 x6 Skin Integrity Comment: Brady scale: 10; per As[employer] note 03/25/18: 1) Sacral-Coccygeal Area: Scar tissue, present on admission. 2) Left Buttock at Ischial Tuberosity: Non-intact skin over scar tissue, present on admission. 3) Right Buttock at Ischial Tuberosity: Unstageable pressure ulcer, present on admission. Per RN notes, generalized 2+ non-pitting edema ; 1+ non-pitting edema of scrotal area. Estimated Energy Expenditure (kcals/day) 5972-9679 kcal/day (25-30 kcal/kg CBW for maintenance) Estimated Protein Required (g/day) 91-106 gm/day (1.2-1.4 gm/kg CBW for ESRD, HD) Estimated Fluid Required (l/day) Per MD (ESRD) Problem/Etiology/Signs/Symptoms Altered nutrition-related labs related to renal dysfunction as evidenced by abnormal BUN, CRE, and eGFR lab values. *ongoing Expected Outcomes/Goals - Monitor tolerance to EN support w/ goal of pt meeting at least 75% of estimated nutritional needs, labs trending WNL, normal GI function, and skin integrity/wt maintenance Dietitian Recommendations * Recommend restarting Nepro at 45 ml/hr via GT per MD when medically appropriate. Provides: 1944 kcal/day, 87 gm protein/day, and 785 ml free water/day Meets: 102% of lower end of estimated caloric needs and 96% of lower end of estimated protein needs Follow Up High Risk: F/U in 2-3 days
--- NOTE | 2018-03-28 13:15 | NUR ---
Dietitian Recommendations * Recommend restarting Nepro at 45 ml/hr via GT per MD when medically appropriate. Provides: 1944 kcal/day, 87 gm protein/day, and 785 ml free water/day Meets: 102% of lower end of estimated caloric needs and 96% of lower end of estimated protein needs Please see Nutrition F/U note for details. TRIXIE, RD
--- NOTE | 2018-03-28 13:16 | NUR ---
DC Planning: Called [facility] # [phone], per Jesus : the pt is a long time resident , she will take the pt. back once stable. But the facility has no bed at today. CM made aware the pt. is in OR for AV Shunt placement. CM will verify with md for dcp to [facility] vs. returning to [facility].
--- NOTE | 2018-03-28 13:58 | NUR ---
Patient Back on Unit at this time, he was positioned in bed, breathing unlabored on mechanical ventilator, IV site saline locked, SCDs on for DVT prophylaxis, patient to receive dialysis today and transfuse packed RBC, safety precautions in place, bed alarm on, will continue to monitor
[2018-03-28] MEDS ORDERED: ASPIRIN 81 MG TABLET(ECOTRIN) PO ONE (14:15)
--- NOTE | 2018-03-28 14:15 | NUR ---
Vital Signs Stable at this time, patient resting in bed, awake and alert, HOB elevated, IV site saline locked, G-tube feeding held at this time, will ask MD if can continue medications, SCDs on for DVT prophylaxis, safety and isolation precautions in place, will continue to monitor
--- NOTE | 2018-03-28 14:21 | NUR ---
MD HARRISON CALLED [facility] AT [phone] SPOKE WITH FIORDALIZA.
--- NOTE | 2018-03-28 15:15 | NUR ---
Blood Transfusion Initiated at this time, vital signs stable, verified with 2 RN's, dialysis at bedside, blood transfusion to be transfused during dialysis per MD orders, patient resting in bed, no signs of distress at this time, safety precautions remain in place, bed alarm on, on continuous telemetry monitoring, will continue to monitor
[2018-03-28 15:30] VITALS: BP_SYST 100
--- NOTE | 2018-03-28 15:53 | NUR ---
Second Unit PRBCs Started at this time, verified with 2 RNs, to be infused during dialysis, patient shows no signs of distress at this time, breathing unlabored on mechanical ventilatory, HOB elevated, safety precautions remain in place, will continue to monitor
[2018-03-28] MEDS: BALSAM PERU/CASTOR OIL 60 GM OINT...G. TP SCH (15:57)
--- NOTE | 2018-03-28 16:21 | NUR ---
Medications Administered at this time via g-tube, Dr. Neftali FRASER'ed g-tube feeding to be resumed and medications to be resumed, dialysis still at bedside, patient resting in bed no signs of distress, positioned with pillow support, HOB elevated, safety and isolation precautions remain in place, bed alarm on, will continue to monitor
[2018-03-28 17:05] VITALS: BP_SYST 99
--- NOTE | 2018-03-28 17:20 | NUR ---
Dr. Ash Villegas MD wanted to reach out to case management concerning patient's placement, informed him that case management is gone for the day, verbalized understanding, patient receiving dialysis at this time, no signs of distress
--- NOTE | 2018-03-28 17:54 | NUR ---
G-tube Residual assessed, was 120 mL of water, holding g-tube feeding to give stomach a rest, IV site saline locked, breathing unlabored on mechanical ventilator, positioned with pillow support, safety and isolation precautions in place, bed alarm on, will continue to monitor
--- NOTE | 2018-03-28 18:13 | NUR ---
Dialysis Finished at bedside, 0 L removed due to patient's BP, garment sewing machine operator aware Dr. Aleman, made rounds during dialysis, patient resting in bed, eyes closed, breathing unlabored on room air, safety precautions in place, bed alarm on, on continuous telemetry monitoring, will continue to monitor
--- NOTE | 2018-03-28 18:59 | NUR ---
Closing Note Patient resting in bed, awake and alert, BP stable at this time, 100/66, g-tube residual assessed, was 20 mL, resumed tube feeding at this time, he is positioned with pillow support, HOB elevated, no signs of distress, IV site saline locked, SCDs on for DVT prophylaxis, safety precautions in place, bed alarm on, will endorse to welding pantograph machine operator nurse
--- NOTE | 2018-03-28 19:35 | NUR ---
Initial Notes Received handoff report from BRADY Loredo at the bedside. Patient is awake, resting comfortably in bed. No SOB, no acute distress, no signs of pain or discomfort. Tolerating trach to vent settings. Bed is locked, in the lowest position, 2x side rails up, bed alarm is on. Call light within reach. Will continue with plan of care.
[2018-03-28 20:00] VITALS: BP_SYST 109
--- NOTE | 2018-03-28 21:00 | NUR ---
Patient is s/p Left AV shunt placement. Bruit and thrill felt on site. Dressing is clean dry and intact. Cap refill is <3 seconds. No complications noted at this time.
[2018-03-28] MEDS: ATORVASTATIN 10 MG TABLET GT SCH (21:36)
--- NOTE | 2018-03-28 23:20 | NUR ---
Mitch () called regarding update on surgery. Informed that a Left AV shunt has been placed. Per request, also wanted to know the vital signs. No further questions at this time.
[2018-03-29 00:20] VITALS: BP_SYST 102
[2018-03-29] MEDS: ALBUTEROL SULFATE 0.083% 2.5 MG/3 ML VIAL.NEB INH SCH ×4 (00:35→19:24)
[2018-03-29] MEDS: IPRATROPIUM BROM 0.5 MG/2.5 ML VIAL.NEB (ATROVENT) INH SCH ×4 (00:35→19:24)
--- NOTE | 2018-03-29 00:49 | NUR ---
Patient is asleep, resting comfortably in bed. No SOB, no acute distress, no signs of pain or facial grimacing noted. Tolerating trach to vent settings. Gtube feeding infusing nephro at 45ml/hr. Bed is locked, in the lowest position, 2x side rails up, bed alarm is on. Call light is within reach on right arm.
--- NOTE | 2018-03-29 02:58 | NUR ---
Incontinence care and full bed bath done for the patient. Patient was incontinent of stool. Cleansed patient with soap and water, and then cleansed again with chlorhexidine wipes. Wound care done. Turned and repositioned the patient. Patient then had a bowel movement. Dressing to right buttocks soiled. Provided incontinence care for a second time and dressing change to right buttocks. Patient is now clean and dry, resting comfortably in bed. No SOB, no acute distress, no signs of pain or facial grimacing. Breathing is even and unlabored with visible chest rise and fall noted. Call light is within reach. Bed is locked, in the lowest position, 2x side rails up, bed alarm is on.
[2018-03-29] MEDS: HYDROcodone/ACETAMIN 5-325 MG TAB (NORCO/ VICODIN) PO SCH ×2 (04:57→15:02)
[2018-03-29] MEDS: PIPERACILLIN/TAZO 2.25G/DEX-IS 50 ML IV SCH ×2 (04:58→12:17)
[2018-03-29] MEDS: PEG 400/HYPROMELLOSE/GLYCERIN 15 ML DROPS OP SCH ×3 (04:58→18:12)
--- NOTE | 2018-03-29 05:52 | NUR ---
Focused Factory Manager at the bedside to draw blood for labs from the right arm. RT also at the bedside, provided suction for the patient. Patient tolerated both procedures well. Limb alert placed on the patient's left arm, since the patient had a left AV shunt placed on 03/28/[address] Lindsay. Bed is locked, placed back in the lowest position, 2x side rails up, bed alarm is on. Seizure pads removed on the right side for easier access by the pre press proofer. Seizure pad has been reapplied.
[2018-03-29] MEDS: PANTOPRAZOLE SODIUM 40 MG TAB GT SCH (06:23)
--- NOTE | 2018-03-29 06:24 | NUR ---
Patient is missing armband. Notified admitting to print a new armband.
--- NOTE | 2018-03-29 06:42 | NUR ---
Patient had an episode of incontinence. Provided incontinence care. Patient is now clean and dry. Patient's IV site in right upper chest came out during patient care. Site is bleeding. Pressure applied for 5 minutes, and bleeding stopped. Attempted to start new IV with no success. Noted that patients left femoral kirstin cath dressing is drenched in blood. Notified charge nurse, who advised me to reinforce kirstin cath site with 4x4 gauze, apply pressure, and then monitor for more bleeding.
[2018-03-29 06:48] LABS: BASOPHILS % (AUTO) 0.2 % (0.0-2.0); EOSINOPHILS # (AUTO) 0.2 K/uL (0.0-0.4); EOSINOPHILS % (AUTO) 2.3 % (0.0-4.0); HEMATOCRIT 28.9 % (36-54); HEMOGLOBIN 9.9 g/dL (14.0-18.0); LYMPHOCYTES # (AUTO) 0.3 K/uL (1.0-5.5); LYMPHOCYTES % (AUTO) 4.3 % (20.5-51.5); MEAN CORPUSCULAR HEMOGLOBIN 31 pg (27-31); MEAN CORPUSCULAR HGB CONC 34 % (32-36); MEAN CORPUSCULAR VOLUME 90 fL (79.0-98.0); MONOCYTES # (AUTO) 0.5 K/uL (0.0-1.0); MONOCYTES % (AUTO) 6.5 % (1.7-9.3); NEUTROPHILS # (AUTO) 6.1 K/uL (1.8-7.7); NEUTROPHILS % (AUTO) 86.7 % (40.0-70.0); PLATELET COUNT (AUTO) 177 K/uL (130-430); RED CELL DISTRIBUTION WIDTH 14.2 % (9.0-15.0); WHITE BLOOD COUNT (AUTO) 7.1 K/uL (4.8-10.8)
--- NOTE | 2018-03-29 07:08 | NUR ---
Stefanie made aware that the patient does not have IV access, and stated that she will attempt to start an IV.
[2018-03-29 07:28] LABS: CALCIUM 8.1 mg/dL (8.4-11.0); POTASSIUM 3.8 mmol/L (3.5-5.1)
[2018-03-29 07:29] LABS: CREATININE 4.84 mg/dL (0.55-1.30)
--- NOTE | 2018-03-29 07:43 | NUR ---
CLOSING NOTES Handoff report given to Анна ABREU at the bedside. Patient is awake, resting comfortably in bed. No SOB, no acute distress, no signs of pain or facial grimacing at this time. Tolerating trach to vent settings. GTUBE feeding infusing Nephro at 45ml/hr. Bed is locked, in the lowest position, 2x side rails up, bed alarm is on. Call light is within reach. Fall and safety precautions maintained. All needs have been met during this shift.
--- NOTE | 2018-03-29 07:45 | NUR ---
OPENING NOTE: MORNING REPORT WAS TAKEN FROM TECHNICAL SUPPORT INTERNSHIP NURSE. PATIENT IS AWAKE BUT NON VERBAL. PATIENT IS ON A VENT WITH SETTINGS OF AC 12, FIO2 28%, TV 550, AND PEEP 5. PATIENT HAS TUBE FEEDING INFUSING. PATIENT HAS RESIDUAL OF 10ML. PATIENT DOES NOT HAVE IV ACCESS BECAUSE IT CAME OUT A WHILE AGO ON TECHNICAL SUPPORT INTERNSHIP BECAUSE OF TURNING PATIENT. PATIENT HAS SHUNT ON LEFT ARM WITH SOME WELLING. PATIENT HAS FEMORAL TAMIKA DRESSING WITH BLOOD. WILL MONITOR BLEEDING AND CHANGE DRESSING NEEDED. PATIENT HAS SCD'S ON. FEET ARE SWOLLEN. PULSES HARD TO PALPATE. CHECKED PULSES WITH DOPPLER, AND ARE PRESENT. CAP REFILL LESS THAN 3 SEC. PADDED SIDE RAILS ARE UP AND BED IS IN LOWEST POSITION WITH BED ALARM ON. WILL CONTINUE TO MONITOR.
[2018-03-29 08:04] VITALS: BP_SYST 124
[2018-03-29] MEDS: LACTULOSE 20 GM/30 ML UDC GT SCH (08:54)
[2018-03-29] MEDS: levETIRAcetam 500 MG TABLET GT SCH (08:55)
[2018-03-29] MEDS: SEVELAMER HCL 800 MG TABLET PO SCH ×3 (08:55→18:12)
[2018-03-29] MEDS: CALCIUM ACETATE 667 MG CAP GT SCH (08:56)
[2018-03-29] MEDS: LINEZOLID 300 ML IV SCH (08:56)
[2018-03-29] MEDS ORDERED: ASPIRIN 81 MG TABLET(ECOTRIN) PO SCH (09:00)
--- NOTE | 2018-03-29 09:20 | NUR ---
NOTE: GAVE PATIENT MORNING MEDICATIONS. IV WAS STARTED BY AN IN RIGHT WRIST 22 GAUGE. PUT NEW STERIL WATER AND ORAL KIT AT BEDSIDE. ORAL CARE WAS DONE. PATIENT WAS POSITIONED FOR COMFORT. PATIENT HAD BOWEL MOVEMENT. WILL CONTINUE TO MONITOR.
[2018-03-29 10:07] VITALS: BP_SYST 124
--- NOTE | 2018-03-29 10:38 | NUR ---
: DR. CANTRELL CAME AND SAW PATIENT. CHECKED AV SHUNT WITH DOPPLER. EVERYTHING WAS OKAY. LET DR. CANTRELL KNOW FEMORAL PORT BLEEDING. SAID HE KNOWS AND ITS BEEN LIKE THAT.
--- NOTE | 2018-03-29 10:57 | NUR ---
MD/SHUNT: DR. TRIPP CAME AND SAW PATIENT. SAID TO USE AV SHUNT TOMORROW FOR DIALYSIS. SO THAT IF IT WORKS THEN THEY CAN TAKE OUT FEMORAL PORT.
--- NOTE | 2018-03-29 11:39 | NUR ---
DC Planning: [facility] # [phone]: LVM to housesup line and to direct support professional caregiver /Mary to confirm bed availability as assigned. The pt is ready for transfer today. Pt's spouse/Monica agreed with the transfer today to [facility].
[2018-03-29 12:00] VITALS: BP_SYST 100
[2018-03-29] MEDS: BALSAM PERU/CASTOR OIL 60 GM OINT...G. TP SCH (12:18)
--- NOTE | 2018-03-29 12:20 | NUR ---
NOTE: GAVE PATIENT SCHEDULED MEDICATIONS. WOUND CARE WAS DONE ON PATIENT BECAUSE DRESSINGS CAME OFF. PATIENT CLEANED AND REPOSITIONED. ANTIBIOTICS ARE INFUSING. DID ORAL CARE FOR PATIENT. PATIENT'S FEEDING IS INFUSING. PADDED SIDE RAILS ARE UP. WILL CONTINUE TO MONITOR.
--- NOTE | 2018-03-29 14:59 | NUR ---
NOTE: PATIENT LAYING IN BED WITH NO SIGNS OF DISTRESS. GAVE PATIENT [place]CO SCHEDULED. PATIENT WAS REPOSITIONED FOR COMFORT. FEEDING IS IN FUSING. PATIENT SALINE LOCKED. WILL CONTINUE TO MONITOR.
--- NOTE | 2018-03-29 15:32 | NUR ---
DC Planning: bed assignment 501 at [facility]. Per Mark, the bed is available after 7 pm today. Rn to report # [phone]. Addendum: 03/29/18 at 1617 by Manjit Reno RN >> Arranged by SOFIA Winslow: [facility] with [facility] ambulance transport. sanitary landfill supervisor at 7 pm. # [phone] -- BRADY Jj made aware.
--- NOTE | 2018-03-29 15:50 | NUR ---
CASE MANAGEMENT: INFORMED ME THAT PATIENT IS TO BE LEAVING TO [facility] AT 7PM. WILL GIVE REPORT AND FINISH PAPER WORK.
[2018-03-29 16:00] VITALS: BP_SYST 114
--- NOTE | 2018-03-29 16:13 | NUR ---
Wound Re-Evaluation: Patient received in a [place] bed with an Isoflex [place] mattress with low air loss therapy, awake, non-verbal, non-responsive to verbal commands. Brady score is a 12. Skin is in poor condition. Patient is unable to turn in bed independently. Intrinsic factors that delay wound healing: Chronic Respiratory Failure, End-Stage Renal Disease, and Hypoalbuminemia. Extrinsic factors that delay wound healing: Immobility. Blood Culture x [address] a folded towel underneath head at all times. Wound care performed by dayshift nurse. Dressings not removed for assessment secondary to doing so would decrease wound temperature and retard wound healing rate. Wound Assessment: 1) Sacral-Coccygeal Area: Scar tissue, present on admission. Deidra-wound and surrounding tissue has scar tissue. Recommend continue: Cleanse area with normal saline. Pat dry. Apply moisture barrier cream onto site. Apply Venelex ointment over any areas not covered by moisture barrier cream. Cover with Sacral foam dressing. Perform wound care daily, and as needed for dressing soiling or dislodgment. 2) Left Buttock at Ischial Tuberosity: Non-intact skin over scar tissue, present on admission. Deidra-wound and surrounding tissue has scar tissue. Recommend continue: Cleanse area with normal saline. Pat dry. Cover area with moisture barrier cream. Cover with foam dressing. Perform wound care daily, and as needed for dressing soiling or dislodgment. 3) Right Buttock at Ischial Tuberosity: Unstageable pressure ulcer, present on admission. Recommend continue: Cleanse wound with normal saline. Put moisture barrier cream onto deidra-wound. Put Venelex ointment onto wound bed. Pack wound with 1/4 inch Iodoform packing strip. Cover with foam dressing. Perform wound care daily, and as needed for dressing soiling or dislodgment. Also recommend continue: Reposition patient side to side only every two hours with pillow support, and off-load pressure areas with pillows for pressure re-distribution. Perform skin care and monitor skin integrity q shift. Use moisture barrier cream on deidra, buttocks, and other moisture susceptible areas qid and as needed for soiling. Elevate, offload, and float bilateral heels and elbows with pillows at all times. Maintain patient on a low air-loss mattress.
--- NOTE | 2018-03-29 16:51 | NUR ---
CALLED : CALLED [facility] FOR CONSENT DISCHARGE AND TO TRANSFER TO [facility]. OKAYED AND WITNESSED WITH JOMAR ABREU.
--- NOTE | 2018-03-29 16:59 | NUR ---
: PAGED DR. CANTRELL IF IT IS OKAY TO USE AV SHUNT TOMORROW, PER DR. TRIPP, FOR DIALYSIS EVEN THOUGH NOTES SAY CAN USE IN WEEK.
--- NOTE | 2018-03-29 17:01 | NUR ---
: DR. CANTRELL SAID IT IS OKAY TO USE AV SHUNT TOMORROW FOR DIALYSIS.
--- NOTE | 2018-03-29 17:18 | NUR ---
REPORT: GAVE REPORT TO FELECIA ABREU AT [facility].
[2018-03-29 17:19] VITALS: BP_SYST 114
[2018-03-29] MEDS ORDERED: PIPERACILLIN/TAZO 2.25G/DEX-IS 50 ML IV SCH (18:00)
--- NOTE | 2018-03-29 18:30 | NUR ---
CLOSING NOTE: TOOK PICTURES OF PATIENT'S WOUNDS FOR DISCHARGE. PUT NEW DRESSINGS ON THEM. PATIENT WAS CHANGED TO DISCHARGE GOWN. PATIENT STILL ON VENT AND SETTINGS HAVE NOT CHANGED THROUGH OUT SHIFT. PATIENT HAS ANTIBIOTICS FINISHING UP. EPOETIN WAS GIVEN LATE BECAUSE IT WASNT IN [place]. TOOK OFF SCD'S BECAUSE PATIENT ABOUT TO LEAVE. DISCONNECT FEEDING ALSO. DISCHARGE PAPER WORK READY. WILL CONTINUE TO MONITOR AND GIVE REPORT TO GLOBAL COMMODITY MANAGER NURSE.
[2018-03-29] MEDS: EPOETIN ALFA 10,000 UNITS/ML VIAL SUBCUT SCH (18:57)
--- NOTE | 2018-03-29 19:48 | NUR ---
Initial Notes Received report from offgoing nurse Mingo at the bedside. Patient is awake, resting comfortably in bed. No SOB, no acute distress, no signs of pain or facial grimacing. Tolerating trach to vent settings. IV site is intact on the right hand, dressing clean and dry, saline locked. Patient is currently in orange linen for discharge. Bed is locked, in the lowest position, 2x side rails up, bed alarm is on. Call light is within reach. Will continue with plan of care.
--- NOTE | 2018-03-29 19:55 | NUR ---
CALLED [facility] BATEMAN TO LET HER KNOW HAS NOT BEEN DISCHARGED YET AND AMBULANCE IS RUNNING LATE. LET NIGHT NURSE KNOW TO CALL HER WHEN PATIENT LEAVING PER 'S REQUEST.
[2018-03-29] MEDS ORDERED: LINEZOLID 300 ML IV SCH (21:00)
--- NOTE | 2018-03-29 21:00 | NUR ---
CALLED [facility] TO INQUIRE ABOUT WHEN THE STRUCTURAL IRON WORKER TIME WILL BE. HOWEVER, WHILE SPEAKING TO [facility] AUTOMATIC BRINE MIXER OPERATOR, [facility] ARRIVED ON THE UNIT.
--- NOTE | 2018-03-29 21:47 | NUR ---
PATIENT HAS BEEN DISCHARGED WITH [facility]. [facility] MADE AWARE. [facility]S CALLED TO COME AND CLEAN THE ROOM. Addendum: 03/29/18 at 2234 by Leena Burr RN CONTINUATION OF NOTES ALL HOSPITAL PROVIDED ARM BANDS HAS BEEN REMOVED. GTUBE TUBING REMOVED. RECEIVED FROM REPORT THAT THE RN AT [facility] WANTS TO KEEP THE IV SITE, SO PATIENT HAS BEEN DISCHARGED WITH IV SITE. PATIENT LEFT CLEAN AND DRY.
== END 2018-03-29 21:50 | DRG 270 ==
LOC: STU 15:15 → SIC 03-23 12:30 → STU 03-25 19:19
PROVIDERS: ADMIT Family Medicine; ATTEND Family Medicine
PROC: 5A1D70Z Performance of Urinary Filtration, Intermittent, Less than 6 Hours Per Day (ICD-10-PCS; 2018-03-15)
PROC: B547ZZA Ultrasonography of Left Subclavian Vein, Guidance (ICD-10-PCS; 2018-03-15)
PROC: B546ZZA Ultrasonography of Right Subclavian Vein, Guidance (ICD-10-PCS; 2018-03-15)
PROC: 06HY33Z Insertion of Infusion Device into Lower Vein, Percutaneous Approach (ICD-10-PCS; 2018-03-15)
PROC: 0W9B3ZZ Drainage of Left Pleural Cavity, Percutaneous Approach (ICD-10-PCS; 2018-03-16)
PROC: 5A1D70Z Performance of Urinary Filtration, Intermittent, Less than 6 Hours Per Day (ICD-10-PCS; 2018-03-16)
PROC: 5A1D70Z Performance of Urinary Filtration, Intermittent, Less than 6 Hours Per Day (ICD-10-PCS; 2018-03-18)
PROC: 30233N1 Transfusion of Nonautologous Red Blood Cells into Peripheral Vein, Percutaneous Approach (ICD-10-PCS; 2018-03-18)
PROC: 5A1D70Z Performance of Urinary Filtration, Intermittent, Less than 6 Hours Per Day (ICD-10-PCS; 2018-03-21)
PROC: 02BN0ZX Excision of Pericardium, Open Approach, Diagnostic (ICD-10-PCS; 2018-03-23)
PROC: 5A1D70Z Performance of Urinary Filtration, Intermittent, Less than 6 Hours Per Day (ICD-10-PCS; 2018-03-23)
PROC: 0W9D0ZZ Drainage of Pericardial Cavity, Open Approach (ICD-10-PCS; 2018-03-24)
PROC: 5A1D70Z Performance of Urinary Filtration, Intermittent, Less than 6 Hours Per Day (ICD-10-PCS; 2018-03-24)
PROC: 5A1955Z Respiratory Ventilation, Greater than 96 Consecutive Hours (ICD-10-PCS; principal; 2018-03-25)
PROC: 5A1D70Z Performance of Urinary Filtration, Intermittent, Less than 6 Hours Per Day (ICD-10-PCS; 2018-03-25)
PROC: 5A1D70Z Performance of Urinary Filtration, Intermittent, Less than 6 Hours Per Day (ICD-10-PCS; 2018-03-26)
PROC: 03180KD Bypass Left Brachial Artery to Upper Arm Vein with Nonautologous Tissue Substitute, Open Approach (ICD-10-PCS; 2018-03-28)
PROC: 5A1D70Z Performance of Urinary Filtration, Intermittent, Less than 6 Hours Per Day (ICD-10-PCS; 2018-03-28)
DX: T82.41XA Breakdown (mechanical) of vascular dialysis catheter, initial encounter (principal); A41.02 Sepsis due to Methicillin resistant Staphylococcus aureus; E43 Unspecified severe protein-calorie malnutrition; G93.41 Metabolic encephalopathy; N17.0 Acute kidney failure with tubular necrosis; G82.50 Quadriplegia, unspecified; I63.9 Cerebral infarction, unspecified; N18.6 End stage renal disease; J18.1 Lobar pneumonia, unspecified organism; E87.1 Hypo-osmolality and hyponatremia; G93.1 Anoxic brain damage, not elsewhere classified; I12.0 Hypertensive chronic kidney disease with stage 5 chronic kidney disease or end stage renal disease; I31.3 Pericardial effusion (noninflammatory); J96.10 Chronic respiratory failure, unspecified whether with hypoxia or hypercapnia; R40.3 Persistent vegetative state; Z99.11 Dependence on respirator [ventilator] status; J90 Pleural effusion, not elsewhere classified; E11.22 Type 2 diabetes mellitus with diabetic chronic kidney disease; E78.5 Hyperlipidemia, unspecified; G40.909 Epilepsy, unspecified, not intractable, without status epilepticus; R13.10 Dysphagia, unspecified; Z74.01 Bed confinement status; Z78.9 Other specified health status; Z86.14 Personal history of Methicillin resistant Staphylococcus aureus infection; Z86.73 Personal history of transient ischemic attack (TIA), and cerebral infarction without residual deficits; Z93.0 Tracheostomy status; Z93.1 Gastrostomy status; Z99.2 Dependence on renal dialysis; D63.8 Anemia in other chronic diseases classified elsewhere; Y83.8 Other surgical procedures as the cause of abnormal reaction of the patient, or of later complication, without mention of misadventure at the time of the procedure; Y92.89 Other specified places as the place of occurrence of the external cause
CPT/HCPCS: 32555; 36415; 71045; 71250-TC; 71270-TC; 80048; 80053; 80202-TC; 82947-TC; 83036; 83540-TC; 83550-TC; 83605; 83615-TC; 83735-TC; 84100-TC; 84157-TC; 85007; 85025; 85027; 85610-TC; 85730-TC; 86870; 86886; 86900; 86901; 86920; 87040-TC; 87070-TC; 87075-TC; 87081; 87101; 87116; 87186-TC; 88108; 88305; 89051-TC; 89060-TC; 90935; 90937; 93005; 93306; 93970; 94002; 94003; 94640; 94760; C1729; C1750; C1751; C1894; J0713; J0885; J1644; J2001; J2020; J2250; J2543; J2704; J3010; J3370; J3490; J7030; J7040; J7050; J7060; J7613; NO CODE; P9021; P9046